=== PATIENT | female | born 1985 | race Caucasian/White ===

== ENCOUNTER 2020-01-17 16:03 | Inpatient (IN) | payer OTHER ==
--- OUTSIDE RECORDS SUMMARY | 2020-01-17 16:05 | XMS REPORT | Continuity of Care Document ---
:1985 Author Organization [facility] t Address [address] [place] [place] [address] Care Team Providers Name Role Phone Nancy Zapata Attending Clinician Lab, Duy Salmon I Attending Clinician Unavailable Problems This patient has no known problems. Allergies, Adverse Reactions, Alerts This patient has no known allergies or adverse reactions. Medications This patient has no known medications. Procedures This patient has no known procedures. Encounters Start End Encounter Admission Attending Care Care Encounter Source Date/Time Date/Time Type Type Clinicians Facility Department ID 2020-01-11 2020-01-11 Telephone STEVE Mi [id number] 00:00:00 00:00:00 Michele EDGE [id number] [facility] [id number] 2020-01-10 2020-01-10 Laboratory Lab, [facility] [id number] 14:21:38 14:41:38 Only Fam Pob I Health [id number] [place] [id number] Cristi [id number] nal [address] 2019-09-10 2019-09-10 Telephone EMMA Mi [id number] 00:00:00 00:00:00 Michele Cruz MACHINE FILLER SERVICER [id number] REGIONAL [id number] MATERNAL [id number] & CHILD 107 [facility] 2019-09-02 2019-09-02 Usama Mi SCLUZ [id number] 00:00:00 00:00:00 Roshunda R MACHINE FILLER SERVICER [id number] REGIONAL [id number] MATERNAL [id number] & CHILD 107 [facility] 2019-08-26 2019-08-26 Usama Mi [facility] [id number] 00:00:00 00:00:00 Roshunda R MACHINE FILLER SERVICER [id number] REGIONAL [id number] MATERNAL [id number] & CHILD 107 [facility] 2019-08-25 2019-08-25 Usama Mi [facility] [id number] 00:00:00 00:00:00 Roshunda R MACHINE FILLER SERVICER [id number] REGIONAL [id number] MATERNAL [id number] & CHILD 107 [facility] 2019-08-24 2019-08-24 Usama Mi [facility] [id number] 00:00:00 00:00:00 Roshunda R MACHINE FILLER SERVICER [id number] REGIONAL [id number] MATERNAL [id number] & CHILD 107 [facility] 2019-03-10 2019-03-10 Emergency E [facility]SE [id number] 15:59:00 15:59:00 [facility] l Results This patient has no known results.
--- OUTSIDE RECORDS SUMMARY | 2020-01-17 16:05 | XMS REPORT | Summary of Care ---
:1985 Author Organization [facility] Address [address] [place] [address] Care Team Providers Name Role Phone Michele Mi Primary Care Provider [facility] Hmo Eleni Sainz Clean [employer] Hel[employer] Banquet (Nurse Practitioner) Reason for Visit Reason Comments Exposure Encounter Details Date Type Department Care Team Description 01/10/2020 Laboratory Only [facility] Family Trev Mendes FNP [address] [place] [id number] Suspected Covid-19 Medicine - [facility], Adc Fam Pob I Virus Infection [address] [place] [address] (Primary D x) [place] [address] Allergies Active Allergy Reactions Severity Noted Date Comments Prednisone Swelling 08/10/2013 documented as of this encounter (statuses as of 01/10/2020) Medications Medication Sig Dispensed Refills Start Date End Date Status losartan 100 mg Take 100 mg by 0 Active tabletIndications: mouth daily. Essential hypertension, benign documented as of this encounter (statuses as of 01/10/2020) Active Problems Patient Care Coordination Note DEL PLAN RPT CS with BTL Desires permanent sterilization postpart um. Bilateral tubal ligation education reviewed. Discussed alternate BCM. Reviewed risk of failure, surgical risk, and ability to decline procedure at anytime p rior to surgery. Discussed as permanent and irreversible procedure. Discussed 30 day waiting period. Consent signed today. 12/18/16 Problem Noted Date Abnormal glandular Papanicolaou smear of cervix 2019 BMI 45.0-49.9, adult 08/20/2019 Screening examination for STD (sexually transmitted di sease) 03/12/2018 History of bilateral tubal ligation 03/12/2018 ASCUS of cervix with negative high risk HPV 07/26/2016 Essential hypertension, benign 02/28/2015 Well woman exam (no gynecological exam) 02/28/2015 Morbid obesity 02/28/2015 History of TIA (transient ischemic attack) 02/28/2015 documented as of this encounter (statuses as of 01/10/2020) Resolved Problems Problem Noted Date Resolved Date Severe depression 05/24/2017 03/12/2018 Vaginal bleeding 04/25/2017 03/12/2018 Retained products of conception after delivery without 04/0803/12/2018 hemorrhage Overview: Added automatically from request for bharathi taco [id number] Previous delivery affecting 03/05/2017 03/12/2018 GDM, class A2 02/12/2017 08/20/2019 Genitourinary infection in , antepartum, third 01/1008/20/2019 trimester GDM, class A1 01/15/2017 02/14/2017 HRP (high risk ), third trimester 01/15/2017 03/12/2018 Diet controlled gestational diabetes mellitus (GDM), antepar goran 01/07/2017 01/29/2017 Backache, unspecified 01/01/2017 03/12/2018 HTN in , chronic 01/01/2017 03/04/2017 Thrombocytopenia affecting 12/19/201608/2017 History of pre-eclampsia in prior , currently 10/0912/23/2016 , second trimester History of maternal Chlamydia infection, currently , 10/09/2016 03/12/2018 unspecified trimester HRP (high risk ), unspecified trimester 10/09/2016 01/29/2017 Tumor of body of uterus affecting , unspecified 07/201603/12/2018 trimester Vaginal yeast infection 10/09/2016 01/29/2017 Abnormal maternal glucose tolerance, antepartum 07/27/2016 01/29/2017 HRP (high risk ), first trimester 07/26/2016 01/29/2017 Previous section complicating x2 JSH 07/1105/01/2017 Overview: ERCS at 39 weeks or per MFM with BTL (co nsents signed 12/18/16) History of gestational diabetes mellitus (GDM) in prior 07/1101/29/2017 , currently History of pre-eclampsia in prior , currently pregn ant 07/26/2016 05/01/2017 History of Peralta's palsy 07/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 Seen by Angie Muñoz for management. ICD10 Diagnosis Term Merchandise Worker Utility Nexplanon in place 01/25/2014 07/11/2014 Rubella immune 01/13/2013 07/11/2014 Chest pain 01/13/2013 01/25/2014 Overview: ICD10 Diagnosis Term Merchandise Worker Utility Chronic hypertension complicating or reason for care during 03/09/2010 01/25/2014 documented as of this encounter (statuses as of 01/10/2020) Immunizations Name Administration Dates Next Due Influenza Virus Vaccine Quad IM 3+ 07/26/2016 (Deferred: Pat ient Refused) YRS PPD (TB) 05/12/2013 Rubella 12/01/2007 TDAP 12/18/2016 Td 06/10/2006 Varicella (varivax)(chicken pox) 12/01/2007 documented as of this encounter Social History Tobacco Use Types Packs/Day Years Used Date Never Smoker Smokeless Tobacco: Never Used Alcohol Use Drinks/Week oz/Week Comments No 0 Standard drinks or equivalent 0.0 Sex Assigned at Date Recorded Not on file COVID-19 Exposure Response Date Recorded In the last month, have you been in contact with Yes 01/10/2020 2:31 PM CDT someone who was confirmed or suspected to have Coronavirus / COVID-19? documented as of this encounter Last Filed Vital Signs Not on filedocumented in this encounter Nursing Notes Geetha Grant LVN - 01/10/2020 3:40 PM CDTRose Guardado is a 34 year old female here for COVID Screening with a Nasopharyngeal Swab All droplet and contact precautions taken with appropriate PPE worn while interacting with patient. ? Goggles ? N95 Mask ? Gloves ? Gown RR 18 Pulse Ox 98% Patient educated on plan of care for visit, swabbing technique, risks and benefits of test and length of time to receive results. Verbal consent obtained to perform test. CDC Fact Sheet for Patients nCoV Diagnostic Panel dated 08/23/2019 and Factsheet What to Do if Sick with COVID 19 08/03/19 provided. Patient swabbed per appropriate nasopharyngeal technique, and patient tolerated well. Patient was discharged from the testing clinic in stable condition. Geetha Grant LVN 01/10/2020 2:32 PM documented in this encounter Plan of Treatment Name Type Priority Associated Diagnoses Order S chedule COVID-19 (PCR MOLECULAR LAB Routine Suspected Covid-1 9 Virus Expected: 01/10/2020, TESTING) Infection Expires: 2020 Health Maintenance Due Date Last Done Comments INFLUENZA VACCINE (#1) 2020 Depression Screening 08/19/2020 08/20/2019 PAP SMEAR 08/19/2022 08/20/2019, 08/20/2019, 04/26/2016, Additional history exists DTaP,Tdap,and Td Vaccines 12/18/2026 12/18/2016, 06/10/2006 (2 - Td) PNEUMOCOCCAL 0-64 YEARS Aged Out No longe r eligible COMBINED SERIES based on patient 's age to complete this topic documented as of this encounter Results Not on filedocumented in this encounter Visit Diagnoses Diagnosis Suspected Covid-19 Virus Infection - [place] documented in this encounter Additional Health Concerns Infection Onset Date Last Indicated Resolved Time COVID-19 Rule Out 01/10/2020 01/10/2020 documented as of this encounter documented as of this encounter Advance Directives Type Date Recorded Patient Beamer Helper Explanati on Advance Directives and Living Will Power of Continuous Improvement Black Belt Name Relationship Healthcare Agent Relationship Co mmunication Clara Gomeseks Sibling Health Care Agent Nilam Love Relative Health Care Agent
--- OUTSIDE RECORDS SUMMARY | 2020-01-17 16:06 | XMS REPORT | Summary of Care ---
:1985 Author Organization [facility] Address [address] [place] [address] Care Team Providers Name Role Phone Michele MiP Primary Care Provider Judy Bernabe [facility] Insurance Hmo Eleni Sainz Restaurant Lead (Nurse Practitioner) Reason for Visit Reason Comments LAB WORK Encounter Details Date Type Department Care Team Description 01/11/2020 Telephone [facility]ESS [facility] Michele Mi FNP LAB WORK [address] [facility] [address] [place] [address] [place], [place] [id number] Allergies Active Allergy Reactions Severity Noted Date Comments Prednisone Swelling 08/10/2013 documented as of this encounter (statuses as of 01/11/2020) Medications Medication Sig Dispensed Refills Start Date End Date Status losartan 100 mg Take 100 mg by 0 Active tabletIndications: mouth daily. Essential hypertension, benign documented as of this encounter (statuses as of 01/11/2020) Active Problems Patient Care Coordination Note DEL [...] as of this encounter (statuses as of 01/11/2020) Resolved Problems Problem Noted Date Resolved Date Severe depression 05/24/2017 03/12/2018 Vaginal bleeding 04/25/2017 03/12/2018 Retained products of conception after delivery without 04/0803/12/2018 hemorrhage Overview: Added automatically from request for bharathi españa [id number] Previous delivery affecting 03/05/2017 03/12/2018 GDM, class [...] 0 02/28/2015 01/15/2017 Overview: ICD10 Diagnosis Term Weeder Thinner Utility Encounter for routine gynecological examination 02/28/2015 01/15/2017 Overview: ICD10 Diagnosis Term Weeder Thinner Utility Encounter for Nexplanon removal 07/11/2014 02/29/20 15 Essential hypertension 01/25/2014 02/28/2015 Overview: On lisinopril. Seen by Angie Muñoz for management. ICD10 Diagnosis Term Weeder Thinner Utility Nexplanon in place 01/25/2014 07/11/2014 Rubella immune 01/13/2013 07/11/2014 Chest pain 01/13/2013 01/25/2014 Overview: ICD10 Diagnosis Term Weeder Thinner Utility Chronic hypertension complicating or reason for care during 03/09/2010 01/25/2014 documented as of this encounter (statuses as of 01/11/2020) Immunizations Name Administration Dates Next Due Influenza [...] Signs Not on filedocumented in this encounter Miscellaneous Notes Telephone Encounter - Lindsay Cormier, NIALL - 01/11/2020 5:11 PM CDTPatient updated. Your COVID 19 testing results were positive. At this time, the COVID 19 virus was detected in your sample. If this is the first time you tested positive for COVID 19, we recommend that you remain in self- quarantine along with those in your immediate household until you have been contacted by your [facility] health department who will work with you on when you may discontinue self- quarantine. In addition, your company's employee health department may have additional requirements for clearance to work. Please work with your [facility] health department to address those requirements. Please follow the advice you received in your After Visit Summary (AVS), the CDC document on what todo if you are sick with COVID and/or the CDC document on the COVID 19 test you received. Please stayinside and preferably in one room. Avoid close contact with your family and neighbors to prevent further spread. Wear a face mask if in the presence of someone else. Do not share household items such as dishes and toiletries. Be sure to clean your space thoroughly and wash your hands frequently. If you have symptoms, most people feel better within 7-14 days. If your symptoms are worsening and you feel very short of breath and you have difficulty performing basic tasks such as walking to the bathroomor preparing food, we would like you to contact the [facility] at [phone] or toll free to talk with a nurse or, if your symptoms are urgent, go to the nearest Emergency Room. Please wear a face mask and call prior to going to a healthcare facility. The local health department will be contacting you soon to follow up. If you are a [facility] or contract employee or student, please refer to this website for more information [email or web address]. If this is not the first positive result you received, please be advised that it is unclear, at thistime, how long the virus remains detectable in samples. It appears it could be weeks before a samplebecomes negative. The date of your first positive test and your current symptoms will determine whenyou may discontinue quarantine. Please work with the [facility] for instructions. For further guidance on when you can expect to discontinue quarantine and return to work, please visit the CDC website: https://www.cdc.gov/coronavirus/2019-ncov/hcp/hdejfsajtgk-lt-zqfh-patients.html. [facility] recommends the symptom-based strategy for those who have symptoms and the time-based strategy for those who do not have symptoms. Repeat testing is not routinely recommended for any reason due to the prolonged detection of the virus in samples without evidence of transmission. General guidance includes release from quarantine when the following conditions are met: ? At least 24 hours have passed since recovery defined as resolution of fever without the use of fever-reducing medications and ? Improvement in symptoms (e.g., cough, shortness of breath); and, ? At least 10 days have passed since symptoms first appeared or the first positive test if symptoms have not developed or worsened since testing, at which point, use date symptoms began. ? Continue to wear a face mask until 14 days have passed since your first test or first symptoms appeared. ? If you experience a worsening of symptoms or recover and then redevelop symptoms, please speak with a provider for further evaluation. Those in your household should remain in quarantine for 14 days to allow time for incubation, or, iftesting positive, should follow the above guidelines for discontinuing quarantine. documented in this encounter Plan of Treatment Health Maintenance Due Date Last Done Comments [...] Results Not on filedocumented in this encounter Additional Health Concerns Infection Onset Date Last Indicated Resolved Time COVID-19 Rule Out 01/10/2020 01/10/202001/1001/11/2020 11: 43 AM CDT COVID-19 Confirmed 01/10/2020 01/10/2020 documented as of this encounter Insurance Payer Benefit Plan / Group Subscriber ID Effective Dates Phone Address Type AETNA [employer] [id number] 2018-Present PPO AETNA AETNA CHOICE POS II [id number] 2019-Present POS documented as of this encounter Advance Directives Type Date Recorded Patient Fiberglass Roving Winder Explanati on Advance Directives and Living Will Power of Heating And Refrigeration Inspector Name Relationship Healthcare Agent Relationship Co mmunication Clara Guardado Sibling Health Care Agent Nilam Love Relative Health Care Agent
[2020-01-17] MEDS ORDERED: ONDANSETRON 4 MG/2 ML VIAL ONE (16:26)
[2020-01-17] MEDS ORDERED: NA CHLORIDE 0.9% 1,000 ML ONE (16:26)
[2020-01-17 16:37] LABS: Basophils % 0.5 % (0-1.3); Lymphocytes % 19.3 % (15.3-44.8); MPV 10.4 fL (7.6-11.3); RBC Red Blood Cell Count 4.69 M/uL (3.86-4.86)
[2020-01-17 16:53] LABS: Potassium 3.4 mmol/L (3.5-5.1)
--- NOTE | 2020-01-17 17:44 | ER ---
Nurse's Notes [facility] Name: Rose Guardado Age: 34 yrs Sex: Female : 1985 Arrival Date: 01/17/2020 Time: 16:04 Bed 5 Private MD: Diagnosis: Coronavirus infection, unspecified;Dehydration;Acute kidney failure Presentation: 01/16 16:04 Chief complaint: Patient states: pt presents via EMS with c/o nausea and coughing; jr10 diagnosed COVID positive last Saturday. Coronavirus screen: Client denies travel out of the [place] in the last 14 days. Client reports previous positive COVID test result. Ebola Screen: No symptoms or risks identified at this time. Initial Sepsis Screen: Does the patient meet any 2 criteria?. Risk Assessment: Do you want to hurt yourself or someone else? Patient reports no desire to harm self or others. Onset of symptoms. 16:04 Method Of Arrival: EMS: [facility] jr10 16:04 Acuity: TATIANA 3 jr10 19:58 Initial Sepsis Screen: Does the patient have a suspected source of infection? Yes: mg2 Productive cough/pneumonia. Triage Assessment: 16:08 General: Appears in no apparent distress. uncomfortable, obese, Behavior is bp cooperative, appropriate for age, anxious. Pain: Denies pain. EENT: Reports nasal congestion. Neuro: No deficits noted. Cardiovascular: No deficits noted. Respiratory: Reports shortness of breath. GI: Reports nausea. : No signs and/or symptoms were reported regarding the genitourinary system. Derm: No deficits noted. Musculoskeletal: No deficits noted. EDUCATIONAL PARAPROFESSIONAL: 16:08 LMP N/A - Irregular menses bp Historical: - Allergies: 16:08 No Known Allergies; bp - Home Meds: 16:35 metoprolol tartrate 25 mg oral tab once daily [Active]; topiramate 25 mg oral CSpX 2 jr10 caps once daily [Active]; spironolactone 25 mg Oral tab once daily [Active]; metformin 500 mg Oral tab 2 times per day [Active]; losartan 100 mg oral tab [Active]; hydrochlorothiazide 12.5 mg Oral cap once daily [Active]; - PMHx: 16:08 Hypertension; bp - Immunization history:: Adult Immunizations up to date. - Social history:: Smoking status: Patient reports the use of cigarette tobacco products, unknown amount. - Family history:: not pertinent. - Hospitalizations: : No recent hospitalization is reported. Screenin:11 Abuse screen: Denies threats or abuse. Denies injuries from another. Nutritional bp screening: No deficits noted. Tuberculosis screening: No symptoms or risk factors identified. Fall Risk None identified. Assessment: 16:11 General: SEE TRIAGE NOTE. GI: Abdomen is non-distended. bp 16:30 General: Appears in no apparent distress. Behavior is calm, cooperative, appropriate jr10 for age. Pain: Complains of pain in chest Pain at worst was 7 out of 10 on a pain scale. Quality of pain is described as aching, Aggravated by coughing. Neuro: No deficits noted. Cardiovascular: Reports chest pain, Capillary refill < 3 seconds Pulses are all present. Edema is absent. Rhythm is sinus rhythm. Respiratory: Reports shortness of breath with cough cough that is dry, Airway is patent Respiratory effort is even, unlabored, Respiratory pattern is regular, symmetrical, Breath sounds are clear bilaterally. the patient has mild shortness of breath. GI: Abdomen is non-distended, Bowel sounds present X 4 quads. Abd is soft and non tender X 4 quads. Reports diarrhea, intolerance of fluids, intolerance of food, nausea, vomiting, since 1 week. : No deficits noted. No signs and/or symptoms were reported regarding the genitourinary system. EENT: No deficits noted. No signs and/or symptoms were reported regarding the EENT system. Derm: No deficits noted. No signs and/or symptoms reported regarding the dermatologic system. Musculoskeletal: No deficits noted. No signs and/or symptoms reported regarding the musculoskeletal system. 19:27 General: Appears in no apparent distress. comfortable, Behavior is calm, cooperative. mg2 Pain: Denies pain. Neuro: Level of Consciousness is awake, alert, obeys commands, Oriented to person, place, time, situation. Cardiovascular: Capillary refill < 3 seconds. Respiratory: Airway is patent Respiratory effort is even, unlabored. Vital Signs: 17:00 BP 87 / 61; Pulse 76; Resp 16; Pulse Ox 98% ; bp 18:24 BP 96 / 69; Pulse 78; Resp 20; Pulse Ox 99% ; jr10 19:26 BP 97 / 61; Pulse 72; Resp 18; Temp 97.6; Pulse Ox 100% on R/A; mg2 ED Course: 16:04 Patient arrived in ED. jr10 16:06 Triage completed. jr10 16:06 Arm band placed on. jr10 16:07 Jaylon Hurtado, RN is Primary Nurse. bp 16:07 Michael Chris MD is Attending Physician. rn 16:11 Patient has correct armband on for positive identification. Bed in low position. Call bp light in reach. Side rails up X2. 16:33 Inserted saline lock: 20 gauge in right antecubital area, using aseptic technique. jr10 ,using aseptic technique. via KJ, PCT Blood collected. IV is patent, is intact, with good blood return, Flushed. 16:44 Primary Nurse role handed off by Jaylon Hurtado RN jr10 16:44 Hannah Bhatia, TENZIN is Primary Nurse. jr10 17:43 Prince Hendrix MD is Hospitalizing Provider. rn 19:27 No provider procedures requiring assistance completed. Patient admitted, IV remains in mg2 place. Administered Medications: 16:29 Drug: Zofran (Ondansetron) 4 mg Route: IVP; Site: right antecubital; jr10 18:25 Follow up: Response: No adverse reaction; Nausea is decreased jr10 16:29 Drug: NS 0.9% 1000 ml Route: IV; Rate: 1000 ml; Site: right antecubital; jr10 19:57 Follow up: Response: No adverse reaction; IV Status: Completed infusion; IV Intake: mg2 1000ml 19:22 Drug: NS 0.9% 500 ml Route: IV; Rate: bolus; Site: right antecubital; mg2 Intake: 19:57 IV: 1000ml; Total: 1000ml. mg2 Outcome: 17:43 Decision to Hospitalize by Provider. rn 19:58 Admitted to ICU accompanied by nurse, via stretcher, room 6, with chart, Report called mg2 to TENZIN Chambers 19:58 Condition: stable 19:58 Instructed on the need for admit, Demonstrated understanding of instructions. 20:33 Patient left the ED. mg2 Signatures: Michael Chris MD MD rn Peltier, Brian, RN RN bp John Gutierrez RN RN mg2 Hannah Bhatia, TENZIN RN jr10 Corrections: (The following items were deleted from the chart) 16:35 16:08 Home Meds: Metoprolol Tartrate Oral; bp jr10 16:35 16:08 Home Meds: Lisinopril Oral; bp jr10 17:42 17:41 BP 87 / 61; Pulse 76bpm; Resp 16bpm; Pulse Ox 98%; bp bp 19:59 19:26 BP 97 / 61; Pulse 72bpm; Resp 18bpm; Pulse Ox 100% RA; mg2 mg2
--- NOTE | 2020-01-17 17:45 | EDPHYS ---
Physician Documentation [facility] Name: Rose Guardado Age: 34 yrs Sex: Female : 1985 Arrival Date: 01/17/2020 Time: 16:04 Bed 5 Private MD: ED Physician Michael Chris HPI: 01/16 16:12 This 34 yrs old Female presents to ER via EMS with complaints of Nausea, rn vomiting, cough, sob. 16:12 The patient presents to the emergency department with nausea, vomiting. Onset: The rn symptoms/episode began/occurred 1 week(s) ago. Possible causes: unknown. The symptoms are aggravated by nothing. The symptoms are alleviated by nothing. Severity of symptoms: At their worst the symptoms were mild in the emergency department the symptoms are unchanged. The patient has not experienced similar symptoms in the past. Reports recently diagnosed with COVID-19, has been sick for about 1 week, reports nausea/vomiting/generalized weakness, + cough and mild sob during coughing fits. No hematemesis. . 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 - Social history:: Smoking status: Patient reports the use of cigarette tobacco products, unknown amount. - Family history:: not pertinent. - Hospitalizations: : No recent hospitalization is reported. 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 Exam: 16:12 Constitutional: This is a well developed, well nourished patient who is awake, alert, rn and in no acute distress. Head/Face: Normocephalic, atraumatic. ENT: No stridor Cardiovascular: Regular rate and rhythm. No pulse deficits. Respiratory: No increased work of breathing, no retractions or nasal flaring. Abdomen/GI: soft, non-tender MS/ Extremity: Pulses equal, no cyanosis. Neurovascular intact. Full, normal range of motion. Equal circumference. Neuro: Awake and alert, GCS 15 Vital Signs: 17:00 BP 87 / 61; Pulse 76; Resp 16; Pulse Ox 98% ; bp 18:24 BP 96 / 69; Pulse 78; Resp 20; Pulse Ox 99% ; jr10 19:26 BP 97 / 61; Pulse 72; Resp 18; Temp 97.6; Pulse Ox 100% on R/A; mg2 MDM: 16:07 Patient medically screened. rn 17:42 Differential diagnosis: viral gastroenteritis, gastroenteritis, viral syndrome, COVID, rn kidney injury, dehydration, pneumonia. Data reviewed: vital signs, nurses notes, lab test result(s), radiologic studies, plain films, and as a result, I will admit patient. Counseling: I had a detailed discussion with the patient and/or guardian regarding: the historical points, exam findings, and any diagnostic results supporting the discharge/admit diagnosis, lab results, radiology results, the need for further work-up and treatment in the hospital. Response to treatment: the patient's symptoms have mildly improved after treatment, and as a result, I will admit patient. Admission orders: after a detailed discussion of the patient's condition and case, the admit orders are written by me. ED course: Pt with clear CXR, + acute kidney injury 2/2 vomiting 2/2 COVID, will admit to hospitalist service. . 01/16 16:10 Order name: Blood Culture Adult (2) rn 01/16 16:10 Order name: BMP rn 01/16 16:10 Order name: CBC with Diff rn 01/16 16:10 Order name: Lactate rn 01/16 16:10 Order name: Procalcitonin rn 08/09 16:41 Order name: CBC with Automated Diff; Complete Time: 17:37 EDMS 01/16 16:10 Order name: CXR XRAY rn 01/16 16:53 Order name: Basic Metabolic Panel; Complete Time: 17:37 EDMS 01/16 16:56 Order name: Lactate; Complete Time: 17:37 EDMS 01/16 17:44 Order name: Procalcitonin; Complete Time: 17:45 EDMS 01/16 18:45 Order name: RAD; Complete Time: 18:57 EDMS 01/16 16:10 Order name: Droplet/Contact Precautions; Complete Time: 16:13 rn 01/16 16:10 Order name: EKG; Complete Time: 16:10 rn 01/16 16:10 Order name: Cardiac monitoring; Complete Time: 16:13 rn 01/16 16:10 Order name: IV Start; Complete Time: 16:29 rn 01/16 16:10 Order name: Labs collected and sent; Complete Time: 16:29 rn 01/16 16:10 Order name: O2 Per Protocol; Complete Time: 16:12 rn 01/16 16:10 Order name: O2 Sat Monitoring; Complete Time: 16:12 rn Administered Medications: 16:29 Drug: Zofran (Ondansetron) 4 mg Route: IVP; Site: right antecubital; jr10 18:25 Follow up: Response: No adverse reaction; Nausea is decreased jr10 16:29 Drug: NS 0.9% 1000 ml Route: IV; Rate: 1000 ml; Site: right antecubital; jr10 19:57 Follow up: Response: No adverse reaction; IV Status: Completed infusion; IV Intake: mg2 1000ml 19:22 Drug: NS 0.9% 500 ml Route: IV; Rate: bolus; Site: right antecubital; mg2 Disposition: 01/17/20 17:43 Hospitalization ordered by Prince Ruma for Inpatient Admission. Preliminary diagnosis are Coronavirus infection, unspecified, Dehydration, Acute kidney failure. - Bed requested for Intensive Care Unit. - Status is Inpatient Admission. mg2 - Condition is Stable. - Problem is new. - Symptoms have improved. Signatures: Dispatcher [employer] EDMS Michael Chris MD MD rn Attema, Lee, ELECTRICAL CONTROLS ENGINEER-C ELECTRICAL CONTROLS ENGINEER-Cla1 Nu Gee RN RN cg Peltier, Brian, RN RN bp Gardose, Michele, RN RN mg2 Hannah Bhatia RN RN jr10 Corrections: (The following items were deleted from the chart) 16:35 16:08 Home Meds: Metoprolol Tartrate Oral; bp jr10 16:35 16:08 Home Meds: Lisinopril Oral; bp jr10 19:33 17:43 Hospitalization Ordered by Prince Ruma HER for Inpatient Admission. Preliminary cg diagnosis is Coronavirus infection, unspecified; Dehydration; Acute kidney failure. Bed requested for Telemetry/MedSurg (Inpatient). Status is Inpatient Admission. Condition is Stable. Problem is new. Symptoms have improved. rn 20:33 19:33 01/17/2020 17:43 Hospitalization Ordered by Prince Ruma HER for Inpatient mg2 Admission. Preliminary diagnosis is Coronavirus infection, unspecified; Dehydration; Acute kidney failure. Bed requested for Intensive Care Unit. Status is Inpatient Admission. Condition is Stable. Problem is new. Symptoms have improved. cg
--- NOTE | 2020-01-17 18:31 | P.HP ---
Certification for Inpatient Patient admitted to: Inpatient With expected LOS: >2 Midnights Patient will require the following post-hospital care: None Practitioner: I am a practitioner with admitting privileges, knowledge of patient current condition, hospital course, and medical plan of care. Services: Services provided to patient in accordance with Admission requirements found in Title 42 Section 412.3 of the Code of Federal Regulations Patient History Date of Service: 01/17/20 Reason for admission: Acute renal failure. COVID 19 History of Present Illness: 34-year-old female with medical history of hypertension presents the emergency department for weakness, nausea vomiting diarrhea, shortness of breath. Patient tested positive for COVID exactly 1 week ago. Patient reports that over the course of the last 5 days she has had a lot of nausea, vomiting, diarrhea, lack of appetite. Patient also reports that she takes losartan and hydrochlorothiazide as well as metoprolol for her blood pressure. Patient also reports that she is seeing a weight loss doctor these prescriber additional medications for weight loss that include metformin, spironolactone, Topamax. During her evaluation in the emergency department patient was found to be hypotensive with the lowest blood pressure being approximately 87/60 and in acute renal failure with a creatinine of 3.31. Patient also short of breath when speaking but okay at rest. Patient is not hypoxic at all. ED provider wishes to admit patient for further evaluation and management. When I saw the patient in the emergency department she was awake, alert, oriented x4. Blood pressure had improved after fluid resuscitation. Patient's blood pressure now in the high 90s or low 100 systolic. Patient not tachycardic or febrile. Patient does not appear septic at this time. Allergies No Known Drug Allergies Allergy (Unverified 05/23/14 00:48) Unknown hydrocodone [Hydrocodone] Adverse Reaction (Intermediate, Verified 12/18/11 23:01) Nausea/Vomiting No Known Allergies Allergy (Uncoded 06/20/17 05:50) Unknown - Past Medical/Surgical History Diabetic: No -: Hypertension -: x4 Psychosocial/ Personal History: Patient lives at home with 3 children. - Family History Family History: Reviewed- Non-Contributory - Social History Smoking Status: Never smoker Alcohol use: No CD- Drugs: No Caffeine use: Yes Place of Residence: Home Review of Systems General: Weakness, Malaise Respiratory: Shortness of Breath Gastrointestinal: Nausea, Vomiting, Other (Anorexia) Physical Examination - Physical Exam General: Alert, In no apparent distress, Oriented x3, Obese HEENT: Atraumatic, Normocephalic, PERRLA, Other (Mucous membranes dry) Neck: Supple Respiratory: Normal air movement, Diminished Cardiovascular: Normal pulses, Regular rate/rhythm Capillary refill: <2 Seconds Gastrointestinal: Normal bowel sounds, Soft and benign Musculoskeletal: No contractures, No erythema, No tenderness Integumentary: No breakdown, No significant lesion, No tenderness/swelling Neurological: Normal speech, Normal strength at 5/5 x4 extr, Normal tone, Sensation intact - Studies Laboratory Data (last 24 hrs) 01/17/20 16:20: WBC 5.4, Hgb 14.1, Hct 41.0, Plt Count 261 01/17/20 16:20: Sodium 139, Potassium 3.4 L, BUN 57 H, Creatinine 3.31 H, Glucose 130 H Assessment and Plan - Plan Assessment Acute kidney injury likely secondary to dehydration in combination with medication Shortness of breath secondary to COVID-19 Hypertension Plan Acute kidney injury likely secondary to dehydration in combination with medication: Nephrology has been consulted on this case. Patient given IV fluids in the emergency department, will be started on maintenance fluids. Will obtain renal ultrasound, uric acid, urine protein/creatinine, urinalysis, CK levels. Will hold all patient's medications including spironolactone, losartan, hydrochlorothiazide, metformin which may be contributed to acute renal failure. DVT prophylaxis with heparin 5000 units subcutaneous twice daily. Anticipate clinical improvement next 48 to 72 hr. Shortness of breath secondary to COVID-19: Patient is short of breath but not hypoxic at this time. Patient is tachypneic especially when speaking. Will continue with math protocol. Solu-Medrol 40 mg b.i.d.. Oral supplements, thiamine 200 mg IV daily. Will continue with daily CRP and ferritin levels. Will consult pulmonology if this becomes necessary. Daily room air saturations and respiratory therapy consult in place. Hypertension: Hold all patient's blood pressure medications at this time as she was initially hypotensive. Maybe adjustments of medications prior to discharge given patient's acute kidney injury. Discharge Plan: Home Plan to discharge in: 48 Hours - Advance Directives Does patient have a Living Will: No Does patient have a Durable POA for Healthcare: No - Code Status/Comfort Care Code Status Assessed: Yes (Patient is full code) Critical Care: No Time Spent Managing Pts Care (In Minutes): 55
--- NOTE | 2020-01-17 18:43 | RAD REPORT ---
EXAM DESCRIPTION: RAD - Chest Single View - 01/17/2020 4:36 pm CLINICAL HISTORY: COUGH Chest pain. COMPARISON: Chest Single View dated 06/20/2017; CHEST SINGLE VIEW dated 07/02/2013; CHEST SINGLE VIEW dated 03/18/2013 FINDINGS: Portable technique limits examination quality. The lungs are grossly clear. The heart is normal in size. No displaced fractures. IMPRESSION: No acute intrathoracic process suspected.
[2020-01-17] MEDS ORDERED: NA CHLORIDE 0.9% 500 ML ONE (19:28)
[2020-01-17] MEDS ORDERED: SODIUM CHLORIDE 0.9% 10ML INJ IV PRN (20:51)
[2020-01-17] MEDS ORDERED: ONDANSETRON 4 MG/2 ML VIAL IV PRN (20:51)
[2020-01-17] MEDS ORDERED: PROMETHAZINE INJ 25 MG/ML AMP IV PRN (20:51)
[2020-01-17] MEDS: NA CHLORIDE 0.9% 1,000 ML IV SCH (21:08)
[2020-01-17] MEDS: MELATONIN 3 MG TABLET PO SCH (21:09)
[2020-01-17] MEDS: HEPARIN 5000 UNIT/ML 1 ML VIAL SQ SCH (21:09)
[2020-01-17] MEDS: ASCORBIC ACID 500 MG TABLET PO SCH (21:09)
[2020-01-17] MEDS: METHYLPREDNISOLONE 40 MG INJ IV SCH (21:09)
[2020-01-17 21:47] LABS: Uric Acid 12.5 mg/dL (2.6-6.0)
[2020-01-17 22:06] VITALS: BMI 42.7
[2020-01-18 05:13] LABS: Urine Appearance CLEAR; Urine Bilirubin NEGATIVE (NEG); Urine Blood NEGATIVE (NEG); Urine Color YELLOW; Urine Glucose NEGATIVE (NEG); Urine Protein TRACE (NEG); Urine Specific Gravity 1.015 (1.005-1.030); Urine Urobilinogen 0.2 mg/dL (0.2-1.0); Urine pH 5.5 (5.0-7.0)
[2020-01-18 05:15] LABS: Urine Microscopic Reflex ORDER UMIC
[2020-01-18 05:17] LABS: Urine Protein/Creatinine Ratio 0.25 ratio (<0.15)
[2020-01-18 05:28] LABS: Absolute Lymphocytes (CBC) 0.7 K/uL (0.7-4.9); Basophils % 0.1 % (0-1.3); Hematocrit 36.3 % (36.0-45.0); Lymphocytes % 19.1 % (15.3-44.8); MPV 10.7 fL (7.6-11.3); RBC Red Blood Cell Count 4.14 M/uL (3.86-4.86)
[2020-01-18 05:47] LABS: C-Reactive Protein 13.8 mg/L (<3.00); Ferritin 1042.9 ng/mL (8-388); Potassium 3.8 mmol/L (3.5-5.1); Thyroid Stimulating Hormone 0.584 uIU/mL (0.360-3.740)
[2020-01-18 06:03] LABS: Urine Amorphous Sediment 2+ /HPF (NONE SEEN); Urine Bacteria <20 /HPF (<20); Urine Culture Reflex Order NOT NEEDED; Urine RBC NONE SEEN /HPF (NONE SEEN)
[2020-01-18] MEDS: NA CHLORIDE 0.9% 1,000 ML IV SCH ×2 (06:25→15:46)
[2020-01-18] MEDS ORDERED: PANTOPRAZOLE 40 MG INJ IVP SCH (09:00)
[2020-01-18] MEDS ORDERED: THIAMINE 200 MG/2 ML INJ IVP SCH (09:00)
[2020-01-18] MEDS: METHYLPREDNISOLONE 40 MG INJ IV SCH (09:00)
[2020-01-18] MEDS: ZINC SULFATE 220 MG CAP PO SCH (09:00)
--- NOTE | 2020-01-18 12:58 | P.PN ---
Subjective Date of Service: 01/18/20 Chief Complaint: Acute renal failure. COVID 19 Subjective: Improving (Patient appears improved.) Physical Examination - Vital Signs Temperature: 98 F Blood Pressure: 99/64 Pulse: 52 Respirations: 18 Pulse Ox (%): 96 - Physical Exam General: Alert, In no apparent distress, Oriented x3, Cooperative HEENT: Atraumatic Neck: Supple Respiratory: Other (Patient not requiring any oxygen) Cardiovascular: Normal pulses, Regular rate/rhythm Gastrointestinal: Normal bowel sounds, Soft and benign, Non-distended, No masses, No rebound, No guarding Neurological: Normal speech, Normal strength at 5/5 x4 extr, Normal tone, Normal affect - Studies Laboratory Data (last 24 hrs) 01/17/20 16:20: WBC 5.4, Hgb 14.1, Hct 41.0, Plt Count 261 01/17/20 16:20: Sodium 139, Potassium 3.4 L, BUN 57 H, Creatinine 3.31 H, Glucose 130 H Medications List Reviewed: Yes Assessment & Plan Discharge Plan: Home Plan to discharge in: 48 Hours Physician Review Additional Text: Assessment Acute kidney injury likely secondary to dehydration in combination with medication Shortness of breath secondary to COVID-19 Hypertension Plan Acute kidney injury likely secondary to dehydration in combination with medication: Patient continues to improve. Will monitor closely. Continue with IV fluids. Continue to hold medications including Aldactone, losartan, hydrochlorothiazide, and metformin due to acute renal failure. Will hold off on getting renal ultrasound at this time due to her current COVID status. Will discuss further with nephrology. Anticipate improvement over the next 48 hr. Shortness of breath secondary to COVID-19: Patient has done well. No need for steroids at this time. Will continue with supplements. Will continue with daily CRP and ferritin levels. Patient off oxygen at this time. Advanced diet as tolerated. Hypertension: Continue to hold blood pressure medication at this time. Monitor blood pressure closely. Time Spent Managing Pts Care (In Minutes): 55
[2020-01-18] MEDS: HEPARIN 5000 UNIT/ML 1 ML VIAL SQ SCH ×2 (13:07→20:18)
[2020-01-18] MEDS: VITAMIN D 1000 UNIT TAB PO SCH (13:08)
[2020-01-18] MEDS: ASCORBIC ACID 500 MG TABLET PO SCH ×3 (13:08→20:18)
[2020-01-18] MEDS: MELATONIN 3 MG TABLET PO SCH (20:18)
[2020-01-19] MEDS: NA CHLORIDE 0.9% 1,000 ML IV SCH ×3 (00:59→12:51)
--- NOTE | 2020-01-19 01:48 | CON ---
Date of Consultation: 01/18/2020 Chief Complaint: Acute kidney injury, severe nonoliguric. Renal function has improved somewhat over last 24 hours. Nephrology consultation is requested for acute kidney injury, abnormal renal functio n test. History Of Present Illness: The patient is a 34-year-old female with past medical history of hyperte nsion. She presented to emergency department for weakness, nausea, vomiting, diarrhea, shortness of breath. The patient was found to have positive COVID test about 1 week ago. The patient reported th at over last few days she developed nausea, vomiting, lack of appetite, and the patient has history o f hypertension. She was taking multiple blood pressure medications including losartan, hydrochloroth iazide, metoprolol. The patient also reported some weight loss. She was taking additional medicatio n for weight loss, metformin, spironolactone, and Topamax. During the evaluation in the emergency ro om, creatinine level was up to 3.31 and she was hypotensive with blood pressure 87/60. She was found to have acute kidney injury. The patient did not have hypoxemia. She is admitted to ICU for manage ment. She is on IV fluids for acute kidney injury. Past Medical History: Hypertension, x4. Social History: Denies tobacco, alcohol, or illicit drugs. Review of Systems: General: Was complaining of malaise, weakness. Respiratory: Shortness of breath. Gastrointestinal: Nausea, vomiting, anorexia. : Denies hematuria, dysuria. Musculoskeletal: She was complaining of generalized muscle aches. Past Medical History: Hypertension, obesity. Physical Examination: General: Not in distress. Lungs: Normal respiratory effort. Cardiovascular: S1, S2. Extremities: No edema. Neurological: Moving extremities. Cranial nerves intact. Laboratory Data: Sodium 139, potassium 3.4, BUN 57, creatinine 3.31, glucose 130. Impression And Plan: 1.Acute kidney injury secondary to volume depletion, hypotension, and severe renal hypoperfusion sec ondary to hypotension. The patient has history of hypertension. She was taking HCTZ and losartan. Acute kidney injury is multifactorial and is due to angiotensin receptor diana, accelerated by volu me depletion. Continue IV fluids. At this point, renal function is improving. CK level was done to rule out rhabdomyolysis. Monitor urinalysis to check for any evidence of nephritis. Otherwise, con tinue IV fluids as tolerated. 2.Shortness of breath due to COVID. The patient was short of breath, but not hypoxemic. The patien t will have Solu-Medrol and thiamine and Pulmonary Service is following the patient. 3.Hypertension. Blood pressure medication on hold. JESUS/ORALIA Voice ID: [id number] Report ID: [id number]
[2020-01-19 05:10] LABS: Absolute Lymphocytes (CBC) 1.2 K/uL (0.7-4.9); Basophils % 0.1 % (0-1.3); Hematocrit 35.4 % (36.0-45.0); MPV 10.5 fL (7.6-11.3); RBC Red Blood Cell Count 4.05 M/uL (3.86-4.86)
[2020-01-19 05:23] LABS: C-Reactive Protein 6.71 mg/L (<3.00); Ferritin 1074.4 ng/mL (8-388); Potassium 3.2 mmol/L (3.5-5.1)
[2020-01-19] MEDS ORDERED: PANTOPRAZOLE 40MG TABLET PO SCH (06:30)
[2020-01-19] MEDS: ASCORBIC ACID 500 MG TABLET PO SCH ×2 (07:27→13:29)
[2020-01-19] MEDS: ZINC SULFATE 220 MG CAP PO SCH (07:27)
[2020-01-19] MEDS: HEPARIN 5000 UNIT/ML 1 ML VIAL SQ SCH (07:28)
[2020-01-19] MEDS: VITAMIN D 1000 UNIT TAB PO SCH (07:28)
[2020-01-19] MEDS ORDERED: THIAMINE HCL 100 MG TABLET PO SCH (09:00)
[2020-01-19] MEDS ORDERED: KCL 20 MEQ/100 mL IVPB 20 MEQ/100 ML BAG IV SCH (09:00)
[2020-01-19] MEDS ORDERED: POTASSIUM CL SA 10 MEQ TAB PO ONE (09:00)
[2020-01-19 09:35] VITALS: O2SAT 98
[2020-01-19 13:03] VITALS: BP 106/64; TEMP 97.5
--- NOTE | 2020-01-19 13:48 | P.PN ---
Subjective Date of Service: 01/19/20 Chief Complaint: Acute renal failure. COVID 19 Subjective: Improving (Patient wishes to advance diet. Patient feels overall improved.) Physical Examination - Vital Signs Temperature: 97.5 F Blood Pressure: 106/64 Pulse: 83 Respirations: 20 Pulse Ox (%): 100 - Physical Exam General: Alert, Cooperative HEENT: Atraumatic Neck: Supple Cardiovascular: Normal pulses Gastrointestinal: No guarding Neurological: Normal speech, Normal strength at 5/5 x4 extr, Normal tone - Studies Medications List Reviewed: Yes Assessment & Plan Discharge Plan: Home Plan to discharge in: 24 Hours Physician Review Additional Text: Assessment Acute kidney injury likely secondary to dehydration in combination with medication Shortness of breath secondary to COVID-19 Hypertension Plan Acute kidney injury likely secondary to dehydration in combination with medication: Patient continues to improve. Renal function also improved. [place] nue with IV fluids. Continue to hold medications-Aldactone, losartan, hydrochlorothiazide, and metformin due to acute renal failure. Will discuss further with nephrology. Encourage ambulation. Will advance diet. Anticipate lab improvement over the next 24 hr. Possible discharge tomorrow if lab closer to baseline. Will discuss with nephrology about recommendations. Shortness of breath secondary to COVID-19: Patient has done well. No need for steroids at this time. Will continue with supplements. Will continue with daily CRP and ferritin levels. Patient off oxygen at this time. Advanced diet as tolerated. Hypertension: Continue to hold blood pressure medication at this time. Monitor blood pressure closely. Time Spent Managing Pts Care (In Minutes): 55
--- NOTE | 2020-01-19 15:13 | P.DS ---
Admission Date: 01/17/20 Discharge Date: 01/19/20 Primary Care Provider: none Disposition: ROUTINE DISCHARGE Discharge Condition: GOOD Reason for Admission: Acute renal failure. COVID 19 Consultations: Nephrology-Dr. Mcghee Procedures: Medical Problem List: Acute kidney injury likely secondary to dehydration and medications Shortness of breath secondary to COVID-19 Hypertension Brief History of Present Illness: 34-year-old female presented to the emergency room with nausea, vomiting and diarrhea. Patient had been diagnosed with COVID 19 about 1 week prior to admission. Patient also takes medication for blood pressure. Patient had been prescribed metformin, Topamax and Aldactone for weight loss. When the patient was evaluated in the emergency room she was found to have acute renal failure. Patient admitted for further evaluation. Patient had no significant respiratory problems. Hospital Course: Patient presented with acute renal injury likely from dehydration, nausea, vomiting, diarrhea and medications. Patient had been taking Aldactone, Topamax and metformin for weight loss. Patient also takes losartan hydrochlorothiazide and metoprolol for hypertension. Patient found to have acute renal failure. Patient was admitted for IV hydration. Patient was seen by nephrology. Her renal function improved off medication. Blood pressure stable without medication at this time. Patient currently tolerating her diet. No more significant nausea vomiting or diarrhea noted. At discharge will recommend to discontinue Aldactone, Topamax, metformin. She is to also hold losartan hydrochlorothiazide and metoprolol. Recommend to increase her oral intake and diet. Recommend to recheck lab-BMP in 1-2 weeks. Patient may follow up with Nephrology in 2-4 weeks to monitor her progress. Patient was diagnosed with COVID 19 about 1 week prior to admission. She mainly had symptoms of nausea and vomiting. No respiratory issues or problems were noted. Patient was initially given steroids. This has been discontinued as the patient is not hypoxic at this time. Patient will continue with CDC guidelines. She will continue with social distancing, face mask use and hand washing. Health department will follow her progress. Patient with history of hypertension. Medications-losartan hydrochlorothiazide and metoprolol currently on hold. Blood pressure well controlled off medication. Will continue to recommend to hold blood pressure medications at discharge. Recommend to monitor blood pressure closely. Patient may not require any medication for blood pressure at this time. Recommend to maintain blood pressure less than 140/90. If blood pressure remains elevated then she will need to get in contact with her PCP to consider restarting medication likely metoprolol 25 mg daily initially. Vital Signs/Physical Exam: Temp Pulse Resp BP Pulse Ox 97.5 F 83 20 106/64 100 01/19/20 13:48 01/19/20 13:48 01/19/20 13:48 01/19/20 13:48 01/19/20 13:48 General: Alert HEENT: Atraumatic Neck: Supple Respiratory: Clear to auscultation bilaterally, Normal air movement Cardiovascular: Normal pulses, Regular rate/rhythm Gastrointestinal: Normal bowel sounds, No rebound, No guarding Neurological: Normal speech, Normal strength at 5/5 x4 extr, Normal tone, Normal affect Laboratory Data at Discharge: WBC 5.7 K/uL (4.3-10.9) D 01/19/20 04:39 Hgb 12.2 g/dL (12.0-15.0) 01/19/20 04:39 Hct 35.4 % (36.0-45.0) L 01/19/20 04:39 Plt Count 213 K/uL (152-406) 01/19/20 04:39 Sodium 143 mmol/L (136-145) 01/19/20 04:39 Potassium 3.2 mmol/L (3.5-5.1) L 01/19/20 04:39 BUN 34 mg/dL (7-18) H 01/19/20 04:39 Creatinine 1.55 mg/dL (0.55-1.3) H 01/19/20 04:39 Glucose 133 mg/dL (74-106) H 01/19/20 04:39 Uric Acid 12.5 mg/dL (2.6-6.0) H 01/17/20 21:12 Patient Discharge Instructions: 1. Recommend follow up with PCP in 1 week to follow up this hospitalization. 2. Patient presented with acute renal injury likely from dehydration, nausea, vomiting, diarrhea and medications. Patient had been taking Aldactone, Topamax and metformin for weight loss. Patient also takes losartan hydrochlorothiazide and metoprolol for hypertension. Patient found to have acute renal failure. Patient was admitted for IV hydration. Patient was seen by nephrology. Her renal function improved off medication. Blood pressure stable without medication at this time. Patient currently tolerating her diet. No more significant nausea vomiting or diarrhea noted. At discharge will recommend to discontinue Aldactone, Topamax, metformin. She is to also hold losartan hydrochlorothiazide and metoprolol. Recommend to increase her oral intake and diet. Recommend to recheck lab-BMP in 1-2 weeks. Patient may follow up with Nephrology in 2-4 weeks to monitor her progress. 3. Patient was diagnosed with COVID 19 about 1 week prior to admission. She mainly had symptoms of nausea and vomiting. No respiratory issues or problems were noted. Patient was initially given steroids. This has been discontinued as the patient is not hypoxic at this time. Patient will continue with CDC guidelines. She will continue with social distancing, face mask use and hand washing. Health department will follow her progress. 4. Patient with history of hypertension. Medications-losartan hydrochlorothiazide and metoprolol currently on hold. Blood pressure well controlled off medication. Will continue to recommend to hold blood pressure medications at discharge. Recommend to monitor blood pre ssure closely. Patient may not require any medication for blood pressure at this time. Recommend to maintain blood pressure less than 140/90. If blood pressure remains elevated then she will need to get in contact with her PCP to consider restarting medication likely metoprolol 25 mg daily initially. Diet: AHA Activity: Ad gabby Time spent managing pt's care (in minutes): 55
--- NOTE | 2020-01-19 19:23 | PN ---
Date of Progress Note: 01/19/2020 Subjective: The patient was admitted with acute kidney injury secondary to prerenal, secondary to de hydration. The patient was started on IV fluid. Kidney function started being improving. The patie nt is feeling better. Physical Examination: Vital Signs: Exam has been done by the nurse because of COVID. Her blood pressure 106/64, pulse of 83, afebrile. The patient had urine output of 2000. Chest: Clear on the right zone. Crackles on the left base. Heart: S1, S2. Regular. Abdomen: Soft, nontender. Extremities: Trace edema. Neurologic: Alert. Nonfocal. Laboratory Data: WBC 5.7, H and H 12.2/35.4, platelets 213. Sodium 143, potassium 3.2, bicarb 26, B UN 34, creatinine 1.5. Current Medications: The patient on include: 1.Promethazine. 2.Zinc sulfate. 3.Zofran. 4.Pantoprazole. Assessment And Plan: 1.Acute kidney injury secondary to prerenal, recovered back to baseline. I am going to go ahead and discontinue IV fluid. 2.Hypokalemia. We will supplement. We will follow up magnesium level. 3.Hypertension with presence of acute kidney injury and low blood pressure. I am going to hold the losartan for the time being. 4.COVID pneumonia as by hospitalist. The patient is cleared from the renal standpoint for discharge planning. TIEN Voice ID: [id number] Report ID: [id number]
== END 2020-01-19 16:10 | disposition home or self-care (01) | DRG 177 ==
LOC: ER 16:03 → 3RD-ICU 18:14
PROVIDERS: ADMIT Internal Medicine; ATTEND Family Medicine
DX: U07.1 COVID-19 (principal); J12.89 Other viral pneumonia; N17.9 Acute kidney failure, unspecified; Z68.41 Body mass index [BMI] 40.0-44.9, adult; E87.6 Hypokalemia; I10 Essential (primary) hypertension; F17.210 Nicotine dependence, cigarettes, uncomplicated; E66.9 Obesity, unspecified; E86.0 Dehydration; Z79.84 Long term (current) use of oral hypoglycemic drugs; Z79.899 Other long term (current) drug therapy
CPT/HCPCS: 36415; 71045; 80048; 81003; 81015; 82550; 82570; 82728; 83605; 84145; 84156; 84439; 84443; 84550; 85025; 86140; 87040; 93005; 96361; 96374; 99285; C9113; J1644; J2405; J2550; J2920; J3411; J3480; J7030; J7040

== ENCOUNTER 2020-10-01 13:26 | Inpatient (IN) | payer BC, OTHER ==
--- OUTSIDE RECORDS SUMMARY | 2020-10-01 13:29 | XMS REPORT | Continuity of Care Document ---
:1985 Author Organization [facility] t Address [address] [place] [address] Care Team Providers Name Role Phone Esteban Johnson DO Attending Clinician Nancy Zapata Attending Clinician Problems This patient has no known problems. Allergies, Adverse Reactions, Alerts This patient has no known allergies or adverse reactions. Medications This patient has no known medications. Procedures This patient has no known procedures. Encounters Start End Encounter Admission Attending Care Care Encounter Source Date/Time Date/Time Type Type Clinicians Facility Department ID 2020-08-29 2020-08-29 Patient EMMA Johnson [id number] 00:00:00 00:00:00 Outreach Zan [facility] [id number] Esteban [facility] [id number] PAVILLION [id number] 2020-03-17 2020-03-17 Telephone EMMA Mi [id number] 00:00:00 00:00:00 Michele Cruz CYTOLOGY TECHNOLOGIST [id number] [facility] [id number] MATERNAL [id number] & CHILD [address] [place] [address] 2020-03-15 2020-03-15 Office EMMA Mi [id number] 10:52:49 11:17:46 Visit Michele Cruz CYTOLOGY TECHNOLOGIST [id number] [facility] [id number] MATERNAL [id number] & CHILD [address] [facility] 2019-03-10 2019-03-10 Emergency E [id number] MH 15:59:00 [facility]:59[facility]00 [facility] Results This patient has no known results.
--- NOTE | 2020-10-01 13:58 | RAD REPORT ---
EXAM DESCRIPTION: CT - Ct Stroke Brain Wo Cont - 10/01/2020 1:54 pm CLINICAL HISTORY: Dizziness;Numbness;Weakness Headache, drowsiness, CVA symptomology COMPARISON: CT-STROKE BRAIN W/O CONTRAST dated 05/22/2014; HEAD BRAIN W O CONTRAST dated 07/02/2013 TECHNIQUE: All CT scans are performed using dose optimization technique as appropriate and may inclu de automated exposure control or mA/KV adjustment according to patient size. FINDINGS: No intracranial hemorrhage, hydrocephalus or extra-axial fluid collection.No areas of brai n edema or evidence of midline shift. Opacification left maxillary antrum is seen. The calvarium is intact. IMPRESSION: No acute intracranial abnormality. The findings were discussed with Dr. Ritter in the ER On 10/01/2020 at 1:51 p.m. by telephone.
[2020-10-01 14:16] LABS: Absolute Lymphocytes (CBC) 2.3 K/uL (0.7-4.9); Basophils % 0.5 % (0-1.3); Hematocrit 41.8 % (36.0-45.0); Lymphocytes % 25.3 % (15.3-44.8); MPV 10.5 fL (7.6-11.3); RBC Red Blood Cell Count 4.68 M/uL (3.86-4.86)
[2020-10-01] MEDS ORDERED: NA CHLORIDE 0.9% 1,000 ML ONE ×2 (14:18→19:06)
[2020-10-01] MEDS ORDERED: FOLIC ACID 5 MG/ML VIAL ONE (14:19)
[2020-10-01 14:20] LABS: Protime INR 1.02
--- NOTE | 2020-10-01 14:23 | EDPHYS ---
Physician Documentation [facility] Name: Rose Guardado Age: 34 yrs Sex: Female : 1985 Arrival Date: 10/01/2020 Time: 13:29 Bed 16 Private MD: ED Physician René Ritter HPI: 10/01 14:13 This 34 yrs old Female presents to ER via Ambulatory with complaints of maggy Facial Droop, High Blood Pressure, Numbness - Hand/Arm. 14:13 The patient presents to the emergency department with paresthesias of the right upper maggy extremity, right side of the face. Onset: The symptoms/episode began/occurred 1 hour(s) ago. Context: occurred at work. Associated signs and symptoms: Pertinent positives: dizziness. Severity of symptoms: At their worst the symptoms were mild in the emergency department the symptoms are unchanged. Patient's baseline: Neuro: alert and fully oriented. Current symptoms: paralysis or paresis, of the face and right arm, that is mild. The patient has experienced a previous episode, approximately 2 years ago. Historical: - Allergies: 13:37 Lisinopril; ss - PMHx: 13:37 Hypertension; TIA; ss - PSHx: 13:37 ; ss - Immunization history:: Flu vaccine is up to date. - Social history:: Smoking status: Patient denies any tobacco usage or history of. - Family history:: not pertinent. ROS: 14:13 Constitutional: Negative for fever, chills, and weight loss, Eyes: Negative for injury, maggy pain, redness, and discharge, ENT: Negative for injury, pain, and discharge, Neck: Negative for injury, pain, and swelling, Cardiovascular: Negative for chest pain, palpitations, and edema, Respiratory: Negative for shortness of breath, cough, wheezing, and pleuritic chest pain, Abdomen/GI: Negative for abdominal pain, nausea, vomiting, diarrhea, and constipation, Back: Negative for injury and pain, : Negative for injury, bleeding, discharge, and swelling, MS/Extremity: Negative for injury and deformity, Skin: Negative for injury, rash, and discoloration, Psych: Negative for depression, anxiety, suicide ideation, homicidal ideation, and hallucinations, Allergy/Immunology: Negative for hives, rash, and allergies, Endocrine: Negative for neck swelling, polydipsia, polyuria, polyphagia, and marked weight changes, Hematologic/Lymphatic: Negative for swollen nodes, abnormal bleeding, and unusual bruising. 14:13 Neuro: Positive for numbness, of the face and right arm. Exam: 14:13 Constitutional: This is a well developed, well nourished patient who is awake, alert, maggy and in no acute distress. Head/Face: Normocephalic, atraumatic. Eyes: Pupils equal round and reactive to light, extra-ocular motions intact. Lids and lashes normal. Conjunctiva and sclera are non-icteric and not injected. Cornea within normal limits. Periorbital areas with no swelling, redness, or edema. ENT: Nares patent. No nasal discharge, no septal abnormalities noted. Tympanic membranes are normal and external auditory canals are clear. Oropharynx with no redness, swelling, or masses, exudates, or evidence of obstruction, uvula midline. Mucous membranes moist. Neck: Trachea midline, no thyromegaly or masses palpated, and no cervical lymphadenopathy. Supple, full range of motion without nuchal rigidity, or vertebral point tenderness. No Meningismus. Chest/axilla: Normal chest wall appearance and motion. Nontender with no deformity. No lesions are appreciated. Cardiovascular: Regular rate and rhythm with a normal S1 and S2. No gallops, murmurs, or rubs. Normal PMI, no JVD. No pulse deficits. Respiratory: Lungs have equal breath sounds bilaterally, clear to auscultation and percussion. No rales, rhonchi or wheezes noted. No increased work of breathing, no retractions or nasal flaring. Abdomen/GI: Soft, non-tender, with normal bowel sounds. No distension or tympany. No guarding or rebound. No evidence of tenderness throughout. Back: No spinal tenderness. No costovertebral tenderness. Full range of motion. Skin: Warm, dry with normal turgor. Normal color with no rashes, no lesions, and no evidence of cellulitis. MS/ Extremity: Pulses equal, no cyanosis. Neurovascular intact. Full, normal range of motion. Psych: Awake, alert, with orientation to person, place and time. Behavior, mood, and affect are within normal limits. 14:13 Neuro: Orientation: is normal, appropriate for stated age, no acute changes, Mentation: is normal, appropriate for stated age, no acute changes, responsive to voice able to follow commands, Memory: is normal, appropriate for stated age, no acute changes, Cranial nerves: grossly normal, is grossly normal based on the patient's age, no acute changes, Decreased sensation on forehead, right eye, right cheek and right jaw, Cerebellar function: is grossly normal, is grossly normal based on the patient's age, no acute changes, Motor: is normal, is grossly normal based on the patient's age, no acute changes, moves all fours, strength is 5/5 in all extremities, Gait: is steady, appropriate for age, Deep tendon reflexes are 2+ (normal) in the bilateral brachioradialis, bicep, tricep and patellar and Achilles tendons, Babinski testing is normal, seizure activity, is not displayed by the patient. 14:29 ECG was reviewed by the Attending Physician. [facility] Vital Signs: 13:33 BP 143 / 75; Pulse 87; Resp 17; Temp 98.3; Pulse Ox 96% ; Weight 117.93 kg; Height 5 ss ft. 3 in. (160.02 cm); Pain 7/10; 13:33 Body Mass Index 46.06 (117.93 kg, 160.02 cm) ss NIH Stroke Scale Scores: 13:58 NIHSS Score: 1 ss MDM: 13:42 Patient medically screened. [facility] 14:19 Data reviewed: vital signs, nurses notes, lab test result(s), EKG, radiologic studies, maggy CT scan, plain films. Data interpreted: phototypesetting equipment monitor: Pulse oximetry: on is 96 %. Test interpretation: by ED physician or midlevel provider: ECG, plain radiologic studies. Counseling: I had a detailed discussion with the patient and/or guardian regarding: the historical points, exam findings, and any diagnostic results supporting the discharge/admit diagnosis, lab results, radiology results, the need for further work-up and treatment in the hospital. 14:32 Physician consultation: Raul Aguilar MD and will see patient in inpatient room, give maggy tpa, dr veronika barr. 10/01 13:46 Order name: Basic Metabolic Panel; Complete Time: 15: [facility] 10/01 13:46 Order name: CBC with Diff; Complete Time: 15: [facility] 10/01 13:46 Order name: LFT's; Complete Time: 15:05 [facility] 10/01 13:46 Order name: Magnesium; Complete Time: 15:05 [facility] 10/01 13:46 Order name: NT PRO-BNP; Complete Time: 15:05 [facility] 10/01 13:46 Order name: PT-INR; Complete Time: 15:05 [facility] 10/01 13:46 Order name: Troponin (emerg Dept Use Only); Complete Time: 15:05 [facility] 10/01 13:46 Order name: Sed Rate; Complete Time: 15:05 [facility] 10/01 13:46 Order name: CRP; Complete Time: 15:05 [facility] 10/01 15:08 Order name: Urine Dipstick-Ancillary; Complete Time: 16:14 [facility] 10/01 15:09 Order name: Urine --Ancillary (enter results) 10/01 15:09 Order name: Urine --Ancillary; Complete Time: 16:14 [facility] 10/01 17:21 Order name: COVID-19 : Document "Date of Symptom Onset" if Symptomatic. 10/01 18:43 Order name: CORONAVIRUS [facility] 10/01 18:55 Order name: Glucose, Ancillary Testing [facility] 10/01 19:23 Order name: SARS-COV-2 RT PCR [facility] 10/02 11:54 Order name: RPR [facility] 10/02 12:09 Order name: CBC with Automated Diff [facility] 10/02 12:10 Order name: Protime (+INR) [facility] 10/02 12:23 Order name: Vitamin D, 25 ([place]), TOTAL [facility] 10/02 12:40 Order name: Type and Screen [facility] 10/02 12:40 Order name: Comprehensive Metabolic Panel [facility] 10/02 12:40 Order name: Phosphorus [facility] 10/02 12:40 Order name: Troponin I [facility] 10/02 12:40 Order name: Lipid Profile [facility] 10/02 12:40 Order name: Magnesium ED[facility] 10/02 12:40 Order name: Thyroid Stimulating Hormone ED[facility] 10/02 12:40 Order name: Folic Acid, (Folate) ED[facility] 10/02 12:40 Order name: Vitamin B12 Level [facility] 10/02 12:50 Order name: Miscellaneous Test Lab [facility] 10/01 13:46 Order name: XRAY Chest (1 view); Complete Time: 16:14 [facility] 10/01 13:46 Order name: EKG; Complete Time: 13:47 10/01 13:46 Order name: Cardiac monitoring; Complete Time: 14:16 [facility] 10/01 13:46 Order name: EKG - Nurse/Tech; Complete Time: 14:16 [facility] 10/01 13:46 Order name: IV Saline Lock; Complete Time: 14:16 10/01 13:46 Order name: Labs collected and sent; Complete Time: 14:16 [facility] 10/01 13:46 Order name: O2 Per Protocol; Complete Time: 14:16 [facility] 10/01 13:46 Order name: O2 Sat Monitoring; Complete Time: 14:16 [facility] 10/01 13:46 Order name: CT Stroke Brain w/o Contrast; Complete Time: 15:05 [facility] 10/01 13:47 Order name: Urine Dipstick-Ancillary (obtain specimen); Complete Time: 17:04 [facility] 10/01 13:47 Order name: Urine Test (obtain specimen); Complete Time: 17:04 [facility] 10/01 14:13 Order name: CT Head Angio; Complete Time: 16:14 [facility] 10/01 14:13 Order name: Neck Angio; Complete Time: 16:14 [facility] 10/02 12:00 Order name: CT EDMS 10/02 13:23 Order name: CBC Smear Scan [facility] 10/02 18:01 Order name: Troponin I EDMS EC:29 Rate is 79 beats/min. Rhythm is regular. QRS [place] is Normal. NV interval is normal. QRS maggy interval is normal. QT interval is normal. No Q waves. T waves are Normal. No ST changes noted. Clinical impression: Normal ECG and No evidence of ischemia. Interpreted by me. Reviewed by me. Administered Medications: 14:15 Drug: NS 0.9% 1000 ml Route: IV; Rate: 1 bolus; Site: left antecubital; vg1 18:21 Follow up: IV Status: Completed infusion; IV Intake: 1000ml vg1 14:15 Drug: foLIC Acid 1 mg Route: IVPB; Site: left antecubital; vg1 18:21 Follow up: IV Status: Completed infusion vg1 18:22 Follow up: Response: No adverse reaction vg1 14:35 Drug: Aspirin Chewable Tablet 81 mg Route: PO; vg1 18:20 Follow up: Response: No adverse reaction vg1 15:10 Drug: ACTIvase (alteplase) {Co-Signature: ss (Hattie Tolentino RN).} Route: IV vg1 Thrombolytics; Rate: calculated rate; Infused Over: 60 mins; 18:20 Follow up: Response: No adverse reaction vg1 16:41 Drug: Potassium Effervescent Tablet 50 mEq Route: PO; vg1 18:21 Follow up: Response: No adverse reaction vg1 17:25 Drug: Rocephin (cefTRIAXone) 1 grams Route: IV; Rate: per protocol; Site: right vg1 antecubital; 18:21 Follow up: Response: No adverse reaction; IV Status: Completed infusion vg1 17:25 Drug: Magnesium Sulfate 1 grams Route: IVPB; Infused Over: 1 hrs; Site: left vg1 antecubital; 18:20 Follow up: IV Status: Completed infusion; IV Intake: 100ml vg1 Disposition: 10/01/20 14:23 Hospitalization ordered by Agustín Boudreaux for Inpatient Admission. Preliminary diagnosis are Acute sinusitis, Transient cerebral ischemic attack, unspecified - right face and arm numbness, Hypomagnesemia, Hypokalemia, Essential (primary) hypertension, Obesity, unspecified. - Bed requested for Telemetry/MedSurg (Inpatient). - Status is Inpatient Admission. dw - Condition is Stable. - Problem is new. - Symptoms have improved. NIH Stroke Scale - NIH Stroke Score Date: 10/01/2020 Time: 13:58 Total Score = 1 1a. Level of Consciousness (LOC) - 0(Alert) 1b. Level of Consciousness (LOC) (Year \\T\\ Age) - 0(Both) 1c. LOC Commands (Open \\T\\ Closes Eyes/Negative Turner) - 0(Both) 2. Best Gaze (Lateral Gaze Paresis) - 0(Normal) 3. Visual Field Loss - 0(No visual loss) 4. Facial Palsy - 0(Normal) 5a. Left Arm: Motor (10-second hold) - 0(No drift) 5b. Right Arm: Motor (10-second hold) - 0(No drift) 6a. Left Leg: Motor (5-second hold - always test supine) - 0(No drift) 6b. Right Leg: Motor (5-second hold - always test supine) - 0(No drift) 7. Limb Ataxia (finger/nose \\T\\ heel/garcia - test with eyes open) - 0(Absent) 8. Sensory Loss (pinprick arms/legs/face) - 1(Mild to moderate loss) 9. Best Language: Aphasia (description/naming/reading) - 0(No aphasia) 10. Dysarthria (speech clarity - read or repeat words) - 0(Normal) 11. Extinction and Inattention (visual/tactile/auditory/spatial/personal) - 0(No abnormality) Initials: ss Signatures: Dispatcher [employer] Kayy Bowden RN RN dw Anderson, Corey, MD MD cha Smirch, Shelby, RN RN ss Lenora Gee RN RN vg1 Hattie Tolentino RN ss Corrections: (The following items were deleted from the chart) 14:32 14:23 Hospitalization Ordered by Mayelin Painting MD for Inpatient Admission. [facility] Preliminary diagnosis is Transient cerebral ischemic attack, unspecified - right face and arm numbness. Bed requested for Telemetry/MedSurg (Inpatient). Status is Inpatient Admission. Condition is Stable. Problem is new. Symptoms have improved. maggy 15:08 14:32 10/01/2020 14:23 Hospitalization Ordered by Agustín Boudreaux for Inpatient maggy Admission. Preliminary diagnosis is Transient cerebral ischemic attack, unspecified - right face and arm numbness. Bed requested for Telemetry/MedSurg (Inpatient). Status is Inpatient Admission. Condition is Stable. Problem is new. Symptoms have improved. maggy 15:12 15:08 10/01/2020 14:23 Hospitalization Ordered by Agustín Boudreaux for Inpatient maggy Admission. Preliminary diagnosis is Transient cerebral ischemic attack, unspecified - right face and arm numbness; Acute sinusitis; Hypomagnesemia; Hypokalemia; Essential (primary) hypertension; Obesity, unspecified. Bed requested for Telemetry/MedSurg (Inpatient). Status is Inpatient Admission. Condition is Stable. Problem is new. Symptoms have improved. maggy 19:28 15:12 10/01/2020 14:23 Hospitalization Ordered by Agustín Boudreaux for Inpatient dw Admission. Preliminary diagnosis is Acute sinusitisTransient cerebral ischemic attack, unspecified - right face and arm numbness; Hypomagnesemia; Hypokalemia; Essential (primary) hypertension; Obesity, unspecified. Bed requested for Telemetry/MedSurg (Inpatient). Status is Inpatient Admission. Condition is Stable. Problem is new. Symptoms have improved. maggy 10/02 18:03 04/24 19:28 10/01/2020 14:23 Hospitalization Ordered by Agustín Boudreaux for Inpatient Admission. Preliminary diagnosis is Acute sinusitisTransient cerebral ischemic attack, unspecified - right face and arm numbness; Hypomagnesemia; Hypokalemia; Essential (primary) hypertension; Obesity, unspecified. Bed requested for [facility] ER HOLD. Status is Inpatient Admission. Condition is Stable. Problem is new. Symptoms have improved. 10/02 21:27 18:03 10/01/2020 14:23 Hospitalization Ordered by Agustín Boudreaux for Inpatient dw Admission. Preliminary diagnosis is Acute sinusitisTransient cerebral ischemic attack, unspecified - right face and arm numbness; Hypomagnesemia; Hypokalemia; Essential (primary) hypertension; Obesity, unspecified. Bed requested for Telemetry/MedSurg (Inpatient). Status is Inpatient Admission. Condition is Stable. Problem is new. Symptoms have improved.
--- NOTE | 2020-10-01 14:23 | ER ---
Nurse's Notes [facility] Name: Rose Guardado Age: 34 yrs Sex: Female : 1985 Arrival Date: 10/01/2020 Time: 13:29 Bed 16 Private MD: Diagnosis: Transient cerebral ischemic attack, unspecified-right face and arm numbness;Acute sinusitis;Hypomagnesemia;Hypokalemia;Essential (primary) hypertension;Obesity, unspecified Presentation: 10/01 13:33 Chief complaint: Patient states: High BP all week, taking meds as prescirbed. 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 Coronavirus screen: Client denies travel out of the [place] in the last 14 days. At this time, the client does not indicate any symptoms associated with coronavirus-19. Ebola Screen: Patient denies travel to an Ebola-affected area in the 21 days before illness onset. Initial Sepsis Screen: Does the patient meet any 2 criteria? No. Patient's initial sepsis screen is negative. Does the patient have a suspected source of infection? No. Patient's initial sepsis screen is negative. Risk Assessment: Do you want to hurt yourself or someone else? Patient reports no desire to harm self or others. Onset of symptoms was October 01, 2020. 13:33 Method Of Arrival: Ambulatory ss 13:33 Acuity: TATIANA 2 ss Historical: - Allergies: 13:37 Lisinopril; ss - PMHx: 13:37 Hypertension; TIA; ss - PSHx: 13:37 ; ss - Immunization history:: Flu vaccine is up to date. - Social history:: Smoking status: Patient denies any tobacco usage or history of. - Family history:: not pertinent. Screenin:58 Abuse screen: Denies threats or abuse. Denies injuries from another. Nutritional ss screening: No deficits noted. Tuberculosis screening: Never had TB. Fall Risk None identified. Assessment: 13:58 VAN Scoring: Arm Drift: Patients demonstrates NO arm weakness. Patient is VAN Negative. ss Visual Disturbance: No visual disturbance noted. Aphasia: No aphasia noted. Neglect: No neglect noted. 14:00 General: Appears in no apparent distress. comfortable, Behavior is calm, cooperative. vg1 Pain: Denies pain. Neuro: Level of Consciousness is awake, alert, obeys commands, Oriented to person, place, time, situation. Neuro: Reports numbness Right side of face, right arm and right hand. Cardiovascular: Patient's skin is warm and dry. Respiratory: Airway is patent Respiratory effort is even, unlabored. GI: No signs and/or symptoms were reported involving the gastrointestinal system. : No signs and/or symptoms were reported regarding the genitourinary system. EENT: No signs and/or symptoms were reported regarding the EENT system. Derm: Skin is intact, is healthy with good turgor. Musculoskeletal: Circulation, motion, and sensation intact. 15:10 Reassessment: tPA infusion began. vg1 15:55 Reassessment: Pt states facial numbness has 'subsided' but stated 'Right hand still vg1 feels numb'. Blood noted on pts gum line. Provider notified. 16:05 Reassessment: Dr Boudreaux at bedside. vg1 16:30 Reassessment: Please refer to IV tPA sign and neurological flowsheet. vg1 Vital Signs: 13:33 BP 143 / 75; Pulse 87; Resp 17; Temp 98.3; Pulse Ox 96% ; Weight 117.93 kg; Height 5 ss ft. 3 in. (160.02 cm); Pain 7/10; 13:33 Body Mass Index 46.06 (117.93 kg, 160.02 cm) ss NIH Stroke Scale Scores: 13:58 NIHSS Score: 1 ss ED Course: 13:29 Patient arrived in ED. ds1 13:36 Triage completed. ss 13:37 Arm band placed on. ss 13:42 René Ritter MD is Attending Physician. maggy 13:53 CT Stroke Brain w/o Contrast In Process Unspecified. EDMS 13:57 Inserted saline lock: 20 gauge in left antecubital area, using aseptic technique. Blood ss collected. Patient maintains SpO2 saturation greater than 95% on room air. 13:58 Lenora Gee, RN is Primary Nurse. vg1 13:58 Patient has correct armband on for positive identification. Placed in gown. Bed in low ss position. Call light in reach. Side rails up X2. nuclear monitoring technician on. Pulse ox on. NIBP on. Warm blanket given. 14:20 Mayelin Painting MD is Hospitalizing Provider. maggy 14:30 Inserted saline lock: 20 gauge in right antecubital area, using aseptic technique. vg1 14:32 Agustín Boudreaux is Hospitalizing Provider. maggy 14:35 XRAY Chest (1 view) In Process Unspecified. EDMS 14:58 CT Head Angio In Process Unspecified. EDMS 14:58 Neck Angio In Process Unspecified. EDMS 22:16 CORONAVIRUS Sent. sf 22:16 COVID-19 : Document "Date of Symptom Onset" if Symptomatic. Sent. sf 22:16 Urine --Ancillary (enter results) Sent. 10/02 07:13 Primary Nurse role handed off by Lenora Gee, TENZIN eb Administered Medications: 10/01 14:15 Drug: NS 0.9% 1000 ml Route: IV; Rate: 1 bolus; Site: left antecubital; vg1 18:21 Follow up: IV Status: Completed infusion; IV Intake: 1000ml vg1 14:15 Drug: foLIC Acid 1 mg Route: IVPB; Site: left antecubital; vg1 18:21 Follow up: IV Status: Completed infusion vg1 18:22 Follow up: Response: No adverse reaction vg1 14:35 Drug: Aspirin Chewable Tablet 81 mg Route: PO; vg1 18:20 Follow up: Response: No adverse reaction vg1 15:10 Drug: ACTIvase (alteplase) {Co-Signature: ss (Hattie Tolentino RN).} Route: IV vg1 Thrombolytics; Rate: calculated rate; Infused Over: 60 mins; 18:20 Follow up: Response: No adverse reaction vg1 16:41 Drug: Potassium Effervescent Tablet 50 mEq Route: PO; vg1 18:21 Follow up: Response: No adverse reaction vg1 17:25 Drug: Rocephin (cefTRIAXone) 1 grams Route: IV; Rate: per protocol; Site: right vg1 antecubital; 18:21 Follow up: Response: No adverse reaction; IV Status: Completed infusion vg1 17:25 Drug: Magnesium Sulfate 1 grams Route: IVPB; Infused Over: 1 hrs; Site: left vg1 antecubital; 18:20 Follow up: IV Status: Completed infusion; IV Intake: 100ml vg1 Intake: 18:20 IV: 100ml; Total: 100ml. vg1 18:21 IV: 1000ml; Total: 1100ml. vg1 Outcome: 14:23 Decision to Hospitalize by Provider. maggy 18:22 Admitted to ER Hold. Please see [facility] for further documentation. vg1 10/02 21:27 Patient left the ED. NIH Stroke Scale - NIH Stroke Score Date: 10/01/2020 Time: 13:58 Total Score = 1 1a. Level of Consciousness (LOC) - 0(Alert) 1b. Level of Consciousness (LOC) (Year \\T\\ Age) - 0(Both) 1c. LOC Commands (Open \\T\\ Closes Eyes/Agricultural Engineering Technicians) - 0(Both) 2. Best Gaze (Lateral Gaze Paresis) - 0(Normal) 3. Visual Field Loss - 0(No visual loss) 4. Facial Palsy - 0(Normal) 5a. Left Arm: Motor (10-second hold) - 0(No drift) 5b. Right Arm: Motor (10-second hold) - 0(No drift) 6a. Left Leg: Motor (5-second hold - always test supine) - 0(No drift) 6b. Right Leg: Motor (5-second hold - always test supine) - 0(No drift) 7. Limb Ataxia (finger/nose \\T\\ heel/garcia - test with eyes open) - 0(Absent) 8. Sensory Loss (pinprick arms/legs/face) - 1(Mild to moderate loss) 9. Best Language: Aphasia (description/naming/reading) - 0(No aphasia) 10. Dysarthria (speech clarity - read or repeat words) - 0(Normal) 11. Extinction and Inattention (visual/tactile/auditory/spatial/personal) - 0(No abnormality) Initials: ss Signatures: Dispatcher [employer] Kayy Bowden RN RN dw Anderson, Corey, MD MD cha Sanford, Demi ds1 Hattie Tolentino RN RN Lisset Kim Victoria, RN RN [facility] Gordy Connell RN RN Hattie Tolentino RN Corrections: (The following items were deleted from the chart) 10/01 13:39 13:33 Acuity: TATIANA 3 ss 16:23 16:22 Reassessment: tPA infusion began vg1 vg1 16:26 15:55 Reassessment: Pt states facial numbness has 'subsided' but stated 'Right vg1 hand still feels numb' vg1
[2020-10-01 14:34] LABS: ALT/SGPT 64 U/L (12-78); AST/SGOT 48 U/L (15-37); Albumin 3.9 g/dL (3.4-5.0); Alkaline Phosphatase 53 U/L (45-117); BUN Blood Urea Nitrogen 15 mg/dL (7-18); Bicarbonate 23 mmol/L (21-32); Bilirubin Direct 0.2 mg/dL (0-0.2); Bilirubin Total 0.8 mg/dL (0.2-1.0); C-Reactive Protein 8.25 mg/L (<3.00); Glucose Level 128 mg/dL (74-106); Magnesium 1.7 mg/dL (1.8-2.4); NT PRO-BNP 25 pg/mL (<125); Potassium 3.4 mmol/L (3.5-5.1); Protein, Total 7.6 g/dL (6.4-8.2); Sodium Level 140 mmol/L (136-145); Troponin (Emerg Dept Use Only) < 0.02 ng/mL (0.0-0.045)
[2020-10-01] MEDS ORDERED: ALTEPLASE 100 ML IV ONE (14:43)
[2020-10-01] MEDS ORDERED: NA CHLORIDE 0.9% 250 ML ONE (14:43)
[2020-10-01] MEDS ORDERED: ASPIRIN 81 MG CHEWABLE TABLET ONE (14:47)
[2020-10-01 15:09] LABS: Urine Blood Negative (Negative); Urine Glucose Negative (Negative); Urine Protein Negative (Negative)
--- NOTE | 2020-10-01 15:11 | RAD REPORT ---
EXAM DESCRIPTION: CT - Head angio - 10/01/2020 2:58 pm CLINICAL HISTORY: TIA;Weakness;Numbness Headache, drowsiness, CVA symptomology COMPARISON: Ct Stroke Brain Wo Cont dated 10/01/2020; CT-STROKE BRAIN W/O CONTRAST dated 05/22/2014 TECHNIQUE: CT angiography of the head was performed with MIPs. All CT scans are performed using dose optimization technique as appropriate and may include automated exposure control or mA/KV adjustment according to patient size. FINDINGS: No evidence of aneurysm is detected. No flow-limiting stenosis or vascular malformation id entified. Antegrade flow is seen in the vertebral arteries. The vertebral arteries are codominant. The visualized dural venous sinuses are patent. IMPRESSION: No significant flow abnormality is detected.
--- NOTE | 2020-10-01 15:15 | RAD REPORT ---
EXAM DESCRIPTION: CT - Neck Angio - 10/01/2020 2:58 pm CLINICAL HISTORY: possible stroke Headache, drowsiness, CVA symptomology COMPARISON: No comparisons TECHNIQUE: CT angiography of the neck vessels was performed with MIPs. All CT scans are performed using dose optimization technique as appropriate and may include automated exposure control or mA/KV adjustment according to patient size. FINDINGS: A left aortic arch is identified with normal three vessel configuration of the great vesse ls. No significant flow abnormality is seen of the common carotid bilaterally. No significant stenosis is identified involving the cervical segments of both internal carotid arteri es. Normal flow is seen within both vertebral arteries. IMPRESSION: No significant flow abnormality of the neck vessels is identified.
--- NOTE | 2020-10-01 15:17 | RAD REPORT ---
EXAM DESCRIPTION: RAD - Chest Single View - 10/01/2020 2:35 pm CLINICAL HISTORY: COUGH Chest pain. COMPARISON: Chest Single View dated 01/17/2020; CHEST SINGLE VIEW dated 07/02/2013 FINDINGS: Portable technique limits examination quality. The lungs are grossly clear. The heart is normal in size. No displaced fractures. IMPRESSION: No acute intrathoracic process suspected.
[2020-10-01] MEDS ORDERED: POTASSIUM 25 MEQ EFFERV TAB ONE (16:50)
[2020-10-01] MEDS ORDERED: CEFTRIAXONE/SWI 1gm 1 GM/10 ML SYR ONE (16:50)
[2020-10-01] MEDS ORDERED: MAGNESIUM SULFATE 1 gm IVPB 1 GM/100 ML BAG IV ONE (16:53)
--- NOTE | 2020-10-01 17:15 | P.HP ---
Certification for Inpatient Patient admitted to: Inpatient With expected LOS: >2 Midnights Practitioner: I am a practitioner with admitting privileges, knowledge of patient current condition, hospital course, and medical plan of care. Services: Services provided to patient in accordance with Admission requirements found in Title 42 Section 412.3 of the Code of Federal Regulations Patient History Date of Service: 10/01/20 Reason for admission: Right sided numbness History of Present Illness: 34-year-old morbidly obese woman with a past medical history of hypertension, hospitalized last year for COVID pneumonia and hypotension presented to the emergency department with a complaint of sudden onset numbness in the right face and right upper extremity. Patient denied any visual changes. She denied any limb weakness. She denied any speech or swallow problems. CT head done in the emergency department did not show any acute stroke. Patient presented within the window for TPA. NIHSS the ED provider was 1. Neurology was consulted, CTA head and neck done which are unremarkable. Patient seen after TPA has been administered. She has a history of Peralta's palsy with left facial droop. Patient admitted to the ICU for further management. Allergies No Known Drug Allergies Allergy (Verified 01/17/20 21:07) Unknown - Past Medical/Surgical History Diabetic: No -: Hypertension -: x4 Psychosocial/ Personal History: Patient lives at home with 3 children. - Family History Mother -: Diabetes - Social History Smoking Status: Never smoker Alcohol use: No CD- Drugs: No Caffeine use: Yes Review of Systems Other: Except as documented, all other systems reviewed and negative. Physical Examination - Physical Exam General: Alert, In no apparent distress, Oriented x3 HEENT: Atraumatic, Normocephalic, PERRLA, Other (Gum bleeding noted), EOMI, Sclerae nonicteric Neck: Supple, JVD not distended, No Thyromegaly Respiratory: Clear to auscultation bilaterally, Normal air movement Cardiovascular: No edema, Regular rate/rhythm, Normal S1 S2 Capillary refill: <2 Seconds Gastrointestinal: Normal bowel sounds, Soft and benign, Non-distended, No tenderness Musculoskeletal: No swelling, No tenderness Integumentary: No rashes, No erythema Neurological: Normal speech, Normal strength at 5/5 x4 extr, Cranial nerves 3-12 intact - Studies Laboratory Data (last 24 hrs) 10/01/20 14:03: PT 11.7, INR 1.02 10/01/20 14:03: WBC 9.10, Hgb 14.3, Hct 41.8, Plt Count 199 10/01/20 14:03: Sodium 140, Potassium 3.4 L, BUN 15, Creatinine 1.03, Glucose 128 H, Magnesium 1.7 L, Total Bilirubin 0.8, AST 48 H, ALT 64, Alkaline Phosphatase 53 Assessment and Plan - Problems (Diagnosis) (1) Acute CVA (cerebrovascular accident) Current Visit: Yes Status: Acute (2) Morbid obesity Current Visit: Yes Status: Acute (3) Hypertension Current Visit: Yes Status: Acute - Plan Admit to the ICU. Neuro checks q.1 hr per t-PA protocol. No aspirin for now on her t-PA protocol. NPO except medications Start Lipitor. Patient blood pressure is running borderline low. Oral antihypertensives. IV labetalol for BP spikes. Permissive hypertension. Fingerstick glucose monitoring. Check lipid profile. Monitor PT and INR. Consult to neurology requested. Dr. Aguilar is aware of patient. Monitor BMP and CBC. - Advance Directives Does patient have a Living Will: No Does patient have a Durable POA for Healthcare: No
[2020-10-01] MEDS: NA CHLORIDE 0.9% 1,000 ML IV SCH ×2 (18:12→19:05)
[2020-10-01] MEDS ORDERED: NA CHLORIDE 0.9% 1,000 ML IV SCH (18:12)
[2020-10-01] MEDS ORDERED: LABETALOL 20 MG/4ML SYRINGE IV PRN (18:12)
[2020-10-01] MEDS ORDERED: NA CHLORIDE 0.9% 250 ML IV PRN (18:12)
[2020-10-01] MEDS ORDERED: ONDANSETRON 4 MG/2 ML VIAL IV PRN (18:12)
[2020-10-01] MEDS: ATORVASTATIN 20 MG TAB PO SCH (21:30)
[2020-10-01] MEDS ORDERED: ATORVASTATIN 20 MG TAB ONE (22:01)
[2020-10-01 22:21] VITALS: BMI 46.0
[2020-10-02] MEDS: ACETAMINOPHEN 500 MG TAB PO PRN (01:20)
[2020-10-02] MEDS ORDERED: ACETAMINOPHEN 500 MG TAB ONE (01:37)
[2020-10-02] MEDS ORDERED: NA CHLORIDE 0.9% 1,000 ML ONE (04:40)
[2020-10-02] MEDS: NA CHLORIDE 0.9% 1,000 ML IV SCH ×5 (05:00→22:45)
--- NOTE | 2020-10-02 08:17 | EKG ---
Test Date: 2020-10-01 Test Time: 14:06:12 Social Services Assistant: VALENTIN MEASUREMENT RESULTS: Intervals: Rate: 79 OH: 166 QRSD: 88 QT: 388 QTc: 444 [place]: P: 50 OH: 166 QRS: 29 T: 17 INTERPRETIVE STATEMENTS: Normal sinus rhythm Normal ECG Compared to ECG 01/17/2020 16:37:38 Prolonged QT interval no longer present Electronically Signed On 10-02-20 08:15:30 CDT by Jeevan Quevedo
[2020-10-02 11:56] LABS: Absolute Lymphocytes (CBC) 2.5 K/uL (0.7-4.9); Basophils % 1.1 % (0-1.3); Hematocrit 40.1 % (36.0-45.0); Lymphocytes % 28.5 % (15.3-44.8); MPV 10.7 fL (7.6-11.3); RBC Red Blood Cell Count 4.46 M/uL (3.86-4.86)
--- NOTE | 2020-10-02 12:00 | RAD REPORT ---
EXAM DESCRIPTION: CT - Head Brain Wo Cont - 10/02/2020 11:50 am CLINICAL HISTORY: Right-sided numbness COMPARISON: October 01, 2020 TECHNIQUE: Computed axial tomography of the head was obtained. IV contrast was not requested. All CT scans are performed using dose optimization technique as appropriate and may include automated exposure control or mA/KV adjustment according to patient size. FINDINGS: An intracranial bleed is not seen . The ventricles are normal in caliber. No extra-axial fluid collection is noted. Fluid within the sinuses/ mastoids is not seen. Opacification of left maxillary sinus IMPRESSION: No acute intracranial abnormality is seen. If patient's symptoms persist MRI of the bra in would be recommended.
[2020-10-02 12:09] LABS: Protime INR 1.02
[2020-10-02 12:40] LABS: ALT/SGPT 52 U/L (12-78); AST/SGOT 29 U/L (15-37); Albumin 3.7 g/dL (3.4-5.0); Alkaline Phosphatase 52 U/L (45-117); BUN Blood Urea Nitrogen 13 mg/dL (7-18); Bicarbonate 23 mmol/L (21-32); Bilirubin Total 0.8 mg/dL (0.2-1.0); Folic Acid, (Folate) > 20.0 ng/mL (3.1-17.5); Glucose Level 133 mg/dL (74-106); HDL Cholesterol 38 mg/dL (40-60); LDL Cholesterol, Calculated 74 (<130); Phosphorus 2.3 mg/dL (2.5-4.9); Potassium 3.9 mmol/L (3.5-5.1); Protein, Total 7.4 g/dL (6.4-8.2); Sodium Level 138 mmol/L (136-145); Troponin I < 0.02 ng/mL (0.0-0.045)
[2020-10-02 13:22] LABS: Blood Morphology Comment NOT SEEN (NOT SEEN); Platelet Estimate ADEQ; White Blood Cell Scan OK (OK)
--- NOTE | 2020-10-02 16:10 | P.PN ---
Subjective Date of Service: 10/02/20 Chief Complaint: Right sided numbness Patient states her neurologic symptoms have resolved. Repeat CT head: No bleed. No acute intracranial abnormality. Physical Examination - Vital Signs Temperature: 98.3 F Blood Pressure: 135/90 Pulse: 69 Respirations: 15 Pulse Ox (%): 100 - Physical Exam General: Alert, In no apparent distress, Oriented x3, Obese HEENT: PERRLA, Mucous membr. moist/pink, EOMI, Sclerae nonicteric Neck: Supple, JVD not distended Respiratory: Clear to auscultation bilaterally, Normal air movement Cardiovascular: No edema, Regular rate/rhythm, Normal S1 S2 Gastrointestinal: Normal bowel sounds, Soft and benign, Non-distended, No tenderness Musculoskeletal: No swelling, No tenderness Integumentary: No rashes, No erythema Neurological: Normal gait, Normal speech, Normal strength at 5/5 x4 extr, Cranial nerves 3-12 intact Assessment And Plan - Current Problems (Diagnosis) (1) Acute CVA (cerebrovascular accident) Current Visit: Yes Status: Acute (2) Morbid obesity Current Visit: Yes Status: Acute (3) Hypertension Current Visit: Yes Status: Acute - Plan Start aspirin. Heart healthy diet Continue Lipitor Holding home antihypertensives for permissive hypertension. IV labetalol for BP spikes. Fingerstick glucose within normal range. Discontinue monitoring. LDL is [address] Aguilar. MRI of the brain and echocardiogram are pending. Monitor BMP and CBC.
[2020-10-02] MEDS: FOLIC ACID 1 MG TABLET PO SCH (16:24)
[2020-10-02] MEDS ORDERED: FOLIC ACID 1 MG TABLET ONE (16:40)
[2020-10-02] MEDS: POTASS/SODIUM PHOSPHATE 1 PKT POWD.PACK PO SCH ×3 (20:15→22:30)
[2020-10-02] MEDS: ATORVASTATIN 20 MG TAB PO SCH (20:57)
[2020-10-02 21:37] VITALS: O2SAT 98
[2020-10-02 23:59] LABS: RPR (Rapid Plasma Reagin) NON-REACT (NON-REACT)
[2020-10-03 05:32] LABS: Phosphorus 3.4 mg/dL (2.5-4.9); Potassium 3.9 mmol/L (3.5-5.1)
[2020-10-03] MEDS: FOLIC ACID 1 MG TABLET PO SCH (08:33)
[2020-10-03] MEDS: ACETAMINOPHEN 500 MG TAB PO PRN (08:33)
[2020-10-03] MEDS ORDERED: POTASSIUM CL SA 10 MEQ TAB PO ONE (09:00)
--- NOTE | 2020-10-03 09:18 | RAD REPORT ---
EXAM DESCRIPTION: MRI - Brain W/Wo Cont - 10/03/2020 8:24 am CLINICAL HISTORY: Acute CVA Headache, drowsiness, CVA symptomology COMPARISON: MRA Head Wo Cont dated 10/03/2020; MRA Neck W/Wo Cont dated 10/03/2020 TECHNIQUE: Multi-sequence, multiplanar MR imaging of the brain was performed with contrast. FINDINGS: No intracranial hemorrhage, hydrocephalus, or extra-axial fluid collection. No edema or sh ift of midline structures. No intracranial mass. DWI is negative for acute CVA. The midline structures are normally formed. Right frontal and bilateral maxillary sinus sinus disease . Post-contrast images show no abnormal enhancement to suggest tumor or infection. IMPRESSION: Negative for acute CVA or other acute intracranial abnormality. Moderate sinus disease.
--- NOTE | 2020-10-03 09:32 | RAD REPORT ---
EXAM DESCRIPTION: MRI - MRA Head Wo Cont - 10/03/2020 7:50 am CLINICAL HISTORY: Acute CVA CVA COMPARISON: Head Brain Wo Cont dated 10/02/2020 FINDINGS: 3D noncontrast [id number] MR angiography of the [place] was performed. No aneurysm, flow-limiting stenosis or vascular malformation is seen. Forward flow seen in codominant vertebral arteries. The visualized dural venous sinuses appear patent. IMPRESSION: No significant flow abnormality of the [place] is identified.
--- NOTE | 2020-10-03 09:34 | RAD REPORT ---
EXAM DESCRIPTION: MRI - MRA Neck W/Wo Cont - 10/03/2020 8:15 am CLINICAL HISTORY: ACUTE CVA COMPARISON: No comparisons FINDINGS: Contrast enhance 2D [id number] MR angiography of the neck vessels was performed. A left aortic arch is noted. Normal great vessel origin pattern is seen. Both common carotid arteries and subclavian arteries are patent. No significant internal carotid artery narrowing seen. Antegrade flow seen in both vertebral arteries. IMPRESSION: No significant flow abnormality of the neck vessels identified.
[2020-10-03] MEDS: NA CHLORIDE 0.9% 1,000 ML IV SCH (10:12)
--- NOTE | 2020-10-03 10:56 | ECHO ---
HEIGHT: 5 ft 3 in WEIGHT: 260 lb 0 oz DATE OF STUDY: 10/03/[address]: sienna banda 2-DIMENSIONAL: YES M.MODE: YES DOPPLER: YES COLOR FLOW: YES TDS: YES PORTABLE: DEFINITY: BUBBLE STUDY: DIAGNOSIS: STROKE CARDIAC HISTORY: CATHERIZATION: NO SURGERY: NO PROSTHETIC VALVE: NO PACEMAKER: NO MEASUREMENTS (cm) DIASTOLIC (NORMALS) SYSTOLIC (NORMALS) IVSd 1.0 (0.6-1.2) LA Diam 3.0 (1.9-4.0) LVEF 69% LVIDd 3.7 (3.5-5.7) LVIDs 2.3 (2.0-3.5) %FS 38% LVPWd 1.1 (0.6-1.2) Ao Diam 2.6 (2.0-3.7) 2 DIMENSIONAL ASSESSMENT: RIGHT ATRIUM: NORMAL LEFT ATRIUM: NORMAL RIGHT VENTRICLE: NORMAL LEFT VENTRICLE: NORMAL TRICUSPID VALVE: NORAML MITRAL VALVE: NORMAL PULMONIC VALVE: NORMAL AORTIC VALVE: NORMAL PERICARDIAL EFFUSION: NONE AORTIC ROOT: NORMAL LEFT VENTRICULAR WALL MOTION: NORMAL DOPPLER/COLOR FLOW: NORMAL COMMENTS: NORMAL 2-DIMENSIONAL ECHOCARDIOGRAM WITH DOPPLER. NO VEGETATION. NO THROMBUS. TECHNOLOGIST: JLUIS UP
--- NOTE | 2020-10-03 11:04 | P.DS ---
Admission Date: 10/01/20 Discharge Date: 10/03/20 Disposition: ROUTINE DISCHARGE Discharge Condition: FAIR Reason for Admission: Right sided numbness Procedures: t-PA administration. - Problems (1) Acute CVA (cerebrovascular accident) Current Visit: Yes Status: Acute (2) Morbid obesity Current Visit: Yes Status: Acute (3) Hypertension Current Visit: Yes Status: Acute Brief History of Present Illness: 34-year-old morbidly obese woman with a past medical history of hypertension, hospitalized last year for COVID pneumonia and hypotension presented to the emergency department with a complaint of sudden onset numbness in the right face and right upper extremity. Patient denied any visual changes. She denied any limb weakness. She denied any speech or swallow problems. CT head done in the emergency department did not show any acute stroke. Patient presented within the window for TPA. NIHSS the ED provider was 1. Neurology was consulted, CTA head and neck done which are unremarkable. Patient seen after TPA has been administered. She has a history of Peralta's palsy with left facial droop. Patient admitted to the ICU for further management. Hospital Course: Patient admitted to the ICU after t-PA administration. Repeat head CT within 24 hr after TPA showed no acute infarct or bleed. She was placed on aspirin, folic acid and lipitor. MRI of the brain showed no acute infiltrate. CTA head and neck showed significant vessels stenosis or occlusion. Echocardiogram was done and the result is pending. Patient neurologic symptoms resolved within 24 hr of hospitalization. She had no trouble swallowing, she denied any visual changes, no limb weakness. Patient has improved to baseline. Case discussed with neurology-Dr. Aguilar. Patient is deemed stable for discharge. Vital Signs/Physical Exam: Temp Pulse Resp BP Pulse Ox 97.6 F 80 20 140/92 H 99 10/03/20 08:00 10/03/20 08:00 10/03/20 08:00 10/03/20 08:00 10/03/20 08:00 General: Alert, In no apparent distress, Oriented x3, Obese HEENT: Mucous membr. moist/pink Neck: JVD not distended Respiratory: Clear to auscultation bilaterally, Normal air movement Cardiovascular: No edema, Regular rate/rhythm, Normal S1 S2 Gastrointestinal: Soft and benign, Non-distended, No tenderness Musculoskeletal: No swelling, No tenderness Integumentary: No rashes, No erythema Neurological: Normal speech, Normal strength at 5/5 x4 extr, Cranial nerves 3-12 intact Laboratory Data at Discharge: WBC 8.60 K/uL (4.3-10.9) 10/02/20 11:24 Hgb 13.6 g/dL (12.0-15.0) 10/02/20 11:24 Hct 40.1 % (36.0-45.0) 10/02/20 11:24 Plt Count 175 K/uL (152-406) 10/02/20 11:24 PT 11.7 SECONDS (9.5-12.5) 10/02/20 11:24 INR 1.02 10/02/20 11:24 Sodium 140 mmol/L (136-145) 10/03/20 04:22 Potassium 3.9 mmol/L (3.5-5.1) 10/03/20 04:22 BUN 13 mg/dL (7-18) 10/03/20 04:22 Creatinine 0.86 mg/dL (0.55-1.3) 10/03/20 04:22 Glucose 157 mg/dL (74-106) H 10/03/20 04:22 Phosphorus 3.4 mg/dL (2.5-4.9) 10/03/20 04:22 Magnesium 2.0 mg/dL (1.8-2.4) 10/02/20 11:24 Total Bilirubin Cancelled 10/02/20 Unknown AST Cancelled 10/02/20 Unknown ALT Cancelled 10/02/20 Unknown Alkaline Phosphatase Cancelled 10/02/20 Unknown Troponin I < 0.02 ng/mL (0.0-0.045) 10/02/20 17:00 Triglycerides 170 mg/dL (<150) H 10/02/20 11:24 Cholesterol 146 mg/dL (<200) 10/02/20 11:24 HDL Cholesterol 38 mg/dL (40-60) L 10/02/20 11:24 Cholesterol/HDL Ratio 3.84 10/02/20 11:24 Home Medications: Losartan Potassium 100 mg PO DAILY 10/02/20 Metoprolol Succinate [Toprol Xl*] 25 mg PO DAILY 10/02/20 hydroCHLOROthiazide [Hydrochlorothiazide] 12.5 mg PO DAILY 10/02/20 Aspirin [Aspirin EC] 81 mg PO DAILY #30 tablet. 10/03/20 Atorvastatin Calcium [Lipitor*] 40 mg PO BEDTIME #30 tab 10/03/20 New Medications: Aspirin [Aspirin EC] 81 mg PO DAILY #30 tablet. Atorvastatin Calcium [Lipitor*] 40 mg PO BEDTIME #30 tab Followup: Raul Aguilar MD [ASSOCIATE-ACTIVE - CAN ADMIT] - (within 1 month.) Sho Batres MD [Primary Care Provider] - 1-2 Weeks Time spent managing pt's care (in minutes): 33
[2020-10-03 13:22] VITALS: BP 138/83; TEMP 97.9
[2020-10-03] MEDS ORDERED: ASPIRIN EC 81 MG TAB PO SCH (15:50)
[2020-10-05 05:02] LABS: Albumin, (SPE) 3.7 g/dL (3.8-4.8); Alpha-1-Globulins 0.3 g/dL (0.2-0.3); Alpha-2-Globulins 0.8 g/dL (0.5-0.9); Gamma Globulins 0.9 g/dL (0.8-1.7); INTERPRETATION REPORT
[2020-10-07 14:57] LABS: Protein C Antigen 127 % (70-140)
[2020-10-11 15:54] LABS: Prothrombin Gene Analysis Test NEGATIVE
== END 2020-10-03 15:54 | disposition home or self-care (01) | DRG 62 ==
LOC: ER 13:26 → ERHOLD 16:55 → 2ND 10-02 18:33
PROVIDERS: ADMIT Internal Medicine; ATTEND Internal Medicine
DX: I63.9 Cerebral infarction, unspecified (principal); Z68.42 Body mass index [BMI] 45.0-49.9, adult; E66.01 Morbid (severe) obesity due to excess calories; R29.810 Facial weakness; R20.0 Anesthesia of skin; R29.701 NIHSS score 1; I10 Essential (primary) hypertension; Z88.8 Allergy status to other drugs, medicaments and biological substances; Z86.73 Personal history of transient ischemic attack (TIA), and cerebral infarction without residual deficits; Z86.16 Personal history of COVID-19; Z79.82 Long term (current) use of aspirin; Z79.899 Other long term (current) drug therapy; Z20.822 Contact with and (suspected) exposure to COVID-19
CPT/HCPCS: 36415; 70450; 70496; 70498; 70544; 70549; 70551; 70553; 71045; 80048; 80053; 80061; 80076; 81003; 81025; 81240; 81241; 82306; 82607; 82746; 82947; 83090; 83735; 83880; 84100; 84165; 84443; 84484; 85025; 85300; 85302; 85305; 85306; 85610; 85652; 86021; 86140; 86592; 86850; 86900; 86901; 92977; 93005; 93306; 97161; 97530; 99285; A9577; J0696; J2997; J3475; J7030; J7050; Q9967; U0003

== ENCOUNTER 2020-12-15 18:22 | Emergency (ER) | payer BC ==
--- OUTSIDE RECORDS SUMMARY | 2020-12-15 18:24 | XMS REPORT | Continuity of Care Document ---
:1985 Author Organization [facility] t Address [address] [place] [address] Care Team Providers Name Role Phone Nurse, Urgent Care Attending Clinician Unavailable Ty Bethea Attending Clinician Problems This patient has no known problems. Allergies, Adverse Reactions, Alerts This patient has no known allergies or adverse reactions. Medications This patient has no known medications. Procedures This patient has no known procedures. Encounters Start End Encounter Admission Attending Care Care Encounter Source Date/Time Date/Time Type Type Clinicians Facility Department ID 2020-12-15 2020-12-15 Nurse NurseEleazar [facility] [id number] 17:03:06 17:18:06 Visit Urgent Care [facility] [id number] [place] [id number] Professio [id number] [address] 2020-11-21 2020-11-21 Office Logan [facility] [id number] 10:46:50 12:19:41 Visit Lovely Crawford [employer] [facility] [id number] [facility] [id number] MATERNAL [id number] & CHILD [address] [place] [address] 2019-03-10 2019-03-10 Emergency E [id number] 15:59:00 [facility]:59:00 [facility] l Results This patient has no known results.
[2020-12-15 19:49] LABS: Urine Blood Trace-lysed (Negative); Urine Glucose 2+ (Negative); Urine Protein Negative (Negative); Urine pH 5.5 (5.0-7.0)
[2020-12-15 20:10] LABS: Absolute Lymphocytes (CBC) 2.2 K/uL (0.7-4.9); Basophils % 0.8 % (0-1.3); Hematocrit 41.9 % (36.0-45.0); Lymphocytes % 24.4 % (15.3-44.8); MPV 10.6 fL (7.6-11.3); RBC Red Blood Cell Count 4.67 M/uL (3.86-4.86)
[2020-12-15 20:19] LABS: Albumin 3.6 g/dL (3.4-5.0); Bilirubin Direct 0.1 mg/dL (0-0.2); Bilirubin Total 0.6 mg/dL (0.2-1.0); Potassium 3.5 mmol/L (3.5-5.1); Protein, Total 7.9 g/dL (6.4-8.2)
[2020-12-15] MEDS ORDERED: KETOROLAC 30 MG/ML INJ ONE (20:25)
[2020-12-15] MEDS ORDERED: ONDANSETRON 4 MG/2 ML VIAL ONE (20:25)
--- NOTE | 2020-12-15 21:15 | RAD REPORT ---
EXAM DESCRIPTION: US - Abdomen Exam Limited - 12/15/2020 8:25 pm CLINICAL HISTORY: ABD PAIN COMPARISON: <Comparisons> FINDINGS: The gallbladder demonstrates no gallstones. No pericholecystic fluid or gallbladder wall t hickening. The common bile duct is normal measuring 3 mm. The liver demonstrates no findings of intrahepatic biliary dilatation. IMPRESSION: Unremarkable examination.
--- NOTE | 2020-12-15 21:22 | RAD REPORT ---
EXAM DESCRIPTION: CTAbdomen Pelvis W Contrast - 12/15/2020 9:01 pm CLINICAL HISTORY: Abdominal pain. ABD PAIN COMPARISON: No comparisons TECHNIQUE: Biphasic CT imaging of the abdomen and pelvis was performed with 100 ml non-ionic IV cont rast. All CT scans are performed using dose optimization technique as appropriate and may include automated exposure control or mA/KV adjustment according to patient size. FINDINGS: The lung bases are clear. The liver demonstrates diffuse fatty infiltration. The spleen, pancreas, adrenal glands and kidneys a re within normal limits. No bowel obstruction, free air, free fluid or abscess. The appendix is normal. No evidence of signi ficant lymphadenopathy. No suspicious bony findings. IMPRESSION: No acute intra-abdominal or pelvic finding. Prominent diffuse fatty liver.
--- NOTE | 2020-12-15 21:40 | EDPHYS ---
Physician Documentation [facility] Name: Rose Guardado Age: 35 yrs Sex: Female : 1985 Arrival Date: 12/15/2020 Time: 18:23 Bed 15 Private MD: ROLA Physician René Ritter HPI: 12/15 22:47 This 35 yrs old Female presents to ER via Ambulatory with complaints of kb Nausea, Diarrhea, Knot On Stomach. 22:47 The patient presents to the emergency department with nausea, diarrhea. The patient kb presents to the emergency department with abdominal pain. Onset: The symptoms/episode began/occurred 2 month(s) ago, and became worse 6 day(s) ago. Possible causes: unknown. The symptoms are aggravated by nothing. The symptoms are alleviated by nothing. Associated signs and symptoms: Pertinent positives: abdominal pain, diarrhea, nausea. Severity of symptoms: At their worst the symptoms were mild moderate in the emergency department the symptoms are unchanged. The patient has not experienced similar symptoms in the past. The patient has not recently seen a physician. Historical: - Allergies: 18:28 Lisinopril; sv - PMHx: 18:28 Hypertension; TIA; sv - Immunization history:: Client reports having NOT received the Covid vaccine. - Social history:: Smoking status: Patient denies any tobacco usage or history of. ROS: 22:46 Constitutional: Negative for fever, chills, and weight loss. kb 22:46 Abdomen/GI: Positive for abdominal pain, nausea, diarrhea, Negative for vomiting. 22:46 All other systems are negative. Exam: 22:47 Constitutional: This is a well developed, well nourished patient who is awake, alert, kb and in no acute distress. Head/Face: Normocephalic, atraumatic. ENT: Moist Mucous membranes Cardiovascular: Regular rate and rhythm with a normal S1 and S2. No gallops, murmurs, or rubs. No pulse deficits. Respiratory: Respirations even and unlabored. No increased work of breathing, no retractions or nasal flaring. Skin: Warm, dry with normal turgor. Normal color. MS/ Extremity: Pulses equal, no cyanosis. Neurovascular intact. Full, normal range of motion. Neuro: Awake and alert, GCS 15, oriented to person, place, time, and situation. Moves all extremities. Normal gait. Psych: Awake, alert, with orientation to person, place and time. Behavior, mood, and affect are within normal limits. 22:47 Abdomen/GI: Inspection: abdomen appears normal, Bowel sounds: normal, in all quadrants, Palpation: soft, in all quadrants, mild abdominal tenderness, in the right upper quadrant. Vital Signs: 18:28 BP 101 / 52; Pulse 89; Resp 20; Temp 97.8(T); Pulse Ox 100% on R/A; Weight 128.37 kg; sv Height 5 ft. 3 in. (160.02 cm); Pain 8/10; 20:13 BP 119 / 79; Pulse 80; Resp 18; Pulse Ox 99% ; ea 21:40 BP 120 / 70; Pulse 80; Resp 18; Pulse Ox 98% ; ea 18:28 Body Mass Index 50.13 (128.37 kg, 160.02 cm) sv MDM: 19:29 Patient medically screened. kb 21:39 Data reviewed: vital signs, nurses notes. Data interpreted: Pulse oximetry: on room air kb is 99 %. Interpretation: normal. Counseling: I had a detailed discussion with the patient and/or guardian regarding: the historical points, exam findings, and any diagnostic results supporting the discharge/admit diagnosis, lab results, radiology results, the need for outpatient follow up, a family practitioner, to return to the emergency department if symptoms worsen or persist or if there are any questions or concerns that arise at home. 12/15 19:29 Order name: Basic Metabolic Panel; Complete Time: 20:21 kb 12/15 19:29 Order name: CBC with Diff; Complete Time: 20:21 kb 12/15 19:29 Order name: Hepatic Function; Complete Time: 20:21 kb 12/15 19:29 Order name: Lipase; Complete Time: 20:21 kb 12/15 19:49 Order name: Urine Dipstick-Ancillary; Complete Time: 19:50 EDMS 12/15 19:52 Order name: Urine --Ancillary (enter results) tt3 12/15 19:14 Order name: US Abdomen Limited; Complete Time: 21:21 kb 12/15 19:29 Order name: IV Saline Lock; Complete Time: 20:01 kb 12/15 19:29 Order name: Labs collected and sent; Complete Time: 20:01 kb 12/15 19:53 Order name: Urine --Ancillary; Complete Time: 20:09 EDKS 12/15 20:46 Order name: CT Abd/Pelvis - IV Contrast Only; Complete Time: 21:24 kb Administered Medications: 20:09 Drug: Zofran (Ondansetron) 4 mg Route: IVP; Site: right antecubital; ea 21:46 Follow up: Response: No adverse reaction ea 20:09 Drug: Ketorolac 30 mg Route: IVP; Site: right antecubital; ea 21:46 Follow up: Response: No adverse reaction ea Disposition Summary: 12/15/20 21:39 Discharge Ordered Location: Home kb Condition: Stable kb Diagnosis - Upper abdominal pain, unspecified kb Followup: kb - With: Emergency Department - When: As needed - Reason: Worsening of condition Followup: kb - With: Private Physician - When: 2 - 3 days - Reason: Recheck today's complaints, Continuance of care, Re-evaluation by your physician Discharge Instructions: - Discharge Summary Sheet kb - Abdominal Pain, Adult, [id number] kb Forms: - Medication Reconciliation Form kb - Thank You Letter kb - Antibiotic Education kb - Prescription Opioid Use kb Prescriptions: - Zofran 4 mg Oral Tablet - take 1 tablet by ORAL route every 6 hours As needed; 20 tablet; Refills: 0, kb Product Selection Permitted - dicyclomine 20 mg Oral Tablet - take 1 tablet by ORAL route 4 times per day As needed; 20 tablet; Refills: 0, kb Product Selection Permitted Addendum: 12/19/2020 07:33 Co-signature as Attending Physician, René Ritter MD I agree with the assessment and c veliz plan of care. Signatures: Dispatcher [employer] [facility] Morena Vo, MARY-Ty HERNANDEZ-Geetha Dumont, RN René Avilez MD MD cha Antunez, Elena, RN RN nando
--- NOTE | 2020-12-15 21:40 | ER ---
Nurse's Notes [facility] Name: Rose Guardado Age: 35 yrs Sex: Female : 1985 Arrival Date: 12/15/2020 Time: 18:23 Bed 15 Private MD: Diagnosis: Upper abdominal pain, unspecified Presentation: 12/15 18:27 Chief complaint: Patient states: RUQ pain x 2 months, worse last 6 days, n/d, sleeping sv a lot. Feels a "knot" in the RUQ. Coronavirus screen: Client denies travel out of the [place] in the last 14 days. At this time, the client does not indicate any symptoms associated with coronavirus-19. Ebola Screen: No symptoms or risks identified at this time. Risk Assessment: Do you want to hurt yourself or someone else? Patient reports no desire to harm self or others. Onset of symptoms was October 2020. 18:27 Method Of Arrival: Ambulatory sv 18:27 Acuity: TATIANA 3 sv 18:28 Initial Sepsis Screen: Does the patient meet any 2 criteria? No. Patient's initial sv sepsis screen is negative. Does the patient have a suspected source of infection? No. Patient's initial sepsis screen is negative. Triage Assessment: 18:28 General: Appears in no apparent distress. uncomfortable, Behavior is calm, cooperative, sv appropriate for age. Pain: Complains of pain in right upper quadrant. Neuro: Level of Consciousness is awake, alert, obeys commands, Oriented to person, place, time, situation, Gait is steady. Respiratory: Respiratory effort is even, unlabored. GI: Reports upper abdominal pain, diarrhea, nausea. Historical: - Allergies: 18:28 Lisinopril; sv - PMHx: 18:28 Hypertension; TIA; sv - Immunization history:: Client reports having NOT received the Covid vaccine. - Social history:: Smoking status: Patient denies any tobacco usage or history of. Screenin:01 Abuse screen: Denies threats or abuse. Nutritional screening: No deficits noted. ea Tuberculosis screening: No symptoms or risk factors identified. Fall Risk None identified. Assessment: 20:09 General: Appears uncomfortable, Behavior is appropriate for age. Pain: Complains of ea pain in right upper quadrant. Neuro: Level of Consciousness is awake, alert, obeys commands, Oriented to person, place, time. Respiratory: Airway is patent Respiratory effort is even, unlabored, Respiratory pattern is regular, symmetrical. GI: Abdomen is non-distended, Reports upper abdominal pain. Derm: Skin is pink, warm \\T\\ dry. 21:46 Reassessment: Patient and/or family updated on plan of care and expected duration. Pain ea level reassessed. Patient is alert, oriented x 3, equal unlabored respirations, skin warm/dry/pink. Discharge instruction given to patient verbalized the understanding of instruction. Vital Signs: 18:28 BP 101 / 52; Pulse 89; Resp 20; Temp 97.8(T); Pulse Ox 100% on R/A; Weight 128.37 kg; sv Height 5 ft. 3 in. (160.02 cm); Pain 8/10; 20:13 BP 119 / 79; Pulse 80; Resp 18; Pulse Ox 99% ; ea 21:40 BP 120 / 70; Pulse 80; Resp 18; Pulse Ox 98% ; ea 18:28 Body Mass Index 50.13 (128.37 kg, 160.02 cm) sv ED Course: 18:23 Patient arrived in ED. rg4 18:27 Arm band placed on. sv 18:28 Triage completed. sv 18:30 Morena Vo FNP-C [facility]. kb 18:30 René Ritter MD is Attending Physician. kb 19:38 Bertha Moran RN is Primary Nurse. ea 20:01 Inserted saline lock: 20 gauge in right antecubital area, using aseptic technique. ea 20:09 Patient has correct armband on for positive identification. Bed in low position. Call ea light in reach. 20:25 US Abdomen Limited In Process Unspecified. EDMS 21:01 CT Abd/Pelvis - IV Contrast Only In Process Unspecified. EDMS 21:40 No provider procedures requiring assistance completed. ea 21:45 IV discontinued, intact, bleeding controlled, No redness/swelling at site. Pressure ea dressing applied. Administered Medications: 20:09 Drug: Zofran (Ondansetron) 4 mg Route: IVP; Site: right antecubital; ea 21:46 Follow up: Response: No adverse reaction ea 20:09 Drug: Ketorolac 30 mg Route: IVP; Site: right antecubital; ea 21:46 Follow up: Response: No adverse reaction ea Outcome: 21:39 Discharge ordered by MD. yap 21:45 Discharged to home ambulatory. ea 21:45 Condition: stable 21:45 Discharge instructions given to patient, Instructed on discharge instructions, follow up and referral plans. medication usage, Demonstrated understanding of instructions, follow-up care, medications, Prescriptions given X 2. 21:46 Patient left the ED. ea Signatures: Dispatcher [employer] [facility]SC Morena Vo, MARY-C MARY-Geetha Dumont, RN RN Shanell Panda rg4 Bertha Moran RN RN ea Corrections: (The following items were deleted from the chart) 18:31 18:28 Pulse 89bpm; Resp 20bpm; Pulse Ox 100%; Temp 97.8F; 128.37 kg; Height 5 ft. 3 sv in.; BMI: 50.1; Pain 8/10; sv
[2020-12-15 21:59] VITALS: TEMP 97.8
[2020-12-15 22:04] VITALS: BP 119/79; O2SAT 99
== END 2020-12-15 21:46 | disposition home or self-care (01) ==
LOC: ER 18:22
DX: R10.10 Upper abdominal pain, unspecified (principal); R19.7 Diarrhea, unspecified; I10 Essential (primary) hypertension; Z88.8 Allergy status to other drugs, medicaments and biological substances
CPT/HCPCS: 85025; 80048; 36415; 81025; 82565; 80076; 81003; 83690; 74177; 76705; 96375; 96374; 99284; Q9967; J2405

== ENCOUNTER 2021-08-01 08:19 | Emergency (ER) | payer BC ==
--- OUTSIDE RECORDS SUMMARY | 2021-08-01 08:25 | XMS REPORT | Continuity of Care Document ---
:1985 Author Organization [facility] t Address [address] [place] [address] Care Team Providers Name Role Phone Nancy GOODMAN Primary Care Physician Unavailable Ty MALLORY Attending Clinician Unavailable Nancy Zapata Attending Clinician Logan LI C Attending Clinician Nurse, Urgent Care Attending Clinician Unavailable Placido Sellers Attending Clinician Placido AGARWAL Attending Clinician Unavailable Doctor Unassigned, Name Attending Clinician Unavailable Esteban Johnson DO Attending Clinician Nancy GOODMAN Attending Clinician Unavailable CINTHYA Attending Clinician Unavailable Lab, Fam Pob I Attending Clinician Unavailable Cinthya WHITEP Attending Clinician Payers Payer Name Policy Type Policy Number Effective Date Expiration Date S [id number] 2020 00:00:00 OUT OF STATE Problems Condition Condition Condition Status Onset Resolution Last Treating Co mments Source Name Details Category Date Date Treatment Clinician Date Other Other Disease Active Univers general general 6-14 it[place] of counseling [place] and advice and advice 00 Hi dical for for Branch contracept contracept carmen carmen management management Vaginal Vaginal Disease Active Univers irritation irritation 6-14 it y of 00:00: [place] 00 Medical Branch 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 00:00: [place] virus 1) virus 1) 00 Medica l infection infection Bran ch 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 00:00: [place] virus 2) virus 2) 00 Medica l infection infection Bran ch Abnormal Abnormal Disease Active Unive rs glandular glandular 3-12 ity of Papanicola Papan[place]ola [place] ou smear ou smear 00 Medica l of cervix of cervix Bran ch BMI BMI Disease Active Univers 45.0-49.9, 45.0-49.9, 3-12 it y of adult adult 00:00: [place] [address] Medical Branch Encounter Encounter Disease Active 2017-06 Uni vers for for 0-03 ity of contracept contracept 00:[place] carmen carmen 00 Medical management management Br anch , , unspecifie unspecifie d type d type History of History of Disease Active 2017-06 [facility] bilateral bilateral 0-03 ity of tubal tubal 00:00: [place] ligation ligation 00 [facility] Branch Screening Screening Disease Active 2017-06 Uni vers examinatio examinatio 0-03 it y of n for STD n for STD 00:00: [place] mark (sexually (sexually 00 [facility] josephine transmitte transmitte Br anch d disease) d disease) GDM, class GDM, class Disease Active U nivzabrina A2 A2 9-05 ity of 00:00: [place] [address] Medical Branch Genitourin Genitourin Disease Active [facility] [place] 8-31 ity of infection infection 00:00: [place] mark in in 00 Medical , , Br anch antepartum antepartum , third , third trimester trimester ASCUS of ASCUS of Disease Active Unive rs cervix cervix 2-16 ity of with with 00:00: [place] negative negative 00 Medica l high risk high risk Bran ch HPV HPV ASCUS of ASCUS of Disease Active Unive rs cervix cervix 2-16 ity of with with 00:00: [place] negative negative 00 Medica l high risk high risk Bran ch HPV HPV Essential Essential Disease Active Uni vers hypertensi hypertensi 9-21 it y of on, benign on, benign 00:00: [place] 00 [place] Morbid Morbid Disease Active Univers obesity obesity 02-28 ity of 00:00: [place] 00 Medical Branch Well woman Well woman Disease Active U nivers exam exam 02-28 ity of 00:00: [place] 00 Medical Branch History of History of Disease Active U nivers TIA TIA 02-28 ity of (transient (transient 00:[place] ischemic ischemic 00 Medica l attack) attack) Branch Allergies, Adverse Reactions, Alerts Allergy Allergy Status Severity Reaction(s) Onset Inactive Treating Comm ents Source Name Type Date Date Clinician Predniso Propensi Active Swelling Univ ers ne ty to 08-10 ity of adverse 00:00: [place] reaction 00 Medical s Branch PREDNISO DRUG Active Swelling Univer s NE INGREDI 08-10 ity of 00:00: [place] 00 Medical Branch Social History Social Habit Start Date Stop Date Quantity Comments Source Exposure to Not sure [facility] SARS-CoV-2 (event) Medica l Branch Alcohol intake 2020-12-15 2020-12-15 0 /d [facility] 00:00:00 00:00:00 Medical Branch Tobacco use and 2012-09-04 2012-09-04 Never used [facility] exposure 00:00:00 00:00:00 Medical Branch Sex [birth year] [facility] 00:00:00 00:00:00 Medical Branch Smoking Status Start Date Stop Date Source Never smoker [facility] [place] Medications Ordered Filled Start Stop Current Ordering Indication Dosage Frequency Signature Comments Components Source Medication Medication Date Date Medication? Clinician (SIG) Name Name escitalopra Yes 10mg Take 10 mg Univers m oxalate 6-14 by mouth. ity o f (LEXAPRO 16:37: [place] ORAL) Medical Branch metoprolol Yes Take by Uni vers succinate 6-14 mouth. ity of 50 mg CSpX 16:37: [place] 25 Medical Branch HYDROCHLORO Yes 12.5mg Take 12.5 Univers THIAZIDE 6-14 mg by ity of ORAL 16:37: mouth. [place] Medical Branch escitalopra Yes 10mg Take 10 mg Univers m oxalate 6-14 by mouth. ity o f (LEXAPRO 16:37: [place] ORAL) [address] [place] [address] metoprolol Yes Take by Uni vers succinate 6-14 mouth. ity of 50 mg CSpX 16:37: [address] HYDROCHLORO Yes 12.5mg Take 12.5 Univers THIAZIDE 6-14 mg by ity of ORAL 16:37: mouth. [address] escitalopra Yes 10mg Take 10 mg Univers m oxalate 6-14 by mouth. ity o f (LEXAPRO 16:37: [place] ORAL) [address] [place] [address] metoprolol Yes Take by Uni vers succinate 6-14 mouth. ity of 50 mg CSpX 16:37: [address] HYDROCHLORO Yes 12.5mg Take 12.5 Univers THIAZIDE 6-14 mg by ity of ORAL 16:37: mouth. [address] escitalopra Yes 10mg Take 10 mg Univers m oxalate 6-14 by mouth. ity o f (LEXAPRO 16:37: [place] ORAL) [address] [place] [address] metoprolol Yes Take by Uni vers succinate 6-14 mouth. ity of 50 mg CSpX 16:37: [address] HYDROCHLORO Yes 12.5mg Take 12.5 Univers THIAZIDE 6-14 mg by ity of ORAL 16:37: mouth. [address] escitalopra Yes 10mg Take 10 mg Univers m oxalate 6-14 by mouth. ity o f (LEXAPRO 16:37: [place] ORAL) [address] [place] [address] metoprolol Yes Take by Uni vers succinate 6-14 mouth. ity of 50 mg CSpX 16:37: [address] HYDROCHLORO Yes 12.5mg Take 12.5 Univers THIAZIDE 6-14 mg by ity of ORAL 16:37: mouth. [address] escitalopra Yes 10mg Take 10 mg Univers m oxalate 6-14 by mouth. ity o f (LEXAPRO 16:37: [place] ORAL) [address] [place] [address] metoprolol Yes Take by Uni vers succinate 6-14 mouth. ity of 50 mg CSpX 16:37: [address] HYDROCHLORO Yes 12.5mg Take 12.5 Univers THIAZIDE 6-14 mg by ity of ORAL 16:37: mouth. [address] escitalopra Yes 10mg Take 10 mg Univers m oxalate 6-14 by mouth. ity o f (LEXAPRO 11:37: [place] ORAL) [address] [place] [address] metoprolol Yes Take by Uni vers succinate 6-14 mouth. ity of 50 mg CSpX 11:37: [address] HYDROCHLORO Yes 12.5mg Take 12.5 Univers THIAZIDE 6-14 mg by ity of ORAL 11:37: mouth. [address] escitalopra Yes 10mg Take 10 mg Univers m oxalate 6-14 by mouth. ity o f (LEXAPRO 11:37: [place] ORAL) [address] [place] [address] metoprolol Yes Take by Uni vers succinate 6-14 mouth. ity of 50 mg CSpX 11:37: [address] HYDROCHLORO Yes 12.5mg Take 12.5 Univers THIAZIDE 6-14 mg by ity of ORAL 11:37: mouth. [address] escitalopra Yes 10mg Take 10 mg Univers m oxalate 6-14 by mouth. ity o f (LEXAPRO 11:37: [place] ORAL) [address] [place] [address] metoprolol Yes Take by Uni vers succinate 6-14 mouth. ity of 50 mg CSpX 11:37: [address] HYDROCHLORO Yes 12.5mg Take 12.5 Univers THIAZIDE 6-14 mg by ity of ORAL 11:37: mouth. [address] metroNIDAZO 2019- 2020- No [id number] 1000mg Take 2 Univers LE 500 mg 3-16 03-18 tablets by ity of tablet 00:00: 04:59 mouth 2 [place] 00 :00 (two) Medical times [place] daily for 1 day. metroNIDAZO 2019- 2020- No [id number] 1000mg Take 2 Univers LE 500 mg 3-16 03-18 tablets by ity of tablet 00:00: 04:59 mouth 2 [place] 00 :00 (two) Medical times [place] daily for 1 day. metroNIDAZO 2019- 2020- No [id number] 1000mg Take 2 Univers LE 500 mg 3-16 03-18 tablets by ity of tablet 00:00: 04:59 mouth 2 [place] 00 :00 (two) Medical times Branch daily for 1 day. metroNIDAZO 2020-0 2020- No [id number] 1000mg Take 2 Univers LE 500 mg 3-16 03-18 tablets by ity of tablet 00:00: 04:59 mouth 2 [place] 00 :00 (two) Medical times Branch daily for 1 day. losartan 2020-0 Yes [id number] 100mg Take 100 U nivers 100 mg 3-12 mg by ity of tablet 14:01: mouth [place] 10 daily. Medical Branch losartan 2020-0 Yes [id number] 100mg Take 100 U nivers 100 mg 3-12 mg by ity of tablet 14:01: mouth [place] 10 daily. Medical Branch losartan 2020-0 Yes [id number] 100mg Take 100 U nivers 100 mg 3-12 mg by ity of tablet 14:01: mouth [place] 10 daily. Medical Branch losartan 2020-0 Yes [id number] 100mg Take 100 U nivers 100 mg 3-12 mg by ity of tablet 14:01: mouth [place] 10 daily. Medical Branch losartan 2020-0 Yes [id number] 100mg Take 100 U nivers 100 mg 3-12 mg by ity of tablet 14:01: mouth [place] 10 daily. Medical Branch losartan 2020-0 Yes [id number] 100mg Take 100 U nivers 100 mg 3-12 mg by ity of tablet 14:01: mouth [place] 10 daily. Medical Branch losartan 2020-0 Yes [id number] 100mg Take 100 U nivers 100 mg 3-12 mg by ity of tablet 14:01: mouth [place] 10 daily. Medical Branch losartan 2020-0 Yes [id number] 100mg Take 100 U nivers 100 mg 3-12 mg by ity of tablet 14:01: mouth [place] 10 daily. Medical Branch losartan 2020-0 Yes [id number] 100mg Take 100 U nivers 100 mg 3-12 mg by ity of tablet 14:01: mouth [place] 10 daily. Medical Branch losartan 2020-0 Yes [id number] 100mg Take 100 U nivers 100 mg 3-12 mg by ity of tablet 14:01: mouth [place] 10 daily. Medical Branch losartan 2020-0 Yes [id number] 100mg Take 100 U nivers 100 mg 3-12 mg by ity of tablet 14:01: mouth [place] 10 daily. Medical Branch losartan 2020-0 Yes [id number] 100mg Take 100 U nivers 100 mg 3-12 mg by ity of tablet 14:01: mouth [place] 10 daily. Medical Branch losartan 2020-0 Yes [id number] 100mg Take 100 U nivers 100 mg 3-12 mg by ity of tablet 14:01: mouth [place] 10 daily. Medical Branch losartan 2020-0 Yes [id number] 100mg Take 100 U nivers 100 mg 3-12 mg by ity of tablet 14:01: mouth [place] 10 daily. Medical Branch losartan 2020-0 Yes [id number] 100mg Take 100 U nivers 100 mg 3-12 mg by ity of tablet 14:01: mouth [place] 10 daily. Medical Branch losartan 2020-0 Yes [id number] 100mg Take 100 U nivers 100 mg 3-12 mg by ity of tablet 14:01: mouth [place] 10 daily. Medical Branch losartan 2020-0 Yes [id number] 100mg Take 100 U nivers 100 mg 3-12 mg by ity of tablet 14:01: mouth [place] 10 daily. Medical Branch losartan 2020-0 Yes [id number] 100mg Take 100 U nivers 100 mg 3-12 mg by ity of tablet 14:01: mouth [place] 10 daily. Medical Branch losartan 2020-0 Yes [id number] 100mg Take 100 U nivers 100 mg 3-12 mg by ity of tablet 14:01: mouth [place] 10 daily. Medical Branch losartan 2020-0 Yes [id number] 100mg Take 100 U nivers 100 mg 3-12 mg by ity of tablet 14:01: mouth [place] 10 daily. Medical Branch losartan 2020-0 Yes [id number] 100mg Take 100 U nivers 100 mg 3-12 mg by ity of tablet 14:01: mouth [place] 10 daily. Medical Branch losartan 2020-0 Yes [id number] 100mg Take 100 U nivers 100 mg 3-12 mg by ity of tablet 14:01: mouth [place] 10 daily. Medical Branch losartan 2020-0 Yes [id number] 100mg Take 100 U nivers 100 mg 3-12 mg by ity of tablet 14:01: mouth [place] 10 daily. Medical Branch losartan 2020-0 Yes [id number] 100mg Take 100 U nivers 100 mg 3-12 mg by ity of tablet 14:01: mouth [place] 10 daily. Medical Branch losartan 2020-0 Yes [id number] 100mg Take 100 U nivers 100 mg 3-12 mg by ity of tablet 14:01: mouth [place] 10 daily. Medical Branch losartan 2020-0 Yes [id number] 100mg Take 100 U nivers 100 mg 3-12 mg by ity of tablet 14:01: mouth [place] 10 daily. Medical Branch losartan 2020-0 Yes [id number] 100mg Take 100 U nivers 100 mg 3-12 mg by ity of tablet 14:01: mouth [place] 10 daily. Medical Branch losartan 2020-0 Yes [id number] 100mg Take 100 U nivers 100 mg 3-12 mg by ity of tablet 14:01: mouth [place] 10 daily. Medical Branch losartan 2020-0 Yes [id number] 100mg Take 100 U nivers 100 mg 3-12 mg by ity of tablet 14:01: mouth [place] 10 daily. Medical Branch losartan 2020-0 Yes [id number] 100mg Take 100 U nivers 100 mg 3-12 mg by ity of tablet 14:01: mouth [place] 10 daily. Medical Branch losartan 2020-0 Yes [id number] 100mg Take 100 U nivers 100 mg 3-12 mg by ity of tablet 14:01: mouth [place] 10 daily. Medical Branch losartan 2020-0 Yes [id number] 100mg Take 100 U nivers 100 mg 3-12 mg by ity of tablet 14:01: mouth [place] 10 daily. Medical Branch losartan 2020-0 Yes [id number] 100mg Take 100 U nivers 100 mg 3-12 mg by ity of tablet 09:01: mouth [place] 10 daily. Medical Branch losartan 2020-0 Yes [id number] 100mg Take 100 U nivers 100 mg 3-12 mg by ity of tablet 09:01: mouth [place] 10 daily. Medical Branch losartan 2020-0 Yes [id number] 100mg Take 100 U nivers 100 mg 3-12 mg by ity of tablet 09:01: mouth [place] 10 daily. Medical Branch carvedilol Yes 6.25mg Take 1 Uni vers (COREG) 2-15 tablet by ity of 6.25 mg 00:00: mouth [place] tablet 00 daily. Medical Branch carvedilol 2019- No 6.25mg Take 1 Un gerri (COREG) 2-15 08-08 tablet by ity of 6.25 mg 00:00: 00:00 mouth [place] tablet 00 :00 daily. Medical Branch carvedilol 0 2019- No 6.25mg Take 1 Un gerri (COREG) 2-15 08-08 tablet by ity of 6.25 mg 00:00: 00:00 mouth [place] tablet 00 :00 daily. [facility] Branch SERTraline 2016-06 Yes [id number] 50mg Take 1 Univers 50 mg 2-15 tablet by ity of tablet 00:00: mouth [place] 00 daily. [facility] Branch SERTraline 2016-06 Yes [id number] 50mg Take 1 Univers 50 mg 2-15 tablet by ity of tablet 00:00: mouth [place] 00 daily. [facility] Branch SERTraline 2016-06 Yes [id number] 50mg Take 1 Univers 50 mg 2-15 tablet by ity of tablet 00:00: mouth [place] 00 daily. [facility] Branch SERTraline 2016-06 Yes [id number] 50mg Take 1 Univers 50 mg 2-15 tablet by ity of tablet 00:00: mouth [place] 00 daily. [facility] Branch SERTraline 2016-06 2020- No [id number] 50mg Take 1 Univers 50 mg 2-15 03-12 tablet by ity of tablet 00:00: 00:00 mouth [place] 00 :00 daily. [facility] Branch SERTraline 2016-06 2020- No [id number] 50mg Take 1 Univers 50 mg 2-15 03-12 tablet by ity of tablet 00:00: 00:00 mouth [place] 00 :00 daily. Medical Branch ibuprofen 2016-06 Yes 800mg Take 1 Unive rs 800 mg 1-01 tablet by ity of tablet 00:00: mouth [place] 00 every 6 Medical (six) Branch hours as needed for Pain (scale 4-6). acetaminoph 2016-06 Yes 650mg Take 2 Uni vers en 1-01 tablets by ity of (TYLENOL) 00:00: mouth [place] 325 mg 00 every 6 Medical tablet (six) Branch hours as needed for Alternate with ibuprofen for pain scale 4-6. ibuprofen 2016-06 Yes 800mg Take 1 Unive rs 800 mg 1-01 tablet by ity of tablet 00:00: mouth [place] 00 every 6 Medical (six) Branch hours as needed for Pain (scale 4-6). acetaminoph 2016-06 Yes 650mg Take 2 Uni vers en 1-01 tablets by ity of (TYLENOL) 00:00: mouth [place] 325 mg 00 every 6 Medical tablet (six) Branch hours as needed for Alternate with ibuprofen for pain scale 4-6. ibuprofen 2016-06 Yes 800mg Take 1 Unive rs 800 mg -01 tablet by ity of tablet 00:00: mouth [place] 00 every 6 Medical (six) Branch hours as needed for Pain (scale 4-6). acetaminoph 2016-06 Yes 650mg Take 2 Uni vers en -01 tablets by ity of (TYLENOL) 00:00: mouth [place] 325 mg 00 every 6 Medical tablet (six) Branch hours as needed for Alternate with ibuprofen for pain scale 4-6. ibuprofen 2016-06 Yes 800mg Take 1 Unive rs 800 mg -01 tablet by ity of tablet 00:00: mouth [place] 00 every 6 Medical (six) Branch hours as needed for Pain (scale 4-6). acetaminoph 2016-06 Yes 650mg Take 2 Uni vers en -01 tablets by ity of (TYLENOL) 00:00: mouth [place] 325 mg 00 every 6 Medical tablet (six) Branch hours as needed for Alternate with ibuprofen for pain scale 4-6. ibuprofen 2016-06- No 800mg Take 1 Univ ers 800 mg 06-10 03-12 tablet by ity of tablet 00:00: 00:00 mouth [place] 00 :00 every 6 Medical (six) Branch hours as needed for Pain (scale 4-6). acetaminoph 2016-06 2020- No 650mg Take 2 Un gerri en - 03-12 tablets by ity of (TYLENOL) 00:00: 00:00 mouth [place] 325 mg 00 :00 every 6 Medical tablet (six) Branch hours as needed for Alternate with ibuprofen for pain scale 4-6. ibuprofen 2016-06 2020- No 800mg Take 1 Univ ers 800 mg 06-10 03-12 tablet by ity of tablet 00:00: 00:00 mouth [place] 00 :00 every 6 Medical (six) Branch hours as needed for Pain (scale 4-6). acetaminoph 2016-06 2020- No 650mg Take 2 Un gerri en - 03-12 tablets by ity of (TYLENOL) 00:00: 00:00 mouth [place] 325 mg 00 :00 every 6 Medical tablet (six) Branch hours as needed for Alternate with ibuprofen for pain scale 4-6. docusate Yes 240mg Take 1 Univer s calcium 240 9-27 capsule by it y of mg capsule 00:00: mouth once [place] 00 daily as Medical needed for Branch Constipati on. ferrous Yes 325mg Take 1 Univers sulfate 325 9-27 tablet by ity of mg (65 mg 00:00: mouth 2 [place] iron) 00 (two) Medical tablet times Branch daily. docusate 2019- No 240mg Take 1 Unive rs calcium 240 03-06 08-08 capsule by i ty of mg capsule 00:00: 00:00 mouth once [place] 00 :00 daily as Medical needed for Branch Constipati on. ferrous 2019- No 325mg Take 1 Univer s sulfate 325 -03 02-08 tablet by it y of mg (65 mg 00:00: 00:00 [place] 2 [place] iron) 00 :00 (two) Medical tablet times Branch daily. docusate 2019- No 240mg Take 1 Unive rs calcium 240 03-06-08 capsule by i ty of mg capsule 00:00: 00:00 mouth once [place] 00 :00 daily as Medical needed for Branch Constipati on. ferrous 2019- No 325mg Take 1 Univer s sulfate 325 03-06-08 tablet by it y of mg (65 mg 00:00: 00:00 [place] 2 [place] iron) 00 :00 (two) Medical tablet times Branch daily. Yes [id number] 1{tbl} Take 1 U nivers vitamin 2-16 tablet by ity of w/FA tablet 00:00: mouth [place] 00 daily. Medical Branch Diethyltolu Yes [id number] Use with Univers amide (OFF 2-16 all ity of DEEP PÉREZ) 00:00: outdoor [place] 25 % SprA 00 exposure. Medic al Reapply as Branch directed on the container Yes [id number] 1{tbl} Take 1 U nivers vitamin 2-16 tablet by ity of w/FA tablet 00:00: mouth [place] 00 daily. Medical Branch Diethyltolu Yes [id number] Use with Univers amide (OFF 2-16 all ity of DEEP PÉREZ) 00:00: outdoor [place] 25 % SprA 00 exposure. Medic al Reapply as Branch directed on the container Yes [id number] 1{tbl} Take 1 U nivers vitamin 2-16 tablet by ity of w/FA tablet 00:00: mouth [place] 00 daily. Medical Branch Diethyltolu Yes [id number] Use with Univers amide (OFF 2-16 all ity of DEEP PÉREZ) 00:00: outdoor [place] 25 % SprA 00 exposure. Medic al Reapply as Branch directed on the container Yes [id number] 1{tbl} Take 1 U nivers vitamin 2-16 tablet by ity of w/FA tablet 00:00: mouth [place] 00 daily. Medical Branch Diethyltolu Yes [id number] Use with Univers amide (OFF 2-16 all ity of DEEP PÉREZ) 00:00: outdoor [place] 25 % SprA 00 exposure. Medic al Reapply as Branch directed on the container 2019- No [id number] 1{tbl} Take 1 Univers vitamin 2-16 03-12 tablet by ity of w/FA tablet 00:00: 00:00 [place] :[place] daily. Medical Branch Diethyltolu 2019- No [id number] Use with Univers amide (OFF 2-16 03-12 all ity of DEEP PÉREZ) 00:00: [place]:00 [place] 25 % Spr[place] 00 :00 exposure. Medic al Reapply as Branch directed on the container 2019- No [id number] 1{tbl} Take 1 Univers vitamin 2-16 03-12 tablet by ity of w/FA tablet 00:00: 00:00 [place] 00 :00 daily. Medical Branch Diethyltolu 2020- No [id number] Use with Univers amide (OFF 2-16 03-12 all ity of DEEP PÉREZ) 00:00: [place]:00 [place] 25 % SprA 00 :00 exposure. Medic al Reapply as Branch directed on the container Immunizations Ordered Filled Immunization Date Status Comments [facility] e Immunization Name Name Td 2016-12-18 Completed University of 00:00:00 [facility] Tdap 2016-12-18 Completed University of 00:00:00 [facility] Tdap 2016-12-18 Completed University of 00:00:00 [facility] Tdap 2016-12-18 Completed University of 00:00:00 [facility] Tdap 2016-12-18 Completed University of 00:00:00 [facility] Tdap 2016-12-18 Completed University of 00:00:00 [facility] Tdap 2016-12-18 Completed University of 00:00:00 [place] [facility] Tdap 2016-12-18 Completed University of 00:00:00 [place] [facility] Tdap 2016-12-18 Completed University of 00:00:00 [place] [facility] TDAP 2016-12-18 Completed University of 00:00:00 [place] [facility] TDAP 2016-12-18 Completed University of 00:00:00 [place] [facility] TDAP 2016-12-18 Completed University of 00:00:00 [place] [facility] TDAP 2016-12-18 Completed University of 00:00:00 [place] [facility] TDAP 2016-12-18 Completed University of 00:00:00 [place] [facility] TDAP 2016-12-18 Completed University of 00:00:00 [place] [facility] TDAP 2016-12-18 Completed University of 00:00:00 [place] [facility] TDAP 2016-12-18 Completed University of 00:00:00 [facility] Branch TDAP 2016-12-18 Completed University of 00:00:00 [place] [facility] TDAP 2016-12-18 Completed University of 00:00:00 [place] [facility] TDAP 2016-12-18 Completed University of 00:00:00 [place] [facility] TDAP 2016-12-18 Completed University of 00:00:00 [place] [facility] TDAP 2016-12-18 Completed University of 00:00:00 [place] [facility] TDAP 2016-12-18 Completed University of 00:00:00 [place] [facility] TDAP 2016-12-18 Completed University of 00:00:00 [facility] Branch TDAP 2016-12-18 Completed University of 00:00:00 [place] [facility] TDAP 2016-12-18 Completed University of 00:00:00 [place] [facility] Tdap 2016-12-18 Completed University of 00:00:00 [place] [facility] TDAP 2016-12-18 Completed University of 00:00:00 [place] [facility] TDAP 2016-12-18 Completed University of 00:00:00 [place] [facility] TDAP 2016-12-18 Completed University of 00:00:00 [place] [facility] TDAP 2016-12-18 Completed University of 00:00:00 [place] [facility] TDAP 2016-12-18 Completed University of 00:00:00 [place] [facility] TDAP 2016-12-18 Completed University of 00:00:00 [place] [facility] TDAP 2016-12-18 Completed University of 00:00:00 [facility] Branch TDAP 2016-12-18 Completed University of 00:00:00 [facility] Branch TDAP 2016-12-18 Completed University of 00:00:00 [facility] Branch Tdap 2016-12-18 Completed University of 00:00:00 [facility] Branch Tdap 2016-12-18 Completed University of 00:00:00 [facility] Branch Tdap 2016-12-18 Completed University of 00:00:00 [facility] PPD (TB) 2013-05-12 Completed University of 00:00:00 [facility] PPD (TB) 2013-05-12 Completed University of 00:00:00 [facility] Branch PPD (TB) 2013-05-12 Completed University of 00:00:00 [facility] Branch PPD (TB) 2013-05-12 Completed University of 00:00:00 [facility] Branch PPD (TB) 2013-05-12 Completed University of 00:00:00 [facility] PPD (TB) 2013-05-12 Completed University of 00:00:00 [facility] PPD (TB) 2013-05-12 Completed University of 00:00:00 [facility] Branch PPD (TB) 2013-05-12 Completed University of 00:00:00 [facility] Branch PPD (TB) 2013-05-12 Completed University of 00:00:00 [facility] Branch PPD (TB) 2013-05-12 Completed University of 00:00:00 [facility] Branch PPD (TB) 2013-05-12 Completed University of 00:00:00 [facility] Branch PPD (TB) 2013-05-12 Completed University of 00:00:00 [facility] Branch PPD (TB) 2013-05-12 Completed University of 00:00:00 [facility] PPD (TB) 2013-05-12 Completed University of 00:00:00 [facility] PPD (TB) 2013-05-12 Completed University of 00:00:00 [facility] PPD (TB) 2013-05-12 Completed University of 00:00:00 [facility] PPD (TB) 2013-05-12 Completed University of 00:00:00 [facility] PPD (TB) 2013-05-12 Completed University of 00:00:00 [facility] PPD (TB) 2013-05-12 Completed University of 00:00:00 [facility] PPD (TB) 2013-05-12 Completed University of 00:00:00 [facility] PPD (TB) 2013-05-12 Completed University of 00:00:00 [facility] PPD (TB) 2013-05-12 Completed University of 00:00:00 [facility] PPD (TB) 2013-05-12 Completed University of 00:00:00 [facility] PPD (TB) 2013-05-12 Completed University of 00:00:00 [facility] PPD (TB) 2013-05-12 Completed University of 00:00:00 [facility] PPD (TB) 2013-05-12 Completed University of 00:00:00 [facility] PPD (TB) 2013-05-12 Completed University of 00:00:00 [facility] PPD (TB) 2013-05-12 Completed University of 00:00:00 [facility] PPD (TB) 2013-05-12 Completed University of 00:00:00 [facility] PPD (TB) 2013-05-12 Completed University of 00:00:00 [facility] PPD (TB) 2013-05-12 Completed University of 00:00:00 [facility] PPD (TB) 2013-05-12 Completed University of 00:00:00 [facility] PPD (TB) 2013-05-12 Completed University of 00:00:00 [facility] PPD (TB) 2013-05-12 Completed University of 00:00:00 [facility] PPD (TB) 2013-05-12 Completed University of 00:00:00 [facility] PPD (TB) 2013-05-12 Completed University of 00:00:00 [facility] PPD (TB) 2013-05-12 Completed University of 00:00:00 [facility] PPD (TB) 2013-05-12 Completed University of 00:00:00 [facility] PPD (TB) 2013-05-12 Completed University of 00:00:00 [facility] Rubella 2007-12-01 Completed University of 00:00:00 [facility] Varicella 2007-12-01 Completed University of (varivax)(chicken 00:00:00 [place] [facility] Rubella 2007-12-01 Completed University of 00:00:00 [facility] Varicella 2007-12-01 Completed University of (varivax)(chicken 00:00:00 [place] [facility] pox[place] Rubella 2007-12-01 Completed University of 00:00:00 [facility] Varicella 2007-12-01 Completed University of (varivax)(chicken 00:00:00 [place] [facility] Rubella 2007-12-01 Completed University of 00:00:00 [facility] Varicella 2007-12-01 Completed University of (varivax)(chicken 00:00:00 [place] [facility]ox[facility] Rubella 2007-12-01 Completed University of 00:00:00 [facility] Varicella 2007-12-01 Completed University of (varivax)(chicken 00:00:00 [place] [facility] pox[facility] Rubella 2007-12-01 Completed University of 00:00:00 [facility] Varicella 2007-12-01 Completed University of (varivax)(chicken 00:00:00 [place] [facility] pox[facility] Rubella 2007-12-01 Completed University of 00:00:00 [facility] Varicella 2007-12-01 Completed University of (varivax)(chicken 00:00:00 [place] [facility] pox[facility] Rubella 2007-12-01 Completed University of 00:00:00 [facility] Varicella 2007-12-01 Completed University of (varivax)(chicken 00:00:00 [place] [facility] pox[facility] Rubella 2007-12-01 Completed University of 00:00:00 [facility] Varicella 2007-12-01 Completed University of (varivax)(chicken 00:00:00 [place] [facility] pox[facility] Rubella 2007-12-01 Completed University of 00:00:00 [facility] Varicella 2007-12-01 Completed University of (varivax)(chicken 00:00:00 [place] [facility] pox[facility] Rubella 2007-12-01 Completed University of 00:00:00 [facility] Varicella 2007-12-01 Completed University of (varivax)(chicken 00:00:00 [place] [facility] pox[facility] Rubella 2007-12-01 Completed University of 00:00:00 [facility] Varicella 2007-12-01 Completed University of (varivax)(chicken 00:00:00 [place] [facility] pox[facility] Rubella 2007-12-01 Completed University of 00:00:00 [facility] Varicella 2007-12-01 Completed University of (varivax)(chicken 00:00:00 [place] [facility] pox[facility] Rubella 2007-12-01 Completed University of 00:00:00 [facility] Varicella 2007-12-01 Completed University of (varivax)(chicken 00:00:00 [place] [facility] pox[facility] Rubella 2007-12-01 Completed University of 00:00:00 [facility] Varicella 2007-12-01 Completed University of (varivax)(chicken 00:00:00 [place] [facility] pox[facility] Rubella 2007-12-01 Completed University of 00:00:00 [facility] Varicella 2007-12-01 Completed University of (varivax)(chicken 00:00:00 [place] [facility] pox[facility] Rubella 2007-12-01 Completed University of 00:00:00 [facility] Varicella 2007-12-01 Completed University of (varivax)(chicken 00:00:00 [place] [facility] pox[facility] Rubella 2007-12-01 Completed University of 00:00:00 [facility] Varicella 2007-12-01 Completed University of (varivax)(chicken 00:00:00 [place] [facility] pox[facility] Rubella 2007-12-01 Completed University of 00:00:00 [facility] Varicella 2007-12-01 Completed University of (varivax)(chicken 00:00:00 [place] [facility] pox[facility] Rubella 2007-12-01 Completed University of 00:00:00 [facility] Varicella 2007-12-01 Completed University of (varivax)(chicken 00:00:00 [place] [facility] pox[facility] Rubella 2007-12-01 Completed University of 00:00:00 [facility] Varicella 2007-12-01 Completed University of (varivax)(chicken 00:00:00 [place] [facility] pox[facility] Rubella 2007-12-01 Completed University of 00:00:00 [facility] Varicella 2007-12-01 Completed University of (varivax)(chicken 00:00:00 [place] [facility] pox[facility] Rubella 2007-12-01 Completed University of 00:00:00 [facility] Varicella 2007-12-01 Completed University of (varivax)(chicken 00:00:00 [place] [facility] pox) [facility] Rubella 2007-12-01 Completed University of 00:00:00 [facility] Rubella 2007-12-01 Completed University of 00:00:00 [facility] Varicella 2007-12-01 Completed University of (varivax)(chicken 00:00:00 [place] [facility] pox) [facility] Rubella 2007-12-01 Completed University of 00:00:00 [facility] Varicella 2007-12-01 Completed University of (varivax)(chicken 00:00:00 [place] [facility] pox[facility] Varicella 2007-12-01 Completed University of (varivax)(chicken 00:00:00 [place] [facility] pox[facility] Rubella 2007-12-01 Completed University of 00:00:00 [facility] Varicella 2007-12-01 Completed University of (varivax)(chicken 00:00:00 [place] [facility] pox[facility] Rubella 2007-12-01 Completed University of 00:00:00 [facility] Varicella 2007-12-01 Completed University of (varivax)(chicken 00:00:00 [place] [facility] pox[facility] Rubella 2007-12-01 Completed University of 00:00:00 [facility] Varicella 2007-12-01 Completed University of (varivax)(chicken 00:00:00 [place] [facility] pox[facility] Rubella 2007-12-01 Completed University of 00:00:00 [facility] Varicella 2007-12-01 Completed University of (varivax)(chicken 00:00:00 [place] [facility] pox[facility] Rubella 2007-12-01 Completed University of 00:00:00 [facility] Varicella 2007-12-01 Completed University of (varivax)(chicken 00:00:00 [place] [facility] pox[facility] Rubella 2007-12-01 Completed University of 00:00:00 [facility] Varicella 2007-12-01 Completed University of (varivax)(chicken 00:00:00 [place] [facility] pox[facility] Rubella 2007-12-01 Completed University of 00:00:00 [facility] Varicella 2007-12-01 Completed University of (varivax)(chicken 00:00:00 [place] [facility] pox[facility] Rubella 2007-12-01 Completed University of 00:00:00 [facility] Varicella 2007-12-01 Completed University of (varivax)(chicken 00:00:00 [place] [facility] pox[facility] Rubella 2007-12-01 Completed University of 00:00:00 [facility] Varicella 2007-12-01 Completed University of (varivax)(chicken 00:00:00 [place] [facility] pox[facility] Rubella 2007-12-01 Completed University of 00:00:00 [facility] Rubella 2007-12-01 Completed University of 00:00:00 [facility] Varicella 2007-12-01 Completed University of (varivax)(chicken 00:00:00 [place] [facility]ox[facility] Varicella 2007-12-01 Completed University of (varivax)(chicken 00:00:00 [place] [facility] pox[facility] Rubella 2007-12-01 Completed University of 00:00:00 [facility] Varicella 2007-12-01 Completed University of (varivax)(chicken 00:00:00 [facility] edical pox) Branch Rubella 2007-12-01 Completed University of 00:00:00 [facility] Varicella 2007-12-01 Completed University of (varivax)(chicken 00:00:00 [facility] edical pox) Branch Td 2006-06-10 Completed University of 00:00:00 [facility] Td 2006-06-10 Completed University of 00:00:00 [facility] Td 2006-06-10 Completed University of 00:00:00 [facility] Td 2006-06-10 Completed University of 00:00:00 [facility] Td 2006-06-10 Completed University of 00:00:00 [facility] Td 2006-06-10 Completed University of 00:00:00 [facility] Td 2006-06-10 Completed University of 00:00:00 [facility] Td 2006-06-10 Completed University of 00:00:00 [facility] Td 2006-06-10 Completed University of 00:00:00 [facility] Td 2006-06-10 Completed University of 00:00:00 [facility] Td 2006-06-10 Completed University of 00:00:00 [facility] Td 2006-06-10 Completed University of 00:00:00 [facility] Td 2006-06-10 Completed University of 00:00:00 [facility] Td 2006-06-10 Completed University of 00:00:00 [facility] Td 2006-06-10 Completed University of 00:00:00 [facility] Td 2006-06-10 Completed University of 00:00:00 [facility] Td 2006-06-10 Completed University of 00:00:00 [facility] Td 2006-06-10 Completed University of 00:00:00 [facility] Td 2006-06-10 Completed University of 00:00:00 [facility] Td 2006-06-10 Completed [facility] 00:00:00 [facility] Td 2006-06-10 Completed [facility] 00:00:00 [facility] Td 2006-06-10 Completed [facility] 00:00:00 [facility] Td 2006-06-10 Completed [facility] 00:00:00 [facility] Td 2006-06-10 Completed [facility] 00:00:00 [facility] Td 2006-06-10 Completed [facility] 00:00:00 [facility] Td 2006-06-10 Completed [facility] 00:00:00 [facility] Td 2006-06-10 Completed [facility] 00:00:00 [facility] Td 2006-06-10 Completed [facility] 00:00:00 [facility] Td 2006-06-10 Completed [facility] 00:00:00 [facility] Td 2006-06-10 Completed [facility] 00:00:00 [facility] Td 2006-06-10 Completed University of 00:00:00 [facility] Td 2006-06-10 Completed University of 00:00:00 [facility] Td 2006-06-10 Completed University of 00:00:00 [facility] Td 2006-06-10 Completed [facility] 00:00:00 [facility] Td 2006-06-10 Completed University of 00:00:00 [facility] Td 2006-06-10 Completed University of 00:00:00 [facility] Td 2006-06-10 Completed University of 00:00:00 [facility] Td 2006-06-10 Completed University of 00:00:00 [facility] Td 2006-06-10 Completed University of 00:00:00 [facility] Vital Signs Vital Name Observation Time Observation Value Comments Source Systolic blood 2020-12-15 22:23:00 133 mm[Hg] Univer sity of pressure [facility] Diastolic blood 2020-12-15 22:23:00 87 mm[Hg] Unive rsity of pressure [facility] Heart rate 2020-12-15 22:23:00 78 /min [facility] Body temperature 2020-12-15 22:23:00 36.28 [facility] 2020-12-15 22:23:00 17 /min [facility] Body weight 2020-12-15 22:23:00 120.203 kg [facility] BMI 2020-12-15 22:23:00 46.94 kg/m2 [facility] [place] [facility] Oxygen saturation in 2020-12-15 22:23:00 96 /min University of Arterial blood by [facility] Pulse oximetry Branch Systolic blood 2020-12-15 22:23:00 133 mm[Hg] Univer sity of pressure [facility] Diastolic blood 2020-12-15 22:23:00 87 mm[Hg] Unive rsity of pressure [facility] Heart rate 2020-12-15 22:23:00 78 /min [facility] [place] [facility] Body temperature 2020-12-15 22:23:00 36.28 Sharon [facility] [place] [facility] Respiratory rate 2020-12-15 22:23:00 17 /min Univ [facility] [place] [facility] Body weight 2020-12-15 22:23:00 120.203 kg [facility] [place] [facility] BMI 2020-12-15 22:23:00 46.94 kg/m2 [facility] Oxygen saturation in 2020-12-15 22:23:00 96 /min University of Arterial blood by [facility] Pulse oximetry Branch Systolic blood 2020-11-21 16:05:00 120 mm[Hg] Univer sity of pressure [facility] Diastolic blood 2020-11-21 16:05:00 83 mm[Hg] Unive rsity of pressure [facility] Heart rate 2020-11-21 16:05:00 67 /min [facility] [place] [facility] Body temperature 2020-11-21 16:05:00 36.5 [place] [facility] [place] [facility] Respiratory rate 2020-11-21 16:05:00 16 /min Univ [facility] [place] [facility] Body height 2020-11-21 16:05:00 160 cm [facility] [place] [facility] Body weight 2020-11-21 16:05:00 127.489 kg [facility] [place] [facility] BMI 2020-11-21 16:05:00 49.79 kg/m2 [facility] [place] [facility] Systolic blood 2020-11-21 16:05:00 120 mm[Hg] Univer sity of pressure [facility] Diastolic blood 2020-11-21 16:05:00 83 mm[Hg] Unive rsity of pressure [facility] Heart rate 2020-11-21 16:05:00 67 /min [facility] [place] [facility] Body temperature 2020-11-21 16:05:00 36.5 [place] [facility] [place] [facility] Respiratory rate 2020-11-21 16:05:00 16 /min Univ [facility] [place] [facility] Body height 2020-11-21 16:05:00 160 cm [facility] [place] [facility] Body weight 2020-11-21 16:05:00 127.489 kg [facility] [place] [facility] BMI 2020-11-21 16:05:00 49.79 kg/m2 [facility] [place] [facility] Systolic blood 2020-03-15 16:05:00 126 mm[Hg] Univer sity of pressure [facility] Diastolic blood 2020-03-15 16:05:00 79 mm[Hg] Unive rsity of pressure [facility] Heart rate 2020-03-15 16:05:00 66 /min [facility] [place] [facility] Body temperature 2020-03-15 16:05:00 36.56 [place] [facility] [place] [facility] Respiratory rate 2020-03-15 16:05:00 16 /min Univ [facility] [place] [facility] Body height 2020-03-15 16:05:00 160 cm [facility] [place] [facility] Body weight 2020-03-15 16:05:00 117.708 kg [facility] [place] [facility] BMI 2020-03-15 16:05:00 45.97 kg/m2 [facility] [place] [facility] Systolic blood 2019-08-20 13:51:00 136 mm[Hg] Univer sity of pressure [facility] Diastolic blood 2019-08-20 13:51:00 88 mm[Hg] Unive rsity of pressure [facility] Heart rate 2019-08-20 13:21:00 80 /min [facility] [place] [facility] Body temperature 2019-08-20 13:21:00 36.22 [place] [facility] [place] [facility] Respiratory rate 2019-08-20 13:21:00 16 /min Univ [facility] [place] [facility] Body height 2019-08-20 13:21:00 160 cm [facility] [place] [facility] Body weight 2019-08-20 13:21:00 120.855 kg [facility] [place] [facility] BMI 2019-08-20 13:21:00 47.20 kg/m2 [facility] Systolic blood 2019-01-15 13:05:00 152 mm[Hg] Univer sity of pressure [facility] Diastolic blood 2019-01-15 13:05:00 90 mm[Hg] Unive rsity of pressure [facility] Heart rate 2019-01-15 13:00:00 78 /min [facility] Body temperature 2019-01-15 13:00:00 37.28 [place] [facility] Respiratory rate 2019-01-15 13:00:00 16 /min [facility] Body height 2019-01-15 13:00:00 160 cm [facility] Body weight 2019-01-15 13:00:00 116.121 kg [facility] BMI 2019-01-15 13:00:00 45.35 kg/m2 [facility] Procedures Procedure Date / Time Performing Clinician Source Performed ASSIGNMENT OF BENEFITS 2020-11-21 15:37:59 Doctor Unassigned, No [facility] HSV 1 AND 2 2020-03-15 16:24:00 Michele Goodman [facility] GLYCOPROTEIN G IGG Medical [facility] h HIV 1/2 AG-AB WITH 2020-03-15 16:24:00 Michele Goodman [facility] GALV ONLY - SYPHILIS 2020-03-15 16:24:00 Michele Goodman [facility] IGG/IGM [facility] ASSIGNMENT OF BENEFITS 2019-08-20 12:50:11 Doctor Unassigned, No [facility] POCT TEST 2019-01-15 13:19:00 [facility] Encounters Start End Encounter Admission Attending Care Care Encounter Source Date/Time Date/Time Type Type Clinicians Facility Department ID 2021-07-25 2021-07-25 Outpatient Nancy MALLORY [facility] [id number] Univers 14:30:00 14:30:00 LOVELY [id number] ity o f [facility] 2021-07-25 2021-07-25 Outpatient R LOGAN [facility] [id number] Univers 14:30:00 14:30:00 LOVELY lockharty o f [facility] 2021-07-24 2021-07-24 [facility] [id number] Univers 00:00:00 00:00:00 Michele Cruz CARDIOVASCULAR RADIOLOGIC TECHNOLOGIST [id number] ity of REGIONAL [id number] Bhavin as MATERNAL [phone] [facility] & CHILD [address] [place] [address] 2021-07-06 2021-07-06 [facility] [id number] Univers 00:00:00 00:00:00 Lovely Crawford CARDIOVASCULAR RADIOLOGIC TECHNOLOGIST [id number] ity of REGIONAL [id number] Bhavin as MATERNAL [phone] [address] 2021-03-23 2021-03-23 Telephone Maxine, [facility] [id number] Univers 00:00:00 00:00:00 Michele Cruz CARDIOVASCULAR RADIOLOGIC TECHNOLOGIST [id number] ity of [facility] [id number] Bhavin as MATERNAL [phone] [address] 2020-12-15 2020-12-15 Nurse NurseEleazar [facility] [id number] 17:03:06 17:18:06 Visit [facility] [id number] [place] [id number] Professio [phone] One 2020-12-15 2020-12-15 Nurse NurseEleazar [facility] [id number] Univers 17:03:06 17:18:06 Visit [facility] [id number] ity [facility] [id number] Bhavin as Professio [phone] Hi dical [address] Office [facility] One 2020-12-15 2020-12-15 Outpatient R [facility] [id number] Univers 17:15:00 17:15:00 [id number] ity of [facility] 2020-12-152020-12-15 Outpatient R NIKIA [facility] [id number] Univers 17:15:00 17:15:00 JAZZ kovacs o [facility] 2020-11-21 2020-11-21 Office Logan [facility] [id number] 10:46:50 12:19:41 Visit Lovely Crawford CARDIOVASCULAR RADIOLOGIC TECHNOLOGIST [id number] REGIONAL [id number] MATERNAL [phone] & CHILD [address] [place] [address] 2020-11-21 2020-11-21 Office [facility] [id number] Univers 10:46:50 12:19:41 Visit Lovely Crawford CARDIOVASCULAR RADIOLOGIC TECHNOLOGIST [id number] ity [facility] [id number] Bhavin as MATERNAL [phone] Med ical & CHILD [address] [place] [address] 2020-11-21 2020-11-21 [facility] [id number] Univers 10:30:00 10:30:00 LOVELY [id number] fermín o [facility] 2020-11-21 2020-11-21 [facility] [id number] Univers 10:30:00 10:30:00 LOVELY lockhartlorrie o [facility] 2020-11-21 2020-11-21 Orders Doctor STEVE [id number] Univers 00:00:00 00:00:00 Only Unassigned, MINESH [id number] ity of [place] [facility] [id number] Bhavin as [phone] [place] [address] Branch 2020-08-29 2020-08-29 [facility] [id number] Univers 00:00:00 00:00:00 Outreach Zan PIERRE [id number] i ty of [facility] [id number] [place] [phone] Hi dical [facility] Branch 2020-03-17 2020-03-17 Telephone Maxine [facility] [id number] Univers 00:00:00 00:00:00 Roshunda R CARDIOVASCULAR RADIOLOGIC TECHNOLOGIST [id number] ity of REGIONAL [id number] Bhavin as MATERNAL [phone] [facility] ical & CHILD [address] [place] [address] 2020-03-16 2020-03-16 [facility] [id number] Univers 00:00:00 00:00:00 Roshunda R CARDIOVASCULAR RADIOLOGIC TECHNOLOGIST [id number] ity of REGIONAL [id number] Bhavin as MATERNAL [phone] [facility] ical & CHILD [address] [place] [address] 2020-03-16 2020-03-16 [facility] [id number] Univers 00:00:00 00:00:00 Roshunda R CARDIOVASCULAR RADIOLOGIC TECHNOLOGIST [id number] ity of [facility] [id number] Bhavin as MATERNAL [phone] [facility] & CHILD [address] [place] [address] 2020-03-16 2020-03-16 [facility] [id number] Univers 00:00:00 00:00:00 Roshunda R CARDIOVASCULAR RADIOLOGIC TECHNOLOGIST [id number] ity of REGIONAL [id number] Bhavin as MATERNAL [phone] [facility] & CHILD [address] [place] [address] 2020-03-15 2020-03-15 [facility] [id number] Univers 10:52:49 11:17:46 Visit Roshunda R CARDIOVASCULAR RADIOLOGIC TECHNOLOGIST [id number] ity of [facility] [id number] Bhavin as MATERNAL [phone] [facility] & CHILD [address] [place] [address] 2020-03-15 2020-03-15 [facility] [id number] Univers 10:45:00 10:45:00 MICHELE [id number] ity o f [facility] 2020-03-15 2020-03-15 Outpatient [facility] [id number] Univers 10:45:00 10:45:00 JULIANNANDA ity o f [facility] 2020-01-11 2020-01-11 Telephone STEVE Goodman [id number] Univers 00:00:00 00:00:00 Roshunda R MINESH [id number] ity [facility] [id number] Bhavin as [phone] [address] 2020-01-10 2020-01-10 Outpatient R [facility] [id number] Univers 15:40:00 15:40:00 [facility] [facility] 2020-01-10 2020-01-10 Outpatient R STEPHANNANCI [facility] [id number] Univers 15:40:00 15:40:00 FLORENCE lorrie [facility] 2020-01-10 2020-01-10 Laboratory Lab, Adc Fam Pob I [facility] [id number] Univers 14:21:38 14:41:38 [facility] [id number] ity [facility] [id number] Bhavin as Professio [phone] [address] Office Building One 2019-09-10 2019-09-10 [facility] [id number] Univers 00:00:00 00:00:00 Roshunda R CARDIOVASCULAR RADIOLOGIC TECHNOLOGIST [id number] ity of [facility] [id number] Bhavin as MATERNAL [phone] Med ical & CHILD [address] [place] [address] 2019-09-02 2019-09-02 [facility] [id number] Univers 00:00:00 00:00:00 Roshunda R CARDIOVASCULAR RADIOLOGIC TECHNOLOGIST [id number] ity of [facility] [id number] Bhavin as MATERNAL [phone] Med ical & CHILD [address] [place] [address] 2019-08-26 2019-08-26 [facility] [id number] Univers 00:00:00 00:00:00 Roshunda R CARDIOVASCULAR RADIOLOGIC TECHNOLOGIST [id number] ity of [facility] [id number] Bhavin as MATERNAL [phone] Med ical & CHILD [address] [place] [address] 2019-08-25 2019-08-25 [facility]phone [facility] [id number] Univers 00:00:00 00:00:00 Rosdeepaknda R CARDIOVASCULAR RADIOLOGIC TECHNOLOGIST [id number] ity of [facility] [id number] Bhavin as MATERNAL [phone] [facility] ical & CHILD [address] [place] [address] 2019-08-24 2019-08-24 Telephone [facility] [id number] Univers 00:00:00 00:00:00 Rosdeepaknda R CARDIOVASCULAR RADIOLOGIC TECHNOLOGIST [id number] ity of [facility] [id number] Bhavin as MATERNAL [phone] [facility] & CHILD [address] [place] [address] 2019-08-20 2019-08-20 Office [facility] [id number] Univers 07:56:32 09:08:45 Visit Michele Cruz CARDIOVASCULAR RADIOLOGIC TECHNOLOGIST [id number] ity of [facility] [id number] Bhavin as MATERNAL [phone] [facility] & CHILD [address] [place] [address] 2019-08-20 2019-08-20 [facility] [id number] Univers 07:45:00 07:45:00 MICHELE [id number] ity o f [facility] 2019-08-20 2019-08-20 [facility] [id number] Univers 07:45:00 07:45:00 JULIANNANDA ity o f [facility] 2019-08-20 2019-08-20 Orders Doctor STEVE [id number] Univers 00:00:00 00:00:00 Only Unassigned, MINESH [id number] it[facility] [id number] Bhavin as [phone] [address] 2019-03-10 2019-03-10 Emergency E MHSE MHSE [id number] MH 15:59:00 15:59:00 [facility] 2019-01-15 2019-01-15 Office Maxine NVLUZ [id number] Univers 07:46:53 08:36:19 Visit Michele Cruz CARDIOVASCULAR RADIOLOGIC TECHNOLOGIST [id number] ity [facility] [id number] Bhavin as MATERNAL [phone] [facility] ical & CHILD [address] [place] [address] 2019-01-12 2019-01-12 Telephone Maxine NVLUZ [id number] Univers 00:00:00 00:00:00 Michele Cruz CARDIOVASCULAR RADIOLOGIC TECHNOLOGIST [id number] ity [facility] [id number] Bhavin as MATERNAL [phone] [facility] & CHILD [address] [place] [address] Results Test Description Test Time Test Comments Results Result Comments Source GALV ONLY - SYPHILIS IGG/IGM 2020-03-16 16:49:00 Test Item Value Reference Range Interpretation Comme nts Syphilis IgG/IgM (test code = Non-reactive Non-reactive 50847-3) KELY (test code = KELY) Non-reactive - No serologic evidence of T. pallidum infection. Cannot exclude incubating or early syphilis. Submit a second specimen in 2-4 weeks if syphilis is clinically suspected. Equivocal - Further testing to follow. Reactive - Further testing to follow. 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 [facility]2 AG-AB WITH [id number] 05:11:00 Test Item Value Reference Range Interpretation Comments HIV Negative Negative Semi-quantitative (test code = 57810-8) KELY (test code = Non-reactive for HIV-1 KELY) antigen and HIV-1/HIV-2 antibodies. ?No laboratory evidence of HIV infection. ?Repeat in 2-4 weeks if acute HIV infection is suspected. [facility] [id number] 13:19:00 Test Item Value Reference Range Interpretation Comments POCT PREG (test code = 1605) Negative On board controls acceptable with C Yes Line (test code = 3574) POCT PREG LOT # (test code = 3575) POCT PREG TEST DATE (test code = 3576) [facility] [id number] 13:19:00 Test Item Value Reference Range Interpretation Comments POCT PREG (test code = 1605) Negative On board controls acceptable with C Yes Line (test code = 3574) POCT PREG LOT # (test code = 3575) POCT PREG TEST DATE (test code = 3576) [facility]
[2021-08-01 09:27] LABS: Absolute Lymphocytes (CBC) 1.6 K/uL (0.7-4.9); Hematocrit 43.9 % (36.0-45.0); Lymphocytes % 22.4 % (15.3-44.8); MPV 9.9 fL (7.6-11.3)
[2021-08-01 09:35] LABS: Protime INR 0.91
[2021-08-01 09:47] LABS: ALT/SGPT 73 U/L (12-78); AST/SGOT 44 U/L (15-37); Albumin 3.7 g/dL (3.4-5.0); Alkaline Phosphatase 83 U/L (45-117); BUN Blood Urea Nitrogen 20 mg/dL (7-18); Bicarbonate 24 mmol/L (21-32); Bilirubin Direct 0.2 mg/dL (0-0.2); Bilirubin Total 0.7 mg/dL (0.2-1.0); Glucose Level 364 mg/dL (74-106); Potassium 3.3 mmol/L (3.5-5.1); Protein, Total 8.3 g/dL (6.4-8.2); Sodium Level 136 mmol/L (136-145)
[2021-08-01] MEDS ORDERED: ONDANSETRON 4 MG/2 ML VIAL ONE ×2 (09:48→09:49)
[2021-08-01] MEDS ORDERED: NA CHLORIDE 0.9% 1,000 ML ONE ×2 (09:49→12:34)
[2021-08-01 10:04] LABS: Urine Blood Trace-intact (Negative); Urine Glucose 2+ (Negative); Urine Protein 1+ (Negative); Urine Specific Gravity >=1.030 (1.005-1.030); Urine pH 5.5 (5.0-7.0)
[2021-08-01 10:12] LABS: Urine Specific Gravity/Preg >1.030 (1.005-1.030)
[2021-08-01 10:18] LABS: Barbiturates NEGATIVE (NEGATIVE); Benzodiazepines NEGATIVE (NEGATIVE); Cocaine NEGATIVE (NEGATIVE); METHAMPHETAM NEGATIVE (NEGATIVE); Methadone NEGATIVE (NEGATIVE); Opiates NEGATIVE (NEGATIVE); Phencyclidine NEGATIVE (NEGATIVE); THC Cannibis NEGATIVE (NEGATIVE)
[2021-08-01] MEDS ORDERED: POTASSIUM CL SA 10 MEQ TAB PO ONE (10:27)
[2021-08-01] MEDS ORDERED: INSULIN -REGULAR HUMAN 50 UNIT/0.5 ML ML ONE ×2 (10:28→13:41)
--- NOTE | 2021-08-01 11:33 | EDPHYS ---
Physician Documentation [facility] Name: Rose Guardado Age: 35 yrs Sex: Female : 1985 Arrival Date: 08/01/2021 Time: 08:21 Bed 15 Private MD: Sho Batres K ED Physician Mayelin Waller HPI: 08/01 09:02 This 35 yrs old Female presents to ER via Ambulatory with complaints of Took Medication.kb 09:02 The patient presents to the emergency department with a history of a suicide gesture, kb where the patient took pills/medications, benzodiazepines, suicide ideation, and the patient has a plan, to overdose with medications. Onset: The symptoms/episode began/occurred yesterday. Past psychiatric history: Prior diagnosis: depression. Associated signs and symptoms: Pertinent positives; suicide ideation. Severity of symptoms: At their worst the symptoms were moderate in the emergency department the symptoms are unchanged. The patient has not experienced similar symptoms in the past. The patient has not recently seen a physician. Pt states "I had a moment last night and took some pills." Reports taking 8mg of clonazapam from 2030 to 2230 last night. States her intent was to commit suicide. Reports history of suicidal ideations, but this is her first attempt. States there isn't one thing that led her to these thoughts, just "life." . 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 - Social history:: Smoking status: Patient denies any tobacco usage or history of. ROS: 09:01 Constitutional: Negative for fever, chills, and weight loss. kb 09:01 Abdomen/GI: Positive for nausea and vomiting, Negative for abdominal pain. 09:01 All other systems are negative. Exam: 09:01 Constitutional: This is a well developed, well nourished patient who is awake, alert, kb and in no acute distress. Head/Face: Normocephalic, atraumatic. ENT: Moist Mucous membranes Cardiovascular: Regular rate and rhythm with a normal S1 and S2. No gallops, murmurs, or rubs. No pulse deficits. Respiratory: Respirations even and unlabored. No increased work of breathing. Talking in full sentences Abdomen/GI: Soft, non-tender. No distention Skin: Warm, dry with normal turgor. Normal color. MS/ Extremity: Pulses equal, no cyanosis. Neurovascular intact. Full, normal range of motion. Neuro: Awake and alert, GCS 15, oriented to person, place, time, and situation. Moves all extremities. Normal gait. Psych: Awake, alert, with orientation to person, place and time. Behavior, mood, and affect are within normal limits. Vital Signs: 08:37 BP 146 / 101; Pulse 70; Temp 97.5(TE); Pulse Ox 99% on R/A; Weight 117.93 kg; Height 5 ap3 ft. 3 in. (160.02 cm); 11:53 BP 122 / 76; kb 13:30 BP 134 / 85; Pulse 69; Resp 18; Pulse Ox 100% on R/A; ss7 20:00 BP 122 / 75 LA Supine (auto/reg); Pulse 62 MON; Resp 16; Temp 98.1(O); Pulse Ox 100% on tk1 R/A; Pain 0/10; 08:37 Body Mass Index 46.06 (117.93 kg, 160.02 cm) ap3 MDM: 08:41 Patient medically screened. kb 08:54 Data reviewed: vital signs, nurses notes. Data interpreted: Pulse oximetry: on room air kb is 99 %. Interpretation: normal. ED course: I called poison control to verify observation period which is 8 hours post ingestion. Pt is 12 hours post ingestion at this time. 11:30 Counseling: I had a detailed discussion with the patient and/or guardian regarding: the kb historical points, exam findings, and any diagnostic results supporting the discharge/admit diagnosis, lab results, the need to transfer to another facility. ED course: physician accepts pt to [facility] once BGL less than 250. 08/01 08:42 Order name: Acetaminophen; Complete Time: 10:03 kb 08/01 08:42 Order name: Basic Metabolic Panel; Complete Time: 10:03 kb 08/01 08:42 Order name: CBC with Diff; Complete Time: 09:30 kb 08/01 08:42 Order name: ETOH Level; Complete Time: 10:03 kb 08/01 08:42 Order name: Hepatic Function; Complete Time: 10:03 kb 08/01 08:42 Order name: PT-INR; Complete Time: 09:40 kb 08/01 08:42 Order name: Ptt, Activated; Complete Time: 09:40 kb 08/01 08:42 Order name: Salicylate; Complete Time: 10:03 kb 08/01 08:42 Order name: Urine Drug Screen; Complete Time: 10:35 kb 08/01 08:43 Order name: COVID-19 SARS RT PCR (Document "Date of Onset" if Symptomatic); Complete kb Time: 10:35 08/01 10:03 Order name: Urine Dipstick-Ancillary; Complete Time: 10:09 EDMS 08/01 10:04 Order name: Urine --Ancillary (enter results); Complete Time: 10:35 bd 08/01 12:24 Order name: Glucose, Ancillary Testing; Complete Time: 12:26 EDMS 08/01 13:45 Order name: Glucose, Ancillary Testing; Complete Time: 13:51 EDMS 08/01 08:42 Order name: EKG; Complete Time: 08:43 kb 08/01 08:42 Order name: EKG - Nurse/Tech; Complete Time: 09:21 kb 08/01 08:42 Order name: IV Saline Lock; Complete Time: 09:22 kb 08/01 08:42 Order name: Labs collected and sent; Complete Time: 09:43 kb 08/01 08:42 Order name: Suicide Precautions; Complete Time: 09:43 kb 08/01 10:19 Order name: Diet Regular: Psych precautions; Complete Time: 10:19 ss 08/01 14:36 Order name: Glucose, Ancillary Testing; Complete Time: 14:39 EDMS 08/01 16:46 Order name: Diet Ada 1500 Don; Complete Time: 16:47 bd 08/01 18:48 Order name: Glucose, Ancillary Testing EDMS 08/01 08:42 Order name: Suicide Screening ([place]); Complete Time: 09:43 kb 08/01 08:42 Order name: Urine Dipstick-Ancillary (obtain specimen); Complete Time: 13:49 kb 08/01 08:42 Order name: Urine Test (obtain specimen); Complete Time: 13:49 kb 08/01 08:42 Order name: Misc. Order: Call Poison control for recommendations; Complete Time: 09:43 kb 08/01 11:19 Order name: Blood Glucose Level; Complete Time: 12:29 kb 08/01 11:19 Order name: Vital Signs; Complete Time: 12:29 kb 08/01 13:12 Order name: Blood Glucose Level; Complete Time: 13:41 kb Administered Medications: 09:45 Drug: NS 0.9% 1000 ml Route: IV; Rate: 1000 ml; Site: left antecubital; cb5 09:45 Drug: Zofran (Ondansetron) 4 mg Route: IVP; Site: left antecubital; cb5 10:25 Drug: Insulin Regular Human 5 units {Co-Signature: jh5 (Hannah Green RN).} Route: IVP; cb5 Site: left antecubital; 10:25 Drug: Potassium Chloride 20 mEq Route: PO; cb5 12:29 Drug: NS 0.9% 1000 ml Route: IV; Rate: 1000 ml; Site: right antecubital; cb5 13:30 Not Given (Patient Refused): Zofran (Ondansetron) 4 mg IVP once; over 2 minutes cb5 13:41 Drug: Insulin Regular Human 5 units {Co-Signature: eo2 (Mary Beth Gutiérrez RN).} Route: cb5 Sub-Q; Site: abdomen; Disposition Summary: 08/01/21 11:32 Transfer Ordered Transfer Location: Psych Facility kb Reason: Higher level of care kb Condition: Stable kb Problem: new kb Symptoms: are unchanged kb Accepting Physician: Jake Torres(08/01/21 22:10) tk1 Diagnosis - Suicidal ideations kb - Poisoning by benzodiazepines, intentional self-harm kb Forms: - Medication Reconciliation Form kb - SBAR form kb Signatures: Dispatcher [employer] EDMN Morena Vo, MAGDIEL HERNANDEZ-Jennifer Steele RN RN ap3 Dacia Cosme1 Buffy Rodriguez RN RN cb5 Hannah Green RN jh5 Mary Beth Gutiérrez RN eo2 Corrections: (The following items were deleted from the chart) 22:10 11:32 [facility] tk1
--- NOTE | 2021-08-01 11:33 | ER ---
Nurse's Notes [facility] Name: Rose Guardado Age: 35 yrs Sex: Female : 1985 Arrival Date: 08/01/2021 Time: 08:21 Bed 15 Private MD: Sho Batres K Diagnosis: Suicidal ideations;Poisoning by benzodiazepines, intentional self-harm Presentation: 08/01 08:37 Chief complaint: Patient states: she took too many pills last night-pt states she took ap3 aprox 16, 0.5mg clonazepam. Patient reports starting taking the medications between 830pm and 1030pm. Coronavirus screen: At this time, the client does not indicate any symptoms associated with coronavirus-19. Ebola Screen: No symptoms or risks identified at this time. Initial Sepsis Screen: Does the patient meet any 2 criteria? No. Patient's initial sepsis screen is negative. Does the patient have a suspected source of infection? No. Patient's initial sepsis screen is negative. Risk Assessment: Do you want to hurt yourself or someone else? Patient reports desire/thoughts of hurting themselves or someone else. Provider notified. Onset of symptoms was July 31, 2021. 08:37 Method Of Arrival: Ambulatory ap3 08:37 Acuity: TATIANA 2 ap3 Triage Assessment: 08:42 General: Appears distressed, Behavior is calm, cooperative. Pain: Denies pain. Neuro: ap3 Level of Consciousness is awake, alert, obeys commands, Oriented to person, place, time, situation, Appropriate for age. Cardiovascular: Patient's skin is warm and dry. Respiratory: Airway is patent Respiratory effort is even, unlabored. GI: Reports nausea, vomiting. 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 - Social history:: Smoking status: Patient denies any tobacco usage or history of. Screenin:43 Abuse screen: Denies threats or abuse. Nutritional screening: No deficits noted. ap3 Tuberculosis screening: No symptoms or risk factors identified. 21:38 Fall Risk None identified. tk1 Assessment: 08:44 Visitor restriction implemented due to in-person visitations may lead to the ap3 transmission of an infectious agent. Restricted visitation is valid for not more than 5 days unless renewed by the attending provider. triage nurse contacted poison control. Spoke with Saadia. Watch for OPERATIONS LABEL CLERK depression, bradycardia and possible respiratory depression if other medications are on board. Minimum observation time is 8 hours. . 09:00 General: pt informed nurse she tool approx. 16 clonazepam 0.5mg tablets last night cb5 because she is depressed. She is seeing a psychiatrist, stated she is a single partent of three, works at [employer] happy with her job, sad her 18 year old and her are fighting and child is moving out. She stated she feels unappreciated right now, and is sad. . 09:35 General: Appears in no apparent distress. comfortable, obese, Behavior is cooperative, cb5 flat, quiet, Reports fatigue for 0-12 hours. Pain: Denies pain. Neuro: No deficits noted. Level of Consciousness is awake, alert, obeys commands, lethargic, Oriented to person, place, time, Customer Support Analyst are equal bilaterally Moves all extremities. Gait is steady, Speech is normal, Facial symmetry appears normal, Pupils are PERRLA, Reports. Cardiovascular: No deficits noted. Respiratory: No deficits noted. GI: No deficits noted. : No deficits noted. EENT: No deficits noted. Derm: No deficits noted. Musculoskeletal: No deficits noted. 10:00 Reassessment: No changes from previously documented assessment. Patient and/or family cb5 updated on plan of care and expected duration. Pain level reassessed. 10:30 General: spoke with Marina at [facility] inpatient, gave cb5 report. 11:00 Reassessment: No changes from previously documented assessment. Patient and/or family cb5 updated on plan of care and expected duration. Pain level reassessed. General:. 12:00 Reassessment: No changes from previously documented assessment. Patient and/or family cb5 updated on plan of care and expected duration. Pain level reassessed. pt asleep in no acute distress. General:. 13:00 Reassessment: Patient and/or family updated on plan of care and expected duration. Pain cb5 level reassessed. 14:00 Reassessment: Patient and/or family updated on plan of care and expected duration. Pain cb5 level reassessed. 15:00 Reassessment: Patient and/or family updated on plan of care and expected duration. Pain cb5 level reassessed. 16:00 Reassessment: Patient and/or family updated on plan of care and expected duration. Pain cb5 level reassessed. 17:00 Reassessment: No changes from previously documented assessment. Patient and/or family cb5 updated on plan of care and expected duration. Pain level reassessed. pt ate lunch and dinner. tolerated well. in no acute distress, waiting to transfer . 18:00 Reassessment: Patient and/or family updated on plan of care and expected duration. Pain cb5 level reassessed. Patient denies pain at this time. Patient states feeling better. 18:52 Reassessment: Patient and/or family updated on plan of care and expected duration. Pain cb5 level reassessed. Patient denies pain at this time. 21:38 Reassessment: No changes from previously documented assessment. Patient and/or family tk1 updated on plan of care and expected duration. Pain level reassessed. Patient is alert, oriented x 3, equal unlabored respirations, skin warm/dry/pink. Patient awaiting EMS for transfer to psych facility. Denies needs at present. Patient denies pain at this time. General: Appears in no apparent distress. comfortable, well groomed, well developed, well nourished, Behavior is calm, cooperative, quiet. Pain: Denies pain. 22:08 Reassessment: Report given to EMS. Patient transferred to [facility] to [facility] psych facility. Vital Signs: 08:37 BP 146 / 101; Pulse 70; Temp 97.5(TE); Pulse Ox 99% on R/A; Weight 117.93 kg; Height 5 ap3 ft. 3 in. (160.02 cm); 11:53 BP 122 / 76; kb 13:30 BP 134 / 85; Pulse 69; Resp 18; Pulse Ox 100% on R/A; ss7 20:00 BP 122 / 75 LA Supine (auto/reg); Pulse 62 MON; Resp 16; Temp 98.1(O); Pulse Ox 100% on tk1 R/A; Pain 0/10; 08:37 Body Mass Index 46.06 (117.93 kg, 160.02 cm) ap3 ED Course: 08:21 Patient arrived in ED. mr 08:22 Sho Batres MD is Private Physician. mr 08:40 Triage completed. ap3 08:41 Morena Vo FNP-C [facility]. kb 08:41 Mayelin Waller MD is Attending Physician. kb 09:00 Patient has correct armband on for positive identification. Bed in low position. Call cb5 light in reach. Side rails up X 1. pt is on SI precautions, pt is in view of nurses station. 09:22 EKG done, by ED staff, reviewed by Morena VELOZ. mb7 09:22 COVID swab sent to lab. mb7 09:27 Buffy Rodriguez, RN is Primary Nurse. cb5 09:43 COVID-19 SARS RT PCR (Document "Date of Onset" if Symptomatic) Sent. cb5 09:43 Acetaminophen Sent. cb5 09:43 Basic Metabolic Panel Sent. cb5 09:43 ETOH Level Sent. cb5 09:43 Hepatic Function Sent. cb5 09:43 Salicylate Sent. cb5 10:[address] [facility]. bd 18:59 Report given to Ricky Pederson cb5 19:30 No apparent distress. Safety Checks: The door is open or patient has been placed in a tk1 hallway bed/chair. Sitter not present at this time due to or because Request made. 19:30 Patient is placed in psych hold. tk1 20:00 No provider procedures requiring assistance completed. IV discontinued, intact, tk1 bleeding controlled, No redness/swelling at site. Pressure dressing applied. 20:30 No apparent distress. Resting quietly. Appears to be sleeping. transfer transportation tk1 to receiving facility. 21:30 No apparent distress. Resting quietly. Appears upset. transfer transportation to tk1 receiving facility. Safety Checks: The door is open or patient has been placed in a hallway bed/chair. Sitter not present at this time. Safety Checks: The door is open or patient has been placed in a hallway bed/chair. Sitter not present at this time. 22:10 Appears upset. Safety Checks: The door is open or patient has been placed in a hallway tk1 bed/chair. Sitter not present at this time. 22:10 Patient notified of wait time. tk1 Administered Medications: 09:45 Drug: NS 0.9% 1000 ml Route: IV; Rate: 1000 ml; Site: left antecubital; cb5 09:45 Drug: Zofran (Ondansetron) 4 mg Route: IVP; Site: left antecubital; cb5 10:25 Drug: Insulin Regular Human 5 units {Co-Signature: jh5 (Hannah Green RN).} Route: IVP; cb5 Site: left antecubital; 10:25 Drug: Potassium Chloride 20 mEq Route: PO; cb5 12:29 Drug: NS 0.9% 1000 ml Route: IV; Rate: 1000 ml; Site: right antecubital; cb5 13:30 Not Given (Patient Refused): Zofran (Ondansetron) 4 mg IVP once; over 2 minutes cb5 13:41 Drug: Insulin Regular Human 5 units {Co-Signature: eo2 (Mary Beth Gutiérrez RN).} Route: cb5 Sub-Q; Site: abdomen; Outcome: 11:32 ER care complete, transfer ordered by MD. kb 22:08 Transferred by ground EMS Transfer form completed. tk1 22:08 Condition: stable 22:08 Demonstrated understanding of Psych placement. 22:10 Patient left the ED. tk1 Signatures: Morena Vo, FILLER LEAF CUTTER LONG-C FILLER LEAF CUTTER LONG-CkElian Pineda Mary mr Jennifer Montano RN RN ap3 Ambar Segundo mb7 Dacia Cosme tk1 Buffy Rodriguez, RN RN cb5 Zluema Cazares RN RN ss7 Hannah Green RN jh5 Mary Beth Gutiérrez RN eo2 Corrections: (The following items were deleted from the chart) 08:48 08:44 Visitor restriction implemented due to in-person visitations may lead to the ap3 transmission of an infectious agent. Restricted visitation is valid for not more than 5 days unless renewed by the attending provider. triage nurse contacted poison control. Spoke with Saadia. Watch for OPERATIONS LABEL CLERK depression, bradycardia and possible respiratory depression if other medications are on board. ap3
[2021-08-01 23:56] VITALS: O2SAT 100
[2021-08-01 23:57] VITALS: BP 122/75; TEMP 98.1
== END 2021-08-01 22:10 ==
LOC: ER 08:19
DX: T42.4X2A Poisoning by benzodiazepines, intentional self-harm, initial encounter (principal); F32.A Depression, unspecified; F41.9 Anxiety disorder, unspecified; I10 Essential (primary) hypertension; Z20.822 Contact with and (suspected) exposure to COVID-19; Z88.8 Allergy status to other drugs, medicaments and biological substances
CPT/HCPCS: 85025; 80048; 36415; 80320; 80329 ×2; 81025; 85610; 82947 ×4; 80076; 85730; 81003; 80307; 96375; 96372; 96374; 99285; U0003; J7030 ×2; J2405 ×2

== ENCOUNTER 2023-05-09 10:45 | Emergency (ER) | payer BC, OTHER ==
--- OUTSIDE RECORDS SUMMARY | 2023-05-09 11:04 | XMS REPORT | Continuity of Care Document ---
:1985 Author Organization [facility] t Address [address] [facility] [address] [place] [address] Care Team Providers Name Role Phone Group, Angy [facility] Primary Care Physician [phone] BRYAN WATERS Attending Clinician Unavailable DIANE RODRIGUEZ Attending Clinician Unavailable FLORENCE JUÁREZ Attending Clinician Unavailable FRANCIA, MIKHAIL Attending Clinician Unavailable LAB90 Attending Clinician Unavailable KELLEY MANZANO Attending Clinician Unavailable ANGI POON Attending Clinician Unavailable AMBROSIO CORMIER Attending Clinician Unavailable Ambrosio Cormier MD Attending Clinician Bryan Waters DO Attending Clinician LOVELY MALLORY Attending Clinician Unavailable Michele Zapata Attending Clinician Logan LI Lovely C Attending Clinician [phone] Nurse, [facility] Attending Clinician Unavailable Jazz Sellers Attending Clinician JAZZ AGARWAL Attending Clinician Unavailable Doctor Unassigned, [place] Attending Clinician Unavailable Alex WASHINGTON Zan Esteban Attending Clinician MICHELE GOODMAN Attending Clinician Unavailable FLORENCE MARIANO Attending Clinician Unavailable Lab, Adc Fam Pob I Attending Clinician Unavailable Floernce Cornelius Attending Clinician Payers Payer Name Policy Type Policy Number Effective Date Expiration Date S giovannice [employer]ETNA 2 [id number] 2022 00:00:00 [employer] COMMERCIAL [id number] 2022 OUT OF NETWORK 00:00:00 BCBS 2 [id number] 2021 00:00:00 [place] [place] - OUT [id number] 2020 [facility] 00:00:00 Problems Condition Condition Condition Status Onset Resolution Last Treating Co mments Source Name Details Category Date Date Treatment Clinician Date Renal Renal Disease Active Angy insufficie insufficie 9-08 Se ybold ncy ncy 00:00: - 00 Externa l Class 3 Class 3 Disease Active Angy severe severe 4-10 Seybold obesity obesity 00:00: - with with 00 Externa serious serious l comorbidit comorbidit y and body y and body mass index mass index (BMI) of (BMI) of 40.0 to 40.0 to 44.9 in 44.9 in adult adult Obesity Obesity Disease Active Angy with with 4-10 Seybold serious serious 00:00: - comorbidit comorbidit 00 Ex terna y y l Acute Acute Disease Active 2021-06 Angy cough cough 0-18 Seybold 00:00: - 00 Externa l Chest pain Chest pain Disease Active K elsey on on 12-14 Seybold breathing breathing 00:00: - 00 Externa l Pain and Pain and Disease Active Kelse y swelling swelling 6-30 Seybol d of left of left 00:00: - lower lower 00 Externa extremity extremity l Bone spur Bone spur Disease Active Blayne sey of left of left 6-30 Seybold foot foot 00:00: - 00 Externa l Elevated Elevated Disease Active Kelse y liver liver 4-19 Seybold function function 00:00: - tests tests 00 Externa l Primary Primary Disease Active Angy hypertensi hypertensi 3-22 Se ybold on on 00:00: - 00 Externa l Acquired Acquired Disease Active Kelse y hypothyroi hypothyroi 3-22 Se ybold dism dism 00:00: 00 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 3-22 Seybol d mellitus mellitus 00:00: without without 00 complicati complicati on, on, without without long-term long-term current current use of use of insulin insulin Gastroesop Gastroesop Disease Active K elsey hageal hageal 3-22 Seybold reflux reflux 00:00: - disease disease 00 Externa without without l esophagiti esophagiti s s Current Current Disease Active Angy moderate moderate 3-22 Seybol d episode of episode of 00:00: - 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 Externa depressive depressive l disorder disorder without without prior prior episode episode 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 3-22 Seybol d mellitus mellitus 00:00: - with with 00 Externa hyperlipid hyperlipid l emia emia (multi (multi HCC) HCC) Other Other Disease Active Univers general general 6-14 it[place] of counseling [place] and advice and advice 00 Ga dical for for Branch contracept contracept carmen [...] cervix Bran ch BMI BMI Disease Active 2019- Univers 45.0-49.9, 45.0-49.9, 3-12 it y of adult adult 00:00: [place] [id number] Medical Branch Encounter Encounter Disease Active 2017-06 Uni vers for for 0-03 ity of contracept contracept [place] carmen carmen 00 Medical management management Br anch , , unspecifie unspecifie d type d type History of History of Disease Active 2017-06 U nivers bilateral bilateral 0-03 ity of tubal tubal 00:00: [place] ligation ligation 00 Medica l Branch Screening Screening Disease Active 2017-06 Uni vers examinatio examinatio 0-03 it y of n for STD n for STD 00:00: [place] s (sexually (sexually 00 Medi josephine transmitte transmitte Br anch d disease) d disease) GDM, class GDM, class Disease Active U nivers A2 A2 9-05 ity of 00:00: [place] [facility] Genitourin Genitourin Disease Active U nivers [place] 8-31 ity of infection infection 00:00: Crist[place] in in 00 Medical , , Br [...] on, benign on, benign 00:[place]: [place] [facility] Morbid Morbid Disease Active Univers obesity obesity 9-21 ity of 00:00: [place] [facility] Well woman Well woman Disease Active U scott exam exam - ity of 00:00: [place] [facility] History of History of Disease Active U nivers TIA TIA 9- ity of (transient (transient [place] ischemic ischemic 00 Medica l attack) attack) Branch Allergies, Adverse Reactions, Alerts Allergy Allergy Status Severity Reaction(s) Onset Inactive Treating Comm ents Source Name Type Date Date Clinician Lisinopr Propensi Active Cough Angy il ty to 08-29 Seybold adverse 00:00: reaction 00 s Lisinopr Propensi Active Cough Angy il ty to 08-29 Seybold adverse 00:00: - reaction 00 Externa s l PREDNISO DRUG Active Swelling Univer s NE INGREDI 08-10 ity of 00:00: [place] 00 Medical Branch Predniso Propensi Active Swelling Angelia ey ne ty to 08-10 Seybold adverse 00:00: reaction 00 s Predniso Propensi Active Swelling Angelia ey ne ty to 08-10 Seybold adverse 00:00: - reaction 00 Externa s l Social History Social Habit Start Date Stop Date Quantity Comments Source Gender identity Angy henry - External Sexual orientation Angy García - External Alcohol intake 2023-05-08 2023-05-08 Ex-drinker Angy blank - 00:00:00 00:00:00 (finding) External History of Social 2023-02-25 2023-02-25 Angy García - function 00:00:00 00:00:00 External Exposure to 2022-07-26 2022-08-05 Not sure University SARS-CoV-2 (event) 00:00:00 11:40:00 [facility] Tobacco use and 2021-08-29 2021-08-29 Smokeless Angy henry - exposure 00:00:00 00:00:00 tobacco non-user External Education - What is 2021-08-29 2021-08-29 12th grade Jose García - the highest level 00:00:00 00:00:00 Externa l of school you have completed or the highest degree you have received? Sex Ass[birth year] Angy solorzanopramod - 00:00:00 00:00:00 External Smoking Status Start Date Stop Date Source Never smoked tobacco Angy benavidez - External Medications Ordered Filled Start Stop Current Ordering Indication Dosage Frequency Signature Comments Components Source Medication Medication Date Date Medication? Clinician (SIG) Name Name Aspirin 81 2022-06 Yes 81mg Take 1 Kelse y MG oral 1-29 tablet (81 Seybol d Tablet 14:06: mg total) - Delayed 46 by mouth Externa Response daily. l Ondansetron 2022-06 Yes [id number] 4mg [id number] Take 1 Angy HCl 4 MG 1-29 [id number] tablet (4 Seybold oral Tablet 00:00: 3D mg total) - 00 by mouth Externa every 8 l hours as needed for nausea. Metoprolol 2022-06 Yes [id number] 100mg Take 1 Angy Succinate 1-16 tablet Seybold 100 MG oral 00:00: (100 mg - TABLET SR 00 total) by Exter na 24 HR mouth l daily. Metoprolol 2022-06 Yes [id number] 100mg Take 1 Angy Succinate 1-16 tablet Seybold 100 MG oral 00:00: (100 mg - TABLET SR 00 total) by Exter na 24 HR mouth l daily. OZEMPIC Yes [id number] INJECT Angelia ey (0.25 or 9-17 0.25MG Seybold 0.5 00:00: INTO THE - mg/dose) 2 00 SKIN ONE Exter na mg/3 mL SQ TIME PER l Solution WEEK Pen-Injecto r OZEMPIC Yes [id number] INJECT Angelia ey (0.25 or 9-17 0.25MG Seybold 0.5 00:00: INTO THE - mg/dose) 2 00 SKIN ONE Exter na mg/3 mL SQ TIME PER l Solution WEEK Pen-Injecto r Aspirin 81 Yes 81mg Take 1 Kelse y MG oral 9-15 tablet (81 Seybol d Tablet 08:41: mg total) - Delayed 27 by mouth Externa Response daily. l Aspirin 81 Yes 81mg Take 1 Kelse y MG oral 9-15 tablet (81 Seybol d Tablet 08:41: mg total) - Delayed 27 by mouth Externa Response daily. l Aspirin 81 2022- No [id number] 81mg Take 1 Angy MG oral Tab 9-15 09-15 tablet (81 S eybold 08:37: 00:00 mg total) - 00 :00 by mouth Externa daily. l Aspirin 3-0 Yes [id number] 81mg Take 1 Angy MG oral Tab 9-08 tablet (81 Se ybold 10:58: mg total) - 10 by mouth Externa daily. l Metformin 0 2022- No [id number] 1000mg Take 2 Angy HCl ER 500 7-11 09-08 tablets Seybo ld MG oral 00:00: 00:00 (1,000 mg - TABLET SR 00 :00 total) by Exter na 24 HR mouth 2 l times daily Losartan 2022- No [id number] TAKE 1 Ke lsey Potassium 7-03 09-08 TABLET BY [facility] benavidez (COZAAR) 00:00: 00:00 MOUTH - 100 MG oral 00 :00 EVERY DAY Ext piyush Tablet l Aspirin 81 Yes [id number] 81mg Take 1 Angy MG oral Tab 6-09 tablet (81 Se ybold 09:06: mg total) - 01 by mouth Externa daily l Semaglutide Yes [id number] .5mg Inject 0.5 Angy (0.25 or 6-09 mg into Seybold 0.5 00:00: the skin - mg/dose) 2 00 once a Externa mg/3 mL SQ week l Solution Pen-Injecto r Semaglutide 0 Yes [id number] .5mg Inject 0.5 Angy (0.25 or 6-09 mg into Seybold 0.5 00:00: the skin - mg/dose) 2 00 once a Externa mg/3 mL SQ week l Solution Pen-Injecto r Semaglutide 0 Yes [id number] .5mg Inject 0.5 Angy (0.25 or 6-09 mg into Seybold 0.5 00:00: the skin - mg/dose) 2 00 once a Externa mg/3 mL SQ week l Solution Pen-Injecto r Semaglutide 0 2022- No [id number] .25mg Inject Angy (0.25 or 5-19 06-09 0.25 mg Seybold 0.5 00:00: 00:00 into the - mg/dose) 2 00 :00 skin once Exte rna mg/3 mL SQ a week l Solution Pen-Injecto r Aspirin 81 0 Yes [id number] 81mg Take 1 Angy MG oral Tab 4-10 tablet (81 Se ybold 11:11: mg total) - 49 by mouth Externa daily l Metoprolol 2022- No 100mg Take 1 Blayne sey Succinate 4-06 04-10 tablet Seybold 100 MG oral 00:00: 00:00 (100 mg - TABLET SR 00 :00 total) by Exter na 24 HR mouth 2 l times daily FOR 90 DAYS Atorvastati 2022- No 10mg Take 10 mg Angy n Calcium 3-13 03-13 by mouth Seybo ld 10 MG oral 08:52: 00:00 daily - Tablet 34 :00 Externa l Aspirin 81 Yes [id number] 81mg Take 81 mg Angy MG oral Tab 3-13 by mouth Seyb old 08:32: daily - 49 Externa l Insulin Pen Yes Use as Angelia ey Needle 32G 3-07 directed. Seyb old X 6 MM does 00:00: - not apply 00 Externa Misc l Insulin Pen Yes Use as Angelia ey Needle 32G 3-07 directed. Seyb old X 6 MM does 00:00: - not apply 00 Externa Misc l Insulin Pen Yes Use as Angelia ey Needle 32G 3-07 directed. Seyb old X 6 MM does 00:00: - not apply 00 Externa Misc l Insulin Pen 0 Yes Use as Angelia ey Needle 32G 3-07 directed. Seyb old X 6 MM does 00:00: - not apply 00 Externa Misc l Insulin Pen 0 Yes Use as Angelia ey Needle 32G 3-07 directed. Seyb old X 6 MM does 00:00: - not apply 00 Externa Misc l Insulin Pen Yes Use as Angelia ey Needle 32G 3-07 directed. Seyb old X 6 MM does 00:00: - not apply 00 Externa Misc l Insulin Pen 0 Yes Use as Angelia ey Needle 32G 3-07 directed. Seyb old X 6 MM does 00:00: - not apply 00 Externa Misc l Metformin 0 2022- No 500mg Take 500 Ke lsey HCl ER 500 2-27 02-27 mg by Seybold MG oral 11:46: 00:00 mouth - TABLET SR 59 :00 daily Externa 24 HR (with l breakfast) Aspirin 81 2022-0 Yes [id number] 81mg Take 81 mg Angy MG oral Tab 2-27 by mouth Seyb old 11:33: daily - 16 Externa l Atorvastati 2022-0 Yes 10mg Take 10 mg Angy n Calcium 2-27 by mouth Seybol d 10 MG oral 11:33: daily - Tablet 16 Externa l glipiZIDE 2022-0 Yes [id number] 10mg Take 1 Ke lsey 10 MG oral 2-27 tablet (10 Sey bold Tablet 00:00: mg total) - 00 by mouth Externa daily l (before a meal) Metformin 2022-0 Yes [id number] 1000mg Take 2 Angy HCl ER 500 2-27 tablets Seybol d MG oral 00:00: (1,000 mg - TABLET SR 00 total) by Exter na 24 HR mouth 2 l times daily Semaglutide 2022- Yes [id number] .25mg Inject Angy (0.25 or 2-27 0.25 mg Seybold 0.5 00:00: into the - mg/dose) 2 00 skin once Exte rna mg/1.5 mL a week l SQ Solution Pen-Injecto r glipiZIDE 2022-0 Yes [id number] 10mg Take 1 Ke lsey 10 MG oral 2-27 tablet (10 Sey bold Tablet 00:00: mg total) - 00 by mouth Externa daily l (before a meal) Metformin 2022-0 Yes [id number] 1000mg Take 2 Angy HCl ER 500 2-27 tablets Seybol d MG oral 00:00: (1,000 mg - TABLET SR 00 total) by Exter na 24 HR mouth 2 l times daily Semaglutide 2022- Yes [id number] .25mg Inject Angy (0.25 or 2-27 0.25 mg Seybold 0.5 00:00: into the - mg/dose) 2 00 skin once Exte rna mg/1.5 mL a week l SQ Solution Pen-Injecto r glipiZIDE 2022-0 Yes [id number] 10mg Take 1 Ke lsey 10 MG oral 2-27 tablet (10 Sey bold Tablet 00:00: mg total) - 00 by mouth Externa daily l (before a meal) Metformin Yes [id number] 1000mg Take 2 Angy HCl ER 500 2-27 tablets Seybol d MG oral 00:00: (1,000 mg - TABLET SR 00 total) by Exter na 24 HR mouth 2 l times daily Semaglutide Yes [id number] .25mg Inject Angy (0.25 or 2-27 0.25 mg Seybold 0.5 00:00: into the - mg/dose) 2 00 skin once Exte rna mg/1.5 mL a week l SQ Solution Pen-Injecto r glipiZIDE Yes [id number] 10mg Take 1 Ke lsey 10 MG oral 2-27 tablet (10 Sey bold Tablet 00:00: mg total) - 00 by mouth Externa daily l (before a meal) Metformin Yes [id number] 1000mg Take 2 Angy HCl ER 500 2-27 tablets Seybol d MG oral 00:00: (1,000 mg - TABLET SR 00 total) by Exter na 24 HR mouth 2 l times daily glipiZIDE Yes [id number] 10mg Take 1 Ke lsey 10 MG oral 2-27 tablet (10 Sey bold Tablet 00:00: mg total) - 00 by mouth Externa daily l (before a meal) glipiZIDE 2022- No [id number] 10mg Take 1 K elsey 10 MG oral 2-27 09-15 tablet (10 Se ybold Tablet 00:00: 00:00 mg total) - 00 :00 by mouth Externa daily l (before a meal) Metformin 0 2022- No [id number] 1000mg Take 2 Angy HCl ER 500 2-27 02-27 tablets Seybo ld MG oral 00:00: 00:00 (1,000 mg - TABLET SR 00 :00 total) by Exter na 24 HR mouth 2 l times daily glipiZIDE 2022- No [id number] 10mg Take 1 K elsey 10 MG oral 2-27 02-27 tablet (10 Se ybold Tablet 00:00: 00:00 mg total) - 00 :00 by mouth Externa daily l (before a meal) Semaglutide 2022- No [id number] .25mg Inject Angy (0.25 or 2-27 02-27 0.25 mg Seybold 0.5 00:00: 00:00 into the - mg/dose) 2 00 :00 skin once Exte rna mg/1.5 mL a week l SQ Solution Pen-Injecto r metFORMIN Yes [id number] 500mg Take 1 U nivers 500 mg 08-05 tablet by ity of tablet 00:00: mouth in [place] 00 the Medical morning Branch and 1 tablet in the evening. Famotidine 2021-06- No [id number] TAKE 1 Angy (PEPCID) 20 06-10 TABLET BY Se ybold MG oral 00:00: 00:00 MOUTH - tablet 00 :00 TWICE A Externa DAY l Aripiprazol 2021-06 Yes [id number] 1{tbl} Take 1 Angy e (Abilify) 0-18 tablet by Sey bold 10 MG oral 00:00: mouth - Tablet 00 daily Externa l Aripiprazol 2021-06 Yes [id number] 1{tbl} Take 1 Angy e (Abilify) 0-18 tablet by Sey bold 10 MG oral 00:00: mouth - Tablet 00 daily Externa l Aripiprazol 2021-06 Yes [id number] 1{tbl} Take 1 Angy e (Abilify) 0-18 tablet by Sey bold 10 MG oral 00:00: mouth - Tablet 00 daily Externa l Aripiprazol 2021-06 Yes [id number] 1{tbl} Take 1 Angy e (Abilify) 0-18 tablet by Sey bold 10 MG oral 00:00: mouth - Tablet 00 daily Externa l Aripiprazol 2021-06 Yes [id number] 1{tbl} Take 1 Angy e (Abilify) 0-18 tablet by Sey bold 10 MG oral 00:00: mouth - Tablet 00 daily Externa l Aripiprazol 2021-06 Yes [id number] 1{tbl} Take 1 Angy e (Abilify) 0-18 tablet by Sey bold 10 MG oral 00:00: mouth - Tablet 00 daily Externa l Aripiprazol 2021-06 Yes [id number] 1{tbl} Take 1 Angy e (Abilify) 0-18 tablet by Sey bold 10 MG oral 00:00: mouth - Tablet 00 daily Externa l Aripiprazol 2021-1 Yes [id number] 1{tbl} Take 1 Angy e (Abilify) 0-18 tablet by Sey bold 10 MG oral 00:00: mouth - Tablet 00 daily Externa l Sertraline 2021-0 Yes [id number] 100mg Take 1 Angy HCl 100 MG 8-25 tablet Seybold oral Tablet 00:00: (100 mg - 00 total) by Externa mouth l daily Sertraline 2021-0 Yes [id number] 100mg Take 1 Angy HCl 100 MG 8-25 tablet Seybold oral Tablet 00:00: (100 mg - 00 total) by Externa mouth l daily Sertraline 2021-0 Yes [id number] 100mg Take 1 Angy HCl 100 MG 8-25 tablet Seybold oral Tablet 00:00: (100 mg - 00 total) by Externa mouth l daily Sertraline 2021-0 Yes [id number] 100mg Take 1 Angy HCl 100 MG 8-25 tablet Seybold oral Tablet 00:00: (100 mg - 00 total) by Externa mouth l daily Sertraline 2021-0 Yes [id number] 100mg Take 1 Angy HCl 100 MG 8-25 tablet Seybold oral Tablet 00:00: (100 mg - 00 total) by Externa mouth l daily Sertraline 2021-0 Yes [id number] 100mg Take 1 Angy HCl 100 MG 8-25 tablet Seybold oral Tablet 00:00: (100 mg - 00 total) by Externa mouth l daily Sertraline 2021-0 Yes [id number] 100mg Take 1 Angy HCl 100 MG 8-25 tablet Seybold oral Tablet 00:00: (100 mg - 00 total) by Externa mouth l daily Sertraline 2021-0 Yes [id number] 100mg Take 1 Angy HCl 100 MG 8-25 tablet Seybold oral Tablet 00:00: (100 mg - 00 total) by Externa mouth l daily hydroCHLORO 2-0 Yes [id number] 25mg Take 1 Angy thiazide 25 7-07 tablet (25 Se ybold MG oral 00:00: mg total) - Tablet 00 by mouth Externa every l morning hydroCHLORO 2-0 Yes [id number] 25mg Take 1 Angy thiazide 25 7-07 tablet (25 Se ybold MG oral 00:00: mg total) - Tablet 00 by mouth Externa every l morning hydroCHLORO 2-0 Yes [id number] 25mg Take 1 Angy thiazide 25 7-07 tablet (25 Se ybold MG oral 00:00: mg total) - Tablet 00 by mouth Externa every l morning hydroCHLORO 2-0 Yes [id number] 25mg Take 1 Angy thiazide 25 7-07 tablet (25 Se ybold MG oral 00:00: mg total) - Tablet 00 by mouth Externa every l morning hydroCHLORO 2021-0 2023- No [id number] 25mg Take 1 Angy thiazide 25 7-07 09-08 tablet (25 S eybold MG oral 00:00: 00:00 mg total) - Tablet 00 :00 by mouth Externa every l morning glipiZIDE 2021-0 3- No [id number] 10mg Take 1 K elsey 10 MG oral -12 09-27 tablet (10 Se ybold Tablet 00:00: 00:00 mg total) - 00 :00 by mouth Externa in the l morning and 1 tablet (10 mg total) in the evening. Take before meals. Losartan 2021-0 Yes [id number] 100mg Take 1 Ke lsey Potassium 4-19 tablet Seybold 100 MG oral 00:00: (100 mg - Tablet 00 total) by Externa mouth l daily Losartan 2021-0 Yes [id number] 100mg Take 1 Ke lsey Potassium 4-19 tablet Seybold 100 MG oral 00:00: (100 mg - Tablet 00 total) by Externa mouth l daily Losartan 2021-0 Yes [id number] 100mg Take 1 Ke lsey Potassium 4-19 tablet Seybold 100 MG oral 00:00: (100 mg - Tablet 00 total) by Externa mouth l daily Metformin 2-0 Yes [id number] 1000mg Take 1 Angy HCl 1000 MG 4-19 tablet Seybol d oral Tablet 00:00: (1,000 mg 00 total) by mouth in the morning and 1 tablet (1,000 mg total) in the evening. Take with meals. Losartan 2021-0 Yes [id number] 100mg Take 1 Ke lsey Potassium 4-19 tablet Seybold 100 MG oral 00:00: (100 mg - Tablet 00 total) by Externa mouth l daily Atorvastati 2021-0 Yes [id number] 10mg Take 1 Angy n Calcium 3-25 3 tablet (10 Seyb old (Lipitor) 00:00: mg total) 10 MG oral 00 by mouth Tablet daily Aspirin 81 2021-0 Yes [id number] 81mg Take 81 mg Angy MG oral Tab 3-22 by mouth Seyb old 09:15: daily 04 hydroCHLORO 2021-0 Yes 12.5mg Take 12.5 Angy thiazide 3-22 mg by Seybold 12.5 MG 09:15: mouth oral Tablet 04 glipiZIDE 5 2021-0 Yes [id number] 5mg Take 1 Angy MG oral 3-22 tablet (5 Seybold Tablet 00:00: mg total) 00 by mouth daily (before a meal) glipiZIDE 5 2021-0 Yes [id number] 5mg Take 1 Angy MG oral 3-22 tablet (5 Seybold Tablet 00:00: mg total) 00 by mouth daily (before a meal) Metoprolol 2021-0 Yes 50mg Take 50 mg K elsey Succinate 3-07 by mouth Seybol d 50 MG oral 00:00: daily - TABLET SR 00 Externa 24 HR l Metoprolol 2021-0 Yes 50mg Take 1 Kelse y Succinate 3-07 tablet (50 Seyb old 50 MG oral 00:00: mg total) - TABLET SR 00 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 l Metoprolol 2021-0 Yes Angy Succinate 3-07 Seybold 50 MG oral 00:00: TABLET SR 00 24 HR Pantoprazol 2021-0 Yes Angy e Sodium 40 3-07 Seybold MG oral 00:00: Tablet 00 Delayed Response Metoprolol Yes 50mg Take 50 mg K elsey Succinate 3-07 by mouth Seybol d 50 MG oral 00:00: daily - TABLET SR 00 Externa 24 HR l Escitalopra Yes 20mg Take 20 mg Angy m Oxalate 3-02 by mouth Seybol d 20 MG oral 00:00: daily Tablet 00 Dicyclomine Yes 1{tbl} [id number] Take 1 Angy HCl 20 MG 1-20 [id number] tablet by Seybold oral Tablet 00:00: 3D mouth 3 00 times daily as needed Levothyroxi Yes TAKE ONE Ke lawson ne Sodium 1-20 (1) Seybold 25 MCG oral 00:00: TABLET(S) Tablet 00 BY MOUTH EVERY MORNING ON AN EMPTY STOMACH. escitalopra Yes 10mg Take 10 mg Univers m oxalate 6-14 by mouth. ity o f (LEXAPRO 16:37: [place] ORAL) [address] [place] [address] metoprolol Yes Take by [facility] ers succinate 6-14 mouth. ity of 50 mg CSpX 16:37: [address] HYDROCHLORO Yes 12.5mg Take 12.5 Univers THIAZIDE 6-14 mg by ity of ORAL 16:37: mouth. [address] escitalopra Yes 10mg Take 10 mg Univers m oxalate 6-14 by mouth. ity o f (LEXAPRO 16:37: [place] ORAL) [address] [place] [address] metoprolol Yes Take by [facility] ers succinate 6-14 mouth. ity of 50 mg CSpX 16:37: [address] HYDROCHLORO Yes 12.5mg Take 12.5 Univers THIAZIDE 6-14 mg by ity of ORAL 16:37: mouth. [address] escitalopra Yes 10mg Take 10 mg Univers m oxalate 6-14 by mouth. ity o f (LEXAPRO 16:37: [place] ORAL) [address] [place] [address] metoprolol Yes Take by [facility] ers succinate 6-14 mouth. ity of 50 mg CSpX 16:37: [address] HYDROCHLORO Yes 12.5mg Take 12.5 Univers THIAZIDE 6-14 mg by ity of ORAL 16:37: mouth. [address] escitalopra Yes 10mg Take 10 mg Univers m oxalate 6-14 by mouth. ity o f (LEXAPRO 16:37: [place] ORAL) [address] [place] [address] metoprolol Yes Take by [facility] ers succinate 6-14 mouth. ity of 50 mg CSpX 16:37: [address] HYDROCHLORO Yes 12.5mg Take 12.5 Univers THIAZIDE 6-14 mg by ity of ORAL 16:37: mouth. [address] escitalopra Yes 10mg Take 10 mg Univers m oxalate 6-14 by mouth. ity o f (LEXAPRO 16:37: [place] ORAL) [address] [place] [address] metoprolol Yes Take by [facility] ers succinate 6-14 mouth. ity of 50 mg CSpX 16:37: [address] HYDROCHLORO Yes 12.5mg Take 12.5 Univers THIAZIDE 6-14 mg by ity of ORAL 16:37: mouth. [address] escitalopra Yes 10mg Take 10 mg Univers m oxalate 6-14 by mouth. ity o f (LEXAPRO 16:37: [place] ORAL) [address] [place] [address] metoprolol Yes Take by [facility] ers succinate 6-14 mouth. ity of 50 mg CSpX 16:37: [address] HYDROCHLORO Yes 12.5mg Take 12.5 Univers THIAZIDE 6-14 mg by ity of ORAL 16:37: mouth. [address] escitalopra Yes 10mg Take 10 mg Univers m oxalate 6-14 by mouth. ity o f (LEXAPRO 11:37: [place] ORAL) [address] [place] [address] metoprolol Yes Take by [facility] ers succinate 6-14 mouth. ity of 50 mg CSpX 11:37: [address] HYDROCHLORO Yes 12.5mg Take 12.5 Univers THIAZIDE 6-14 mg by ity of ORAL 11:37: mouth. [address] escitalopra Yes 10mg Take 10 mg Univers m oxalate 6-14 by mouth. ity o f (LEXAPRO 11:37: [place] ORAL) [address] [place] [address] metoprolol Yes Take by [facility] ers succinate 6-14 mouth. ity of 50 mg CSpX 11:37: [address] HYDROCHLORO Yes 12.5mg Take 12.5 Univers THIAZIDE 6-14 mg by ity of ORAL 11:37: mouth. [address] escitalopra Yes 10mg Take 10 mg Univers m oxalate 6-14 by mouth. ity o f (LEXAPRO 11:37: [place] ORAL) [address] [place] [address] metoprolol Yes Take by [facility] ers succinate 6-14 mouth. ity of 50 mg CSpX 11:37: [address] HYDROCHLORO Yes 12.5mg Take 12.5 [facility] THIAZIDE 6-14 mg by ity of ORAL 11:37: mouth. [address] escitalopra Yes 10mg Take 10 mg Univers m oxalate 6-14 by mouth. ity o f (LEXAPRO 11:37: [place] ORAL) [address] [place] [address] metoprolol Yes Take by [facility] ers succinate 6-14 mouth. ity of 50 mg CSpX 11:37: [address] HYDROCHLORO Yes 12.5mg Take 12.5 [facility] THIAZIDE 6-14 mg by ity of ORAL 11:37: mouth. [address] metroNIDAZO 2019- 2020- No [id number] 1000mg Take 2 Univers LE 500 mg 3-16 03-18 tablets by ity of tablet 00:00: 04:59 mouth 2 [place] 00 :00 (two) Medical times [place] daily for 1 day. metroNIDAZO 2019- 2020- No [id number] 1000mg Take 2 Univers LE 500 mg 3-16 03-18 tablets by ity of tablet 00:00: 04:59 mouth 2 [place] 00 :00 (two) Medical times [place] daily for 1 day. metroNIDAZO 2020- 2020- No [id number] 1000mg Take 2 [facility] LE 500 mg 3-16 03-18 tablets by ity of tablet 00:00: 04:59 mouth 2 [place] 00 :00 (two) Medical times [place] daily for 1 day. metroNIDAZO 2020-0 2020- No [id number] 1000mg Take 2 [facility] LE 500 mg 3-16 03-18 tablets by ity of tablet 00:00: 04:59 mouth 2 [place] 00 :00 (two) Medical times Branch daily for 1 day. losartan 2020-0 Yes [id number] 100mg Take 100 U nivers 100 mg 3-12 mg by ity of tablet 14:01: mouth [place] 10 daily. Medical Branch losartan 2020-0 Yes [id number] 100mg Take 100 U nivers 100 mg 3-12 mg by ity of tablet 14:01: mouth [place] 10 daily. Medical Branch losartan 2020-0 Yes [id number] 100mg Take 100 U nivers 100 mg 3-12 mg by ity of tablet 14:01: mouth [place] 10 daily. Medical Branch losartan 2020-0 Yes [id number] 100mg Take 100 U nivers 100 mg 3-12 mg by ity of tablet 14:01: mouth [place] 10 daily. Medical Branch losartan 2020-0 Yes [id number] 100mg Take 100 U nivers 100 mg 3-12 mg by ity of tablet 14:01: mouth [place] 10 daily. Medical Branch losartan 2020-0 Yes [id number] 100mg Take 100 U nivers 100 mg 3-12 mg by ity of tablet 14:01: mouth [place] 10 daily. Medical Branch losartan 2020-0 Yes [id number] 100mg Take 100 U nivers 100 mg 3-12 mg by ity of tablet 14:01: mouth [place] 10 daily. Medical Branch losartan 2020-0 Yes [id number] 100mg Take 100 U nivers 100 mg 3-12 mg by ity of tablet 14:01: mouth [place] 10 daily. Medical Branch losartan 2020-0 Yes [id number] 100mg Take 100 U nivers 100 mg 3-12 mg by ity of tablet 14:01: mouth [place] 10 daily. Medical Branch losartan 2020-0 Yes [id number] 100mg Take 100 U nivers 100 mg 3-12 mg by ity of tablet 14:01: mouth [place] 10 daily. Medical Branch losartan 2020-0 Yes [id number] 100mg Take 100 U nivers 100 mg 3-12 mg by ity of tablet 14:01: mouth [place] 10 daily. Medical Branch losartan 2020-0 Yes [id number] 100mg Take 100 U nivers 100 mg 3-12 mg by ity of tablet 14:01: mouth [place] 10 daily. Medical Branch losartan 2020-0 Yes [id number] 100mg Take 100 U nivers 100 mg 3-12 mg by ity of tablet 14:01: mouth [place] 10 daily. Medical Branch losartan 2020-0 Yes [id number] 100mg Take 100 U nivers 100 mg 3-12 mg by ity of tablet 14:01: mouth [place] 10 daily. Medical Branch losartan 2020-0 Yes [id number] 100mg Take 100 U nivers 100 mg 3-12 mg by ity of tablet 14:01: mouth [place] 10 daily. Medical Branch losartan 2020-0 Yes [id number] 100mg Take 100 U nivers 100 mg 3-12 mg by ity of tablet 14:01: mouth [place] 10 daily. Medical Branch losartan 2020-0 Yes [id number] 100mg Take 100 U nivers 100 mg 3-12 mg by ity of tablet 14:01: mouth [place] 10 daily. Medical Branch losartan 2020-0 Yes [id number] 100mg Take 100 U nivers 100 mg 3-12 mg by ity of tablet 14:01: mouth [place] 10 daily. Medical Branch losartan 2020-0 Yes [id number] 100mg Take 100 U nivers 100 mg 3-12 mg by ity of tablet 14:01: mouth [place] 10 daily. Medical Branch losartan 2020-0 Yes [id number] 100mg Take 100 U nivers 100 mg 3-12 mg by ity of tablet 14:01: mouth [place] 10 daily. Medical Branch losartan 2020-0 Yes [id number] 100mg Take 100 U nivers 100 mg 3-12 mg by ity of tablet 14:01: mouth [place] 10 daily. Medical Branch losartan 2020-0 Yes [id number] 100mg Take 100 U nivers 100 mg 3-12 mg by ity of tablet 14:01: mouth [place] 10 daily. Medical Branch losartan 2020-0 Yes [id number] 100mg Take 100 U nivers 100 mg 3-12 mg by ity of tablet 14:01: mouth [place] 10 daily. Medical Branch losartan 2020-0 Yes [id number] 100mg Take 100 U nivers 100 mg 3-12 mg by ity of tablet 14:01: mouth [place] 10 daily. Medical Branch losartan 2020-0 Yes [id number] 100mg Take 100 U nivers 100 mg 3-12 mg by ity of tablet 14:01: mouth [place] 10 daily. Medical Branch losartan 2020-0 Yes [id number] 100mg Take 100 U nivers 100 mg 3-12 mg by ity of tablet 14:01: mouth [place] 10 daily. Medical Branch losartan 2020-0 Yes [id number] 100mg Take 100 U nivers 100 mg 3-12 mg by ity of tablet 14:01: mouth [place] 10 daily. Medical Branch losartan 2020-0 Yes [id number] 100mg Take 100 U nivers 100 mg 3-12 mg by ity of tablet 14:01: mouth [place] 10 daily. Medical Branch losartan 2020-0 Yes [id number] 100mg Take 100 U nivers 100 mg 3-12 mg by ity of tablet 14:01: mouth [place] 10 daily. Medical Branch losartan 2020-0 Yes [id number] 100mg Take 100 U nivers 100 mg 3-12 mg by ity of tablet 14:01: mouth [place] 10 daily. Medical Branch losartan 2020-0 Yes [id number] 100mg Take 100 U nivers 100 mg 3-12 mg by ity of tablet 14:01: mouth [place] 10 daily. Medical Branch losartan 2020-0 Yes [id number] 100mg Take 100 U nivers 100 mg 3-12 mg by ity of tablet 14:01: mouth [place] 10 daily. Medical Branch losartan 2020-0 Yes [id number] 100mg Take 100 U nivers 100 mg 3-12 mg by ity of tablet 09:01: mouth [place] 10 daily. Medical Branch losartan 2020-0 Yes [id number] 100mg Take 100 U nivers 100 mg 3-12 mg by ity of tablet 09:01: mouth [place] 10 daily. Medical Branch losartan 2020-0 Yes [id number] 100mg Take 100 U nivers 100 mg 3-12 mg by ity of tablet 09:01: mouth [place] 10 daily. Medical Branch losartan 2020-0 Yes [id number] 100mg Take 100 U nivers 100 mg [...] 00:00 mouth [place] tablet 00 :00 daily. [facility] Branch carvedilol 0 2019- No 6.25mg Take 1 Un gerri (COREG) 2-15 08-08 tablet by ity of 6.25 mg 00:00: 00:00 mouth [place] tablet 00 :00 daily. [facility] Branch SERTraline 2016-06 Yes [id number] 50mg Take 1 Univers 50 mg 2-15 tablet by ity of tablet 00:00: mouth [place] 00 daily. [facility] Branch SERTraline 2016-06 Yes [id number] 50mg Take 1 [facility] 50 mg 2-15 tablet by ity of tablet 00:00: mouth [place] 00 daily. [facility] Branch SERTraline 2016-06 Yes [id number] 50mg Take 1 [facility] 50 mg 2-15 tablet by ity of tablet 00:00: mouth [place] 00 daily. [facility] Branch SERTraline 2016-06 Yes [id number] 50mg Take 1 [facility] 50 mg 2-15 tablet by ity of tablet 00:00: mouth [place] 00 daily. [facility] Branch SERTraline 2016-06 2020- No [id number] 50mg Take 1 Univers 50 mg 2-15 03-12 tablet by ity of tablet 00:00: 00:00 mouth [place] 00 :00 daily. [facility] Branch SERTraline 2016-06 2020- No [id number] 50mg Take 1 Univers 50 mg 2-15 03-12 tablet by ity of tablet 00:00: 00:00 mouth [place] 00 :00 daily. [facility] Branch ibuprofen 2016-06 Yes 800mg Take 1 [...] 800mg Take 1 Unive rs 800 mg 06-10 tablet by ity of tablet 00:00: mouth [place] 00 every 6 Medical (six) Branch hours as needed for Pain (scale 4-6). acetaminoph 2016-06 Yes 650mg Take 2 Uni vers en 1- tablets by ity of (TYLENOL) 00:00: mouth [...] Medical needed for Branch Constipati on. ferrous 2018- No 325mg Take 1 Univer s sulfate 325 9- 08-08 tablet by it y of mg (65 mg 00:00: 00:00 mouth 2 [place] iron[place] 00 :00 (two) Medical tablet times Branch daily. docusate 2019- No 240mg Take 1 Unive rs calcium 240 03-06 08-08 capsule by i ty of mg capsule 00:00: 00:00 mouth once [place] 00 :00 daily as Medical needed for Branch Constipati on. ferrous 2018- No 325mg Take 1 Univer s sulfate 325 03-06-08 tablet by it y of mg (65 mg 00:00: 00:00 mouth [place] iron[place] 00 :00 (two) Medical tablet times Branch daily. Yes [id number] 1{tbl} Take 1 U nivers vitamin 2-16 tablet by ity of w/FA tablet 00:00: mouth [place] 00 daily. Medical Branch Diethyltolu Yes [id number] Use with Univers amide (OFF 2-16 all ity of DEEP PÉREZ) 00:00: outdoor [place] 25 % SprA 00 exposure. Medic al Reapply as Branch directed on the container Yes [id number] 1{tbl} Take 1 U nivers vitamin 2-16 tablet by ity of w/FA tablet 00:00: mouth [place] 00 daily. Medical Branch Diethyltolu Yes [id number] Use with Univers amide (OFF 2-16 all ity of DEEP PÉREZ) 00:00: outdoor [place] 25 % SprA 00 exposure. Medic al Reapply as Branch directed on the container Yes [id number] 1{tbl} Take 1 U nivers vitamin 2-16 tablet by ity of w/FA tablet 00:00: mouth [place] 00 daily. Medical Branch Diethyltolu Yes [id number] Use with Univers amide (OFF 2-16 all ity of DEEP PÉREZ) 00:00: outdoor [place] 25 % SprA 00 exposure. Medic al Reapply as Branch directed on the container Yes [id number] 1{tbl} Take 1 U nivers vitamin 2-16 tablet by ity of w/FA tablet 00:00: mouth [place] 00 daily. Medical Branch Diethyltolu Yes [id number] Use with Univers amide (OFF 216 all ity of DEEP P[place]REZ) 00:00: outdoor [place] 25 % SprA 00 exposure. Medic al Reapply as Branch directed on the container 2019- No [id number] 1{tbl} Take 1 [facility] vitamin 2-16 -12 tablet by ity of w/FA tablet 00:00: 00:00 [place] 00 :[place] daily. [facility] Branch Diethyltolu 2019- No [id number] Use with Univers amide (OFF 07-26 all ity of DEEP P[place]REZ) 00:00[place]00 [place] 25 % SprA 00 :00 exposure. Medic al Reapply as Branch directed on the container 2019- No [id number] 1{tbl} Take 1 [facility] vitamin 2-16 03-12 tablet by ity of w/FA tablet 00:00: 00:00 mouth [place] 00 :[place] daily. Medical Branch Diethyltolu 2019- No [id number] Use with Univers amide (OFF 07-26- all ity of DEEP P[place]REZ) 00:00: [place] 25 % SprA 00 :00 exposure. Medic al Reapply as Branch directed on the container Metformin 2013-06 Yes [id number] 500mg Take 1 K elsey HCl 500 MG 2-26 tablet by Seyb old oral Tab 00:00: mouth 00 daily (with breakfast) PredniSONE 2013-06 Yes [id number] 50mg Take 50 mg Angy 10 MG oral 2-24 by mouth Seybo ld Kit 13:07: 04 Aspirin 81 2013-06 Yes [id number] 81mg Take 81 mg Angy MG oral Tab 2-24 by mouth Seyb old 13:07: daily 04 Etonogestre 2013-06 Yes Inject Angelia ey l 2-24 into the Seybold (IMPLANON) 11:09: skin 68 MG 13 subcutaneou s Implant Amlodipine 2013-06 Yes [id number] One po Angy Besylate 2-24 every [facility] (NORVASC) 00:00: morning 2.5 MG oral 00 for 2 Tab weeks, then 2 together every morning Immunizations Ordered Filled Date Status Comments Source Immunization Name Immunization Name Influenza Virus 2022-02-21 Completed Angy Se ybold - Vaccine, No 00:00:00 External Preserv, age 6 months and up Influenza Virus 2022-02-21 Completed Angy [facility] - Vaccine, No 00:00:00 External Preserv, age 6 months and up Influenza Virus 2022-02-21 Completed Angy [facility] - Vaccine, No 00:00:00 External Preserv, age 6 months and up Influenza Virus 2022-02-21 Completed Angy [facility] - Vaccine, No 00:00:00 External Preserv, age 6 months and up Influenza Virus 2022-02-21 Completed Angy Se [facility] - Vaccine, No 00:00:00 External Preserv, age 6 months and up Influenza Virus 2022-02-21 Completed Angy Se [facility] - Vaccine, No 00:00:00 External Preserv, age 6 months and up Tdap- (Boostrix, 2016-12-18 Completed Angy Mark eybold - Adacel) 00:00:00 External Tdap- (Boostrix, 2016-12-18 Completed Angy Mark eybold - Adacel) 00:00:00 External Tdap- (Boostrix, 2016-12-18 Completed Angy [facility] eybold - Adacel) 00:00:00 External Tdap- (Boostrix, 2016-12-18 Completed Angy Mark eybold - Adacel) 00:00:00 External Tdap- (Boostrix, 2016-12-18 Completed Angy Mark eybold - Adacel) 00:00:00 External Tdap- (Boostrix, 2016-12-18 Completed Angy Mark eybold - Adacel) 00:00:00 External Tdap- (Boostrix, 2016-12-18 Completed Angy Mark eybold Adacel) 00:00:00 Tdap 2016-12-18 Completed [facility] 00:00:00 [facility] Tdap 2016-12-18 Completed [facility] 00:00:00 [facility] Tdap 2016-12-18 Completed [facility] 00:00:00 [place] [facility] Tdap 2016-12-18 Completed University of 00:00:00 [place] [facility] Tdap 2016-12-18 Completed [facility] of 00:00:00 [place] [facility] Tdap 2016-12-18 Completed [facility] of 00:00:00 [place] [facility] Tdap 2016-12-18 Completed University of 00:00:00 [place] [facility] Tdap 2016-12-18 Completed [facility] of 00:00:00 [place] [facility] Tdap 2016-12-18 Completed University of 00:00:00 [place] [facility] TDAP 2016-12-18 Completed University of 00:00:00 [place] [facility] TDAP 2016-12-18 Completed [facility] of 00:00:00 [place] [facility] TDAP 2016-12-18 Completed [facility] of 00:00:00 [place] [facility] TDAP 2016-12-18 Completed University of 00:00:00 [place] [facility] TDAP 2016-12-18 Completed University of 00:00:00 [place] [facility] TDAP 2016-12-18 Completed [facility] of 00:00:00 [place] [facility] TDAP 2016-12-18 Completed [facility] of 00:00:00 [place] [facility] TDAP 2016-12-18 Completed [facility] of 00:00:00 [place] [facility] TDAP 2016-12-18 Completed University of 00:00:00 [place] [facility] TDAP 2016-12-18 Completed University of 00:00:00 [place] [facility] TDAP 2016-12-18 Completed University of 00:00:00 [facility] TDAP 2016-12-18 Completed University of 00:00:00 [facility] TDAP 2016-12-18 Completed University of 00:00:00 [place] [facility] TDAP 2016-12-18 Completed University of 00:00:00 [place] [facility] TDAP 2016-12-18 Completed University of 00:00:00 [place] [facility] TDAP 2016-12-18 Completed University of 00:00:00 [place] [facility] TDAP 2016-12-18 Completed University of 00:00:00 [place] [facility] Tdap 2016-12-18 Completed University of 00:00:00 [place] [facility] TDAP 2016-12-18 Completed University of 00:00:00 [place] [facility] TDAP 2016-12-18 Completed [facility] of 00:00:00 [place] [facility] TDAP 2016-12-18 Completed University of 00:00:00 [facility] TDAP 2016-12-18 Completed University of 00:00:00 [facility] TDAP 2016-12-18 Completed University of 00:00:00 [facility] TDAP 2016-12-18 Completed University of 00:00:00 [facility] TDAP 2016-12-18 Completed University of 00:00:00 [facility] TDAP 2016-12-18 Completed University of 00:00:00 [facility] TDAP 2016-12-18 Completed University of 00:00:00 [facility] TDAP 2016-12-18 Completed University of 00:00:00 [facility] Tdap 2016-12-18 Completed University of 00:00:00 [facility] Tdap 2016-12-18 Completed University of 00:00:00 [facility] Tdap 2016-12-18 Completed University of 00:00:00 [facility] PPD-Protein 2013-05-12 Completed Angy Seybol d - Derivative 00:00:00 External (Purified)- Tuberculin PPD-Protein 2013-05-12 Completed Angy Seybol d - Derivative 00:00:00 External (Purified)- Tuberculin PPD-Protein 2013-05-12 Completed Angy Seybol d - Derivative 00:00:00 External (Purified)- Tuberculin PPD-Protein 2013-05-12 Completed Angy Seybol d - Derivative 00:00:00 External (Purified)- Tuberculin PPD-Protein 2013-05-12 Completed Angy Seybol d - Derivative 00:00:00 External (Purified)- Tuberculin PPD-Protein 2013-05-12 Completed Angy Seybol d - Derivative 00:00:00 External (Purified)- Tuberculin PPD-Protein 2013-05-12 Completed Angy Seybol d - Derivative 00:00:00 External (Purified)- Tuberculin PPD-Protein 2013-05-12 Completed Angy Seybol d - Derivative 00:00:00 External (Purified)- Tuberculin PPD-Protein 2013-05-12 Completed Angy Seybol d - Derivative 00:00:00 External (Purified)- Tuberculin PPD-Protein 2013-05-12 Completed Angy Seybol d - Derivative 00:00:00 External (Purified)- Tuberculin PPD-Protein 2013-05-12 Completed Angy Seybol d - Derivative 00:00:00 External (Purified)- Tuberculin PPD-Protein 2013-05-12 Completed Angy Seybol d Derivative 00:00:00 (Purified)- Tuberculin PPD-Protein 2013-05-12 Completed Angy Seybol d - Derivative 00:00:00 External (Purified)- Tuberculin PPD-Protein 2013-05-12 Completed Angy Seybol d Derivative 00:00:00 (Purified)- Tuberculin PPD-Protein 2013-05-12 Completed Angy Seybol d Derivative 00:00:00 (Purified)- Tuberculin PPD (TB) 2013-05-12 Completed University of 00:00:00 [facility] PPD (TB) 2013-05-12 Completed University of 00:00:00 [facility] PPD (TB) 2013-05-12 Completed University of 00:00:00 [facility] PPD (TB) 2013-05-12 Completed University of 00:00:00 [facility] PPD (TB) 2013-05-12 Completed University of 00:00:00 [facility] PPD (TB) 2013-05-12 Completed University of 00:00:00 [facility] PPD (TB) 2013-05-12 Completed University of 00:00:00 [facility] PPD (TB) 2013-05-12 Completed University of 00:00:00 [facility] PPD (TB) 2013-05-12 Completed University of 00:00:00 [facility] PPD (TB) 2013-05-12 Completed University of 00:00:00 [facility] PPD (TB) 2013-05-12 Completed University of 00:00:00 [facility] PPD (TB) 2013-05-12 Completed University of 00:00:00 [facility] PPD (TB) 2013-05-12 Completed University of 00:00:00 [facility] PPD (TB) 2013-05-12 Completed University of 00:00:00 [facility] PPD (TB) 2013-05-12 Completed University of 00:00:00 [facility] PPD (TB) 2013-05-12 Completed University of 00:00:00 [facility] PPD (TB) 2013-05-12 Completed University of 00:00:00 [facility] PPD (TB) 2013-05-12 Completed University of 00:00:00 [facility] PPD (TB) 2013-05-12 Completed University of 00:00:00 [facility] PPD (TB) 2013-05-12 Completed University of 00:00:00 [facility] PPD (TB) 2013-05-12 Completed University of 00:00:00 [facility] PPD (TB) 2013-05-12 Completed University of 00:00:00 [facility] PPD (TB) 2013-05-12 Completed University of 00:00:00 [facility] PPD (TB) 2013-05-12 Completed University of 00:00:00 [facility] PPD (TB) 2013-05-12 Completed University of 00:00:00 [facility] Branch PPD (TB) 2013-05-12 Completed University of 00:00:00 [facility] PPD (TB) 2013-05-12 Completed University of 00:00:00 [facility] PPD (TB) 2013-05-12 Completed University of 00:00:00 [facility] PPD (TB) 2013-05-12 Completed University of 00:00:00 [facility] PPD (TB) 2013-05-12 Completed University of 00:00:00 [facility] PPD (TB) 2013-05-12 Completed University of 00:00:00 [facility] PPD (TB) 2013-05-12 Completed University of 00:00:00 [facility] PPD (TB) 2013-05-12 Completed University of 00:00:00 [facility] PPD (TB) 2013-05-12 Completed University of 00:00:00 [facility] PPD (TB) 2013-05-12 Completed University of 00:00:00 [facility] PPD (TB) 2013-05-12 Completed University of 00:00:00 [facility] PPD (TB) 2013-05-12 Completed University of 00:00:00 [facility] PPD (TB) 2013-05-12 Completed University of 00:00:00 [facility] PPD (TB) 2013-05-12 Completed University of 00:00:00 [facility] PPD (TB) 2013-05-12 Completed University of 00:00:00 [facility] Rubella 2007-12-01 Completed Angy García - 00:00:00 External Varicella Vaccine 2007-12-01 Completed Angy García - 00:00:00 External Rubella 2007-12-01 Completed Angy García - 00:00:00 External Varicella Vaccine 2007-12-01 Completed Angy García - 00:00:00 External Rubella 2007-12-01 Completed Angy Seybold - 00:00:00 External Varicella Vaccine 2007-12-01 Completed Angy Seybold - 00:00:00 External Rubella 2007-12-01 Completed Angy Seybold - 00:00:00 External Varicella Vaccine 2007-12-01 Completed Angy Seybold - 00:00:00 External Rubella 2007-12-01 Completed Angy Seybold - 00:00:00 External Varicella Vaccine 2007-12-01 Completed Angy Seybold - 00:00:00 External Rubella 2007-12-01 Completed Angy Seybold - 00:00:00 External Varicella Vaccine 2007-12-01 Completed Angy Seybold - 00:00:00 External Rubella 2007-12-01 Completed Angy [facility] 00:00:00 Varicella Vaccine 2007-12-01 Completed Angy Seybold 00:00:00 Rubella 2007-12-01 Completed University of 00:00:00 [facility] Varicella 2007-12-01 Completed University of (varivax)(chicken 00:00:00 [place] [facility] edical pox) Branch Rubella 2007-12-01 Completed University of 00:00:00 [facility] Varicella 2007-12-01 Completed University of (varivax)(chicken 00:00:00 [place] M edical pox) Branch Rubella 2007-12-01 Completed University of 00:00:00 [facility] Varicella 2007-12-01 Completed University of (varivax)(chicken 00:00:00 [place] M edical pox) Branch Rubella 2007-12-01 Completed University of 00:00:00 [facility] Varicella 2007-12-01 Completed University of (varivax)(chicken 00:00:00 [place] M edical pox) Branch Rubella 2007-12-01 Completed University of 00:00:00 [facility] Varicella 2007-12-01 Completed University of (varivax)(chicken 00:00:00 [place] M edical pox) Branch Rubella 2007-12-01 Completed University of 00:00:00 [facility] Varicella 2007-12-01 Completed University of (varivax)(chicken 00:00:00 [place] M edical pox) Branch Rubella 2007-12-01 Completed University of 00:00:00 [facility] Varicella 2007-12-01 Completed University of (varivax)(chicken 00:00:00 [place] M edical pox) Branch Rubella 2007-12-01 Completed University of 00:00:00 [facility] Varicella 2007-12-01 Completed University of (varivax)(chicken 00:00:00 [place] M edical pox) Branch Rubella 2007-12-01 Completed University of 00:00:00 [facility] Varicella 2007-12-01 Completed University of (varivax)(chicken 00:00:00 [place] M edical pox) Branch Rubella 2007-12-01 Completed University of 00:00:00 [facility] Varicella 2007-12-01 Completed University of (varivax)(chicken 00:00:00 [place] M edical pox) Branch Rubella 2007-12-01 Completed University of 00:00:00 [facility] Varicella 2007-12-01 Completed University of (varivax)(chicken 00:00:00 [place] M edical pox) Branch Rubella 2007-12-01 Completed University of 00:00:00 [facility] Varicella 2007-12-01 Completed University of (varivax)(chicken 00:00:00 [place] M edical pox) Branch Rubella 2007-12-01 Completed University of 00:00:00 [facility] Varicella 2007-12-01 Completed University of (varivax)(chicken 00:00:00 [place] M edical pox) Branch Rubella 2007-12-01 Completed University of 00:00:00 [facility] Varicella 2007-12-01 Completed University of (varivax)(chicken 00:00:00 [place] M edical pox) Branch Rubella 2007-12-01 Completed University of 00:00:00 [facility] Varicella 2007-12-01 Completed University of (varivax)(chicken 00:00:00 [place] M edical pox) Branch Rubella 2007-12-01 Completed University of 00:00:00 [facility] Varicella 2007-12-01 Completed University of (varivax)(chicken 00:00:00 [place] M edical pox) Branch Rubella 2007-12-01 Completed University of 00:00:00 [facility] Varicella 2007-12-01 Completed University of (varivax)(chicken 00:00:00 [place] M edical pox) Branch Rubella 2007-12-01 Completed University of 00:00:00 [facility] Varicella 2007-12-01 Completed University of (varivax)(chicken 00:00:00 [place] M edical pox) Branch Rubella 2007-12-01 Completed University of 00:00:00 [facility] Varicella 2007-12-01 Completed [facility] (varivax[facility] 00:[facility] [place] [facility] Rubella 2007-12-01 Completed [facility] 00:00:00 [facility] Varicella 2007-12-01 Completed [facility] (varivax[facility] 00:[facility] [place] [facility] Rubella 2007-12-01 Completed [facility] 00:00:00 [facility] Varicella 2007-12-01 Completed [facility] (varivax[facility] 00:00:00 [place] [facility] Rubella 2007-12-01 Completed [facility] 00:00:00 [facility] Varicella 2007-12-01 Completed [facility] (varivax[facility] 00:00:[facility] [place] [facility] Rubella 2007-12-01 Completed [facility] 00:00:00 [facility] Varicella 2007-12-01 Completed [facility] (varivax[facility] 00:00:[facility] [place] [facility] Rubella 2007-12-01 Completed [facility] 00:00:00 [facility] Rubella 2007-12-01 Completed [facility] 00:00:00 [facility] Varicella 2007-12-01 Completed [facility] (varivax[facility] 00:00:[facility] [place] [facility] Rubella 2007-12-01 Completed [facility] 00:00:00 [facility] Varicella 2007-12-01 Completed [facility] (varivax[facility] 00:00:[facility] [place] [facility] Varicella 2007-12-01 Completed [facility] (varivax[facility] 00:00:[facility] [place] [facility] Rubella 2007-12-01 Completed [facility] 00:00:00 [facility] Varicella 2007-12-01 Completed [facility] (varivax[facility] 00:00:[facility] [place] [facility] Rubella 2007-12-01 Completed [facility] 00:00:00 [facility] Varicella 2007-12-01 Completed [facility] (varivax[facility] 00:00:[facility] [place] [facility] Rubella 2007-12-01 Completed [facility] 00:00:00 [facility] Varicella 2007-12-01 Completed [facility] (varivax[facility] 00:00:[facility] [place] [facility] Rubella 2007-12-01 Completed [facility] 00:00:00 [facility] Varicella 2007-12-01 Completed [facility] (varivax[facility] 00:00:[facility] [place] [facility] Rubella 2007-12-01 Completed [facility] 00:00:00 [facility] Varicella 2007-12-01 Completed [facility] (varivax[facility] 00:00:[facility] [place] [facility] Rubella 2007-12-01 Completed [facility] 00:00:00 [facility] Varicella 2007-12-01 Completed [facility] (varivax[facility] 00:00:[facility] [place] [facility] Rubella 2007-12-01 Completed [facility] 00:00:00 [facility] Varicella 2007-12-01 Completed [facility] (varivax[facility] 00:00:[facility] [place] [facility] Rubella 2007-12-01 Completed [facility] 00:00:00 [facility] Varicella 2007-12-01 Completed [facility] (varivax[facility] 00:00:[facility] [place] [facility] Rubella 2007-12-01 Completed [facility] 00:00:00 [facility] Varicella 2007-12-01 Completed [facility] (varivax[facility] 00:00:[facility] [place] [facility] Rubella 2007-12-01 Completed [facility] 00:00:00 [facility] Rubella 2007-12-01 Completed [facility] 00:00:00 [facility] Varicella 2007-12-01 Completed [facility] (varivax[facility] 00:00:[facility] [place] [facility] Varicella 2007-12-01 Completed [facility] (varivax[facility] 00:00:[facility] [place] [facility] Rubella 2007-12-01 Completed [facility] 00:00:00 [facility] Varicella 2007-12-01 Completed [facility] (varivax[facility] 00:00:[facility] [place] [facility] Rubella 2007-12-01 Completed [facility] 00:00:00 [facility] Varicella 2007-12-01 Completed [facility] (varivax[facility] 00:00:[facility] [place] [facility] Rubella 2007-12-01 Completed [facility] 00:00:00 [facility] Varicella 2007-12-01 Completed [facility] (varivax[facility] 00:00:[facility] [place] [facility] Td,absorbed PF 2006-06-10 Completed Angy blakn - KSC,Admin,unspecifi 00:00:00 Exter nal ed Td (adult) 2006-06-10 Completed Angy Arthurybold - 00:00:00 External Td,absorbed PF 2006-06-10 Completed Angy blank - KSC,Admin,unspecifi 00:00:00 Exter nal ed Td (adult) 2006-06-10 Completed Angy Seybold - 00:00:00 External Td,absorbed PF 2006-06-10 Completed Angy blank - KSC,Admin,unspecifi 00:00:00 Exter nal ed Td (adult) 2006-06-10 Completed Angy Arthurybold - 00:00:00 External Td,absorbed PF 2006-06-10 Completed Angy blank - KSC,Admin,unspecifi 00:00:00 Exter nal ed Td (adult) 2006-06-10 Completed Angy Arthurybold - 00:00:00 External Td,absorbed PF 2006-06-10 Completed Angy blank - KSC,Admin,unspecifi 00:00:00 Exter nal ed Td (adult) 2006-06-10 Completed Angy Artuhrybold - 00:00:00 External Td,absorbed PF 2006-06-10 Completed Angy blank - KSC,Admin,unspecifi 00:00:00 Exter nal ed Td (adult) 2006-06-10 Completed Angy Arthurybold - 00:00:00 External Td,absorbed PF 2006-06-10 Completed Angy blank KSC,Admin,unspecifi 00:00:00 ed Td 2006-06-10 Completed [facility] 00:00:00 [facility] Td 2006-06-10 Completed [facility] 00:00:00 [facility] Td 2006-06-10 Completed [facility] 00:00:00 [facility] Td 2006-06-10 Completed [facility] 00:00:00 [facility] Td 2006-06-10 Completed [facility] 00:00:00 [facility] Td 2006-06-10 Completed [facility] 00:00:00 [facility] Td 2006-06-10 Completed [facility] 00:00:00 [facility] Td 2006-06-10 Completed [facility] 00:00:00 [facility] Td 2006-06-10 Completed [facility] 00:00:00 [facility] Td 2006-06-10 Completed [facility] 00:00:00 [facility] Td 2006-06-10 Completed [facility] 00:00:00 [facility] Td 2006-06-10 Completed [facility] 00:00:00 [facility] Td 2006-06-10 Completed [facility] 00:00:00 [facility] Td 2006-06-10 Completed [facility] 00:00:00 [facility] Td 2006-06-10 Completed [facility] 00:00:00 [facility] Td 2006-06-10 Completed [facility] 00:00:00 [facility] Td 2006-06-10 Completed [facility] 00:00:00 [facility] Td 2006-06-10 Completed [facility] 00:00:00 [facility] Td 2006-06-10 Completed [facility] 00:00:00 [facility] Td 2006-06-10 Completed [facility] 00:00:00 [facility] Td 2006-06-10 Completed [facility] 00:00:00 [facility] Td 2006-06-10 Completed [facility] 00:00:00 [facility] Td 2006-06-10 Completed [facility] 00:00:00 [facility] Td 2006-06-10 Completed [facility] 00:00:00 [facility] Td 2006-06-10 Completed [facility] 00:00:00 [facility] Td 2006-06-10 Completed [facility] 00:00:00 [facility] Td 2006-06-10 Completed [facility] 00:00:00 [facility] Td 2006-06-10 Completed [facility] 00:00:00 [facility] Td 2006-06-10 Completed [facility] 00:00:00 [facility] Td 2006-06-10 Completed [facility] 00:00:00 [facility] Td 2006-06-10 Completed [facility] 00:00:00 [facility] Td 2006-06-10 Completed [facility] 00:00:00 [facility] Td 2006-06-10 Completed [facility] 00:00:00 [facility] Td 2006-06-10 Completed [facility] 00:00:00 [facility] Td 2006-06-10 Completed [facility] 00[facility]00:00 [facility] Td 2006-06-10 Completed [facility] 00:00:00 [facility] Td 2006-06-10 Completed [facility] 00:00:00 [facility] TD, NOS 2006-06-10 Completed [facility] 00:00:00 [facility] Td 2006-06-10 Completed [facility] 00:00:00 [facility] Td 2006-06-10 Completed [facility] 00:00:00 [facility] PPD-Protein Unknown Completed Angy Escotool d - Derivative External (Purified)- Tuberculin Td,absorbed PF Unknown Completed Angy EUBANKS,Admin,unspecifi Exter nal ed Rubella Unknown Completed Angy García - External Tdap- (Boostrix, Unknown Completed Angy morsebold - Adacel) External Varicella Vaccine Unknown Completed Angy Escotoold - External PPD-Protein Unknown Completed Angy Escotool d - Derivative External (Purified)- Tuberculin Influenza Virus Unknown Completed Angy henry - Vaccine, No External Preserv, age 6 months and up Td (adult) Unknown Completed Angy Escotoold - External PPD-Protein Unknown Completed Angy Escotool d - Derivative External (Purified)- Tuberculin Td,absorbed PF Unknown Completed Angy Greer KSC,Admin,unspecifi Exter nal ed Rubella Unknown Completed Angy García - External Tdap- (Boostrix, Unknown Completed Angy morsebold - Adacel) External Varicella Vaccine Unknown Completed Angy García - External PPD-Protein Unknown Completed Angy Escotool d - Derivative External (Purified)- Tuberculin Influenza Virus Unknown Completed Angy henry - Vaccine, No External Preserv, age 6 months and up Td (adult) Unknown Completed Angy García - External Vital Signs Vital Name Observation Time Observation Value Comments Source Systolic blood 2023-05-08 19:59:00 98 mm[Hg] Angy García - pressure External Diastolic blood 2023-05-08 19:59:00 62 mm[Hg] oJse García - pressure External Heart rate 2023-05-08 19:59:00 76 /min Angy marsh - External Body temperature 2023-05-08 19:59:00 36.56 Sharon Angelia García - External Respiratory rate 2023-05-08 19:59:00 18 /min Angelia García - External Body height 2023-05-08 19:59:00 160 cm Angy S eybold - External Body weight 2023-05-08 19:59:00 112.662 kg Angy S eybold - External BMI 2023-05-08 19:59:00 44.00 kg/m2 Angy S eybold - External Oxygen saturation in 2023-05-08 19:59:00 98 /min Angy Seybold - Arterial blood by External Pulse oximetry Systolic blood 2023-04-29 23:08:00 124 mm[Hg] Angy Seybold - pressure External Diastolic blood 2023-04-29 23:08:00 86 mm[Hg] Blaynese y Seybold - pressure External Heart rate 2023-04-29 22:45:00 79 /min Angy S eybold - External Body temperature 2023-04-29 22:45:00 36.56 Sharon Angelia ey Seybold - External Respiratory rate 2023-04-29 22:45:00 15 /min Angelia ey Seybold - External Body height 2023-04-29 22:45:00 160 cm Angy S eybold - External Body weight 2023-04-29 22:45:00 108.863 kg Angy Mark eybold - External BMI 2023-04-29 22:45:00 42.51 kg/m2 Angy Mark eybold - External Oxygen saturation in 2023-04-29 22:45:00 99 /min Angy Seybold - Arterial blood by External Pulse oximetry Systolic blood 2023-02-22 13:11:00 122 mm[Hg] Angy Seybold - pressure External Diastolic blood 2023-02-22 13:11:00 74 mm[Hg] Blaynese y Seybold - pressure External Heart rate 2023-02-22 13:11:00 67 /min Angy S eybold - External Body temperature 2023-02-22 13:11:00 37.06 Sharon Angelia ey Seybold - External Respiratory rate 2023-02-22 13:11:00 15 /min Angelia ey Seybold - External Body height 2023-02-22 13:11:00 160 cm Angy S eybold - External Body weight 2023-02-22 13:11:00 106.958 kg Angy S eybold - External BMI 2023-02-22 13:11:00 41.77 kg/m2 Angy S eybold - External Oxygen saturation in 2023-02-22 13:11:00 99 /min Angy Seybold - Arterial blood by External Pulse oximetry Systolic blood 2023-02-15 15:57:00 97 mm[Hg] Angy Seybold - pressure External Diastolic blood 2023-02-15 15:57:00 62 mm[Hg] Blaynese y Seybold - pressure External Heart rate 2023-02-15 15:57:00 82 /min Angy S eybold - External Body temperature 2023-02-15 15:57:00 36.56 Sharon Angelia ey Seybold - External Respiratory rate 2023-02-15 15:57:00 20 /min Angelia ey Seybold - External Body height 2023-02-15 15:57:00 160 cm Angy S eybold - External Body weight 2023-02-15 15:57:00 101.152 kg Angy S eybold - External BMI 2023-02-15 15:57:00 39.50 kg/m2 Angy S eybold - External Oxygen saturation in 2023-02-15 15:57:00 99 /min Angy Seybold - Arterial blood by External Pulse oximetry Systolic blood 2022-11-16 14:05:00 100 mm[Hg] Angy Seybold - pressure External Diastolic blood 2022-11-16 14:05:00 64 mm[Hg] Jose y Seybold - pressure External Heart rate 2022-11-16 14:05:00 81 /min Angy S eybold - External Body temperature 2022-11-16 14:05:00 36.56 Sharon Angelia ey Seybold - External Respiratory rate 2022-11-16 14:05:00 15 /min Angelia ey Seybold - External Body height 2022-11-16 14:05:00 160 cm Angy S eybold - External Body weight 2022-11-16 14:05:00 101.152 kg Angy S eybold - External BMI 2022-11-16 14:05:00 39.50 kg/m2 Angy S eybold - External Oxygen saturation in 2022-11-16 14:05:00 97 /min Angy Seybold - Arterial blood by External Pulse oximetry Systolic blood 2022-09-17 16:09:00 102 mm[Hg] Angy Seybold - pressure External Diastolic blood 2022-09-17 16:09:00 66 mm[Hg] Kelse y Seybold - pressure External Heart rate 2022-09-17 16:09:00 89 /min Angy S eybold - External Body temperature 2022-09-17 16:09:00 35.67 Sharon Angelia ey Seybold - External Respiratory rate 2022-09-17 16:09:00 14 /min Angelia ey Seybold - External Body height 2022-09-17 16:09:00 160 cm Angy S eybold - External Body weight 2022-09-17 16:09:00 111.585 kg Angy S eybold - External BMI 2022-09-17 16:09:00 43.58 kg/m2 Angy S eybold - External Systolic blood 2022-08-20 13:31:00 112 mm[Hg] Angy Seybold - pressure External Diastolic blood 2022-08-20 13:31:00 74 mm[Hg] Blaynese y Seybold - pressure External Heart rate 2022-08-20 13:31:00 74 /min Angy Mark eybold - External Body temperature 2022-08-20 13:31:00 36.61 Sharon Angelia ey Seybold - External Respiratory rate 2022-08-20 13:31:00 14 /min Angelia ey Seybold - External Body height 2022-08-20 13:31:00 160 cm Angy S eybold - External Body weight 2022-08-20 13:31:00 112.946 kg Angy S eybold - External BMI 2022-08-20 13:31:00 44.11 kg/m2 Angy S eybold - External Oxygen saturation in 2022-08-20 13:31:00 98 /min Angy Arthurybold - Arterial blood by External Pulse oximetry Systolic blood 2022-08-06 18:00:00 142 mm[Hg] Angy Seybold - pressure External Diastolic blood 2022-08-06 18:00:00 76 mm[Hg] Kelse y Seybold - pressure External Heart rate 2022-08-06 17:30:00 78 /min Angy Mark eybold - External Body temperature 2022-08-06 17:30:00 36.89 Sharon Angelia morse Seybold - External Respiratory rate 2022-08-06 17:30:00 14 /min Angelia morse Seybold - External Body height 2022-08-06 17:30:00 160 cm Angy Mark eybold - External Body weight 2022-08-06 17:30:00 119.75 kg Angy morsebold - External BMI 2022-08-06 17:30:00 46.77 kg/m2 Angy morsebold - External Oxygen saturation in 2022-08-06 17:30:00 98 /min Angy García - Arterial blood by External Pulse oximetry Systolic blood 2022-08-05 21:34:00 90 mm[Hg] Univer sity of pressure [facility] Diastolic blood 2022-08-05 21:34:00 73 mm[Hg] Unive rsity of [facility] Heart rate 2022-08-05 21:34:00 66 /min [facility] ty [facility] Respiratory rate 2022-08-05 21:34:00 20 /min [facility] Oxygen saturation in 2022-08-05 21:34:00 97 /min [facility] Arterial blood by [facility] Pulse oximetry Branch Body temperature 2022-08-05 17:41:00 37.11 Sharon [facility] ersity of [facility] Body height 2022-08-05 17:41:00 160 cm [facility] ty [facility] Body weight 2022-08-05 17:41:00 122.471 kg Universi ty [facility] BMI 2022-08-05 17:41:00 47.83 kg/m2 [facility] Systolic blood 2021-08-29 13:12:00 120 mm[Hg] Angy Seybold pressure Diastolic blood 2021-08-29 13:12:00 83 mm[Hg] Jose y Seybold pressure Heart rate 2021-08-29 13:12:00 73 /min Angy S eybold Body temperature 2021-08-29 13:12:00 37 Sharon Angelia morse Seybold Respiratory rate 2021-08-29 13:12:00 14 /min Angelia García Body height 2021-08-29 13:12:00 160 cm Angy marsh Body weight 2021-08-29 13:12:00 125.193 kg Angy morsebohi BMI 2021-08-29 13:12:00 48.89 kg/m2 Angy morsebohi Oxygen saturation in 2021-08-29 13:12:00 99 /min Angy García Arterial blood by Pulse oximetry Systolic blood 2020-12-15 22:23:00 133 mm[Hg] Univer sity of pressure [facility] Diastolic blood 2020-12-15 22:23:00 87 mm[Hg] Unive rsity of pressure [facility] Heart rate 2020-12-15 22:23:00 78 /min [facility]i ty of [facility] Body temperature 2020-12-15 22:23:00 36.28 Sharon [facility] ers[facility] Respiratory rate 2020-12-15 22:23:00 17 /min Univ ersity of [facility] Body weight 2020-12-15 22:23:00 120.203 kg [facility] BMI 2020-12-15 22:23:00 46.94 kg/m2 [facility] Oxygen saturation in 2020-12-15 22:23:00 96 /min [facility] of Arterial blood by [facility] Pulse oximetry Branch Systolic blood 2020-12-15 22:23:00 133 mm[Hg] Univer sity of pressure [facility] Diastolic blood 2020-12-15 22:23:00 87 mm[Hg] Unive rsity of pressure [facility] Heart rate 2020-12-15 22:23:00 78 /min Universi ty of [facility] Body temperature 2020-12-15 22:23:00 36.28 Sharon Univ ersity of [facility] Respiratory rate 2020-12-15 22:23:00 17 /min Univ ersity [facility] Body weight 2020-12-15 22:23:00 120.203 kg [facility] BMI 2020-12-15 22:23:00 46.94 kg/m2 Universi ty of [facility] Oxygen saturation in 2020-12-15 22:23:00 96 /min [facility] of Arterial blood by [facility] Pulse oximetry Branch Systolic blood 2020-11-21 16:05:00 120 mm[Hg] Univer sity of pressure [facility] Diastolic blood 2020-11-21 16:05:00 83 mm[Hg] Unive rsity of pressure [facility] Heart rate 2020-11-21 16:05:00 67 /min Universi ty of [facility] Body temperature 2020-11-21 16:05:00 36.5 Sharon Univ ersity of [facility] Respiratory rate 2020-11-21 16:05:00 16 /min Univ ersity of [facility] Body height 2020-11-21 16:05:00 160 cm [facility] Body weight 2020-11-21 16:05:00 127.489 kg [facility] BMI 2020-11-21 16:05:00 49.79 kg/m2 [facility]i ty of [facility] Systolic blood 2020-11-21 16:05:00 120 mm[Hg] Univer sity of pressure [facility] Diastolic blood 2020-11-21 16:05:00 83 mm[Hg] Unive rsity of pressure [facility] Heart rate 2020-11-21 16:05:00 67 /min [facility] Body temperature 2020-11-21 16:05:00 36.5 Sharon Univ [facility] Respiratory rate 2020-11-21 16:05:00 16 /min Univ ersity of [facility] Body height 2020-11-21 16:05:00 160 cm [facility] Body weight 2020-11-21 16:05:00 127.489 kg [facility] BMI 2020-11-21 16:05:00 49.79 kg/m2 Universi ty of [facility] Systolic blood 2020-03-15 16:05:00 126 mm[Hg] Univer sity of pressure [facility] Diastolic blood 2020-03-15 16:05:00 79 mm[Hg] Unive rsity of pressure [facility] Heart rate 2020-03-15 16:05:00 66 /min Universi ty of [facility] Body temperature 2020-03-15 16:05:00 36.56 Sharon Univ [facility] Respiratory rate 2020-03-15 16:05:00 16 /min Univ ersity of [facility] Body height 2020-03-15 16:05:00 160 cm [facility] Body weight 2020-03-15 16:05:00 117.708 kg [facility] BMI 2020-03-15 16:05:00 45.97 kg/m2 [facility]i ty of [facility] Systolic blood 2019-08-20 13:51:00 136 mm[Hg] Univer sity of pressure [facility] Diastolic blood 2019-08-20 13:51:00 88 mm[Hg] Unive rsity of pressure [facility] Heart rate 2019-08-20 13:21:00 80 /min Universi ty of [facility] Body temperature 2019-08-20 13:21:00 36.22 Sharon Univ ersity of [facility] Respiratory rate 2019-08-20 13:21:00 16 /min Univ ersity of [facility] Body height 2019-08-20 13:21:00 160 cm Universi ty of [facility] Body weight 2019-08-20 13:21:00 120.855 kg Universi ty of [facility] BMI 2019-08-20 13:21:00 47.20 kg/m2 [facility]i ty of [facility] Systolic blood 2019-01-15 13:05:00 152 mm[Hg] Univer sity of pressure [facility] Diastolic blood 2019-01-15 13:05:00 90 mm[Hg] Unive rsity of pressure [facility] Heart rate 2019-01-15 13:00:00 78 /min Universi ty of [facility] Body temperature 2019-01-15 13:00:00 37.28 Sharon Univ ersity of [facility] Respiratory rate 2019-01-15 13:00:00 16 /min Univ ersity of [facility] Body height 2019-01-15 13:00:00 160 cm [facility] Body weight 2019-01-15 13:00:00 116.121 kg Universi ty of [facility] BMI 2019-01-15 13:00:00 45.35 kg/m2 [facility]i [facility] Procedures Procedure Date / Time Performing Clinician Source Performed POCT TEST 2022-08-05 19:53:00 Ambrosio Cormier [facility] URINALYSIS 2022-08-05 19:34:00 Ambrosio Cormier [facility] URINE DRUG (IMMUNOASSAY) 2022-08-05 19:34:00 Ambrosio Cormier [facility] n[facility] SCREEN W/O REFLEX CREATINE KINASE 2022-08-05 18:43:00 Ambrosio Cormier [facility] LIPASE 2022-08-05 18:43:00 Ambrosio Cormier [facility] MAGNESIUM 2022-08-05 18:43:00 Ambrosio Cormier [facility] TROPONIN I 2022-08-05 18:43:00 [facility] Amb[facility] FREE T4 2022-08-05 18:43:00 Ambrosio Cormier [facility] THYROID STIMULATING 2022-08-05 18:43:00 Ambrosio Cormier [facility] HORMONE [facility] COMP. METABOLIC PANEL 2022-08-05 18:43:00 Ambrosio Cormier [facility] ([id number]) [facility] CBC WITH DIFF 2022-08-05 18:43:00 Ambrosio Cormier [facility] GLYCOSYLATED HEMOGLOBIN 2022-08-05 18:43:00 [facility] (A1C) [facility] N-TERMINAL PRO-BNP 2022-08-05 18:43:00 Ambrosio Cormier [facility] CONSENT/REFUSAL FOR 2022-08-05 17:28:30 Doctor Unassigned, No [facility] DIAGNOSIS AND TREATMENT Name [facility] ASSIGNMENT OF BENEFITS 2020-11-21 15:37:59 Doctor Unassigned, No [facility] Name [facility] HSV 1 AND 2 GLYCOPROTEIN 2020-03-15 16:24:00 Michele Goodman [facility] G IGG [facility] HIV 1/2 AG-AB WITH 2020-03-15 16:24:00 Michele Goodman [facility] REFLEX [facility] GALV ONLY - SYPHILIS 2020-03-15 16:24:00 Michele Goodman [facility] IGG/IGM [facility] ASSIGNMENT OF BENEFITS 2019-08-20 12:50:11 Doctor Unassigned, No [facility] Name [facility] POCT TEST 2019-01-15 13:19:00 Michele Goodman [facility] Encounters Start End Encounter Admission Attending Care Care Encounter Source Date/Time Date/Time Type Type Clinicians Facility Department ID 2023-05-16 2023-05-16 Outpatient ANGY CORNEJO [id number] Angy 11:00:00 11:00:00 Seybol d 2023-05-09 2023-05-09 Outpatient ANGY WATERS [id number] Angy 00:00:00 00:00:00 BRYAN Seybol d 2023-05-09 2023-05-09 Outpatient ANGY WATERS [id number] Angy 00:00:00 00:00:00 BRYAN Seybol d 2023-05-09 2023-05-09 Outpatient DIANE RODRIGUEZ [id number] Angy 00:00:00 00:00:00 Seybol d 2023-05-08 2023-05-08 Outpatient ANGY JUÁREZ [id number] Angy 14:00:00 14:00:00 FLORENCE Seybol d 2023-05-06 2023-05-06 Outpatient ANGY FELDMAN [id number] Angy 08:00:00 08:00:00 EVISIT Seybol d 2023-05-03 2023-05-03 Outpatient ANGY WATERS [id number] Angy 00:00:00 00:00:00 BRYAN Seybol d 2023-05-03 2023-05-03 Outpatient ANGY WATERS [id number] Angy 00:00:00 00:00:00 BRYAN Seybol d 2023-05-01 2023-05-01 Outpatient ANGY WATERS [id number] Angy 00:00:00 00:00:00 BRYAN Seybol d 2023-04-30 2023-04-30 Outpatient LAB90 ANGY CORNEJO [id number] Angy 08:05:00 08:05:00 Seybol d 2023-04-29 2023-04-29 Outpatient ANGY MANZANO [id number] Angy 16:30:00 16:30:00 KELLEY Seybol d 2023-04-25 2023-04-25 Outpatient PREZAS, ANGY CORNEJO [id number] Angy 00:00:00 00:00:00 BRYAN Seybol d 2023-04-25 2023-04-25 Outpatient PREZAS, ANGY CORNEJO [id number] Angy 00:00:00 00:00:00 BRYAN Seybol d 2023-03-22 2023-03-22 Outpatient PREZAS, ANGY CORNEJO [id number] Angy 14:30:00 14:30:00 BRYAN Seybol d 2023-03-04 2023-03-04 Outpatient PREZAS, ANGY CORNEJO [id number] Angy 00:00:00 00:00:00 BRYAN Seybol d 2023-02-28 2023-02-28 Outpatient NIKAHD, ANGY CORNEJO [id number] Angy 15:00:00 15:00:00 AMIRHOSSEIN Se ybold 2023-02-24 2023-02-24 Outpatient PREZAS, ANGY CORNEJO [id number] Angy 00:00:00 00:00:00 BRYAN Seybol d 2023-02-22 2023-02-22 Outpatient LAB90 ANGY CORNEJO [id number] Angy 09:05:00 09:05:00 Seybol d 2023-02-22 2023-02-22 Outpatient PREZAS, ANGY CORNEJO [id number] Nagy 08:30:00 08:30:00 BRYAN Seybol d 2023-02-21 2023-02-21 Outpatient PREZAS, ANGY CORNEJO [id number] Angy 00:00:00 00:00:00 BRYAN Seybol d 2023-02-20 2023-02-20 Outpatient LAB90 ANGY CORNEJO [id number] Angy 08:05:00 08:05:00 Seybol d 2023-02-15 2023-02-15 Outpatient PREZAS, NAGY CORNEJO [id number] Angy 10:15:00 10:15:00 BRYAN Seybol d 2022-12-17 2022-12-17 Outpatient PREZAS, ANGY CORNEJO [id number] Angy 00:00:00 00:00:00 BRYAN Seybol d 2022-12-10 2022-12-10 Outpatient PREZAS, ANGY CORNEJO [id number] Angy 00:00:00 00:00:00 BRYAN Seybol d 2022 2022 Outpatient PREZAS, ANGY CORNEJO [id number] Angy 00:00:00 00:00:00 BRYAN Seybol d 2022-11-20 2022-11-20 Outpatient PREZAS, ANGY CORNEJO [id number] Angy 00:00:00 00:00:00 BRYAN Seybol d 2022-11-16 2022-11-16 Outpatient LAB90 ANGY CORNEJO [id number] Angy 09:50:00 09:50:00 Seybol d 2022-11-16 2022-11-16 Outpatient PREZAS, ANGY CORNEJO [id number] Angy 09:15:00 09:15:00 BRYAN Seybol d 2022-10-30 2022-10-30 Outpatient PREZAS, ANGY CORNEJO [id number] Angy 00:00:00 00:00:00 BRYAN Seybol d 2022-10-26 2022-10-26 Outpatient PREZAS, ANGY CORNEJO [id number] Angy 00:00:00 00:00:00 BRYAN Seybol d 2022-10-25 2022-10-25 Outpatient PREZAS, ANGY CORNEJO [id number] Angy 00:00:00 00:00:00 BRYAN Seybol d 2022-09-17 2022-09-17 Outpatient PREZAS, ANGY CORNEJO [id number] Angy 11:15:00 11:15:00 BRYAN Seybol d 2022-08-20 2022-08-20 Outpatient PREZAS, ANGY CORNEJO [id number] Angy 08:45:00 08:45:00 BRYAN Seybol d 2022-08-14 2022-08-14 Outpatient PREZAS, ANGY CORNEJO [id number] Angy 00:00:00 00:00:00 BRYAN Seybol d 2022-08-14 2022-08-14 Outpatient ANGY WATERS [id number] Angy 00:00:00 00:00:00 BRYAN Seybol d 2022-08-14 2022-08-14 Outpatient ANGY WATERS [id number] Angy 00:00:00 00:00:00 BRYAN Seybol d 2022-08-06 2022-08-06 Outpatient LAB90 ANGY CORNEJO [id number] Angy 12:05:00 12:05:00 Seybol d 2022-08-06 2022-08-06 Outpatient PREANGY GUERRA [id number] Angy 11:30:00 11:30:00 BRYAN Seybol d 2022-08-06 2022-08-06 Outpatient ANGY WATERS [id number] Angy 00:00:00 00:00:00 BRYAN Seybol d 2022-08-05 2022-08-05 Emergency X [facility] ERT [id number] Univers 11:42:00 15:37:00 AMBRSOIO kovacs [facility] 2022-08-05 2022-08-05 Emergency [facility] 1.2.602.309 [id number] Univers 11:42:00 15:37:00 Ambrosio MCCLURE 350.1.13.10 [facility] 4.2.7.2.686 [facility] [phone] [address] 2022-08-03 2022-08-03 Outpatient ANGY WATERS [id number] Angy 00:00:00 00:00:00 BRYAN Seybol d 2022-03-27 2022-03-27 Outpatient PREANGY GUERRA [id number] Angy 10:45:00 10:45:00 BRYAN Seybol d 2022-03-26 2022-03-26 Outpatient ANGY WATERS [id number] Angy 00:00:00 00:00:00 BRYAN Seybol d 2022-01-31 2022-01-31 Outpatient PREANGY GUERRA [id number] Angy 00:00:00 00:00:00 BRYAN Seybol d 2022-01-31 2022-01-31 Outpatient PREZAS, ANGY CORNEJO [id number] Angy 00:00:00 00:00:00 BRYAN Seybol d 2022-01-11 2022-01-11 Outpatient PREZAS, ANGY CORNEJO [id number] Angy 08:00:00 08:00:00 BRYAN Seybol d 2022-01-06 2022-01-06 Outpatient PREZAS, ANGY CORNEJO [id number] Angy 00:00:00 00:00:00 BRYAN Seybol d 2021-12-22 2021-12-22 Outpatient PREZAS, ANGY CORNEJO [id number] Angy 00:00:00 00:00:00 BRYAN Seybol d 2021-12-15 2021-12-15 Outpatient PREZAS, ANGY CORNEJO [id number] Angy 00:00:00 00:00:00 BRYAN Seybol d 2021-12-14 2021-12-14 Outpatient LAB90 ANGY CORNEJO [id number] Angy 09:35:00 09:35:00 Seybol d 2021-12-14 2021-12-14 Office PrezasHernandez 1.2.840.114 [id number] Angy 08:30:00 08:45:00 Visit Bryan Vo 350.1.13.13 Se ybold 1.2.7.2.686 [id number] 2021-12-07 2021-12-07 Office PrezaHernandez mark 1.2.840.114 [id number] Angy 08:15:00 08:30:00 Visit Bryan Vo 350.1.13.13 Se ybold 1.2.7.2.686 [id number] 2021-12-06 2021-12-06 Outpatient PREZAS, ANGY CORNEJO [id number] Angy 00:00:00 00:00:00 BRYAN Seybol d 2021-09-26 2021-09-26 Outpatient PREZAS, ANGY CORNEJO [id number] Angy 08:00:00 08:00:00 BRYAN Seybol d 2021-09-26 2021-09-26 Telemedici PREKACYCarmelita Ng 1.2.840.114 [id number] Angy 08:00:00 08:00:00 ne BRYAN Vo 350.1.13.13 Se ybold 1.2.7.2.686 [id number] 2021-09-01 2021-09-01 Outpatient ANGY WATERS [id number] Angy 00:00:00 00:00:00 BRYAN Seybol d 2021-08-29 2021-08-29 Outpatient LAB90 ANGY CORNEJO [id number] Angy 08:50:00 08:50:00 Seybol d 2021-08-29 2021-08-29 Office Hernandez Waters 1.2.840.114 [id number] Angy 08:00:00 08:30:00 Visit Bryan Vo 350.1.13.13 Se ybold 1.2.7.2.686 [id number] 2021-07-25 2021-07-25 [id number] Univers 14:30:00 14:30:00 LOVELY bradley [facility] 2021-07-24 2021-07-24 Telephone [facility] [id number] Univers 00:00:00 00:00:00 Michele R MANUFACTURER AGENT 350.1.13.10 ity of REGIONAL 4.2.7.2.686 Bhavin as MATERNAL [phone] Med ical & CHILD [address] [place] [address] 2021-07-06 2021-07-06 Telephone [facility] 1.2.840.114 [id number] Univers 00:00:00 00:00:00 Lovely Crawford MANUFACTURER AGENT 350.1.13.10 ity of REGIONAL 4.2.7.2.686 Bhavin as MATERNAL [id number] Med ical & CHILD [address] [place] [address] 2021-03-23 2021-03-23 Telephone [facility] 1.2.299.850 [id number] Univers 00:00:00 00:00:00 Juliannanda R MANUFACTURER AGENT 350.1.13.10 ity of REGIONAL 4.2.7.2.686 Bhavin as MATERNAL [id number] Med ical & CHILD [address] [place] [address] 2020-12-15 2020-12-15 Nurse Nurse, Eleazar [facility] 1.2.840.114 [id number] 17:03:06 17:18:06 Visit [facility] 350.1.13.10 [place] 4.2.7.2.[address] Professio [id number] [address] 2020-12-15 2020-12-15 Nurse Nurse, [facility] 1.2 .840.114 [id number] [facility] 17:03:06 17:18:06 Visit NikiaJazz case [facility] 350.1.13.10 ity [facility] 4.2.7.2.686 Bhavin as Professio [phone] Ga dical [address] 2020-12-15 2020-12-15 Outpatient R NIKIA [facility] [id number] [facility] 17:15:00 17:15:00 JAZZ bell [facility] 2020-11-21 2020-11-21 Office [facility] 1.2.570.661 [id number] 10:46:50 12:19:41 Visit [facility] MANUFACTURER AGENT 350.1.13.10 [facility] 4.2.7.2.686 MATERNAL [id number] & CHILD [address] [place] [address] 2020-11-21 2020-11-21 Office [facility] 1.2.215.012 [id number] [facility] 10:46:50 12:19:41 Visit Lovely C MANUFACTURER AGENT [facility].1.13.10 [facility] 4.2.7.2.686 Bhavin as MATERNAL [id number] [facility] & CHILD [address] [place] [address] 2020-11-21 2020-11-21 Outpatient R LOGAN, [facility] [id number] Univers 10:30:00 10:30:00 LOVELY bell [facility] 2020-11-21 2020-11-21 Orders Doctor WILSON 1.2.840.114 [id number] Univers 00:00:00 00:00:00 Only Unassigned, MINESH 350.1.13.10 ity of [place] [facility] 4.2.7.2.686 Bhavin as [id number] [facility] [address] [place] 2020-08-29 2020-08-29 Patient Alex [facility] 1.2.840.114 [id number] Univers 00:00:00 00:00:00 Outreach [facility] 350.1.13.[address] [facility] 4.2.7.2.686 [place] [id number] Ga dical [address] 2020-03-17 2020-03-17 [facility] 1.2.521.574 [id number] Univers 00:00:00 00:00:00 Roshunda R MANUFACTURER AGENT 350.1.13.[address] [facility] 4.2.7.2.686 Bhavin as MATERNAL [id number] Med ical & CHILD [address] [place] [address] 2020-03-16 2020-03-16 [facility]phone [facility] 1.2.685.366 [id number] Univers 00:00:00 00:00:00 Roshunda R MANUFACTURER AGENT 350.1.13.[address] [facility] 4.2.7.2.686 Bhavin as MATERNAL [id number] Med ical & CHILD [address] [place] [address] 2020-03-16 2020-03-16 [facility]phone [facility] 1.2.090.184 [id number] Univers 00:00:00 00:00:00 Roshunda R MANUFACTURER AGENT 350.1.13.[address] [facility] 4.2.7.2.686 Bhavin as MATERNAL [id number] [facility] ical & CHILD [address] [place] [address] 2020-03-16 2020-03-16 Telephone [facility] 1.2.049.377 [id number] Univers 00:00:00 00:00:00 Roshunda R MANUFACTURER AGENT 350.1.13.[address] [facility] 4.2.7.2.686 Bhavin as MATERNAL [id number] [facility] ical & CHILD [address] [place] [address] 2020-03-15 2020-03-15 Office [facility] 1.2.840.114 [id number] Univers 10:52:49 11:17:46 Visit Roshunda R MANUFACTURER AGENT 350.1.13.[address] [facility] 4.2.7.2.686 Bhavin as MATERNAL [id number] Med ical & CHILD [address] [place] [address] 2020-03-15 2020-03-15 Outpatient R MAXINE [facility] [id number] Univers 10:45:00 10:45:00 JULIANNANDA ity o f [facility] 2020-01-11 2020-01-11 Telephone STEVE Goodman 1.2.217.991 [id number] Univers 00:00:00 00:00:00 Bautistaa R MINESH 350.1.13.10 ity of [facility] 4.2.7.2.686 Bhavin as [id number] [address] 2020-01-10 2020-01-10 Outpatient R CINTHYA [facility] [id number] Univers 15:40:00 15:40:00 FLORENCE richylorrie [facility] 2020-01-10 2020-01-10 Laboratory Lab, [facility] Fam Pob I [facility] 1.2. 840.114 [id number] Univers 14:21:38 14:41:38 [facility] 350.1.13.10 ity [facility] 4.2.7.2.686 Bhavin as Professio [phone] Ga dical [facility] [address] [place] [address] [employer] 2019-09-10 2019-09-10 [facility] 1.2.527.899 [id number] Univers 00:00:00 00:00:00 Michele Cruz MANUFACTURER AGENT 350.1.13.[address] [facility] 4.2.7.2.686 Bhavin as MATERNAL [id number] Med ical & CHILD [address] [place] [address] 2019-09-02 2019-09-02 [facility]ly [facility] 1.2.609.569 [id number] Univers 00:00:00 00:00:00 Kayleymicki R MANUFACTURER AGENT 350.1.13.[address] [facility] 4.2.7.2.686 Bhavin as MATERNAL [id number] [facility] ical & CHILD [address] [place] [address] 2019-08-26 2019-08-26 Telephone [facility] 1.2.375.961 [id number] Univers 00:00:00 00:00:00 Rosdeepaknda R MANUFACTURER AGENT 350.1.13.[address] [facility] 4.2.7.2.686 Bhavin as MATERNAL [id number] [facility] ical & CHILD [address] [place] [address] 2019-08-25 2019-08-25 Telephone [facility] 1.2.046.985 [id number] Univers 00:00:00 00:00:00 Rosdeepaknda R MANUFACTURER AGENT 350.1.13.[address] [facility] 4.2.7.2.686 Bhavin as MATERNAL [phone] [facility] ical & CHILD [address] [place] [address] 2019-08-24 2019-08-24 Telephone [facility] 1.2.855.191 [id number] Univers 00:00:00 00:00:00 Bautistaa R MANUFACTURER AGENT 350.1.13.[address] [facility] 4.2.7.2.686 Bhavin as MATERNAL [id number] [facility] & CHILD [address] [place] [address] 2019-08-20 2019-08-20 Office [facility] 1.2.840.114 [id number] Univers 07:56:32 09:08:45 Visit Michele R MANUFACTURER AGENT 350.1.13.[address] [facility] 4.2.7.2.686 Bhavin as MATERNAL [id number] [facility] & CHILD [address] [place] [address] 2019-08-20 2019-08-20 Outpatient R MAXINE [facility] [id number] Univers 07:45:00 07:45:00 ROSHUNDA ity o f [facility] 2019-08-20 2019-08-20 Orders Doctor STEVE 1.2.840.114 [id number] Univers 00:00:00 00:00:00 Only Unassigned, MINESH 350.1.13.10 ity of [place] [facility] 4.2.7.2.686 Bhavin as [id number] [address] 2019-03-10 2019-03-10 Emergency E MHSE MHSE [id number] MH 15:59:00 15:59:00 [facility] 2019-01-15 2019-01-15 Office Maxine [facility] 1.2.840.114 [id number] Univers 07:46:53 08:36:19 Visit Michele Cruz MANUFACTURER AGENT 350.1.13.10 ity [facility] 4.2.7.2.686 Bhavin as MATERNAL [id number] Med ical & CHILD [address] [place] [address] 2019-01-12 2019-01-12 Telephone EMMA Goodman 1.2.426.592 [id number] Univers 00:00:00 00:00:00 Michele Cruz MANUFACTURER AGENT 350.1.13.10 ity [facility] 4.2.7.2.686 Bhavin as MATERNAL [phone] [facility] & CHILD [address] [place] [address] Results Test Description Test Time Test Comments Results Result Comments Source POCT TEST 2022-08-05 19:53:00 Test Item Value Reference Range Interpretation Comme nts POCT PREG (test code = 1605) NEGATIVE On board controls acceptable with C Line (test code = 3574) present POCT PREG LOT # (test code = 3575) [id number] POCT PREG TEST DATE (test code = 3576) 11/08/2023 Lab Interpretation (test code = 47980-0) Normal [facility] SYPHILIS [id number] 16:49:00 Test Item Value Reference Range Interpretation Comments Syphilis IgG/IgM (test Non-reactive Non-reactive code = 14925-7) KELY (test code = KELY) Non-reactive - No serologic evidence of T. pallidum infection. Cannot exclude incubating or early syphilis. Submit a second specimen in 2-4 weeks if syphilis is clinically suspected. Equivocal - Further testing to follow. Reactive - Further testing to follow. 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 [facility] AG-AB WITH [id number] 05:11:00 Test Item Value Reference Range Interpretation Comments HIV Negative Negative Semi-quantitative (test code = 97369-3) KELY (test code = Non-reactive for HIV-1 KELY) antigen and HIV-1/HIV-2 antibodies. ?No laboratory evidence of HIV infection. ?Repeat in 2-4 weeks if acute HIV infection is suspected. [facility] [id number] 13:19:00 Test Item Value Reference Range Interpretation Comments POCT PREG (test code = 1605) Negative On board controls acceptable with C Yes Line (test code = 3574) POCT PREG LOT # (test code = 3575) POCT PREG TEST DATE (test code = 3576) [facility] [id number] 13:19:00 Test Item Value Reference Range Interpretation Comments POCT PREG (test code = 1605) Negative On board controls acceptable with C Yes Line (test code = 3574) POCT PREG LOT # (test code = 3575) POCT PREG TEST DATE (test code = 3576) [facility] Notes Date/Time Note Provider Source 2023-02-22 08:14:29 [id number]:14:29Formatting of [facility] this note might be different from the original.Rose Acosta is a 37 year old female in office to follow on labs. 54135-1Szypb [id number]:15:10Nurse NoteTXT1.2.840.840279.1.13.131.2.7 .2.656099|[id number] for patient pcpt65686-1Aqyhr NoteLNGrant Regional Health Center2727 [facility] Medical [id number] [id number]:15:101.2.840.1143 50.1.72.3.15|1.2.840.311958.1.13.1 31.2.7.2.727879_[id number]"
[2023-05-09 11:58] LABS: Absolute Lymphocytes (CBC) 2.5 K/uL (0.7-4.9); Hematocrit 44.5 % (36.0-45.0); Lymphocytes % 21.2 % (15.3-44.8); MCV 83.9 fL (80-100); MPV 9.1 fL (7.6-11.3); Platelets 246 thou/uL (152-406); RBC Red Blood Cell Count 5.31 M/uL (3.86-4.86)
[2023-05-09 12:02] LABS: Specific Gravity 1.019 (1.005-1.030)
[2023-05-09 12:12] LABS: Specific Gravity 1.019 (1.005-1.030); Urine Bacteria <20 /HPF (<20); Urine Bilirubin NEGATIVE (Negative); Urine Blood Negative (Negative); Urine Clarity Turbid (Clear); Urine Color Light-Yellow (Yellow); Urine Glucose NEGATIVE (Negative); Urine Mucus Slight /HPF (None Seen); Urine Protein TRACE (Negative); Urine RBC <5 /HPF (None Seen); Urine Urobilinogen Normal (Normal); Urine pH 5.5 (5.0-7.0)
[2023-05-09 12:17] LABS: Albumin 3.9 g/dL (3.4-5.0); Bilirubin Total 0.5 mg/dL (0.2-1.0); Potassium 3.5 mEq/L (3.5-5.1); Protein, Total 8.2 g/dL (6.4-8.2)
--- NOTE | 2023-05-09 12:46 | RAD REPORT ---
EXAM DESCRIPTION: CT - Abdomen Pelvis Wo Contrast - 05/09/2023 12:31 pm CLINICAL HISTORY: Abdominal pain COMPARISON: 2020 TECHNIQUE: Computed axial tomography of the abdomen and pelvis was obtained. IV and oral contrast we re not requested. All CT scans are performed using dose optimization technique as appropriate and may include automated exposure control or mA/KV adjustment according to patient size. FINDINGS: The evaluation of solid organs, vessels and bowel is limited secondary to the lack of con trast administration. The liver, pancreas, adrenals and kidneys appear grossly normal. Splenic granulomas. . Spleen mildly enlarged The appendix is normal. There is no evidence of diverticulitis. No adnexal mass Small umbilical hernia IMPRESSION: Mild splenomegaly
--- NOTE | 2023-05-09 12:53 | RAD REPORT ---
EXAM DESCRIPTION: US - Abdomen Exam Limited - 05/09/2023 11:30 am CLINICAL HISTORY: ABD PAIN COMPARISON: Abdomen Exam Complete dated 12/21/2021 TECHNIQUE: Sonographic grayscale and color flow images of the right upper abdominal quadrant were o btained. FINDINGS: The gallbladder is suboptimally distended, demonstrates no gallstones. No pericholecystic fluid or gallbladder wall thickening. The common bile duct is normal measuring 5 mm. The liver demonstrates no findings of intrahepatic biliary dilatation. IMPRESSION: Unremarkable examination.
--- NOTE | 2023-05-09 13:21 | EDPHYS ---
Physician Documentation [facility] Name: Rose Guardado Age: 37 yrs Sex: Female : 1985 Arrival Date: 05/09/2023 Time: 10:45 Bed 9 Private MD: ED Physician Michael Chris HPI: 05/09 11:40 This 37 yrs old Female presents to ER via Ambulatory with complaints of Pain, Vomiting. rn 11:40 The patient presents to the emergency department with nausea, vomiting, abdominal pain, rn of the right upper quadrant, described as crampy, and radiates to the back. Onset: The symptoms/episode began/occurred 1 week(s) ago. Possible causes: unknown. The symptoms are aggravated by pressure, food , The symptoms are alleviated by nothing. Associated signs and symptoms: Pertinent positives: abdominal pain, nausea, vomiting. Severity of symptoms: At their worst the symptoms were moderate in the emergency department the symptoms are unchanged. The patient has experienced similar episodes in the past. The patient has been recently seen by a physician:. Patient reports 2 visits recently to emergency room's, told has distended gallbladder but no other acute findings. Patient reports 1 week of abdominal pain, right upper quadrant associated with nausea and vomiting. No fever or chills. No shortness of breath/cough/chest pain. 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 - Social history:: Smoking status: Patient denies any tobacco usage or history of. - Family history:: not pertinent. - Hospitalizations: : No recent hospitalization is reported. ROS: 11:40 Constitutional: Negative for fever, chills, and weight loss, Eyes: Negative for injury, rn pain, redness, and discharge, Neck: Negative for injury, pain, and swelling, Cardiovascular: Negative for chest pain, palpitations, and edema, Respiratory: Negative for shortness of breath, cough, wheezing, and pleuritic chest pain, Abdomen/GI: Positive for abdominal pain and vomiting Back: Positive for right flank pain MS/Extremity: Negative for injury and deformity, Skin: Negative for injury, rash, and discoloration, Neuro: Negative for headache, weakness, numbness, tingling, and seizure, Exam: 11:40 Constitutional: This is a well developed, well nourished patient who is awake, alert, rn and in no acute distress. Cardiovascular: Regular rate and rhythm. No pulse deficits. Respiratory: No increased work of breathing, no retractions or nasal flaring. Abdomen/GI: Soft, right upper quadrant tenderness. Negative [place] Skin: Warm, dry MS/ Extremity: Pulses equal, no cyanosis. Neurovascular intact. Full, normal range of motion. Equal circumference. Neuro: Awake and alert, GCS 15 Vital Signs: 11:00 BP 125 / 88; Pulse 73; Resp 18; Temp 97.2; Pulse Ox 100% ; Weight 107.95 kg; Height 5 ko1 ft. 3 in. ; 13:39 BP 127 / 85; Pulse 77; Resp 18; Pulse Ox 100% ; cp4 11:00 Body Mass Index 42.16 (107.95 kg, 160.02 cm) ko1 MDM: 10:57 Patient medically screened. rn 13:18 Differential diagnosis: Nonspecific abd pain, gastritis, cholecystitis, pancreatitis, rn viral gastroenteritis, gastroenteritis. Data reviewed: vital signs, nurses notes, lab test result(s), radiologic studies, CT scan, ultrasound, and as a result, I will discharge patient. Counseling: I had a detailed discussion with the patient and/or guardian regarding the historical points, exam findings, and any diagnostic results supporting the discharge/admit diagnosis, lab results, radiology results, the need for outpatient follow up, to return to the emergency department if symptoms worsen or persist or if there are any questions or concerns that arise at home. Special discussion: Based on the patient's Hx, exam, and Dx evaluation, there is no indication for emergent surgery or inpatient Tx. It is understood by the patient/guardian that if the Sx's persist or worsen they need to return immediately for re-evaluation. I discussed with the patient/guardian in detail that at this point there is no indication for admission to the hospital. It is understood, however, that if the symptoms persist or worsen the patient needs to return immediately for re-evaluation. Based on the history and exam findings, there is no indication for further emergent testing or inpatient evaluation. I discussed with the patient/guardian the need to see the manager managing for further evaluation of the symptoms. I discussed with the patient/guardian the need to see the general surgeon for further evaluation of the symptoms. ED course: No acute findings and workup here. No evidence of cholelithiasis or cholecystitis. No gallbladder distention as patient mentioned previous finding. CT abdomen pelvis incidentally shows mild splenomegaly, nonspecific, has normal platelets. Spoke with patient and need for HIDA scan, follow-up with general surgery and GI. Patient states has appointment with general surgery next Saturday. I have personally reviewed all of the results, including but not limited to blood tests and imaging deemed necessary to safely discharge this patient at this time. All results given to and printed out for patient. I personally went over all the results with the patient and answered all questions. Patient will follow-up with PCP and or specialist as discussed. Return precautions given and understood. Patient states has pain and nausea medicine from previous visits and she does not require more.. 05/09 11:05 Order name: CBC with Diff; Complete Time: 12:54 rn 05/09 11:05 Order name: CMP; Complete Time: 12:54 rn 05/09 11:05 Order name: Lipase; Complete Time: 12:54 05/09 11:05 Order name: Test, Urine; Complete Time: 12:54 rn 05/09 11:05 Order name: Urinalysis w/ reflexes; Complete Time: 12:54 rn 05/09 12:22 Order name: Urine Culture EDSD 05/09 11:05 Order name: US Abdomen Limited; Complete Time: 12:54 rn 05/09 12:27 Order name: Abdomen ; Complete Time: 12:54 [facility] 05/09 11:05 Order name: IV Saline Lock; Complete Time: 11:56 rn 05/09 11:05 Order name: Labs collected and sent; Complete Time: 11:56 rn Administered Medications: No medications were administered Disposition Summary: 05/09/23 13:20 Discharge Ordered Notes: Location: Home rn Problem: an ongoing problem rn Symptoms: have improved rn Condition: Stable rn Diagnosis - Upper abdominal pain, unspecified rn - Splenomegaly, not elsewhere classified rn Followup: rn - With: Earl Brown MD - When: 2 - 3 days - Reason: Recheck today's complaints, Re-evaluation by your physician Discharge Instructions: - Discharge Summary Sheet rn - Abdominal Pain, Adult rn - Pain Without a Known Cause rn Forms: - Medication Reconciliation Form rn - Thank You Letter rn - Antibiotic cadmium burner - Prescription Opioid Use rn - Patient Portal Instructions rn - Leadership Thank You Letter rn Signatures: Dispatcher [employer] Michael Mckeon MD MD rn Oliver, Kathy, RN RN ko1 Corrections: (The following items were deleted from the chart) 12:27 11:06 Abdomen Pelvis W [email or web address] ordered. [facility]OLASD
--- NOTE | 2023-05-09 13:21 | ER ---
Nurse's Notes [facility] Name: Rose Guardado Age: 37 yrs Sex: Female : 1985 Arrival Date: 05/09/2023 Time: 10:45 Bed 9 Private MD: Diagnosis: Upper abdominal pain, unspecified;Splenomegaly, not elsewhere classified Presentation: 05/09 11:00 Chief complaint: Patient states: right flank pain x 1 week, its like a "constant period ko1 pain" and it extends into the abdomen. Was at [facility] on Saturday and they said gallbladder was distended. Coronavirus screen: At this time, the client does not indicate any symptoms associated with coronavirus-19. Ebola Screen: No symptoms or risks identified at this time. Initial Sepsis Screen: Does the patient meet any 2 criteria? No. Patient's initial sepsis screen is negative. Does the patient have a suspected source of infection? No. Patient's initial sepsis screen is negative. Risk Assessment: Do you want to hurt yourself or someone else? Patient reports no desire to harm self or others. Onset of symptoms is unknown. 11:00 Method Of Arrival: Ambulatory ko1 11:00 Acuity: TATIANA 3 ko1 Triage Assessment: 11:04 General: Appears in no apparent distress. Behavior is calm, cooperative, appropriate ko1 for age. Pain: Complains of pain in right flank and right side of abdomen. GI: Reports upper abdominal pain. 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 - Social history:: Smoking status: Patient denies any tobacco usage or history of. - Family history:: not pertinent. - Hospitalizations: : No recent hospitalization is reported. Screenin:53 [facility] ED Fall Risk Assessment (Adult) History of falling in the last 3 months, cp4 including since admission No falls in past 3 months (0 pts) Confusion or Disorientation No (0 pts) Intoxicated or Sedated No (0 pts) Impaired Gait No (0 pts) Mobility Assist Device Used No (0 pt) Altered Elimination No (0 pt) Score/Fall Risk Level 0 - 2 = Low Risk Oriented to surroundings, Maintained a safe environment, Educated pt \\T\\ family on fall prevention, incl call for assistance when getting out of bed, Hourly rounding (assess needs \\T\\ fall precautionary measures) done. Abuse screen: Denies threats or abuse. Nutritional screening: No deficits noted. Tuberculosis screening: No symptoms or risk factors identified. Assessment: 11:53 GI: Abdomen is round non-distended, Reports nausea, vomiting. cp4 Vital Signs: 11:00 BP 125 / 88; Pulse 73; Resp 18; Temp 97.2; Pulse Ox 100% ; Weight 107.95 kg; Height 5 ko1 ft. 3 in. ; 13:39 BP 127 / 85; Pulse 77; Resp 18; Pulse Ox 100% ; cp4 11:00 Body Mass Index 42.16 (107.95 kg, 160.02 cm) ko1 ED Course: 10:53 Patient arrived in ED. mg5 10:57 Michael Chris MD is Attending Physician. rn 11:04 Triage completed. ko1 11:04 Arm band placed on right wrist. Patient placed in waiting room, Patient notified of ko1 wait time. 11:32 US Abdomen Limited In Process Unspecified. EDMS 11:53 Celestina Abarca is Primary Nurse. cp4 11:53 Bed in low position. Call light in reach. Side rails up X 1. cp4 11:53 No provider procedures requiring assistance completed. Inserted saline lock: 20 gauge cp4 in right antecubital area, using aseptic technique. Blood collected. 11:56 Urinalysis w/ reflexes Sent. cp4 11:56 Test, Urine Sent. cp4 11:56 Lipase Sent. cp4 11:56 CMP Sent. cp4 11:56 CBC with Diff Sent. cp4 12:32 Abdomen In Process Unspecified. EDMS 13:19 Earl Brown MD is Referral Physician. rn 13:40 Provided Education on: abdominal pain. cp4 13:40 intact, bleeding controlled, No redness/swelling at site. Pressure dressing applied. cp4 Administered Medications: No medications were administered Medication: 11:53 VIS not applicable for this client. cp4 Outcome: 13:20 Discharge ordered by MD. rn 13:40 Discharged to home ambulatory, cp4 13:40 Condition: stable 13:40 Discharge instructions given to patient, Instructed on discharge instructions, follow up and referral plans. Demonstrated understanding of instructions, follow-up care, 13:41 Patient left the ED. cp4 Signatures: Dispatcher [employer] Michael Mckeon MD MD rn Oliver, Kathy, RN RN Brianna Lopez mg5 Celestina Abarca cp4
[2023-05-09 14:17] VITALS: TEMP 97.2; O2SAT 100
[2023-05-09 14:21] VITALS: BP 127/85
== END 2023-05-09 13:41 | disposition home or self-care (01) ==
LOC: ER 10:45
DX: R16.1 Splenomegaly, not elsewhere classified (principal); R11.2 Nausea with vomiting, unspecified; Z88.8 Allergy status to other drugs, medicaments and biological substances
CPT/HCPCS: 36415; 74176; 76705; 80053; 81001; 81025; 83690; 85025; 87077; 87086; 87088; 87186; 99283

== ENCOUNTER 2023-05-22 06:01 | Day surgery (SDC) | payer OTHER ==
[2023-05-22] MEDS ORDERED: Ringers Lactate 1,000 ML IV ONE (06:51)
[2023-05-22 06:59] LABS: Potassium 3.1 mEq/L (3.5-5.1)
[2023-05-22 08:22] VITALS: BP 142/86; TEMP 97.4
[2023-05-22 08:25] VITALS: O2SAT 100
--- NOTE | 2023-05-22 13:03 | EKG ---
Test Date: 2023-05-22 Test Time: 08:04:53 Double Ending Machine Operator: JOESPH MEASUREMENT RESULTS: Intervals: Rate: 65 NE: 184 QRSD: 88 QT: 438 QTc: 455 [place]: P: 49 NE: 184 QRS: 22 T: 23 INTERPRETIVE STATEMENTS: Normal sinus rhythm Normal ECG Compared to ECG 08/01/2021 09:21:21 Left ventricular hypertrophy no longer present Electronically Signed On 05-22-23 13:02:49 GUITAR MAKER by Sam Aguirre
== END 2023-05-22 08:35 | disposition home or self-care (01) ==
LOC: OR 06:01
PROVIDERS: ATTEND Surgery
PROC: 0DJ08ZZ Inspection of Upper Intestinal Tract, Via Natural or Artificial Opening Endoscopic (ICD-10-PCS; principal; 2023-05-22 07:30)
DX: K31.84 Gastroparesis (principal); R10.13 Epigastric pain; R11.0 Nausea; I10 Essential (primary) hypertension; E11.9 Type 2 diabetes mellitus without complications; F41.9 Anxiety disorder, unspecified; F32.A Depression, unspecified
CPT/HCPCS: 93005; 80048; 36415; 84703; 43235; J7120

== ENCOUNTER → 2023-06-19 | Emergency (ER) | payer OTHER ==
--- OUTSIDE RECORDS SUMMARY | 2023-06-19 08:32 | XMS REPORT | Continuity of Care Document ---
Author Name Unknown Address [address] [facility] [place] [address] [facility] thconnect Address [address] [facility] [place] [address] Care Team Providers Care Health Inspector Food Name Role Phone Miguel Waters Primary Care Physician [phone] AMBROSIO CORMIER Attending Clinician Unavailable Ambrosio Cormier MD Attending Clinician [phone] LOVELY FORD Attending Clinician Unavail able Michele Zapata Attending Clinician Lovely Bethea Attending Clinician + Nurse, [facility] Attending Clinician Unava ilJazz Rosenberg Attending Clinician + [phone] JAZZ MONTEJO Attending Clinician Unavailab marta Doctor Unassigned, Wasta Attending Clinician U Zan Orlando DO Attending Clinician [phone] MICHELE GOODMAN Attending Clinician Unavailab FLORENCE Ramirez Attending Clinician Unavailable Lab, [facility] Pob I Attending Clinician Unavailab Florence Gallego Attending Clinician [phone] Payers Payer Name Policy Type Policy Number Effective Date Expirati on Date Source [employer] OUT OF NETWORK [id number] 2022 00:00:[address] 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 Disease Active 2019-06 0 00:00: 00 [facility] 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 Disease Active 2019-06 00:00: 00 [facility] Abnormal glandular Papanicola ou smear of cervix Abnormal glandular Papanicola ou smear of cervix Disease Active 08-19 00:00: 00 [facility] BMI 45.0-49.9, adult BMI 45.0-49.9, adult Disease Active 12 00:00: 00 [facility] Encounter for contracept carmen management , unspecifie d type Encounter for contracept carmen management , unspecifie d type Disease Active 2017-06 0 00:00: 00 [facility] History of bilateral tubal ligation History of bilateral tubal ligation Disease Active 2017-06 0 00:00: 00 [facility] Screening examinatio n for STD (sexually transmitte d disease) Screening examinatio n for STD (sexually transmitte d disease) Disease Active 2017-06 0 00:00: 00 [facility] GDM, class A2 GDM, class A2 Disease Active 02-12 00:00: 00 [facility] Genitourin [place] infection in , antepartum , third trimester Genitourin [place] infection in , antepartum , third trimester Disease Active 02-07 00:00: 00 [facility] ASCUS of cervix with negative high risk HPV ASCUS of cervix with negative high risk HPV Disease Active 07-26 00:00: 00 [facility] ASCUS of cervix with negative high risk HPV ASCUS of cervix with negative high risk HPV Disease Active 07-26 00:00: 00 [facility] Essential hypertensi on, benign Essential hypertensi on, benign Disease Active 02-28 00:00: 00 [facility] Morbid obesity Morbid obesity Disease Active 02-28 00:00: 00 [facility] Well woman exam Well woman exam Disease Active 02-28 00:00: 00 [facility] History of TIA (transient ischemic attack) History of TIA (transient ischemic attack) Disease Active 02-28 00:00: 00 [facility] Allergies, Adverse Reactions, Alerts Allergy Name Allergy Type Status Severity Reaction(s) Onset Date Inactive Date Treating Clinician Comments Source Predniso ne Propensi ty to adverse reaction s Active Swelling 08-10 00:00: 00 [facility] PREDNISO NE DRUG INGREDI Active Swelling 08-10 00:00: 00 [facility] Social History Social Habit Start Date Stop Date Quantity Comments Source Exposure to SARS-CoV-2 (event) 2022-07-26 00:00:00 2022-08-05 11:40:00 Not sure [facility] Alcohol intake 2020-12-15 00:00:00 2020-12-15 00:00:00 0 /d [facility] Tobacco use and exposure 2012-09-04 00:00:00 2012-09-04 00:00:00 Smokeless tobacco non-user [facility] Sex Assigned At 1985 00:00:00 1985 00:00:00 [facility] Smoking Status Start Date Stop Date Source Never smoked tobacco [facility] Medications Ordered Medication Name Filled Medication Name Start Date Stop Date Current Medication? Ordering Clinician Indication Dosage Frequency Signature (SIG) Comments Components Source metFORMIN 500 mg tablet 08-05 00:00: 00 Yes [id number] 500mg Take 1 tablet by mouth in the morning and 1 tablet in the evening. [facility] escitalopra m oxalate (LEXAPRO ORAL) 11-21 16:37: 25 Yes 10mg Take 10 mg by mouth. [facility] metoprolol succinate 50 mg CSpX 11-21 16:37: 25 Yes Take by mouth. [facility] HYDROCHLORO THIAZIDE ORAL 11-21 16:37: 25 Yes 12.5mg Take 12.5 mg by mouth. [facility] escitalopra m oxalate (LEXAPRO ORAL) 11-21 16:37: 25 Yes 10mg Take 10 mg by mouth. [facility] metoprolol succinate 50 mg CSpX 11-21 16:37: 25 Yes Take by mouth. [facility] HYDROCHLORO THIAZIDE ORAL 11-21 16:37: 25 Yes 12.5mg Take 12.5 mg by mouth. [facility] escitalopra m oxalate (LEXAPRO ORAL) 11-21 16:37: 25 Yes 10mg Take 10 mg by mouth. [facility] metoprolol succinate 50 mg CSpX 11-21 16:37: 25 Yes Take by mouth. [facility] HYDROCHLORO THIAZIDE ORAL 11-21 16:37: 25 Yes 12.5mg Take 12.5 mg by mouth. [facility] escitalopra m oxalate (LEXAPRO ORAL) 11-21 16:37: 25 Yes 10mg Take 10 mg by mouth. [facility] metoprolol succinate 50 mg CSpX 11-21 16:37: 25 Yes Take by mouth. [facility] HYDROCHLORO THIAZIDE ORAL 11-21 16:37: 25 Yes 12.5mg Take 12.5 mg by mouth. [facility] escitalopra m oxalate (LEXAPRO ORAL) 11-21 16:37: 25 Yes 10mg Take 10 mg by mouth. [facility] metoprolol succinate 50 mg CSpX 11-21 16:37: 25 Yes Take by mouth. [facility] HYDROCHLORO THIAZIDE ORAL 11-21 16:37: 25 Yes 12.5mg Take 12.5 mg by mouth. [facility] escitalopra m oxalate (LEXAPRO ORAL) 11-21 16:37: 25 Yes 10mg Take 10 mg by mouth. [facility] metoprolol succinate 50 mg CSpX 11-21 16:37: 25 Yes Take by mouth. [facility] HYDROCHLORO THIAZIDE ORAL 11-21 16:37: 25 Yes 12.5mg Take 12.5 mg by mouth. [facility] escitalopra m oxalate (LEXAPRO ORAL) 11-21 11:37: 25 Yes 10mg Take 10 mg by mouth. [facility] metoprolol succinate 50 mg CSpX 11-21 11:37: 25 Yes Take by mouth. [facility] HYDROCHLORO THIAZIDE ORAL 11-21 11:37: 25 Yes 12.5mg Take 12.5 mg by mouth. [facility] escitalopra m oxalate (LEXAPRO ORAL) 11-21 11:37: 25 Yes 10mg Take 10 mg by mouth. [facility] metoprolol succinate 50 mg CSpX 11-21 11:37: 25 Yes Take by mouth. [facility] HYDROCHLORO THIAZIDE ORAL 11-21 11:37: 25 Yes 12.5mg Take 12.5 mg by mouth. [facility] escitalopra m oxalate (LEXAPRO ORAL) 11-21 11:37: 25 Yes 10mg Take 10 mg by mouth. [facility] metoprolol succinate 50 mg CSpX 11-21 11:37: 25 Yes Take by mouth. [facility] HYDROCHLORO THIAZIDE ORAL 11-21 11:37: 25 Yes 12.5mg Take 12.5 mg by mouth. [facility] escitalopra m oxalate (LEXAPRO ORAL) 11-21 11:37: 25 Yes 10mg Take 10 mg by mouth. [facility] metoprolol succinate 50 mg CSpX 11-21 11:37: 25 Yes Take by mouth. [facility] HYDROCHLORO THIAZIDE ORAL 11-21 11:37: 25 Yes 12.5mg Take 12.5 mg by mouth. [facility] metroNIDAZO LE 500 mg tablet 16 00:00: 08-25 04:59 :00 No [id number] 1000mg Take 2 tablets by mouth 2 (two) times daily for 1 day. [facility] metroNIDAZO LE 500 mg tablet 16 00:00: 00 08-25 04:59 :00 No [id number] 1000mg Take 2 tablets by mouth 2 (two) times daily for 1 day. [facility] metroNIDAZO LE 500 mg tablet 08-23 00:00: 08-25 04:59 :00 No [id number] 1000mg Take 2 tablets by mouth 2 (two) times daily for 1 day. [facility] metroNIDAZO LE 500 mg tablet 16 00:00: 08-25 04:59 :00 No [id number] 1000mg Take 2 tablets by mouth 2 (two) times daily for 1 day. [facility] losartan 100 mg tablet 08-19 14:01: 10 Yes [id number] 100mg Take 100 mg by mouth daily. [facility] losartan 100 mg tablet 08-19 14:01: 10 Yes [id number] 100mg Take 100 mg by mouth daily. [facility] losartan 100 mg tablet 12 14:01: 10 Yes [id number] 100mg Take 100 mg by mouth daily. [facility] losartan 100 mg tablet 08-19 14:01: 10 Yes [id number] 100mg Take 100 mg by mouth daily. [facility] losartan 100 mg tablet 08-19 14:01: 10 Yes [id number] 100mg Take 100 mg by mouth daily. [facility] losartan 100 mg tablet 08-19 14:01: 10 Yes [id number] 100mg Take 100 mg by mouth daily. [facility] losartan 100 mg tablet 08-19 14:01: 10 Yes [id number] 100mg Take 100 mg by mouth daily. [facility] losartan 100 mg tablet 08-19 14:01: 10 Yes [id number] 100mg Take 100 mg by mouth daily. [facility] losartan 100 mg tablet 08-19 14:01: 10 Yes [id number] 100mg Take 100 mg by mouth daily. [facility] losartan 100 mg tablet 08-19 14:01: 10 Yes [id number] 100mg Take 100 mg by mouth daily. [facility] losartan 100 mg tablet 08-19 14:01: 10 Yes [id number] 100mg Take 100 mg by mouth daily. [facility] losartan 100 mg tablet 08-19 14:01: 10 Yes [id number] 100mg Take 100 mg by mouth daily. [facility] losartan 100 mg tablet 08-19 14:01: 10 Yes [id number] 100mg Take 100 mg by mouth daily. [facility] losartan 100 mg tablet 08-19 14:01: 10 Yes [id number] 100mg Take 100 mg by mouth daily. [facility] losartan 100 mg tablet 08-19 14:01: 10 Yes [id number] 100mg Take 100 mg by mouth daily. [facility] losartan 100 mg tablet 08-19 14:01: 10 Yes [id number] 100mg Take 100 mg by mouth daily. [facility] losartan 100 mg tablet 08-19 14:01: 10 Yes [id number] 100mg Take 100 mg by mouth daily. [facility] losartan 100 mg tablet 08-19 14:01: 10 Yes [id number] 100mg Take 100 mg by mouth daily. [facility] losartan 100 mg tablet 08-19 14:01: 10 Yes [id number] 100mg Take 100 mg by mouth daily. [facility] losartan 100 mg tablet 08-19 14:01: 10 Yes [id number] 100mg Take 100 mg by mouth daily. [facility] losartan 100 mg tablet 08-19 14:01: 10 Yes [id number] 100mg Take 100 mg by mouth daily. [facility] losartan 100 mg tablet 08-19 14:01: 10 Yes [id number] 100mg Take 100 mg by mouth daily. [facility] losartan 100 mg tablet 08-19 14:01: 10 Yes [id number] 100mg Take 100 mg by mouth daily. [facility] losartan 100 mg tablet 08-19 14:01: 10 Yes [id number] 100mg Take 100 mg by mouth daily. [facility] losartan 100 mg tablet 08-19 14:01: 10 Yes [id number] 100mg Take 100 mg by mouth daily. [facility] losartan 100 mg tablet 08-19 14:01: 10 Yes [id number] 100mg Take 100 mg by mouth daily. [facility] losartan 100 mg tablet 08-19 14:01: 10 Yes [id number] 100mg Take 100 mg by mouth daily. [facility] losartan 100 mg tablet 08-19 14:01: 10 Yes [id number] 100mg Take 100 mg by mouth daily. [facility] losartan 100 mg tablet 08-19 14:01: 10 Yes [id number] 100mg Take 100 mg by mouth daily. [facility] losartan 100 mg tablet 08-19 14:01: 10 Yes [id number] 100mg Take 100 mg by mouth daily. [facility] losartan 100 mg tablet 08-19 14:01: 10 Yes [id number] 100mg Take 100 mg by mouth daily. [facility] losartan 100 mg tablet 08-19 14:01: 10 Yes [id number] 100mg Take 100 mg by mouth daily. [facility] losartan 100 mg tablet 08-19 09:01: 10 Yes [id number] 100mg Take 100 mg by mouth daily. [facility] losartan 100 mg tablet 08-19 09:01: 10 Yes [id number] 100mg Take 100 mg by mouth daily. [facility] losartan 100 mg tablet 08-19 09:01: 10 Yes [id number] 100mg Take 100 mg by mouth daily. [facility] losartan 100 mg tablet 08-19 09:01: 10 Yes [id number] 100mg Take 100 mg by mouth daily. [facility] carvedilol (COREG) 6.25 mg tablet 07-25 00:00: 00 Yes 6.25mg Take 1 tablet by mouth daily. [facility] carvedilol (COREG) 6.25 mg tablet 07-25 00:00: 00 01-15 00:00 :00 No 6.25mg Take 1 tablet by mouth daily. [facility] carvedilol (COREG) 6.25 mg tablet 07-25 00:00: 00 01-15 00:00 :00 No 6.25mg Take 1 tablet by mouth daily. [facility] SERTraline 50 mg tablet 2016-06 00:00: 00 Yes [id number] 50mg Take 1 tablet by mouth daily. [facility] SERTraline 50 mg tablet 2016-06 00:00: 00 Yes [id number] 50mg Take 1 tablet by mouth daily. [facility] SERTraline 50 mg tablet 2016-06 00:00: 00 Yes [id number] 50mg Take 1 tablet by mouth daily. [facility] SERTraline 50 mg tablet 2016-06 00:00: 00 Yes [id number] 50mg Take 1 tablet by mouth daily. [facility] SERTraline 50 mg tablet 2016-06 00:00: 00 08-19 00:00 :00 No [id number] 50mg Take 1 tablet by mouth daily. [facility] SERTraline 50 mg tablet 2016-06 00:00: 00 08-19 00:00 :00 No [id number] 50mg Take 1 tablet by mouth daily. [facility] ibuprofen 800 mg tablet 2016-06 00:00: 00 Yes 800mg Take 1 tablet by mouth every 6 (six) hours as needed for Pain (scale 4-6). [facility] acetaminoph en (TYLENOL) 325 mg tablet 2016-06 00:00: 00 Yes 650mg Take 2 tablets by mouth every 6 (six) hours as needed for Alternate with ibuprofen for pain scale 4-6. [facility] ibuprofen 800 mg tablet 2016-06 00:00: 00 Yes 800mg Take 1 tablet by mouth every 6 (six) hours as needed for Pain (scale 4-6). [facility] acetaminoph en (TYLENOL) 325 mg tablet 2016-06 00:00: 00 Yes 650mg Take 2 tablets by mouth every 6 (six) hours as needed for Alternate with ibuprofen for pain scale 4-6. [facility] ibuprofen 800 mg tablet 2016-06 00:00: 00 Yes 800mg Take 1 tablet by mouth every 6 (six) hours as needed for Pain (scale 4-6). [facility] acetaminoph en (TYLENOL) 325 mg tablet 2016-06 00:00: 00 Yes 650mg Take 2 tablets by mouth every 6 (six) hours as needed for Alternate with ibuprofen for pain scale 4-6. [facility] ibuprofen 800 mg tablet 2016-06 00:00: 00 Yes 800mg Take 1 tablet by mouth every 6 (six) hours as needed for Pain (scale 4-6). [facility] acetaminoph en (TYLENOL) 325 mg tablet 2016-06 00:00: 00 Yes 650mg Take 2 tablets by mouth every 6 (six) hours as needed for Alternate with ibuprofen for pain scale 4-6. [facility] ibuprofen 800 mg tablet 2016-06 00:00: 00 08-19 00:00 :00 No 800mg Take 1 tablet by mouth every 6 (six) hours as needed for Pain (scale 4-6). [facility] acetaminoph en (TYLENOL) 325 mg tablet 2016-06 00:00: 00 08-19 00:00 :00 No 650mg Take 2 tablets by mouth every 6 (six) hours as needed for Alternate with ibuprofen for pain scale 4-6. [facility] ibuprofen 800 mg tablet 2016-06 00:00: 00 08-19 00:00 :00 No 800mg Take 1 tablet by mouth every 6 (six) hours as needed for Pain (scale 4-6). [facility] acetaminoph en (TYLENOL) 325 mg tablet 2016-06 00:00: 00 08-19 00:00 :00 No 650mg Take 2 tablets by mouth every 6 (six) hours as needed for Alternate with ibuprofen for pain scale 4-6. [facility] docusate calcium 240 mg capsule 03-06 00:00: 00 Yes 240mg Take 1 capsule by mouth once daily as needed for Constipati on. [facility] ferrous sulfate 325 mg (65 mg iron) tablet 03-06 00:00: 00 Yes 325mg Take 1 tablet by mouth 2 (two) times daily. [facility] docusate calcium 240 mg capsule 03-06 00:00: 00 01-15 00:00 :00 No 240mg Take 1 capsule by mouth once daily as needed for Constipati on. [facility] ferrous sulfate 325 mg (65 mg iron) tablet 03-06 00:00: 00 01-15 00:00 :00 No 325mg Take 1 tablet by mouth 2 (two) times daily. [facility] docusate calcium 240 mg capsule 03-06 00:00: 00 01-15 00:00 :00 No 240mg Take 1 capsule by mouth once daily as needed for Constipati on. [facility] ferrous sulfate 325 mg (65 mg iron) tablet 03-06 00:00: 00 01-15 00:00 :00 No 325mg Take 1 tablet by mouth 2 (two) times daily. [facility] vitamin w/FA tablet 07-26 00:00: 00 Yes [id number] 1{tbl} Take 1 tablet by mouth daily. [facility] Diethyltolu amide (OFF DEEP PÉREZ) 25 % SprA 07-26 00:00: 00 Yes [id number] Use with all outdoor exposure. Reapply as directed on the container [facility] vitamin w/FA tablet 16 00:00: 00 Yes [id number] 1{tbl} Take 1 tablet by mouth daily. [facility] Diethyltolu amide (OFF DEEP PÉREZ) 25 % SprA 16 00:00: 00 Yes [id number] Use with all outdoor exposure. Reapply as directed on the container [facility] vitamin w/FA tablet 16 00:00: 00 Yes [id number] 1{tbl} Take 1 tablet by mouth daily. [facility] Diethyltolu amide (OFF DEEP PÉREZ) 25 % SprA 16 00:00: 00 Yes [id number] Use with all outdoor exposure. Reapply as directed on the container [facility] vitamin w/FA tablet 16 00:00: 00 Yes [id number] 1{tbl} Take 1 tablet by mouth daily. [facility] Diethyltolu amide (OFF DEEP PÉREZ) 25 % SprA 16 00:00: 00 Yes [id number] Use with all outdoor exposure. Reapply as directed on the container [facility] vitamin w/FA tablet 16 00:00: 00 08-19 00:00 :00 No [id number] 1{tbl} Take 1 tablet by mouth daily. [facility] Diethyltolu amide (OFF DEEP PÉREZ) 25 % SprA 16 00:00: 00 08-19 00:00 :00 No [id number] Use with all outdoor exposure. Reapply as directed on the container [facility] vitamin w/FA tablet 16 00:00: 00 08-19 00:00 :00 No [id number] 1{tbl} Take 1 tablet by mouth daily. [facility] Diethyltolu amide (OFF DEEP PÉREZ) 25 % SprA 16 00:00: 00 08-19 00:00 :00 No [id number] Use with all outdoor exposure. Reapply as directed on the container [facility] Vital Signs Vital Name Observation Time Observation Value Comments S travis Systolic blood pressure 2022-08-05 21:34:00 90 mm[Hg] [facility] Diastolic blood pressure 2022-08-05 21:34:00 73 mm[Hg] [facility] Heart rate 2022-08-05 21:34:00 66 /min [facility] Respiratory rate 2022-08-05 21:34:00 20 /min [facility] Oxygen saturation in Arterial blood by Pulse oximetry 2022-08-05 21:34:00 97 /min [facility] Body temperature 2022-08-05 17:41:00 37.11 Sharon [facility] Body height 2022-08-05 17:41:00 160 cm [facility] Body weight 2022-08-05 17:41:00 122.471 kg [facility] BMI 2022-08-05 17:41:00 47.83 kg/m2 [facility] Systolic blood pressure 2020-12-15 22:23:00 133 mm[Hg] [facility] Diastolic blood pressure 2020-12-15 22:23:00 87 mm[Hg] [facility] Heart rate 2020-12-15 22:23:00 78 /min [facility] Body temperature 2020-12-15 22:23:00 36.28 Sharon [facility] Respiratory rate 2020-12-15 22:23:00 17 /min [facility] Body weight 2020-12-15 22:23:00 120.203 kg [facility] BMI 2020-12-15 22:23:00 46.94 kg/m2 [facility] Oxygen saturation in Arterial blood by Pulse oximetry 2020-12-15 22:23:00 96 /min [facility] Systolic blood pressure 2020-12-15 22:23:00 133 mm[Hg] [facility] Diastolic blood pressure 2020-12-15 22:23:00 87 mm[Hg] [facility] Heart rate 2020-12-15 22:23:00 78 /min [facility] Body temperature 2020-12-15 22:23:00 36.28 Sharon [facility] Respiratory rate 2020-12-15 22:23:00 17 /min [facility] Body weight 2020-12-15 22:23:00 120.203 kg [facility] BMI 2020-12-15 22:23:00 46.94 kg/m2 [facility] Oxygen saturation in Arterial blood by Pulse oximetry 2020-12-15 22:23:00 96 /min [facility] Systolic blood pressure 2020-11-21 16:05:00 120 mm[Hg] [facility] Diastolic blood pressure 2020-11-21 16:05:00 83 mm[Hg] [facility] Heart rate 2020-11-21 16:05:00 67 [facility] Body temperature 2020-11-21 16:05:00 36.5 Sharon [facility] Respiratory rate 2020-11-21 16:05:00 16 /min [facility] Body height 2020-11-21 16:05:00 160 cm [facility] Body weight 2020-11-21 16:05:00 127.489 kg [facility] BMI 2020-11-21 16:05:00 49.79 kg/m2 [facility] Systolic blood pressure 2020-11-21 16:05:00 120 mm[Hg] [facility] Diastolic blood pressure 2020-11-21 16:05:00 83 mm[Hg] [facility] Heart rate 2020-11-21 16:05:00 67 /min [facility] Body temperature 2020-11-21 16:05:00 36.5 Sharon [facility] Respiratory rate 2020-11-21 16:05:00 16 /min [facility] Body height 2020-11-21 16:05:00 160 cm [facility] Body weight 2020-11-21 16:05:00 127.489 kg [facility] BMI 2020-11-21 16:05:00 49.79 kg/m2 [facility] Systolic blood pressure 2020-03-15 16:05:00 126 mm[Hg] [facility] Diastolic blood pressure 2020-03-15 16:05:00 79 mm[Hg] [facility] Heart rate 2020-03-15 16:05:00 66 /min [facility] Body temperature 2020-03-15 16:05:00 36.56 Sharon [facility] Respiratory rate 2020-03-15 16:05:00 16 /min [facility] Body height 2020-03-15 16:05:00 160 cm [facility] Body weight 2020-03-15 16:05:00 117.708 kg [facility] BMI 2020-03-15 16:05:00 45.97 kg/m2 [facility] Systolic blood pressure 2019-08-20 13:51:00 136 mm[Hg] [facility] Diastolic blood pressure 2019-08-20 13:51:00 88 mm[Hg] [facility] Heart rate 2019-08-20 13:21:00 80 /min [facility] Body temperature 2019-08-20 13:21:00 36.22 Sharon [facility] Respiratory rate 2019-08-20 13:21:00 16 /min [facility] Body height 2019-08-20 13:21:00 160 cm [facility] Body weight 2019-08-20 13:21:00 120.855 kg [facility] BMI 2019-08-20 13:21:00 47.20 kg/m2 [facility] Systolic blood pressure 2019-01-15 13:05:00 152 mm[Hg] [facility] Diastolic blood pressure 2019-01-15 13:05:00 90 mm[Hg] [facility] Heart rate 2019-01-15 13:00:00 78 /min Unive [facility] Body temperature 2019-01-15 13:00:00 37.28 Sharon [facility] Respiratory rate 2019-01-15 13:00:00 16 /min [facility] Body height 2019-01-15 13:00:00 160 cm [facility] Body weight 2019-01-15 13:00:00 116.121 kg [facility] BMI 2019-01-15 13:00:00 45.35 kg/m2 [facility] Procedures Procedure Date / Time Performed Performing Clinician Source POCT TEST 2022-08-05 19:53:00 Ruthann Cormier [facility] URINALYSIS 2022-08-05 19:34:00 Ambrosio Cormier [facility] URINE DRUG (IMMUNOASSAY) - COMPREHENSIVE DRUG SCREEN W/O REFLEX 2022-08-05 19:34:00 Ambrosio Cormier [facility] CREATINE KINASE 2022-08-05 18:43:00 [facility] 2022-08-05 18:43:00 Ambrosio Cormier [facility] MAGNESIUM 2022-08-05 18:43:00 [facility] TROPONIN I 2022-08-05 18:43:00 Ambrosio Cormier [facility] FREE T4 2022-08-05 18:43:00 Ambrosio Cormier [facility] THYROID STIMULATING HORMONE 2022-08-05 18:43:00 Ambrosio Cormier [facility] COMP. METABOLIC PANEL (99871) 2022-08-05 18:43:00 Ambrosio Cormier [facility] CBC WITH DIFF 2022-08-05 18:43:00 Ambrosio Cormier [facility] GLYCOSYLATED HEMOGLOBIN (A1C) 2022-08-05 18:43:00 Ambrosio Cormier [facility] N-TERMINAL PRO-BNP 2022-08-05 18:43:00 Ambrosio Cormier [facility] CONSENT/REFUSAL FOR DIAGNOSIS AND TREATMENT 2022-08-05 17:28:30 Doctor Unassigned, Wasta [facility] ASSIGNMENT OF BENEFITS 2020-11-21 15:37:59 Docto r Unassigned, Wasta [facility] HSV 1 AND 2 GLYCOPROTEIN G IGG 2020-03-15 16:24:00 Michele Goodman [facility] HIV 1/2 AG-AB WITH REFLEX 2020-03-15 16:24:00 Michele Goodman [facility] GALV ONLY - SYPHILIS IGG/IGM 2020-03-15 16:24:00 Michele Goodman [facility] ASSIGNMENT OF BENEFITS 2019-08-20 12:50:11 Docto r Unassigned, Wasta [facility] POCT TEST 2019-01-15 13:19:00 Simone Goodman [facility] Encounters Start Date/Time End Date/Time Encounter Type Admission Type Attending [facility] Care Department Encounter ID Source 2022-08-05 11:42:00 2022-08-05 15:37:00 Emergency X AMBROSIO CORMIER [facility] ERT [id number] [facility] 2022-08-05 11:42:00 2022-08-05 15:37:00 Emergency Ambrosio Cormier [facility] 1.2840.114 350.1.13.10 4.2.7.2.686 [id number] [facility] 2021-07-25 14:30:00 2021-07-25 14:30:00 Outpatient R LOVELY FORD [facility] [id number] [facility] 2021-07-24 00:00:00 2021-07-24 00:00:00 Telephone Michele Goodman [facility] PRIVATE DETECTIVE [facility]ILD [facility] 1.2840.114 350.1.13.10 4.2.7.2.686 [id number] [facility] 2021-07-06 00:00:00 2021-07-06 00:00:00 Telephone Lovely Ford [facility] PRIVATE DETECTIVE [facility] MAT[facility] & CHILD [facility] 1.2.840.114 350.1.13.10 4.2.7.2.686 [id number] [facility] 2021-03-23 00:00:00 2021-03-23 00:00:00 Telephone Michele Goodman [facility] PRIVATE DETECTIVE [facility] CHILD [facility] 1.2.840.114 350.1.13.10 4.2.7.2.686 [id number] [facility] 2020-12-15 17:03:06 2020-12-15 17:18:06 Nurse Visit Nurse, Eleazar [facility] Office [address] 1.114 350.1.13.10 4.2.7.2.686 [id number] 2020-12-15 17:03:06 2020-12-15 17:18:06 Nurse Visit NurseEleazar [facility] Care Jazz Montejo [facility] Office Building One 1.114 350.1.13.10 4.2.7.2.686 [id number] [facility] 2020-12-15 17:15:00 2020-12-15 17:15:00 Outpatient R JAZZ MONTEJO [facility] [id number] [facility] 2020-11-21 10:46:50 2020-11-21 12:19:41 Office Visit Lovely Ford [facility] PRIVATE DETECTIVE [facility] & CHILD [facility] 1..114 350.1.13.10 4.2.7.2.686 [id number] 2020-11-21 10:46:50 2020-11-21 12:19:41 Office Visit Lovely Ford [facility] PRIVATE DETECTIVE [facility] CHILD [facility] 1..114 350.1.13.10 4.2.7.2.686 [id number] [facility] 2020-11-21 10:30:00 2020-11-21 10:30:00 Outpatient R LOVELY FORD [facility] [id number] [facility] 2020-11-21 00:00:00 2020-11-21 00:00:00 Orders Only Doctor Unassigned, Wasta [facility] 1..114 350.1.13.10 4.2.7.2.686 [id number] [facility] 2020-08-29 00:00:00 2020-08-29 00:00:00 Patient Outreach Alex Zanjas Orellana [facility] 1.2.840.114 350.1.13.10 4.2.7.2.686 [id number] [facility] 2020-03-17 00:00:00 2020-03-17 00:00:00 Telephone Michele Goodman [facility] PRIVATE DETECTIVE [facility] 1.2.840.114 350.1.13.10 4.2.7.2.686 [id number] [facility] 2020-03-16 00:00:00 2020-03-16 00:00:00 Telephone Michele Goodman [facility] PRIVATE DETECTIVE [facility] CHILD [facility] 1.2.840.114 350.1.13.10 4.2.7.2.686 [id number] [facility] 2020-03-16 00:00:00 2020-03-16 00:00:00 Telephone Micehle Goodman [facility] PRIVATE DETECTIVE [facility] CHILD [facility] 1.2.840.114 350.1.13.10 4.2.7.2.686 [id number] [facility] 2020-03-16 00:00:00 2020-03-16 00:00:00 Telephone Michele Goodman [facility] PRIVATE DETECTIVE [facility] CHILD [facility] 1.2.840.114 350.1.13.10 4.2.7.2.686 [id number] [facility] 2020-03-15 10:52:49 2020-03-15 11:17:46 Office Visit Michele Goodman [facility] PRIVATE DETECTIVE [facility] CHILD [facility] 1.2.840.114 350.1.13.10 4.2.7.2.686 [id number] [facility] 2020-03-15 10:45:00 2020-03-15 10:45:00 Outpatient Nancy MICHELE GOODMAN [facility] [id number] [facility] 2020-01-11 00:00:00 2020-01-11 00:00:00 Telephone Michele Goodman [facility] 1.0.114 350.1.13.10 4.2.7.2.686 [id number] [facility] 2020-01-10 15:40:00 2020-01-10 15:40:00 [facility] [id number] [facility] 2020-01-10 14:21:38 2020-01-10 14:41:38 Laboratory Only Lab, Adc Fam Pob I Cinthya [facility] One 1..114 350.1.13.10 4.2.7.2.686 [id number] [facility] 2019-09-10 00:00:00 2019-09-10 00:00:00 Telephone GoodmanMichele [facility] PRIVATE DETECTIVE [facility] 1.0.114 350.1.13.10 4.2.7.2.686 [id number] [facility] 2019-09-02 00:00:00 2019-09-02 00:00:00 Telephone GoodmanMichele [facility] PRIVATE DET[facility]IVE [facility] 1.840.114 350.1.13.10 4.2.7.2.686 [id number] [facility] 2019-08-26 00:00:00 2019-08-26 00:00:00 Telephone Michele Goodman [facility] PRIVATE DET[facility]IVE [facility]ILD [facility] 1.840.114 350.1.13.10 4.2.7.2.686 [id number] [facility] 2019-08-25 00:00:00 2019-08-25 00:00:00 Telephone Michele Goodman [facility] PRIVATE DETECTIVE [facility] CHILD [facility] 1.2840.114 350.1.13.10 4.2.7.2.686 [id number] [facility] 2019-08-24 00:00:00 2019-08-24 00:00:00 Telephone Michele Goodman [facility] PRIVATE DETECTIVE [facility] 1.2840.114 350.1.13.10 4.2.7.2.686 [id number] [facility] 2019-08-20 07:56:32 2019-08-20 09:08:45 Office Visit Michele Goodman [facility] 1.284.114 350.1.13.10 4.2.7.2.686 [id number] [facility] 2019-08-20 07:45:00 2019-08-20 07:45:00 Outpatient R MICHELE GOODMAN [facility] [id number] [facility] 2019-08-20 00:00:00 2019-08-20 00:00:00 Orders Only Doctor Unassigned, Wasta [facility] 1.2.114 350.1.13.10 4.2.7.2.686 [id number] [facility] 2019-03-10 15:59:00 2019-03-10 15:59:00 Emergency E [id number] 2019-01-15 07:46:53 2019-01-15 08:36:19 Office Visit Michele Goodman [facility] PRIVATE DETECTIVE [facility] CHILD [facility] 1.2840.114 350.1.13.10 4.2.7.2.686 [id number] [facility] 2019-01-12 00:00:00 2019-01-12 00:00:00 Telephone Michele Goodman [facility] PRIVATE DETECTIVE [facility] 1.2.840.114 350.1.13.10 4.2.7.2.686 [id number] [facility] Results Test Description Test Time Test Comments Results Result Co mments Source [facility] SY[facility]IL[facility] [id number] 16:49:00* Test Item Value Reference Range Interpretation Comme [facility] Syphilis IgG/IgM (test code = 91755-0) Non-reactive Non-reactive KELY (test code = KELY) Non-reactive - No serologic evidence of T. pallidum infection. Cannot exclude incubating or early syphilis. Submit a second specimen in 2-4 weeks if syphilis is clinically suspected. Equivocal - Further testing to follow. Reactive - Further testing to follow. Lab Interpretation (test code = 04893-8) Normal [facility] 2 GLYCOPROTEIN G [id number] 15:45:00* Test Item Value Reference Range Interpretation Comme [facility] HSV I IgG (test code = 3211553719) Positive Negative HSV II IgG (test code = 0768165464) Positive Negative KELY (test code = KELY) Positive - IgG ant ibody to HSV 1 and/or HSV 2 detected.Negative - No HSV 1 and/or HSV 2 antibody detected.Equivocal - A second sample should be sent. [facility] AG-AB WITH [id number] 05:11:00* Test Item Value Reference Range Interpretation Comme [facility] HIV Semi-quantitative (test code = 07984-6) Negative Negative KELY (test code = KELY) Non-reactive for HIV-1 antigen and HIV-1/HIV-2 antibodies. ?No laboratory evidence of HIV infection. ?Repeat in 2-4 weeks if acute HIV infection is suspected. [facility] [id number] 13:19:00* Test Item Value Reference Range Interpretation Comme nts POCT PREG (test code = 1605) Negative On board controls acceptable with C Line (test code = 3574) Yes POCT PREG LOT # (test code = 3575) POCT PREG TEST DATE ( test code = 3576) [facility] [id number] 13:19:00* Test Item Value Reference Range Interpretation Comme nts POCT PREG (test code = 1605) Negative On board controls acceptable with C Line (test code = 3574) Yes POCT PREG LOT # (test code = 3575) POCT PREG TEST DATE ( test code = 3576) [facility]
[2023-06-19 09:10] LABS: SARS-CoV-2 Antigen Rapid Res Negative (Negative)
--- NOTE | 2023-06-19 10:05 | EDPHYS ---
Physician Documentation [facility] Name: Rose Guardado Age: 37 yrs Sex: Female : 1985 Arrival Date: 06/19/2023 Time: 08:28 Bed 5 Private MD: ED Physician Michael Chris HPI: 06/19 09:22 This 37 yrs old Female presents to ER via Ambulatory with complaints of Flu Symptoms, rn Sore Throat - Swelling. 09:22 The patient presents with sore throat. The patient describes throat pain as burning, rn raw. Onset: The symptoms/episode began/occurred this morning. Severity of symptoms: At their worst the symptoms were mild, in the emergency department the symptoms have resolved. Modifying factors: The symptoms are alleviated by nothing, the symptoms are aggravated by swallowing. Associated signs and symptoms: Pertinent negatives fever, shortness of breath. The patient has not experienced similar symptoms in the past. Patient reports woke up this morning with sore throat. No fever or chills. No runny nose. No known sick contacts. No trauma. Patient reports throat feels like "razor blades ". No shortness of breath. No neck swelling.. Historical: - Allergies: 08:38 Lisinopril; ll1 08:38 Prednisone; ll1 - PMHx: 08:38 Anxiety; depressive disorder; Hypertension; TIA; Diabetes mellitus; ll1 - PSHx: 08:38 section; x 3; ll1 - Immunization history:: Adult Immunizations up to date. - Social history:: Smoking status: Patient denies any tobacco usage or history of. - Family history:: not pertinent. - Hospitalizations: : No recent hospitalization is reported. ROS: 09:22 Constitutional: Negative for fever, chills, and weight loss, ENT: Positive for sore rn throat Cardiovascular: Negative for chest pain, palpitations, and edema, Respiratory: Negative for shortness of breath, cough, wheezing, and pleuritic chest pain, Abdomen/GI: Negative for abdominal pain, nausea, vomiting, diarrhea, and constipation, Back: Negative for injury and pain, MS/Extremity: Negative for injury and deformity, Skin: Negative for injury, rash, and discoloration, Neuro: Negative for headache, weakness, numbness, tingling, and seizure, Exam: 09:22 Constitutional: This is a well developed, well nourished patient who is awake, alert, rn and in no acute distress. Head/Face: Normocephalic, atraumatic. ENT: Mild pharyngeal erythema. Uvula midline. No hypertrophy or exudate. No stridor Neck: Tender bilateral cervical lymphadenopathy without asymmetry. No meningismus. Full flexion and extension without pain. Cardiovascular: Regular rate and rhythm. No pulse deficits. Respiratory: No increased work of breathing, no retractions or nasal flaring. Vital Signs: 08:37 BP 137 / 92; Pulse 77; Resp 16; Temp 98.3; Pulse Ox 100% on R/A; Weight 108.86 kg; ll1 Height 5 ft. 3 in. ; Pain 9/10; 09:49 BP 122 / 76; Pulse 72; Resp 14; Pulse Ox 99% ; ko1 08:37 Body Mass Index 42.51 (108.86 kg, 160.02 cm) ll1 08:37 Pain Scale: Adult ll1 MDM: 08:32 Patient medically screened. rn 10:04 Differential diagnosis: group A strep tonsillitis, influenza, pharyngitis, tonsillitis, rn upper respiratory infection, viral syndrome. Data reviewed: vital signs, nurses notes, lab test result(s), and as a result, I will discharge patient. Counseling: I had a detailed discussion with the patient and/or guardian regarding the historical points, exam findings, and any diagnostic results supporting the discharge/admit diagnosis, lab results, the need for outpatient follow up, to return to the emergency department if symptoms worsen or persist or if there are any questions or concerns that arise at home. Special discussion: I discussed with the patient/guardian in detail that at this point there is no indication for admission to the hospital. It is understood, however, that if the symptoms persist or worsen the patient needs to return immediately for re-evaluation. 06/19 08:47 Order name: Strep rn 06/19 08:47 Order name: SARS RAPID; Complete Time: 09:27 rn 06/19 08:47 Order name: Flu; Complete Time: 10:04 rn 06/19 10:06 Order name: Throat Culture EDMS Administered Medications: No medications were administered Disposition Summary: 06/19/23 10:04 Discharge Ordered Notes: Location: Home rn Problem: new rn Symptoms: are unchanged rn Condition: Stable rn Diagnosis - Acute pharyngitis, unspecified rn Followup: rn - With: Private Physician - When: As needed - Reason: Recheck today's complaints, Re-evaluation by your physician Discharge Instructions: - Discharge Summary Sheet rn - Pharyngitis rn - Strep Throat, Adult rn Forms: - Medication Reconciliation Form rn - Thank You Letter rn - Antibiotic return agent airport - Prescription Opioid Use rn - Patient Portal Instructions rn - Leadership Thank You Letter rn Prescriptions: - Augmentin 875-125 mg Oral Tablet - take 1 tablet ORAL route every 12 hours for 10 days; 20 tablet; Refills: 0, rn Product Selection Permitted Signatures: Dispatcher [employer] EDMichael Meyer MD MD rn Lewis, Lynsay, RN RN ll1
--- NOTE | 2023-06-19 10:05 | ER ---
Nurse's Notes [facility] Name: Rose Guardado Age: 37 yrs Sex: Female : 1985 Arrival Date: 06/19/2023 Time: 08:28 Bed 5 Private MD: Diagnosis: Acute pharyngitis, unspecified Presentation: 06/19 08:37 Chief complaint: Patient states: Cough, sore throat, chills, congestion started today. ll1 No fever. Coronavirus screen: Client denies travel out of the [place] in the last 14 days. congestion, cough unrelated to allergies, fatigue, headache, sore throat, Client presents with at least one sign or symptom that may indicate coronavirus-19. Standard/surgical mask placed on the client. Ebola Screen: Patient denies travel to an Ebola-affected area in the 21 days before illness onset. Initial Sepsis Screen: Does the patient meet any 2 criteria? No. Patient's initial sepsis screen is negative. Does the patient have a suspected source of infection? Yes: Productive cough/pneumonia. Risk Assessment: Do you want to hurt yourself or someone else? Patient reports no desire to harm self or others. Onset of symptoms was June 19, 2023. 08:37 Method Of Arrival: Ambulatory ll1 08:37 Acuity: TATIANA 4 ll1 Triage Assessment: 08:38 General: Appears uncomfortable, Behavior is calm, cooperative, appropriate for age. ll1 General: Reports chills for feeling ill for fatigue for. Pain: Complains of pain in throat Pain currently is 9 out of 10 on a pain scale. Quality of pain is described as aching, Aggravated by eating, drinking. EENT: Reports nasal congestion pain when swallowing. Respiratory: Reports cough that is. Historical: - Allergies: 08:38 Lisinopril; ll1 08:38 Prednisone; ll1 - PMHx: 08:38 Anxiety; depressive disorder; Hypertension; TIA; Diabetes mellitus; ll1 - PSHx: 08:38 section; x 3; ll1 - Immunization history:: Adult Immunizations up to date. - Social history:: Smoking status: Patient denies any tobacco usage or history of. - Family history:: not pertinent. - Hospitalizations: : No recent hospitalization is reported. Screenin:51 [facility] ED Fall Risk Assessment (Adult) History of falling in the last 3 months, ko1 including since admission No falls in past 3 months (0 pts) Confusion or Disorientation No (0 pts) Intoxicated or Sedated No (0 pts) Impaired Gait No (0 pts) Mobility Assist Device Used No (0 pt) Altered Elimination No (0 pt) Score/Fall Risk Level 0 - 2 = Low Risk Oriented to surroundings, Maintained a safe environment, Educated pt \T\ family on fall prevention, incl call for assistance when getting out of bed, Assessed \T\ reinforced patient's understanding of fall precautions, Provided non-skid footwear, Hourly rounding (assess needs \T\ fall precautionary measures) done, Used ambulatory aids as needed (educated on \T\ assisted with), Used gait belt as appropriate. Abuse screen: Denies threats or abuse. Denies injuries from another. Nutritional screening: No deficits noted. Tuberculosis screening: No symptoms or risk factors identified. Assessment: 08:51 Neuro: Reports dizziness. Cardiovascular: No deficits noted. Respiratory: Airway is ko1 patent Respiratory effort is even, unlabored, Breath sounds are clear bilaterally. GI: No deficits noted. : No deficits noted. EENT: Throat sore. EENT: Reports difficulty swallowing nasal congestion. Derm: No deficits noted. Musculoskeletal: No deficits noted. Vital Signs: 08:37 BP 137 / 92; Pulse 77; Resp 16; Temp 98.3; Pulse Ox 100% on R/A; Weight 108.86 kg; ll1 Height 5 ft. 3 in. ; Pain 9/10; 09:49 BP 122 / 76; Pulse 72; Resp 14; Pulse Ox 99% ; ko1 08:37 Body Mass Index 42.51 (108.86 kg, 160.02 cm) ll1 08:37 Pain Scale: Adult ll1 ED Course: 08:32 Patient arrived in ED. mg5 08:32 Michael Chris MD is Attending Physician. rn 08:37 Arm band placed on Patient placed in an exam room, on a stretcher. ll1 08:43 Triage completed. ll1 08:50 Sagrario Zheng, TENZIN is Primary Nurse. ko1 08:51 Patient has correct armband on for positive identification. Bed in low position. Call ko1 light in reach. Side rails up X 1. Pulse ox on. NIBP on. Door closed. Noise minimized. Lights dimmed. Warm blanket given. 08:54 Strep Sent. ko1 08:54 Flu Sent. ko1 08:54 SARS RAPID Sent. ko1 :49 Provided Education on: labs. ko1 :49 No provider procedures requiring assistance completed. Patient did not have IV access ko1 during this emergency room visit. Administered Medications: No medications were administered Medication: : VIS not applicable for this client. ko1 Outcome: 10:04 Discharge ordered by . rn 10:14 Discharged to home ambulatory, ko1 10:14 Condition: stable 10:14 Discharge instructions given to patient, Instructed on discharge instructions, follow up and referral plans. medication usage, Demonstrated understanding of instructions, follow-up care, medications, Prescriptions given X 1, 10:14 Patient left the ED. ko1 Signatures: Michael Chris MD MD rn Lewis, Lynsay RN RN ll1 Sagrario Zheng RN RN ko1 Brianna Epps mg5
[2023-06-19 10:27] VITALS: BP 122/76; TEMP 98.3; O2SAT 99
== END ==
LOC: ER 08:28
DX: J02.9 Acute pharyngitis, unspecified (principal); Z11.52 Encounter for screening for COVID-19; Z88.8 Allergy status to other drugs, medicaments and biological substances
CPT/HCPCS: 36415; 87070; 87081; 87804; 87811; 99283

== ENCOUNTER 2023-09-16 17:05 | Emergency (ER) | payer OTHER ==
--- OUTSIDE RECORDS SUMMARY | 2023-09-16 17:13 | XMS REPORT | Continuity of Care Document ---
Author Name Unknown Address [address] [facility] [address] [place] [address] [facility] thconnect Address [address] [facility] [address] [place] [address] Care Team Providers Care Mix House Operator Name Role Phone Group, [facility] BRYAN WATERS Attending Clinician Unavailable STEPH VILLARREAL Attending Clinician Unavailable [id number] Attending Clinician Unavailable DIANE RODRIGUEZ Attending Clinician Unavailable FLORENCE JUÁREZ Attending Clinician Unavailab MIKHAIL Don Attending Clinician Unavailable KELLEY MANZANO Attending Clinician UnaANGI Clifton Attending Clinician UnavailAMBROSIO Cardona Attending Clinician Unavailable Ambrosio Cormier MD Attending Clinician [phone] Bryan Waters DO Attending Clinician [phone] LOVELY FORD Attending Clinician Unavail able Michele Zapata Attending Clinician + [phone] Lovely Bethea Attending Clinician + Nurse, [facility] Attending Clinician Jazz Lo Attending Clinician + [phone] JAZZ MONTEJO Attending Clinician Unavailab marta Doctor Unassigned, Dale Attending Clinician U Zan Orlando DO Attending Clinician MICHELE GOODMAN Attending Clinician Unavailab FLORENCE Ramirez Attending Clinician Unavailable Lab, [facility] Pob I Attending Clinician Unavailab Florence Gallego Attending Clinician [phone] Payers Payer Name Policy Type Policy Number Effective Date Expirati on Date Source [employer] 2 [id number] 2022 00:00:00 [employer] COMMERCIAL OUT OF NETWORK [id number] 2022 00:00:00 BCBS 2 [id number] 2021 00:00:00 [employer] [place] - OUT OF STATE [id number] 2020 00:00:00 Problems Condition Name Condition Details Condition Category Status Onset Date Resolution Date Last Treatment Date Treating Clinician Comments Source Renal insufficie ncy Renal insufficie ncy Disease Active 02-15 00:00: 00 Angy urena Class 3 severe obesity due to excess calories with serious comorbidit y and body mass index (BMI) of 50.0 to 59.9 in adult Class 3 severe obesity due to excess calories with serious comorbidit y and body mass index (BMI) of 50.0 to 59.9 in adult Disease Active 09-17 00:00: 00 Angy urena Obesity with serious comorbidit y Obesity with serious comorbidit y Disease Active 09-17 00:00: 00 Angy urena Acute cough Acute cough Disease Active 2021-06 0 00:00: 00 Angy urena Chest pain on breathing Chest pain on breathing Disease Active 707 00:00: 00 Angy urena Pain and swelling of left lower extremity Pain and swelling of left lower extremity Disease Active 12-07 00:00: 00 Angy Cohna ayanna Bone spur of left foot Bone spur of left foot Disease Active 12-07 00:00: 00 Angy Cohna ayanna Elevated liver function tests Elevated liver function tests Disease Active 19 00:00: 00 Angy Cohna ayanna Primary hypertensi on Primary hypertensi on Disease Active 08-29 00:00: 00 Angy Cohna ayanna Acquired hypothyroi dism Acquired hypothyroi dism Disease Active 08-29 00:00: 00 Angy García Type 2 diabetes mellitus without complicati on, without long-term current use of insulin Type 2 diabetes mellitus without complicati on, without long-term current use of insulin Disease Active 08-29 00:00: 00 Angy García Gastroesop hageal reflux disease without esophagiti s Gastroesop hageal reflux disease without esophagiti s Disease Active 08-29 00:00: 00 Angy Cohna ayanna Current moderate episode of major depressive disorder without prior episode Current moderate episode of major depressive disorder without prior episode Disease Active 08-29 00:00: 00 Angy Cohna ayanna Type 2 diabetes mellitus with hyperlipid emia (multi HCC) Type 2 diabetes mellitus with hyperlipid emia (multi HCC) Disease Active 08-29 00:00: 00 Angy urena Other general counseling and advice for contracept carmen management Other general counseling and advice for contracept carmen management Disease Active 11-21 00:00: 00 [facility] Vaginal irritation Vaginal irritation Disease Active 11-21 00:00: 00 [facility] 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 Disease Active 2019-06 0-07 00:00: 00 [facility] 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 Disease Active 2019-06 0-07 00:00: 00 [facility] Abnormal glandular Papanicola ou smear of cervix Abnormal glandular Papanicola ou smear of cervix Disease Active 312 00:00: 00 [facility] BMI 45.0-49.9, adult BMI 45.0-49.9, adult Disease Active 312 00:00: 00 [facility] Encounter for contracept carmen management , unspecifie d type Encounter for contracept carmen management , unspecifie d type Disease Active 2017-06 0 00:00: 00 [facility] History of bilateral tubal ligation History of bilateral tubal ligation Disease Active 2017-06 0 00:00: 00 [facility] Screening examinatio n for STD (sexually transmitte d disease) Screening examinatio n for STD (sexually transmitte d disease) Disease Active 2017-06 0 00:00: 00 [facility] GDM, class A2 GDM, class A2 Disease Active 02-12 00:00: 00 [facility] Genitourin [place] infection in , antepartum , third trimester Genitourin [place] infection in , antepartum , third trimester Disease Active 8 00:00: 00 [facility] ASCUS of cervix with negative high risk HPV ASCUS of cervix with negative high risk HPV Disease Active 2 00:00: 00 [facility] ASCUS of cervix with negative high risk HPV ASCUS of cervix with negative high risk HPV Disease Active 216 00:00: 00 [facility] Essential hypertensi on, benign Essential hypertensi on, benign Disease Active 02-28 00:00: 00 [facility] Morbid obesity Morbid obesity Disease Active 02-28 00:00: 00 [facility] Well woman exam Well woman exam Disease Active 02-28 00:00: 00 [facility] History of TIA (transient ischemic attack) History of TIA (transient ischemic attack) Disease Active 02-28 00:00: 00 [facility] Allergies, Adverse Reactions, Alerts Allergy Name Allergy Type Status Severity Reaction(s) Onset Date Inactive Date Treating Clinician Comments Source Lisinopr il Propensi ty to adverse reaction s Active Cough 08-29 00:00: 00 Angy García Lisinopr il Propensi ty to adverse reaction s Active Cough 08-29 00:00: 00 Angy urena PREDNISO NE DRUG INGREDI Active Swelling 08-10 00:00: 00 [facility] Predniso ne Propensi ty to adverse reaction s Active Swelling 08-10 00:00: 00 Angy García Predniso ne Propensi ty to adverse reaction s Active Swelling 08-10 00:00: 00 Angy Cohna l Social History Social Habit Start Date Stop Date Quantity Comments Source Gender identity Angelia García - External Sexual orientation Eleni García - External Alcohol intake 2023-09-03 00:00:00 2023-09-03 00:00:00 Ex-drinker (finding) Angy García - External History of Social function 2023-02-25 00:00:00 2023-02-25 00:00:00 Angy García - External Exposure to SARS-CoV-2 (event) 2022-07-26 00:00:00 2022-08-05 11:40:00 Not sure [facility] Tobacco use and exposure 2021-08-29 00:00:00 2021-08-29 00:00:00 Smokeless tobacco non-user Angy García - External Education - What is the highest level of school you have completed or the highest degree you have received? 2021-08-29 00:00:00 2021-08-29 00:00:00 12th grade Angy García - External Sex Assigned At 1985 00:00:00 1985 00:00:00 Angy García - External Smoking Status Start Date Stop Date Source Never smoked tobacco Angy García - External Medications Ordered Medication Name Filled Medication Name Start Date Stop Date Current Medication? Ordering Clinician Indication Dosage Frequency Signature (SIG) Comments Components Source Aspirin 81 MG oral Tablet Delayed Response 09-02 08:35: 15 09-02 00:00 :00 No 81mg Take 1 tablet (81 mg total) by mouth daily. Angy urena Tirzepatide (Mounjaro) 2.5 MG/0.5ML subcutaneou s Solution Pen-injecto r 09-02 00:00: 00 Yes [id number] 2.5mg Inject 0.5 mL (2.5 mg total) into the skin once a week. Angy urena glipiZIDE 5 MG oral Tablet 08-22 00:00: 00 Yes [id number] 5mg Take 1 tablet (5 mg total) by mouth daily (before a meal). Angy urena Sertraline HCl 100 MG oral Tablet 08-19 00:00: 00 Yes [id number] 100mg Take 1 tablet (100 mg total) by mouth daily. Angy urena Aripiprazol e 10 MG oral Tablet 08-19 00:00: 00 Yes [id number] 1{tbl} Take 1 tablet by mouth daily. Angy urena Aspirin 81 MG oral Tablet Delayed Response 2022-06 14:06: 46 Yes 81mg Take 1 tablet (81 mg total) by mouth daily. Angy urena Ondansetron HCl 4 MG oral Tablet 2022-06 00:00: 00 Yes [id number] 4mg Q.[id number] 3D Take 1 tablet (4 mg total) by mouth every 8 hours as needed for nausea. Angy urena Metoprolol Succinate 100 MG oral TABLET SR 24 HR 2022-06 00:00: 00 Yes [id number] 100mg Take 1 tablet (100 mg total) by mouth daily. Angy urena OZEMPIC (0.25 or 0.5 mg/dose) 2 mg/3 mL SQ Solution Pen-Injecto r 17 00:00: 00 Yes [id number] INJECT 0.25MG INTO THE SKIN ONE TIME PER WEEK Angy urena Aspirin 81 MG oral Tablet Delayed Response 02-22 08:41: 27 Yes 81mg Take 1 tablet (81 mg total) by mouth daily. Angy urena Aspirin 81 MG oral Tab 02-22 08:37: 00 02-22 00:00 :00 No [id number] 81mg Take 1 tablet (81 mg total) by mouth daily. Angy urena Aspirin 81 MG oral Tab 02-15 10:58: 10 Yes [id number] 81mg Take 1 tablet (81 mg total) by mouth daily. Angy urena Metformin HCl ER 500 MG oral TABLET SR 24 HR 12-18 00:00: 00 02-15 00:00 :00 No [id number] 1000mg Take 2 tablets (1,000 mg total) by mouth 2 times daily Angy urena Losartan Potassium (COZAAR) 100 MG oral Tablet 12-10 00:00: 00 02-15 00:00 :00 No [id number] TAKE 1 TABLET BY MOUTH EVERY DAY Angy urena Aspirin 81 MG oral Tab 11-16 09:06: 01 Yes [id number] 81mg Take 1 tablet (81 mg total) by mouth daily Angy urena Semaglutide (0.25 or 0.5 mg/dose) 2 mg/3 mL SQ Solution Pen-Injecto r 11-16 00:00: 00 Yes [id number] .5mg Inject 0.5 mg into the skin once a week Angy urena Semaglutide (0.25 or 0.5 mg/dose) 2 mg/3 mL SQ Solution Pen-Injecto r -19 00:00: 00 11-16 00:00 :00 No [id number] .25mg Inject 0.25 mg into the skin once a week Angy urena Aspirin 81 MG oral Tab 09-17 11:11: 49 Yes [id number] 81mg Take 1 tablet (81 mg total) by mouth daily Angy urena Metoprolol Succinate 100 MG oral TABLET SR 24 HR -06 00:00: 00 09-17 00:00 :00 No 100mg Take 1 tablet (100 mg total) by mouth 2 times daily FOR 90 DAYS Angy urena Atorvastati n Calcium 10 MG oral Tablet 08-20 08:52: 34 08-20 00:00 :00 No 10mg Take 10 mg by mouth daily Angy urena Aspirin 81 MG oral Tab 08-20 08:32: 49 Yes [id number] 81mg Take 81 mg by mouth daily Angy urena Insulin Pen Needle 32G X 6 MM does not apply Mis 08-14 00:00: 00 09-02 00:00 :00 No Use as directed. Angy urena Metformin HCl ER 500 MG oral TABLET SR 24 HR 08-06 11:46: 59 08-06 00:00 :00 No 500mg Take 500 mg by mouth daily (with breakfast) Angy urena Aspirin 81 MG oral Tab 08-06 11:33: 16 Yes [id number] 81mg Take 81 mg by mouth daily Angy urena Atorvastati n Calcium 10 MG oral Tablet 08-06 11:33: 16 Yes 10mg Take 10 mg by mouth daily Angy urena Semaglutide (0.25 or 0.5 mg/dose) 2 mg/1.5 mL SQ Solution Pen-Injecto r 08-06 00:00: 00 Yes [id number] .25mg Inject 0.25 mg into the skin once a week Angy urena Metformin HCl ER 500 MG oral TABLET SR 24 HR 08-06 00:00: 00 Yes [id number] 1000mg Take 2 tablets (1,000 mg total) by mouth 2 times daily nAgy urena glipiZIDE 10 MG oral Tablet 08-06 00:00: 00 02-22 00:00 :00 No [id number] 10mg Take 1 tablet (10 mg total) by mouth daily (before a meal) Angy urena metFORMIN 500 mg tablet 2- 00:00: 00 Yes [id number] 500mg Take 1 tablet by mouth in the morning and 1 tablet in the evening. [facility] Famotidine (PEPCID) 20 MG oral tablet 2021-06 1- 00:00: 00 08-06 00:00 :00 No [id number] TAKE 1 TABLET BY MOUTH TWICE A DAY Angy urena Aripiprazol e (Abilify) 10 MG oral Tablet 2021-06 0-18 00:00: 00 Yes [id number] 1{tbl} Take 1 tablet by mouth daily Angy urena Sertraline HCl 100 MG oral Tablet 8 00:00: 00 Yes [id number] 100mg Take 1 tablet (100 mg total) by mouth daily Angy urena hydroCHLORO thiazide 25 MG oral Tablet 12-14 00:00: 00 02-15 00:00 :00 No [id number] 25mg Take 1 tablet (25 mg total) by mouth every morning Angy urena glipiZIDE 10 MG oral Tablet 12-14 00:00: 00 08-06 00:00 :00 No [id number] 10mg Take 1 tablet (10 mg total) by mouth in the morning and 1 tablet (10 mg total) in the evening. Take before meals. Angy urena Losartan Potassium 100 MG oral Tablet 09-26 00:00: 00 Yes [id number] 100mg Take 1 tablet (100 mg total) by mouth daily Angy urena Metformin HCl 1000 MG oral Tablet 09-26 00:00: 00 Yes [id number] 1000mg Take 1 tablet (1,000 mg total) by mouth in the morning and 1 tablet (1,000 mg total) in the evening. Take with meals. Agny García Atorvastati n Calcium (Lipitor) 10 MG oral Tablet 09-01 00:00: 00 Yes [id number] 3 10mg Take 1 tablet (10 mg total) by mouth daily Angy García Aspirin 81 MG oral Tab 08-29 09:15: 04 Yes [id number] 81mg Take 81 mg by mouth daily Angy García hydroCHLORO thiazide 12.5 MG oral Tablet 08-29 09:15: 04 Yes 12.5mg Take 12.5 mg by mouth Angy García glipiZIDE 5 MG oral Tablet 08-29 00:00: 00 Yes [id number] 5mg Take 1 tablet (5 mg total) by mouth daily (before a meal) Angy García Metoprolol Succinate 50 MG oral TABLET SR 24 HR 08-14 00:00: 00 Yes 50mg Take 1 tablet (50 mg total) by mouth daily. Angy García - Externa l Pantoprazol e Sodium 40 MG oral Tablet Delayed Response 08-14 00:00: 00 Yes Angy García Escitalopra m Oxalate 20 MG oral Tablet 08-09 00:00: 00 Yes 20mg Take 20 mg by mouth daily Angy García Dicyclomine HCl 20 MG oral Tablet 06-29 00:00: 00 Yes 1{tbl} Q.[id number] 3D Take 1 tablet by mouth 3 times daily as needed Angy García Levothyroxi ne Sodium 25 MCG oral Tablet 06-29 00:00: 00 Yes TAKE ONE (1) TABLET(S) BY MOUTH EVERY MORNING ON AN EMPTY STOMACH. Angy García escitalopra m oxalate (LEXAPRO ORAL) 11-21 16:37: 25 Yes 10mg Take 10 mg by mouth. [facility] metoprolol succinate 50 mg CSpX 11-21 16:37: 25 Yes Take by mouth. [facility] HYDROCHLORO THIAZIDE ORAL 11-21 16:37: 25 Yes 12.5mg Take 12.5 mg by mouth. [facility] escitalopra m oxalate (LEXAPRO ORAL) 11-21 11:37: 25 Yes 10mg Take 10 mg by mouth. [facility] metoprolol succinate 50 mg CSpX 11-21 11:37: 25 Yes Take by mouth. [facility] HYDROCHLORO THIAZIDE ORAL 11-21 11:37: 25 Yes 12.5mg Take 12.5 mg by mouth. [facility] metroNIDAZO LE 500 mg tablet 08-23 00:00: 08-25 04:59 :00 No [id number] 1000mg Take 2 tablets by mouth 2 (two) times daily for 1 day. [facility] losartan 100 mg tablet 08-19 14:01: 10 Yes [id number] 100mg Take 100 mg by mouth daily. [facility] losartan 100 mg tablet 08-19 09:01: 10 Yes [id number] 100mg Take 100 mg by mouth daily. [facility] carvedilol (COREG) 6.25 mg tablet 07-25 00:00: 00 01-15 00:00 :00 No 6.25mg Take 1 tablet by mouth daily. [facility] SERTraline 50 mg tablet 2016-06 00:00: 08-19 00:00 :00 No [id number] 50mg Take 1 tablet by mouth daily. [facility] ibuprofen 800 mg tablet 2016-06 00:00: 00 08-19 00:00 :00 No 800mg Take 1 tablet by mouth every 6 (six) hours as needed for Pain (scale 4-6). [facility] acetaminoph en (TYLENOL) 325 mg tablet 2016-06 00:00: 00 08-19 00:00 :00 No 650mg Take 2 tablets by mouth every 6 (six) hours as needed for Alternate with ibuprofen for pain scale 4-6. [facility] docusate calcium 240 mg capsule 03-06 00:00: 00 01-15 00:00 :00 No 240mg Take 1 capsule by mouth once daily as needed for Constipati on. [facility] ferrous sulfate 325 mg (65 mg iron) tablet 03-06 00:00: 00 01-15 00:00 :00 No 325mg Take 1 tablet by mouth 2 (two) times daily. [facility] vitamin w/FA tablet 07-26:00: 00 08-19 00:00 :00 No [id number] 1{tbl} Take 1 tablet by mouth daily. [facility] Diethyltolu amide (OFF DEEP PÉREZ) 25 % SprA 07-26 00:00: 00 08-19 00:00 :00 No [id number] Use with all outdoor exposure. Reapply as directed on the container [facility] Metformin HCl 500 MG oral Tab 2013-06 00:00: 00 Yes [id number] 500mg Take 1 tablet by mouth daily (with breakfast) Angy García PredniSONE 10 MG oral Kit 2013-06 13:07: 04 Yes [id number] 50mg Take 50 mg by mouth Angy García Aspirin 81 MG oral Tab 2013-06 13:07: 04 Yes [id number] 81mg Take 81 mg by mouth daily Angy García Etonogestre l (IMPLANON) 68 MG subcutaneou s Implant 2013-06 11:09: 13 Yes Inject into the skin Angy García Amlodipine Besylate (NORVASC) 2.5 MG oral Tab 2013-06 00:00: 00 Yes [id number] One po every morning for 2 weeks, then 2 together every morning Angy García Immunizations Ordered Immunization Name Filled Immunization Name Date Status Comments Source Influenza Virus Vaccine, No Preserv, age 6 months and up 2022-02-21 00:00:00 Completed Angy García - External Influenza Virus Vaccine, No Preserv, age 6 months and up 2022-02-21 00:00:00 Completed Angy García - External Influenza Virus Vaccine, No Preserv, age 6 months and up 2022-02-21 00:00:00 Completed Angy García - External Influenza Virus Vaccine, No Preserv, age 6 months and up 2022-02-21 00:00:00 Completed Angy García - External Influenza Virus Vaccine, No Preserv, age 6 months and up 2022-02-21 00:00:00 Completed Angy García - External Influenza Virus Vaccine, No Preserv, age 6 months and up 2022-02-21 00:00:00 Completed Angy García - External Tdap- (Boostrix, Adacel) 2016-12-18 00:00:00 Completed Angy Seybold - External Tdap- (Boostrix, Adacel) 2016-12-18 00:00:00 Completed Angy Seybold - External Tdap- (Boostrix, Adacel) 2016-12-18 00:00:00 Completed Angy Seybold - External Tdap- (Boostrix, Adacel) 2016-12-18 00:00:00 Completed Angy Seybold - External Tdap- (Boostrix, Adacel) 2016-12-18 00:00:00 Completed Angy Seybold - External Tdap- (Boostrix, Adacel) 2016-12-18 00:00:00 Completed Angy Seybold - External Tdap- (Boostrix, Adacel) 2016-12-18 00:00:00 Completed Angy Seybold Tdap 2016-12-18 00:00:00 Completed [facility] Tdap 2016-12-18 00:00:00 Completed [facility] Tdap 2016-12-18 00:00:00 Completed [facility] Tdap 2016-12-18 00:00:00 Completed [facility] Tdap 2016-12-18 00:00:00 Completed [facility] Tdap 2016-12-18 00:00:00 Completed [facility] Tdap 2016-12-18 00:00:00 Completed [facility] Tdap 2016-12-18 00:00:00 Completed [facility] Tdap 2016-12-18 00:00:00 Completed [facility] TDAP 2016-12-18 00:00:00 Completed [facility] TDAP 2016-12-18 00:00:00 Completed [facility] TDAP 2016-12-18 00:00:00 Completed [facility] TDAP 2016-12-18 00:00:00 Completed [facility] TDAP 2016-12-18 00:00:00 Completed [facility] TDAP 2016-12-18 00:00:00 Completed [facility] TDAP 2016-12-18 00:00:00 Completed [facility] TDAP 2016-12-18 00:00:00 Completed [facility] TDAP 2016-12-18 00:00:00 Completed [facility] TDAP 2016-12-18 00:00:00 Completed [facility] TDAP 2016-12-18 00:00:00 Completed [facility] TDAP 2016-12-18 00:00:00 Completed [facility] TDAP 2016-12-18 00:00:00 Completed [facility] TDAP 2016-12-18 00:00:00 Completed [facility] TDAP 2016-12-18 00:00:00 Completed [facility] TDAP 2016-12-18 00:00:00 Completed [facility] TDAP 2016-12-18 00:00:00 Completed [facility] Tdap 2016-12-18 00:00:00 Completed [facility] TDAP 2016-12-18 00:00:00 Completed [facility] TDAP 2016-12-18 00:00:00 Completed [facility] TDAP 2016-12-18 00:00:00 Completed [facility] TDAP 2016-12-18 00:00:00 Completed [facility] TDAP 2016-12-18 00:00:00 Completed [facility] TDAP 2016-12-18 00:00:00 Completed [facility] TDAP 2016-12-18 00:00:00 Completed [facility] TDAP 2016-12-18 00:00:00 Completed [facility] TDAP 2016-12-18 00:00:00 Completed [facility] TDAP 2016-12-18 00:00:00 Completed [facility] Tdap 2016-12-18 00:00:00 Completed [facility] Tdap 2016-12-18 00:00:00 Completed [facility] Tdap 2016-12-18 00:00:00 Completed [facility] PPD-Protein Derivative (Purified)- Tuberculin 2013-05-12 00:00:00 Completed Angy García - External PPD-Protein Derivative (Purified)- Tuberculin 2013-05-12 00:00:00 Completed Angy García - External PPD-Protein Derivative (Purified)- Tuberculin 2013-05-12 00:00:00 Completed Angy Seybold - External PPD-Protein Derivative (Purified)- Tuberculin 2013-05-12 00:00:00 Completed Angy Seybold - External PPD-Protein Derivative (Purified)- Tuberculin 2013-05-12 00:00:00 Completed Angy Seybold - External PPD-Protein Derivative (Purified)- Tuberculin 2013-05-12 00:00:00 Completed Angy Seybold - External PPD-Protein Derivative (Purified)- Tuberculin 2013-05-12 00:00:00 Completed Angy Seybold - External PPD-Protein Derivative (Purified)- Tuberculin 2013-05-12 00:00:00 Completed Angy Seybold - External PPD-Protein Derivative (Purified)- Tuberculin 2013-05-12 00:00:00 Completed Angy Seybold - External PPD-Protein Derivative (Purified)- Tuberculin 2013-05-12 00:00:00 Completed Angy Seybold - External PPD-Protein Derivative (Purified)- Tuberculin 2013-05-12 00:00:00 Completed Angy Seybold - External PPD-Protein Derivative (Purified)- Tuberculin 2013-05-12 00:00:00 Completed Angy Seybold PPD-Protein Derivative (Purified)- Tuberculin 2013-05-12 00:00:00 Completed Angy Seybold - External PPD-Protein Derivative (Purified)- Tuberculin 2013-05-12 00:00:00 Completed Angy Seybold PPD-Protein Derivative (Purified)- Tuberculin 2013-05-12 00:00:00 Completed Angy García PPD (TB) 2013-05-12 00:00:00 Completed [facility] PPD (TB) 2013-05-12 00:00:00 Completed [facility] PPD (TB) 2013-05-12 00:00:00 Completed [facility] PPD (TB) 2013-05-12 00:00:00 Completed [facility] PPD (TB) 2013-05-12 00:00:00 Completed [facility] PPD (TB) 2013-05-12 00:00:00 Completed [facility] PPD (TB) 2013-05-12 00:00:00 Completed [facility] PPD (TB) 2013-05-12 00:00:00 Completed [facility] PPD (TB) 2013-05-12 00:00:00 Completed [facility] PPD (TB) 2013-05-12 00:00:00 Completed [facility] PPD (TB) 2013-05-12 00:00:00 Completed [facility] PPD (TB) 2013-05-12 00:00:00 Completed [facility] PPD (TB) 2013-05-12 00:00:00 Completed [facility] PPD (TB) 2013-05-12 00:00:00 Completed [facility] PPD (TB) 2013-05-12 00:00:00 Completed [facility] PPD (TB) 2013-05-12 00:00:00 Completed [facility] PPD (TB) 2013-05-12 00:00:00 Completed [facility] PPD (TB) 2013-05-12 00:00:00 Completed [facility] PPD (TB) 2013-05-12 00:00:00 Completed [facility] PPD (TB) 2013-05-12 00:00:00 Completed [facility] PPD (TB) 2013-05-12 00:00:00 Completed [facility] PPD (TB) 2013-05-12 00:00:00 Completed [facility] PPD (TB) 2013-05-12 00:00:00 Completed [facility] PPD (TB) 2013-05-12 00:00:00 Completed [facility] PPD (TB) 2013-05-12 00:00:00 Completed [facility] PPD (TB) 2013-05-12 00:00:00 Completed [facility] PPD (TB) 2013-05-12 00:00:00 Completed [facility] PPD (TB) 2013-05-12 00:00:00 Completed [facility] PPD (TB) 2013-05-12 00:00:00 Completed [facility] PPD (TB) 2013-05-12 00:00:00 Completed [facility] PPD (TB) 2013-05-12 00:00:00 Completed [facility] PPD (TB) 2013-05-12 00:00:00 Completed [facility] PPD (TB) 2013-05-12 00:00:00 Completed [facility] PPD (TB) 2013-05-12 00:00:00 Completed [facility] PPD (TB) 2013-05-12 00:00:00 Completed [facility] PPD (TB) 2013-05-12 00:00:00 Completed [facility] PPD (TB) 2013-05-12 00:00:00 Completed [facility] PPD (TB) 2013-05-12 00:00:00 Completed [facility] PPD (TB) 2013-05-12 00:00:00 Completed [facility] PPD (TB) 2013-05-12 00:00:00 Completed [facility] Rubella 2007-12-01 00:00:00 Completed Angy Seybold - External Varicella Vaccine 2007-12-01 00:00:00 Completed Angy Seybold - External Rubella 2007-12-01 00:00:00 Completed Angy Seybold - External Varicella Vaccine 2007-12-01 00:00:00 Completed Angy Seybold - External Rubella 2007-12-01 00:00:00 Completed Angy Seybold - External Varicella Vaccine 2007-12-01 00:00:00 Completed Angy Seybold - External Rubella 2007-12-01 00:00:00 Completed Angy Seybold - External Varicella Vaccine 2007-12-01 00:00:00 Completed Angy Seybold - External Rubella 2007-12-01 00:00:00 Completed Angy Seybold - External Varicella Vaccine 2007-12-01 00:00:00 Completed Angy Seybold - External Rubella 2007-12-01 00:00:00 Completed Angy Seybold - External Varicella Vaccine 2007-12-01 00:00:00 Completed Angy Seybold - External Rubella 2007-12-01 00:00:00 Completed Angy Seybold Varicella Vaccine 2007-12-01 00:00:00 Completed Angy Seybold Rubella 2007-12-01 00:00:00 Completed [facility] Varicella (varivax)(chicken pox) 2007-12-01 00:00:00 Completed [facility] Rubella 2007-12-01 00:00:00 Completed [facility] Varicella (varivax)(chicken pox) 2007-12-01 00:00:00 Completed [facility] Rubella 2007-12-01 00:00:00 Completed [facility] Varicella (varivax)(chicken pox) 2007-12-01 00:00:00 Completed [facility] Rubella 2007-12-01 00:00:00 Completed [facility] Varicella (varivax)(chicken pox) 2007-12-01 00:00:00 Completed [facility] Rubella 2007-12-01 00:00:00 Completed [facility] Varicella (varivax)(chicken pox) 2007-12-01 00:00:00 Completed [facility] Rubella 2007-12-01 00:00:00 Completed [facility] Varicella (varivax)(chicken pox) 2007-12-01 00:00:00 Completed [facility] Rubella 2007-12-01 00:00:00 Completed [facility] Varicella (varivax)(chicken pox) 2007-12-01 00:00:00 Completed [facility] Rubella 2007-12-01 00:00:00 Completed [facility] Varicella (varivax)(chicken pox) 2007-12-01 00:00:00 Completed [facility] Rubella 2007-12-01 00:00:00 Completed [facility] Varicella (varivax)(chicken pox) 2007-12-01 00:00:00 Completed [facility] Rubella 2007-12-01 00:00:00 Completed [facility] Varicella (varivax)(chicken pox) 2007-12-01 00:00:00 Completed [facility] Rubella 2007-12-01 00:00:00 Completed [facility] Varicella (varivax)(chicken pox) 2007-12-01 00:00:00 Completed [facility] Rubella 2007-12-01 00:00:00 Completed [facility] Varicella (varivax)(chicken pox) 2007-12-01 00:00:00 Completed [facility] Rubella 2007-12-01 00:00:00 Completed [facility] Varicella (varivax)(chicken pox) 2007-12-01 00:00:00 Completed [facility] Rubella 2007-12-01 00:00:00 Completed [facility] Varicella (varivax)(chicken pox) 2007-12-01 00:00:00 Completed [facility] Rubella 2007-12-01 00:00:00 Completed [facility] Varicella (varivax)(chicken pox) 2007-12-01 00:00:00 Completed [facility] Rubella 2007-12-01 00:00:00 Completed [facility] Varicella (varivax)(chicken pox) 2007-12-01 00:00:00 Completed [facility] Rubella 2007-12-01 00:00:00 Completed [facility] Varicella (varivax)(chicken pox) 2007-12-01 00:00:00 Completed [facility] Rubella 2007-12-01 00:00:00 Completed [facility] Varicella (varivax)(chicken pox) 2007-12-01 00:00:00 Completed [facility] Rubella 2007-12-01 00:00:00 Completed [facility] Varicella (varivax)(chicken pox) 2007-12-01 00:00:00 Completed [facility] Rubella 2007-12-01 00:00:00 Completed [facility] Varicella (varivax)(chicken pox) 2007-12-01 00:00:00 Completed [facility] Rubella 2007-12-01 00:00:00 Completed [facility] Varicella (varivax)(chicken pox) 2007-12-01 00:00:00 Completed [facility] Rubella 2007-12-01 00:00:00 Completed [facility] Varicella (varivax)(chicken pox) 2007-12-01 00:00:00 Completed [facility] Rubella 2007-12-01 00:00:00 Completed [facility] Varicella (varivax)(chicken pox) 2007-12-01 00:00:00 Completed [facility] Rubella 2007-12-01 00:00:00 Completed [facility] Rubella 2007-12-01 00:00:00 Completed [facility] Varicella (varivax)(chicken pox) 2007-12-01 00:00:00 Completed [facility] Rubella 2007-12-01 00:00:00 Completed [facility] Varicella (varivax)(chicken pox) 2007-12-01 00:00:00 Completed [facility] Varicella (varivax)(chicken pox) 2007-12-01 00:00:00 Completed [facility] Rubella 2007-12-01 00:00:00 Completed [facility] Varicella (varivax)(chicken pox) 2007-12-01 00:00:00 Completed [facility] Rubella 2007-12-01 00:00:00 Completed [facility] Varicella (varivax)(chicken pox) 2007-12-01 00:00:00 Completed [facility] Rubella 2007-12-01 00:00:00 Completed [facility] Varicella (varivax)(chicken pox) 2007-12-01 00:00:00 Completed [facility] Rubella 2007-12-01 00:00:00 Completed [facility] Varicella (varivax)(chicken pox) 2007-12-01 00:00:00 Completed [facility] Rubella 2007-12-01 00:00:00 Completed [facility] Varicella (varivax)(chicken pox) 2007-12-01 00:00:00 Completed [facility] Rubella 2007-12-01 00:00:00 Completed [facility] Varicella (varivax)(chicken pox) 2007-12-01 00:00:00 Completed [facility] Rubella 2007-12-01 00:00:00 Completed [facility] Varicella (varivax)(chicken pox) 2007-12-01 00:00:00 Completed [facility] Rubella 2007-12-01 00:00:00 Completed [facility] Varicella (varivax)(chicken pox) 2007-12-01 00:00:00 Completed [facility] Rubella 2007-12-01 00:00:00 Completed [facility] Varicella (varivax)(chicken pox) 2007-12-01 00:00:00 Completed [facility] Rubella 2007-12-01 00:00:00 Completed [facility] Rubella 2007-12-01 00:00:00 Completed [facility] Varicella (varivax)(chicken pox) 2007-12-01 00:00:00 Completed [facility] Varicella (varivax)(chicken pox) 2007-12-01 00:00:00 Completed [facility] Rubella 2007-12-01 00:00:00 Completed [facility] Varicella (varivax)(chicken pox) 2007-12-01 00:00:00 Completed [facility] Rubella 2007-12-01 00:00:00 Completed [facility] Varicella (varivax)(chicken pox) 2007-12-01 00:00:00 Completed [facility] Rubella 2007-12-01 00:00:00 Completed [facility] Varicella (varivax)(chicken pox) 2007-12-01 00:00:00 Completed [facility] Td,absorbed PF KSC,Admin,unspecifi ed 2006-06-10 00:00:00 Completed Angy Seybold - External Td (adult) 2006-06-10 00:00:00 Completed Angy Seybold - External Td,absorbed PF KSC,Admin,unspecifi ed 2006-06-10 00:00:00 Completed Angy Seybold - External Td (adult) 2006-06-10 00:00:00 Completed Angy Seybold - External Td,absorbed PF KSC,Admin,unspecifi ed 2006-06-10 00:00:00 Completed Angy Seybold - External Td (adult) 2006-06-10 00:00:00 Completed Angy Seybold - External Td,absorbed PF KSC,Admin,unspecifi ed 2006-06-10 00:00:00 Completed Angy Seybold - External Td (adult) 2006-06-10 00:00:00 Completed Angy Seybold - External Td,absorbed PF KSC,Admin,unspecifi ed 2006-06-10 00:00:00 Completed Angy Seybold - External Td (adult) 2006-06-10 00:00:00 Completed Angy Seybold - External Td,absorbed PF KSC,Admin,unspecifi ed 2006-06-10 00:00:00 Completed Angy Seybold - External Td (adult) 2006-06-10 00:00:00 Completed Angy Seybold - External Td,absorbed PF KSC,Admin,unspecifi ed 2006-06-10 00:00:00 Completed Angy elaine Td 2006-06-10 00:00:00 Completed [facility] Td 2006-06-10 00:00:00 Completed [facility] Td 2006-06-10 00:00:00 Completed [facility] Td 2006-06-10 00:00:00 Completed [facility] Td 2006-06-10 00:00:00 Completed [facility] Td 2006-06-10 00:00:00 Completed [facility] Td 2006-06-10 00:00:00 Completed [facility] Td 2006-06-10 00:00:00 Completed [facility] Td 2006-06-10 00:00:00 Completed [facility] Td 2006-06-10 00:00:00 Completed [facility] Td 2006-06-10 00:00:00 Completed [facility] Td 2006-06-10 00:00:00 Completed [facility] Td 2006-06-10 00:00:00 Completed [facility] Td 2006-06-10 00:00:00 Completed [facility] Td 2006-06-10 00:00:00 Completed [facility] Td 2006-06-10 00:00:00 Completed [facility] Td 2006-06-10 00:00:00 Completed [facility] Td 2006-06-10 00:00:00 Completed [facility] Td 2006-06-10 00:00:00 Completed [facility] Td 2006-06-10 00:00:00 Completed [facility] Td 2006-06-10 00:00:00 Completed [facility] Td 2006-06-10 00:00:00 Completed [facility] Td 2006-06-10 00:00:00 Completed [facility] Td 2006-06-10 00:00:00 Completed [facility] Td 2006-06-10 00:00:00 Completed [facility] Td 2006-06-10 00:00:00 Completed [facility] Td 2006-06-10 00:00:00 Completed [facility] Td 2006-06-10 00:00:00 Completed [facility] Td 2006-06-10 00:00:00 Completed [facility] Td 2006-06-10 00:00:00 Completed [facility] Td 2006-06-10 00:00:00 Completed [facility] Td 2006-06-10 00:00:00 Completed [facility] Td 2006-06-10 00:00:00 Completed [facility] Td 2006-06-10 00:00:00 Completed [facility] Td 2006-06-10 00:00:00 Completed [facility] Td 2006-06-10 00:00:00 Completed [facility] Td 2006-06-10 00:00:00 Completed [facility] TD, NOS 2006-06-10 00:00:00 Completed [facility] Td 2006-06-10 00:00:00 Completed [facility] Td 2006-06-10 00:00:00 Completed [facility] PPD-Protein Derivative (Purified)- Tuberculin Unknown Completed Angy Seybold - External Td,absorbed PF KSC,Admin,unspecifi ed Unknown Completed Angy Seybold - External Rubella Unknown Completed Angy Sey bold - External Tdap- (Boostrix, Adacel) Unknown Completed Angy Seybold - External Varicella Vaccine Unknown Completed Ke lsey Seybold - External PPD-Protein Derivative (Purified)- Tuberculin Unknown Completed Angy Seybold - External Influenza Virus Vaccine, No Preserv, age 6 months and up Unknown Completed Angy Seybold - External Td (adult) Unknown Completed Angy Se ybold - External PPD-Protein Derivative (Purified)- Tuberculin Unknown Completed Angy Seybold - External Td,absorbed PF KSC,Admin,unspecifi ed Unknown Completed Angy Seybold - External Rubella Unknown Completed Angy Sey bold - External Tdap- (Boostrix, Adacel) Unknown Completed Angy Seybold - External Varicella Vaccine Unknown Completed Ke lsey Seybold - External PPD-Protein Derivative (Purified)- Tuberculin Unknown Completed Angy Seybold - External Influenza Virus Vaccine, No Preserv, age 6 months and up Unknown Completed Angy Seybold - External Td (adult) Unknown Completed Angy Se ybold - External PPD-Protein Derivative (Purified)- Tuberculin Unknown Completed Angy Seybold - External Td,absorbed PF KSC,Admin,unspecifi ed Unknown Completed Angy García - External Rubella Unknown Completed Angy blank - External Tdap- (Boostrix, Adacel) Unknown Completed Angy García - External Varicella Vaccine Unknown Completed Willie García - External PPD-Protein Derivative (Purified)- Tuberculin Unknown Completed Angy García - External Influenza Virus Vaccine, No Preserv, age 6 months and up Unknown Completed Angy García - External Td (adult) Unknown Completed Angy Arthur ybpramod - External Vital Signs Vital Name Observation Time Observation Value Comments S ource Systolic blood pressure 2023-09-03 13:34:00 130 mm[Hg] Angy Escotoo ld - External Diastolic blood pressure 2023-09-03 13:34:00 67 mm[Hg] Angy Escotoo ld - External Heart rate 2023-09-03 13:34:00 89 /min Kelse y Seybold - External Body temperature 2023-09-03 13:34:00 37.28 Sharon Angy Arthurybold - External Respiratory rate 2023-09-03 13:34:00 15 /min Angy Seybold - External Body height 2023-09-03 13:34:00 160 cm Angelia ey Seybold - External Body weight 2023-09-03 13:34:00 128.368 kg Angelia ey Seybold - External BMI 2023-09-03 13:34:00 50.13 kg/m2 Angelia ey Seybold - External Oxygen saturation in Arterial blood by Pulse oximetry 2023-09-03 13:34:00 100 /min Angy Escotoo ld - External Systolic blood pressure 2023-05-08 19:59:00 98 mm[Hg] Angy Escotoo ld - External Diastolic blood pressure 2023-05-08 19:59:00 62 mm[Hg] Angy Escotoo ld - External Heart rate 2023-05-08 19:59:00 76 /min Kelse y Seybold - External Body temperature 2023-05-08 19:59:00 36.56 Sharon Angy Seybold - External Respiratory rate 2023-05-08 19:59:00 18 /min Angy Seybold - External Body height 2023-05-08 19:59:00 160 cm Angelia ey Seybold - External Body weight 2023-05-08 19:59:00 112.662 kg Angelia ey Seybold - External BMI 2023-05-08 19:59:00 44.00 kg/m2 Angelia ey Seybold - External Oxygen saturation in Arterial blood by Pulse oximetry 2023-05-08 19:59:00 98 /min Angy Seybo ld - External Systolic blood pressure 2023-04-29 23:08:00 124 mm[Hg] Angy Seybo ld - External Diastolic blood pressure 2023-04-29 23:08:00 86 mm[Hg] Angy Seybo ld - External Heart rate 2023-04-29 22:45:00 79 /min Kelse y Seybold - External Body temperature 2023-04-29 22:45:00 36.56 Sharon Angy Seybold - External Respiratory rate 2023-04-29 22:45:00 15 /min Angy Seybold - External Body height 2023-04-29 22:45:00 160 cm Angelia ey Seybold - External Body weight 2023-04-29 22:45:00 108.863 kg Angelia ey Seybold - External BMI 2023-04-29 22:45:00 42.51 kg/m2 Angelia ey Seybold - External Oxygen saturation in Arterial blood by Pulse oximetry 2023-04-29 22:45:00 99 /min Angy Seybo ld - External Systolic blood pressure 2023-02-22 13:11:00 122 mm[Hg] Angy Seybo ld - External Diastolic blood pressure 2023-02-22 13:11:00 74 mm[Hg] Angy Seybo ld - External Heart rate 2023-02-22 13:11:00 67 /min Kelse y Seybold - External Body temperature 2023-02-22 13:11:00 37.06 Sharon Angy Seybold - External Respiratory rate 2023-02-22 13:11:00 15 /min Angy Seybold - External Body height 2023-02-22 13:11:00 160 cm Angelia ey Seybold - External Body weight 2023-02-22 13:11:00 106.958 kg Angelia ey Seybold - External BMI 2023-02-22 13:11:00 41.77 kg/m2 Angelia ey Seybold - External Oxygen saturation in Arterial blood by Pulse oximetry 2023-02-22 13:11:00 99 /min Angy Escotoo ld - External Systolic blood pressure 2023-02-15 15:57:00 97 mm[Hg] Angy Seybo ld - External Diastolic blood pressure 2023-02-15 15:57:00 62 mm[Hg] Angy Arthurybo ld - External Heart rate 2023-02-15 15:57:00 82 /min Blaynese y Seybold - External Body temperature 2023-02-15 15:57:00 36.56 Sharon Angy Seybold - External Respiratory rate 2023-02-15 15:57:00 20 /min Angy Seybold - External Body height 2023-02-15 15:57:00 160 cm Angelia ey Seybold - External Body weight 2023-02-15 15:57:00 101.152 kg Angelia ey Seybold - External BMI 2023-02-15 15:57:00 39.50 kg/m2 Angelia ey Seybold - External Oxygen saturation in Arterial blood by Pulse oximetry 2023-02-15 15:57:00 99 /min Angy Arthurybo ld - External Systolic blood pressure 2022-11-16 14:05:00 100 mm[Hg] Angy Seybo ld - External Diastolic blood pressure 2022-11-16 14:05:00 64 mm[Hg] Angy Arthurybo ld - External Heart rate 2022-11-16 14:05:00 81 /min Blaynese y Seybold - External Body temperature 2022-11-16 14:05:00 36.56 Sharon Angy Seybold - External Respiratory rate 2022-11-16 14:05:00 15 /min Angy Seybold - External Body height 2022-11-16 14:05:00 160 cm Angelia ey Seybold - External Body weight 2022-11-16 14:05:00 101.152 kg Angelia ey Seybold - External BMI 2022-11-16 14:05:00 39.50 kg/m2 Angelia ey Seybold - External Oxygen saturation in Arterial blood by Pulse oximetry 2022-11-16 14:05:00 97 /min Angy Seybo ld - External Systolic blood pressure 2022-09-17 16:09:00 102 mm[Hg] Angy Seybo ld - External Diastolic blood pressure 2022-09-17 16:09:00 66 mm[Hg] Angy Seybo ld - External Heart rate 2022-09-17 16:09:00 89 /min Kelse y Seybold - External Body temperature 2022-09-17 16:09:00 35.67 Sharon Angy Seybold - External Respiratory rate 2022-09-17 16:09:00 14 /min Angy Seybold - External Body height 2022-09-17 16:09:00 160 cm Angelia ey Seybold - External Body weight 2022-09-17 16:09:00 111.585 kg Angelia ey Seybold - External BMI 2022-09-17 16:09:00 43.58 kg/m2 Angelia ey Seybold - External Systolic blood pressure 2022-08-20 13:31:00 112 mm[Hg] Angy Seybo ld - External Diastolic blood pressure 2022-08-20 13:31:00 74 mm[Hg] Angy Seybo ld - External Heart rate 2022-08-20 13:31:00 74 /min Kelse y Seybold - External Body temperature 2022-08-20 13:31:00 36.61 Sharon Angy Seybold - External Respiratory rate 2022-08-20 13:31:00 14 /min Angy Seybold - External Body height 2022-08-20 13:31:00 160 cm Angelia ey Seybold - External Body weight 2022-08-20 13:31:00 112.946 kg Angelia ey Seybold - External BMI 2022-08-20 13:31:00 44.11 kg/m2 Angelia ey Seybold - External Oxygen saturation in Arterial blood by Pulse oximetry 2022-08-20 13:31:00 98 /min Angy Seybo ld - External Systolic blood pressure 2022-08-06 18:00:00 142 mm[Hg] Angy Seybo ld - External Diastolic blood pressure 2022-08-06 18:00:00 76 mm[Hg] Angy Seybo ld - External Heart rate 2022-08-06 17:30:00 78 /min Blaynese y Seybold - External Body temperature 2022-08-06 17:30:00 36.89 Sharon Angy Arthurybold - External Respiratory rate 2022-08-06 17:30:00 14 /min Angy Arthurybold - External Body height 2022-08-06 17:30:00 160 cm Angelia ey Seybold - External Body weight 2022-08-06 17:30:00 119.75 kg Angelia ey Seybold - External BMI 2022-08-06 17:30:00 46.77 kg/m2 Angelia ey ybold - External Oxygen saturation in Arterial blood by Pulse oximetry 2022-08-06 17:30:00 98 /min Angy Escotoo ld - External Systolic blood pressure 2022-08-05 21:34:00 90 mm[Hg] [facility] Diastolic blood pressure 2022-08-05 21:34:00 73 mm[Hg] [facility] acute hospital Heart rate 2022-08-05 21:34:00 66 /min [facility] Respiratory rate 2022-08-05 21:34:00 20 /min [facility] Oxygen saturation in Arterial blood by Pulse oximetry 2022-08-05 21:34:00 97 /min [facility] Body temperature 2022-08-05 17:41:00 37.11 Sharon [facility] Body height 2022-08-05 17:41:00 160 cm [facility] Body weight 2022-08-05 17:41:00 122.471 kg [facility] BMI 2022-08-05 17:41:00 47.83 kg/m2 [facility] Systolic blood pressure 2021-08-29 13:12:00 120 mm[Hg] Angy Seybo ld Diastolic blood pressure 2021-08-29 13:12:00 83 mm[Hg] Angy Seybo ld Heart rate 2021-08-29 13:12:00 73 /min Kelse y Seybold Body temperature 2021-08-29 13:12:00 37 Sharon Angy Arthurybold Respiratory rate 2021-08-29 13:12:00 14 /min Angy Seybold Body height 2021-08-29 13:12:00 160 cm Angelia García Body weight 2021-08-29 13:12:00 125.193 kg Angelia García BMI 2021-08-29 13:12:00 48.89 kg/m2 Angelia García Oxygen saturation in Arterial blood by Pulse oximetry 2021-08-29 13:12:00 99 /min Angy stacy do Systolic blood pressure 2020-12-15 22:23:00 133 mm[Hg] [facility] Diastolic blood pressure 2020-12-15 22:23:00 87 mm[Hg] [facility] Heart rate 2020-12-15 22:23:00 78 /min [facility] Body temperature 2020-12-15 22:23:00 36.28 Sharon [facility] Respiratory rate 2020-12-15 22:23:00 17 /min [facility] Body weight 2020-12-15 22:23:00 120.203 kg [facility] BMI 2020-12-15 22:23:00 46.94 kg/m2 [facility] Oxygen saturation in Arterial blood by Pulse oximetry 2020-12-15 22:23:00 96 /min [facility] Systolic blood pressure 2020-12-15 22:23:00 133 mm[Hg] [facility] Diastolic blood pressure 2020-12-15 22:23:00 87 mm[Hg] [facility] Heart rate 2020-12-15 22:23:00 78 /min [facility] Body temperature 2020-12-15 22:23:00 36.28 Sharon [facility] Respiratory rate 2020-12-15 22:23:00 17 /min [facility] Body weight 2020-12-15 22:23:00 120.203 kg [facility] BMI 2020-12-15 22:23:00 46[facility]94 kg[facility]terial [facility] by Pulse oximetry 2020-12-15 22:23:00 96 /min [facility] Systolic blood pressure 2020-11-21 16:05:00 120 mm[Hg] [facility] Diastolic blood pressure 2020-11-21 16:05:00 83 mm[Hg] [place] [facility] Heart rate 2020-11-21 16:05:00 67 /min [facility] Body temperature 2020-11-21 16:05:00 36.5 Sharon [facility] Respiratory rate 2020-11-21 16:05:00 16 /min [facility] Body height 2020-11-21 16:05:00 160 cm [facility] Body weight 2020-11-21 16:05:00 127.489 kg [facility] BMI 2020-11-21 16:05:00 49.79 kg/m2 [facility] Systolic blood pressure 2020-11-21 16:05:00 120 mm[Hg] [place] [facility] Diastolic blood pressure 2020-11-21 16:05:00 83 mm[Hg] [facility] Heart rate 2020-11-21 16:05:00 67 /min [facility] Body temperature 2020-11-21 16:05:00 36.5 Sharon [facility] Respiratory rate 2020-11-21 16:05:00 16 /min [facility] Body height 2020-11-21 16:05:00 160 cm [facility] Body weight 2020-11-21 16:05:00 127.489 kg [facility] BMI 2020-11-21 16:05:00 49.79 kg/m2 [facility] Systolic blood pressure 2020-03-15 16:05:00 126 mm[Hg] [facility] Diastolic blood pressure 2020-03-15 16:05:00 79 mm[Hg] [facility] acute hospital Heart rate 2020-03-15 16:05:00 66 /min [facility] Body temperature 2020-03-15 16:05:00 36.56 Sharon [facility] Respiratory rate 2020-03-15 16:05:00 16 /min [facility] Body height 2020-03-15 16:05:00 160 cm [facility] Body weight 2020-03-15 16:05:00 117.708 kg [facility] BMI 2020-03-15 16:05:00 45.97 kg/m2 [facility] Systolic blood pressure 2019-08-20 13:51:00 136 mm[Hg] [facility] Diastolic blood pressure 2019-08-20 13:51:00 88 mm[Hg] [facility] Heart rate 2019-08-20 13:21:00 80 [facility] Body temperature 2019-08-20 13:21:00 36.22 Sharon [facility] Respiratory rate 2019-08-20 13:21:00 16 /min [facility] Body height 2019-08-20 13:21:00 160 cm [facility] Body weight 2019-08-20 13:21:00 120.855 kg [facility] BMI 2019-08-20 13:21:00 47.20 kg/m2 [facility] Systolic blood pressure 2019-01-15 13:05:00 152 mm[Hg] [facility] Diastolic blood pressure 2019-01-15 13:05:00 90 mm[Hg] [facility] acute hospital Heart rate 2019-01-15 13:00:00 78 /min [facility] Body temperature 2019-01-15 13:00:00 37.28 Sharon [facility] Respiratory rate 2019-01-15 13:00:00 16 /min [facility] Body height 2019-01-15 13:00:00 160 cm [facility] Body weight 2019-01-15 13:00:00 116.121 kg [facility] BMI 2019-01-15 13:00:00 45.35 kg/m2 [facility] Procedures Procedure Date / Time Performed Performing Clinician Source POCT TEST 2022-08-05 19:53:00 Ruthann Cormier [facility] URINALYSIS 2022-08-05 19:34:00 Ambrosio Cormier [facility] URINE DRUG ([id number]) - COMPREHENSIVE DRUG SCREEN W/O REFLEX 2022-08-05 19:34:00 Ambrosio Cormier [facility] CREATINE KINASE 2022-08-05 18:43:[address] [facility] [facility]22-[facility] 18:43:00 [facility]io [facility] MAGNESIUM 2022-08-05 18:43:00 [facility] TROPONIN I 2022-08-05 18:43:00 [facility] FREE T4 2022-08-05 18:43:00 [facility] THYROID STIMULATING HORMONE 2022-08-05 18:43:00 Ambrosio Cormier [facility] COMP. METABOLIC PANEL (31647) 2022-08-05 18:43:00 Ambrosio Cormier [facility] CBC WITH DIFF 2022-08-05 18:43:00 Ambrosio Cormier [facility] GLYCOSYLATED HEMOGLOBIN (A1C) 2022-08-05 18:43:00 Ambrosio Cormier [facility] N-TERMINAL PRO-BNP 2022-08-05 18:43:00 Ambrosio Cormier [facility] CONSENT/REFUSAL FOR DIAGNOSIS AND TREATMENT 2022-08-05 17:28:30 Doctor Unassigned, Dale [facility] ASSIGNMENT OF BENEFITS 2020-11-21 15:37:59 Docto r Unassigned, Dale [facility] HSV 1 AND 2 GLYCOPROTEIN G IGG 2020-03-15 16:24:00 Michele Goodman [facility] HIV 1/2 AG-AB WITH REFLEX 2020-03-15 16:24:00 Michele Goodman [facility] GALV ONLY - SYPHILIS IGG/IGM 2020-03-15 16:24:00 Michele Goodman [facility] ASSIGNMENT OF BENEFITS 2019-08-20 12:50:11 Docto r Unassigned, Dale [facility] POCT TEST 2019-01-15 13:19:00 Simone Goodman [facility] Encounters Start Date/Time End Date/Time Encounter Type Admission Type Attending [facility] Care Facility Care Department Encounter ID Source 2023-10-11 11:00:00 2023-10-11 11:00:00 Outpatient BRYAN WATERS ANGY [id number] Angy García 2023-09-03 08:45:00 2023-09-03 08:45:00 Outpatient PREZAS, BRYAN ANGY ANGY [id number] Angy García 2023-08-23 00:00:00 2023-08-23 00:00:00 Outpatient PREZAS, BRYAN ANGY CORNEJO [id number] Angy Arthurpramod 2023-08-23 00:00:00 2023-08-23 00:00:00 Outpatient PREZAS, BRYAN ANGY CORNEJO [id number] Angy García 2023-08-20 13:30:00 2023-08-20 13:30:00 Outpatient PHILSTEPH ANGY [facility] [id number] [facility] 2023-08-19 00:00:00 2023-08-19 00:00:00 Outpatient PREZAS, BRYAN ANGY CORNEJO [id number] [facility] 2023-08-17 00:00:00 2023-08-17 00:00:00 Outpatient PREZAS, BRYAN ANGY CORNEJO [id number] Angy Arthurpramod 2023-08-16 08:15:00 2023-08-16 08:15:00 Outpatient LABChristina ANGY CORNEJO [id number] [facility] 2023-08-01 00:00:00 2023-08-01 00:00:00 Outpatient PREZAS, BRYAN CORNEJO [id number] [facility] 2023-07-25 00:00:00 2023-07-25 00:00:00 Outpatient PREZAS, BRYAN CORNEJO [id number] [facility] 2023-07-24 00:00:00 2023-07-24 00:00:00 Outpatient PREZAS, BRYAN CORNEJO [id number] [facility] 2023-07-23 00:00:00 2023-07-23 00:00:00 Outpatient PREZAS, BRYAN CORNEJO [id number] [facility] 2023-07-09 00:00:00 2023-07-09 00:00:00 Outpatient PREZAS, BRYAN CORNEJO [id number] [facility] 2023-06-19 11:30:00 2023-06-19 11:30:00 Outpatient PREZAS, BRYAN CORNEJO ANGY [id number] [facility] 2023-06-17 00:00:00 2023-06-17 00:00:00 Outpatient PREZAS, BRYAN CORNEJO ANGY [id number] [facility] 2023-06-16 00:00:00 2023-06-16 00:00:00 Outpatient PREZAS, BRYAN CORNEJO ANGY [id number] [facility] 2023-05-16 11:00:00 2023-05-16 11:00:00 Outpatient ANGY CORNEJO [id number] Angy [facility] 2023-05-13 15:00:00 2023-05-13 15:00:00 Outpatient PRE[facility]AS[facility] [id number] [facility]:00:00 2023-05-10 00:00:00 Outpatient PREZAS, BRYAN CORNEJO [facility] [id number] [facility] 2023-05-10 00:00:00 2023-05-10 00:00:00 Outpatient PREZAS, BRYAN FRANCISKIP CORNEJO [id number] [facility] 2023-05-09 00:00:00 2023-05-09 00:00:00 Outpatient PREZAS, BRYAN ANGY CORNEJO [id number] [facility] 2023-05-09 00:00:00 2023-05-09 00:00:00 Outpatient DIANE RODRIGUEZ [id number] [facility] 2023-05-09 00:00:00 2023-05-09 00:00:00 Outpatient PREZAS, BRYAN ANGY CORNEJO [id number] [facility] 2023-05-08 14:00:00 2023-05-08 14:00:00 Outpatient FLORENCE JUÁREZ [id number] [facility] 2023-05-06 08:00:00 2023-05-06 08:00:00 Outpatient PROVIDER, MIKHAIL CORNEJO [id number] Angy Seybold 2023-05-03 00:00:00 2023-05-03 00:00:00 Outpatient PREZASBRYAN ANGY [id number] Angy Seybold 2023-05-03 00:00:00 2023-05-03 00:00:00 Outpatient PREZAS, BRYAN CORNEJO ANGY [id number] Angy Seybold 2023-05-01 00:00:00 2023-05-01 00:00:00 Outpatient PREZAS, BRYAN CORNEJO ANGY [id number] Angy Seybold 2023-04-30 08:05:00 2023-04-30 08:05:00 Outpatient LAB90 ANGY CORNEJO [id number] Angy Seybold 2023-04-29 16:30:00 2023-04-29 16:30:00 Outpatient CAMMY MANZANOAN ANGY ANGY [id number] Angy Seybold 2023-04-25 00:00:00 2023-04-25 00:00:00 Outpatient PREZAS, BRYAN CORNEJO ANGY [id number] Angy Seybold 2023-04-25 00:00:00 2023-04-25 00:00:00 Outpatient PREZAS, BRYAN CORNEJO ANGY [id number] Angy Seybold 2023-03-22 14:30:00 2023-03-22 14:30:00 Outpatient PREZAS, BRYAN CORNEJO ANGY [id number] Angy Seybold 2023-03-04 00:00:00 2023-03-04 00:00:00 Outpatient PREZAS, BRYAN CORNEJO ANGY [id number] Angy Seybold 2023-02-28 15:00:00 2023-02-28 15:00:00 Outpatient ANGI POON [id number] Angy Seybold 2023-02-24 00:00:00 2023-02-24 00:00:00 Outpatient PREZAS, BRYAN ANGY CORNEJO [id number] Angy Seybold 2023-02-22 09:05:00 2023-02-22 09:05:00 Outpatient LAB90 ANGY CORNEJO [id number] Angy [facility] 2023-02-22 08:30:00 2023-02-22 08:30:00 Outpatient PREZAS, BRYAN CORNEJO ANGY [id number] [facility] 2023-02-21 00:00:00 2023-02-21 00:00:00 Outpatient PREZAS, BRYAN CORNEJO ANGY [id number] [facility] 2023-02-20 08:05:00 2023-02-20 08:05:00 Outpatient LAB90 ANGY ANGY [id number] Angy [facility] 2023-02-15 10:15:00 2023-02-15 10:15:00 Outpatient PREZAS, BRYAN CORNEJO ANGY [id number] Angy [facility] 2022-12-17 00:00:00 2022-12-17 00:00:00 Outpatient PREZAS, BRYAN CORNEJO ANGY [id number] Angy [facility] 2022-12-10 00:00:00 2022-12-10 00:00:00 Outpatient PRE[facility]AS, [facility]JO [facility] [id number] [facility]00 2022 00:00:00 Outpatient PREZAS, BRYAN CORNEJO ANGY [id number] Angy [facility] 2022-11-20 00:00:00 2022-11-20 00:00:00 Outpatient PREZAS, BRYAN FRANCISKIP CORNEJO [id number] Angy [facility] 2022-11-16 09:50:00 2022-11-16 09:50:00 Outpatient LAB90 ANGY ANGY [id number] [facility] 2022-11-16 09:15:00 2022-11-16 09:15:00 Outpatient PREZAS, BRYAN ANGY CORNEJO [id number] Angy [facility] 2022-10-30 00:00:00 2022-10-30 00:00:00 Outpatient PREZAS, BRYAN ANGY CORNEJO [id number] [facility] 2022-10-26 00:00:00 2022-10-26 00:00:00 Outpatient PREZAS, BRYAN ANGY CORNEJO [id number] Angy García 2022-10-25 00:00:00 2022-10-25 00:00:00 Outpatient PREZAS, BRYAN CORNEJO ANGY [id number] Angy García 2022-09-17 11:15:00 2022-09-17 11:15:00 Outpatient PREZAS, BRYAN CORNEJO ANGY [id number] Angy García 2022-08-20 08:45:00 2022-08-20 08:45:00 Outpatient PREZAS, BRYAN CORNEJO ANGY [id number] Angy García 2022-08-14 00:00:00 2022-08-14 00:00:00 Outpatient PREZAS, BYRAN ANGY CORNEJO [id number] Angy García 2022-08-14 00:00:00 2022-08-14 00:00:00 Outpatient PREZAS, BRYAN FRANCISKIP CORNEJO [id number] Angy García 2022-08-14 00:00:00 2022-08-14 00:00:00 Outpatient PREZAS, BRYAN CORNEJO ANGY [id number] Angy García 2022-08-06 12:05:00 2022-08-06 12:05:00 Outpatient LABChristina CORNEJO ANGY [id number] Angy García 2022-08-06 11:30:00 2022-08-06 11:30:00 Outpatient PREZAS, BRYAN ANGY CORNEJO [id number] Angy García 2022-08-06 00:00:00 2022-08-06 00:00:00 Outpatient PREZAS, BRYAN ANGY CORNEJO [id number] [facility] 2022-08-05 11:42:00 2022-08-05 15:37:00 Emergency X AMBROSIO CORMIER [facility] ERT [id number] [facility] 2022-08-05 11:42:00 2022-08-05 15:37:00 Emergency Ambrosio Cormier [facility] 1.2.840.114 350.1.13.10 4.2.7.2.686 [id number] [facility] 2022-08-03 00:00:00 2022-08-03 00:00:00 Outpatient PREZAS, BRYAN CORNEJO [id number] [facility] 2022-03-27 10:45:00 2022-03-27 10:45:00 Outpatient PREZAS, BRYAN CORNEJO [id number] Angy García 2022-03-26 00:00:00 2022-03-26 00:00:00 Outpatient PREZAS, BRYAN CORNEJO [id number] [facility] 2022-01-31 00:00:00 2022-01-31 00:00:00 Outpatient PREZAS, BRYAN CORNEJO [id number] [facility] 2022-01-31 00:00:00 2022-01-31 00:00:00 Outpatient PREZAS, BRYAN CORNEJO [id number] [facility] 2022-01-11 08:00:00 2022-01-11 08:00:00 Outpatient PREZAS, BRYAN CORNEJO ANGY [id number] Angy [facility] 2022-01-06 00:00:00 2022-01-06 00:00:00 Outpatient PREZAS, [facility] [id number] [facility] 2021-12-22 00:00:00 2021-12-22 00:00:00 Outpatient PREZAS, BRYAN FRANCISSEY [id number] [facility] 2021-12-15 00:00:00 2021-12-15 00:00:00 Outpatient PREZAS, BRYAN CORNEJO ANGY [id number] Angy [facility] 2021-12-14 09:35:00 2021-12-14 09:35:00 Outpatient LAB90 ANGY FRANCISSEY [id number] [facility] 2021-12-14 08:30:00 2021-12-14 08:45:00 Office Visit Bryan Waters 1.2.840.114 350.1.13.13 1.2.7.2.686 [id number] [facility] 2021-12-07 08:15:00 2021-12-07 08:30:00 Office Visit Prezas, Bryan Fletcher 1.2.840.114 350.1.13.13 1.2.7.2.686 [id number] Angy García 2021-12-06 00:00:00 2021-12-06 00:00:00 Outpatient BRYAN WATERS [id number] Angy García 2021-09-26 08:00:00 2021-09-26 08:00:00 Outpatient BRYAN WATERS [id number] Angy García 2021-09-26 08:00:00 2021-09-26 08:00:00 Telemedici ne BRYAN WATERS 1.2.840.114 350.1.13.13 1.2.7.2.686 [id number] Angy García 2021-09-01 00:00:00 2021-09-01 00:00:00 Outpatient BRYAN WATERS [id number] Angy García 2021-08-29 08:50:00 2021-08-29 08:50:00 Outpatient LAB90 ANGY CORNEJO [id number] Angy García 2021-08-29 08:00:00 2021-08-29 08:30:00 Office Visit Bryan Waters 1.2.840.114 350.1.13.13 1.2.7.2.686 [id number] Angy Arthurpramod 2021-07-25 14:30:00 2021-07-25 14:30:00 Outpatient R LOVELY FORD [facility] [id number] [facility] 2021-07-24 00:00:00 2021-07-24 00:00:00 Telephone Michele Goodman [facility] GRIPPER MACHINE OPERATOR [facility] 1.2.840.114 350.1.13.10 4.2.7.2.686 [id number] [facility] 2021-07-06 00:00:00 2021-07-06 00:00:00 Telephone Lovely Ford [facility] GRIPPER MACHINE OPERATOR [facility] 1..840.114 350.1.13.10 4.2.7.2.686 [id number] [facility] 2021-03-23 00:00:00 2021-03-23 00:00:00 Telephone Michele Goodman [facility] GRIPPER MACHINE OPERATOR [facility] 1.2840.114 350.1.13.10 4.2.7.2.686 [id number] 107 [id number] [facility] 2020-12-15 17:03:06 2020-12-15 17:18:06 Nurse Visit Nurse, [facility] 1.840.114 350.1.13.10 4.2.7.2.686 [id number] 2020-12-15 17:03:06 2020-12-15 17:18:06 Nurse Visit Nurse [facility] Jazz Montejo [facility] 1.840.114 350.1.13.10 4.2.7.2.686 [id number] [facility] 2020-12-15 17:15:00 2020-12-15 17:15:00 Outpatient R JAZZ MONTEJO [facility] [id number] [facility] 2020-11-21 10:46:50 2020-11-21 12:19:41 Office Visit Lovely Ford [facility] GRIPPER MACHINE OPERATOR [facility] 1.2.840.114 350.1.13.10 4.2.7.2.686 [id number] 2020-11-21 10:46:50 2020-11-21 12:19:41 Office Visit Lovely Ford [facility] GRIPPER MACHINE OPERATOR [facility] 1.2.840.114 350.1.13.10 4.2.7.2.686 [id number] [facility] 2020-11-21 10:30:00 2020-11-21 10:30:00 Outpatient R TREVONLOVELY WAGNER [facility] [id number] [facility] 2020-11-21 00:00:00 2020-11-21 00:00:00 Orders Only Doctor Unassigned, Dale [facility] 1.2.840.114 350.1.13.10 4.2.7.2.686 [id number] [facility] 2020-08-29 00:00:00 2020-08-29 00:00:00 Patient Outreach Zan Johnson [facility] 1.2.840.114 350.1.13.10 4.2.7.2.686 [id number] [facility] 2020-03-17 00:00:00 2020-03-17 00:00:00 Telephone Michele Goodman [facility] GRIPPER MACHINE OPERATOR [facility] 1.2.840.114 350.1.13.10 4.2.7.2.686 [id number] [facility] 2020-03-16 00:00:00 2020-03-16 00:00:00 Telephone Michele Goodman [facility] GRIPPER MACHINE OPERATOR [facility] 1.2.840.114 350.1.13.10 4.2.7.2.686 [id number] [facility] 2020-03-16 00:00:00 2020-03-16 00:00:00 Telephone Michele Goodman [facility] GRIPPER MACHINE OPERATOR [facility] 1.2.840.114 350.1.13.10 4.2.7.2.686 [id number] [facility] 2020-03-16 00:00:00 2020-03-16 00:00:00 Telephone Bautista Goodmandontae Nancy [facility] GRIPPER MACHINE OPERATOR [facility] 1.0.114 350.1.13.10 4.2.7.2.686 [id number] [facility] 2020-03-15 10:52:49 2020-03-15 11:17:46 Office Visit Joe Goodmanlizet [facility] GRIPPER MACHINE OPERATOR [facility] 1.0.114 350.1.13.10 4.2.7.2.686 [id number] [facility] 2020-03-15 10:45:00 2020-03-15 10:45:00 [id number] 2020-01-11 00:00:00 2020-01-11 00:00:00 Telephone Kayley Goodmanalisha [facility] 1..114 350.1.13.10 4.2.7.2.686 [id number] [facility] 2020-01-10 15:40:00 2020-01-10 15:40:00 Outpatient R FLORENCE MENDES [facility] [id number] [facility] 2020-01-10 14:21:38 2020-01-10 14:41:38 Laboratory Only Lab, [facility] 1..114 350.1.13.10 4.2.7.2.686 [id number] [facility] 2019-09-10 00:00:00 2019-09-10 00:00:00 Telephone Joe Goodmanlizet [facility] GRIPPER MACHINE OPERATOR [facility] 1..114 350.1.13.10 4.2.7.2.686 [id number] [facility] 2019-09-02 00:00:00 2019-09-02 00:00:00 Telephone Michele Goodman [facility] GRIPPER MACHINE OPERATOR [facility] 1.2.840.114 350.1.13.10 4.2.7.2.686 [id number] [facility] 2019-08-26 00:00:00 2019-08-26 00:00:00 Telephone Michele Goodman [facility] GRIPPER MACHINE OPERATOR [facility] 1.2.840.114 350.1.13.10 4.2.7.2.686 [id number] [facility] 2019-08-25 00:00:00 2019-08-25 00:00:00 Telephone Michele Goodman [facility] GRIPPER MACHINE OPERATOR [facility] 1.2.840.114 350.1.13.10 4.2.7.2.686 [id number] [facility] 2019-08-24 00:00:00 2019-08-24 00:00:00 Telephone Michele Goodman [facility] GRIPPER MACHINE OPERATOR [facility] 1.2.840.114 350.1.13.10 4.2.7.2.686 [id number] [facility] 2019-08-20 07:56:32 2019-08-20 09:08:45 Office Visit Michele Goodman [facility] GRIPPER MACHINE OPERATOR [facility] 1.2.840.114 350.1.13.10 4.2.7.2.686 [id number] [facility] 2019-08-20 07:45:00 2019-08-20 07:45:00 Outpatient R KAYLEY GOODMANALISHA [facility] [id number] [facility] 2019-08-20 00:00:00 2019-08-20 00:00:00 Orders Only Doctor Unassigned, Dale [facility] 1.2.840.114 350.1.13.10 4.2.7.2.686 [id number] [facility] 2019-03-10 15:59:00 2019-03-10 15:59:00 Emergency E [facility] [facility] 2019-01-15 07:46:53 2019-01-15 08:36:19 Office Visit Michele Godoman [facility] GRIPPER MACHINE OPERATOR [facility] 1.2.840.114 350.1.13.10 4.2.7.2.686 [id number] [facility] 2019-01-12 00:00:00 2019-01-12 00:00:00 Telephone Michele Goodman [facility] GRIPPER MACHINE OPERATOR [facility] 1.2.840.114 350.1.13.10 4.2.7.2.686 [id number] 107 [id number] [facility] Results Test Description Test Time Test Comments Results Result Co mments [facility] [id number] 16:49:00* Test Item Value Reference Range Interpretation Comme nts Syphilis IgG/IgM (test code = 74170-2) Non-reactive Non-reactive KELY (test code = KELY) Non-reactive - No serologic evidence of T. pallidum infection. Cannot exclude incubating or early syphilis. Submit a second specimen in 2-4 weeks if syphilis is clinically suspected. Equivocal - Further testing to follow. Reactive - Further testing to follow. 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 [facility]-AB WITH [id number] 05:11:00* Test Item Value Reference Range Interpretation Comme nts HIV Semi-quantitative (test code = 11876-4) Negative Negative KELY (test code = KELY) Non-reactive for HIV-1 antigen and HIV-1/HIV-2 antibodies. ?No laboratory evidence of HIV infection. ?Repeat in 2-4 weeks if acute HIV infection is suspected. [facility] [id number] 13:19:00* Test Item Value Reference Range Interpretation Comme nts POCT PREG (test code = 1605) Negative On board controls acceptable with C Line (test code = 3574) Yes POCT PREG LOT # (test code = 3575) POCT PREG TEST DATE ( test code = 3576) [facility] [id number] 13:19:00* Test Item Value Reference Range Interpretation Comme nts POCT PREG (test code = 1605) Negative On board controls acceptable with C Line (test code = 3574) Yes POCT PREG LOT # (test code = 3575) POCT PREG TEST DATE ( test code = 3576) [facility] Notes Date/Time Note Provider Source 2023-02-22 08:14:29 s+UxsWxniRKW9YKzzQjo rJsqcvvXILeM7R b+h5b9momWTGcasKQ1pCDJj49uhQVa6100 -09-15T08:14:29 Rose Acosta is a 37 year old female in office to follow on labs. 82800-2Neqjg [id number]:15:10Nurse NoteTXT1.2.840.763095.1.13.131.2.7 .2.910824|[id number] for patient pjgr42714-4Mzfng NoteLNKELMercy Health [facility] [facility]aTXTX7702577025U [id number]:15:101.2.840.1143 50.1.72.3.15|1.2.840.729728.1.13.1 31.2.7.2.727879_[id number] [facility]"
--- NOTE | 2023-09-16 17:22 | EDPHYS ---
Physician Documentation [facility] Name: Rose Guardado Age: 37 yrs Sex: Female : 1985 Arrival Date: 09/16/2023 Time: 17:05 Bed DX4 Private MD: ED Physician Michael Chris HPI: 09/15 17:17 This 37 yrs old Female presents to ER via Unassigned with complaints of Shoulder Pain. cp 17:17 The patient or guardian complains of an injury, pain, that is acute. left shoulder. cp Onset: The symptoms/episode began/occurred 4 day(s) ago. Associated signs and symptoms: The patient has no apparent associated signs or symptoms. Patient reports she was seen at [place] and had xrays of left shoulder that were negative for fracture. Patient here with request for MRI of shoulder. 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 - Infectious Disease History:: Denies. - Social history:: Smoking status: Patient denies any tobacco usage or history of. ROS: 17:19 Neck: Negative for pain with movement, pain at rest, stiffness, cp 17:19 Cardiovascular: Negative for chest pain, 17:19 Respiratory: Negative for cough, shortness of breath, wheezing, 17:19 Back: Negative for pain at rest, pain with movement, 17:19 MS/extremity: Positive for pain, of the left shoulder, Exam: 17:20 Head/Face: Normocephalic, atraumatic. cp 17:20 Constitutional: The patient appears in no acute distress, alert, awake, well developed, well nourished, obese, 17:20 Neck: ROM/movement: is normal, is supple, without pain, no range of motions limitations, 17:20 Chest/axilla: Inspection: normal, 17:20 Respiratory: the patient does not display signs of respiratory distress, Respirations: normal, no use of accessory muscles, no retractions, labored breathing, is not present, 17:20 Musculoskeletal/extremity: Extremities: grossly normal except: noted in the left shoulder: pain, There is no evidence of deformity, ROM: limited passive range of motion due to pain, in the left shoulder, Vital Signs: 17:20 mb9 17:20 pt left ER before getting VS mb9 MDM: 17:17 Patient medically screened. cp 17:20 Differential diagnosis: tendonitis, fracture, dislocation. cp Administered Medications: No medications were administered Disposition Summary: 09/16/23 17:22 Discharge Ordered Notes: Location: Home cp Problem: new cp Symptoms: are unchanged cp Condition: Stable cp Diagnosis - Pain in left shoulder cp Followup: cp - With: Ghulam Cordoba MD - When: 2 - 3 days - Reason: Recheck today's complaints Discharge Instructions: - Discharge Summary Sheet cp - Shoulder Pain cp - How to Use Cold Therapy, [id number] cp - Shoulder Range of Motion Exercises cp Forms: - Medication Reconciliation Form cp - Thank You Letter cp - Antibiotic Education cp - Prescription Opioid Use cp - Patient Portal Instructions cp - Leadership Thank You Letter cp Signatures: René Mckeon PA PA cp Ambar Segundo RN RN mb9 Corrections: (The following items were deleted from the chart) 17:21 17:21 Data reviewed: vital signs, cp cp
--- NOTE | 2023-09-16 17:22 | ER ---
Nurse's Notes [facility] Name: Rose Guardado Age: 37 yrs Sex: Female : 1985 Arrival Date: 09/16/2023 Time: 17:05 Bed DX4 Private MD: Diagnosis: Pain in left shoulder Presentation: 09/15 17:17 Chief complaint: Patient states: "I want a MRI of my shoulder". Coronavirus screen: At 9 this time, the client does not indicate any symptoms associated with coronavirus-19. Ebola Screen: No symptoms or risks identified at this time. Initial Sepsis Screen: Does the patient meet any 2 criteria? No. Patient's initial sepsis screen is negative. Does the patient have a suspected source of infection? No. Patient's initial sepsis screen is negative. Risk Assessment: Do you want to hurt yourself or someone else? Patient reports no desire to harm self or others. Onset of symptoms was September 16, 2023. 17:17 Acuity: TATIANA 5 9 17:17 Method Of Arrival: Amb[facility] Triage Assessment: 17:18 General: Appears in no apparent distress. Behavior is calm, cooperative. Pain: mb9 Complains of pain in left shoulder. EENT: No signs and/or symptoms were reported regarding the EENT system. Neuro: Andrade Agitation-Sedation Scale (RASS): 0 - Alert and Calm Level of Consciousness is awake, alert, obeys commands, Oriented to person, place, time, situation, Appropriate for age. Cardiovascular: Patient's skin is warm and dry. Respiratory: Airway is patent Respiratory effort is even, unlabored, Respiratory pattern is regular, symmetrical. GI: No signs and/or symptoms were reported involving the gastrointestinal system. : No signs and/or symptoms were reported regarding the genitourinary system. Derm: Skin is pink, warm \\T\\ dry. Musculoskeletal: Range of motion: intact in all extremities. 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 - Infectious Disease History:: Denies. - Social history:: Smoking status: Patient denies any tobacco usage or history of. Screenin:20 [facility] ED Fall Risk Assessment (Adult) History of falling in the last 3 months, mb9 including since admission No falls in past 3 months (0 pts) Confusion or Disorientation No (0 pts) Intoxicated or Sedated No (0 pts) Impaired Gait No (0 pts) Mobility Assist Device Used No (0 pt) Altered Elimination No (0 pt) Score/Fall Risk Level 0 - 2 = Low Risk Oriented to surroundings, Maintained a safe environment, Educated pt \\T\\ family on fall prevention, incl call for assistance when getting out of bed. Abuse screen: Denies threats or abuse. Nutritional screening: No deficits noted. Tuberculosis screening: No symptoms or risk factors identified. Vital Signs: 17:20 mb9 17:20 pt left ER before getting VS mb9 ED Course: 17:07 Patient arrived in ED. im 17:10 René Mckeon PA is PHCP. cp 17:10 Michael Chris MD is Attending Physician. cp 17:17 Arm band placed on. mb9 17:18 Triage completed. mb9 17:19 Placed in gown. Bed in low position. Call light in reach. Side rails up X 1. Provided mb9 Education on: press call light if needing anything. 17:20 No provider procedures requiring assistance completed. Patient did not have IV access mb9 during this emergency room visit. 17:22 Ghulam Cordoba MD is Referral Physician. cp Administered Medications: No medications were administered Medication: 17:20 VIS not applicable for this client. mb9 Outcome: 17:20 Condition: pt left ER before signing for discharge paperwork mb9 17:22 Discharge ordered by . cp 17:23 Patient left the ED. mb9 Signatures: René Mckeon PA PA cp Breneman, Mary Beth, RN RN mb9 Jennifer Herrera im
== END 2023-09-16 17:23 | disposition home or self-care (01) ==
LOC: ER 17:05
DX: M25.512 Pain in left shoulder (principal); Z88.8 Allergy status to other drugs, medicaments and biological substances
CPT/HCPCS: 99281

== ENCOUNTER 2023-11-25 08:30 | Emergency (ER) | payer OTHER ==
--- OUTSIDE RECORDS SUMMARY | 2023-11-25 08:37 | XMS REPORT | Continuity of Care Document ---
Author Name Unknown Address [address] [facility] [address] [place] [address] [facility] thconnect Address [address] [facility] [address] [place] [address] Care Team Providers Care Director [facility] Name Role Phone Bryan Waters Primary Care Physician [phone] BRYAN WATERS Attending Clinician Unavailable BETTINA CONNER Attending Clinician Unavailable LAB77 Attending Clinician Unavailable IZA SOFIA Attending Clinician Unavailabl e LAB90 Attending Clinician Unavailable GIORGIO QUINTANILLA Attending Clinician Unavaila STEPH Knutson Attending Clinician Unavailable DIANE RODRIGUEZ Attending Clinician Unavailable FLORENCE JUÁREZ Attending Clinician Unavailab MIKHAIL Don Attending Clinician Unavailable KELLEY MANZANO Attending Clinician UnaANGI Clifton Attending Clinician Unavaila AMBROSIO Mandel Attending Clinician Unavailable Ambrosio Cormier MD Attending Clinician [phone] Evelin DO Bryan Attending Clinician [phone] LOVELY FORD Attending Clinician Unavail able Michele Zapata Attending Clinician + [phone] Logan WHLovely CHANEL Attending Clinician + Nurse, [facility] Attending Clinician Unava ilJazz Rosenberg Attending Clinician + [phone] JAZZ MONTEJO Attending Clinician Unavailab marta Doctor Unassigned, [place] Attending Clinician U altaf Zan Johnson DO Attending Clinician [phone] MICHELE GOODMAN Attending Clinician Unavailab FLORENCE Ramirez Attending Clinician Unavailable Lab, Adc Fam Pob I Attending Clinician Unavailab Florence Gallego Attending Clinician [phone] Payers Payer Name Policy Type Policy Number Effective Date Expirati on Date Source AETNA 2 [id number] 2022 00:00:00 [employer] COMMERCIAL OUT OF NETWORK [id number] 2022 00:00:00 BCBS 2 [id number] 2021 00:00:00 [employer] OF [place] - OUT OF STATE [id number] 2020 00:00:00 Problems Condition Name Condition Details Condition Category Status Onset Date Resolution Date Last Treatment Date Treating Clinician Comments Source Renal insufficie ncy Renal insufficie ncy Disease Active 02-15 00:00: 00 Angy urena Type 2 diabetes mellitus with stage 3 chronic kidney disease, without long-term current use of insulin (multi HCC) Type 2 diabetes mellitus with stage 3 chronic kidney disease, without long-term current use of insulin (multi HCC) Disease Active 02-15 00:00: 00 Angy urena Class 3 severe obesity due to excess calories with serious comorbidit y and body mass index (BMI) of 45.0 to 49.9 in adult Class 3 severe obesity due to excess calories with serious comorbidit y and body mass index (BMI) of 45.0 to 49.9 in adult Disease Active 4-10 00:00: 00 Angy García - Externa ayanna Obesity with serious comorbidit y Obesity with serious comorbidit y Disease Active 410 00:00: 00 Angy García - Externa l Acute cough Acute cough Disease Active 2021-06 0-18 00:00: 00 Angy García - Externa l Chest pain on breathing Chest pain on breathing Disease Active 7-07 00:00: 00 Angy García - Externa l Pain and swelling of left lower extremity Pain and swelling of left lower extremity Disease Active 12-07 00:00: 00 Angy García - Externa l Bone spur of left foot Bone spur of left foot Disease Active 12-07 00:00: 00 Angy García - Externa l Elevated liver function tests Elevated liver function tests Disease Active 09-26 00:00: 00 Angy Greer Externa ayanna Primary hypertensi on Primary hypertensi on Disease Active 08-29 00:00: 00 Angy García - Externa ayanna Acquired hypothyroi dism Acquired hypothyroi dism [...] s Disease Active 08-29 00:00: 00 Angy García - Externa ayanna Current moderate episode of major depressive disorder without prior episode Current moderate episode of major depressive disorder without prior episode Disease Active 08-29 00:00: 00 Angy Greer Externa ayanna Type 2 diabetes mellitus with hyperlipid emia (multi HCC) Type 2 diabetes mellitus with hyperlipid emia (multi HCC) Disease Active 08-29 00:00: 00 Angy Greer Externa ayanna Other general counseling and advice for contracept carmen management Other general counseling and advice for contracept carmen management Disease Active 6-14 00:00: 00 [facility] Vaginal irritation Vaginal irritation Disease Active 6-14 00:00: 00 [facility] 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 Disease Active 2019-06 0-07 00:00: 00 [facility] 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 Disease Active 2019-06 007 00:00: 00 [facility] Abnormal glandular Papanicola ou smear of cervix Abnormal glandular Papanicola ou smear of cervix Disease Active 12 00:00: 00 [facility] BMI 45.0-49.9, adult BMI 45.0-49.9, adult Disease Active 12 00:00: 00 [facility] Encounter for contracept carmen management , unspecifie d type Encounter for contracept carmen management , unspecifie d type Disease Active 2017-06 0-03 00:00: 00 [facility] History of bilateral tubal ligation History of bilateral tubal ligation Disease Active 2017-06 0-03 00:00: 00 [facility] Screening examinatio n for STD (sexually transmitte d disease) Screening examinatio n for STD (sexually transmitte d disease) Disease Active 2017-06 0-03 00:00: 00 [facility] GDM, class A2 GDM, class A2 Disease Active 9-05 00:00: 00 [facility] Genitourin [place] infection in , antepartum , third trimester Genitourin [place] infection in , antepartum , third trimester Disease Active 8-31 00:00: 00 [facility] ASCUS of cervix with negative high risk HPV ASCUS of cervix with negative high risk HPV Disease Active 2-16 00:00: 00 [facility] ASCUS of cervix with negative high risk HPV ASCUS of cervix with negative high risk HPV Disease Active 2-16 00:00: 00 [facility] Essential hypertensi on, benign Essential hypertensi on, benign Disease Active 02-28 00:00: 00 [facility] Morbid obesity Morbid obesity Disease Active 02-28 00:00: 00 [facility] Well woman exam Well woman exam Disease Active 02-28 00:00: 00 [facility] History of TIA (transient ischemic attack) History of TIA (transient ischemic attack) Disease Active 02-28 00:00: 00 [facility] Allergies, Adverse Reactions, Alerts Allergy Name Allergy Type Status Severity Reaction(s) Onset Date Inactive Date Treating Clinician Comments Source Lisinopr il Propensi ty to adverse reaction s Active Cough 08-29 00:00: 00 Angy García Lisinopr il Propensi ty to adverse reaction s Active Cough 08-29 00:00: 00 Angy Cohna l PREDNISO NE DRUG INGREDI Active Swelling 08-10 00:00: 00 [facility] Predniso ne Propensi ty to adverse reaction s Active Swelling 08-10 00:00: 00 Angy García Predniso ne Propensi ty to adverse reaction s Active Swelling 08-10 00:00: 00 Angy Cohna l Social History Social Habit Start Date Stop Date Quantity Comments Source Gender identity Angelia García - External Sexual orientation Eleni García - External Alcoholic beverage intake 2023-10-24 00:00:00 2023-10-24 00:00:00 Ex-drinker (finding) Angy García - External Alcohol intake 2023-09-03 00:00:00 2023-09-03 00:00:00 Ex-drinker (finding) Angy García - External History of Social function 2023-02-25 00:00:00 2023-02-25 00:00:00 Angy García - External Exposure to SARS-CoV-2 (event) 2022-07-26 00:00:00 2022-08-05 11:40:00 Not sure [facility] Tobacco use and exposure 2021-08-29 00:00:00 2021-08-29 00:00:00 Smokeless tobacco non-user Angy Seybold - External Education - What is the highest level of school you have completed or the highest degree you have received? 2021-08-29 00:00:00 2021-08-29 00:00:00 12th grade Angy Quintana Sex assigned at 1985 00:00:00 1985 00:00:00 Angy Quintana Smoking Status Start Date Stop Date Source Never smoked tobacco Angy Quintana Medications Ordered Medication Name Filled Medication Name Start Date Stop Date Current Medication? Ordering Clinician Indication Dosage Frequency Signature (SIG) Comments Components Source Aspirin 81 MG oral Tablet Delayed Response 09-02 08:35: 15 09-02 00:00 :00 No 81mg Take 1 tablet (81 mg total) by mouth daily. Angy urena Tirzepatide (Mounjaro) 2.5 MG/0.5ML subcutaneou s Solution Pen-injecto r 09-02 00:00: 00 Yes [id number] 2.5mg Inject 0.5 mL (2.5 mg total) into the skin once a week. Angy urena glipiZIDE 5 MG oral Tablet 08-22 00:00: 00 Yes [id number] 5mg Take 1 tablet (5 mg total) by mouth daily (before a meal). Angy urena Sertraline HCl 100 MG oral Tablet 08-19 00:00: 00 Yes [id number] 100mg Take 1 tablet (100 mg total) by mouth daily. Angy urena Aripiprazol e 10 MG oral Tablet 08-19 00:00: 00 Yes [id number] 1{tbl} Take 1 tablet by mouth daily. Angy urena Aspirin 81 MG oral Tablet Delayed Response 2022-06 14:06: 46 Yes 81mg Take 1 tablet (81 mg total) by mouth daily. Angy urena Ondansetron HCl 4 MG oral Tablet 2022-06 00:00: 00 Yes [id number] 4mg Q.[id number] 3D Take 1 tablet (4 mg total) by mouth every 8 hours as needed for nausea. Angy urena Metoprolol Succinate 100 MG oral TABLET SR 24 HR 2022-06 1-16 00:00: 00 Yes [id number] 100mg Take 1 tablet (100 mg total) by mouth daily. Angy urena OZEMPIC (0.25 or 0.5 mg/dose) 2 mg/3 mL SQ Solution Pen-Injecto r 17 00:00: 00 Yes [id number] INJECT 0.25MG INTO THE SKIN ONE TIME PER WEEK Angy urena Aspirin 81 MG oral Tablet Delayed Response 02-22 08:41: 27 Yes 81mg Take 1 tablet (81 mg total) by mouth daily. Angy urena Aspirin 81 MG oral Tab 02-22 08:37: 00 02-22 00:00 :00 No [id number] 81mg Take 1 tablet (81 mg total) by mouth daily. Angy urena Aspirin 81 MG oral Tab 02-15 10:58: 10 Yes [id number] 81mg Take 1 tablet (81 mg total) by mouth daily. Angy urena Metformin HCl ER 500 MG oral TABLET SR 24 HR -11 00:00: 00 02-15 00:00 :00 No [id number] 1000mg Take 2 tablets (1,000 mg total) by mouth 2 times daily Angy urena Losartan Potassium (COZAAR) 100 MG oral Tablet 12-10 00:00: 00 02-15 00:00 :00 No [id number] TAKE 1 TABLET BY MOUTH EVERY DAY Angy urena Aspirin 81 MG oral Tab 11-16 09:06: 01 Yes [id number] 81mg Take 1 tablet (81 mg total) by mouth daily Angy urena Semaglutide (0.25 or 0.5 mg/dose) 2 mg/3 mL SQ Solution Pen-Injecto r 11-16 00:00: 00 Yes [id number] .5mg Inject 0.5 mg into the skin once a week Angy urena Semaglutide (0.25 or 0.5 mg/dose) 2 mg/3 mL SQ Solution Pen-Injecto r 5-19 00:00: 00 11-16 00:00 :00 No [id number] .25mg Inject 0.25 mg into the skin once a week Angy urena Aspirin 81 MG oral Tab 4-10 11:11: 49 Yes [id number] 81mg Take 1 tablet (81 mg total) [...] MG oral Tab 08-20 08:32: 49 Yes [id number] 81mg Take 81 mg by mouth daily Angy urena Insulin Pen Needle 32G X [address] [facility] 08-14 00:00: 00 09-02 00:00 :00 No Use as directed. Angy urena Metformin HCl ER 500 MG oral TABLET SR 24 HR 08-06 11:46: 59 08-06 00:00 :00 No 500mg Take 500 mg by mouth daily (with breakfast) Angy urena Aspirin 81 MG oral Tab 08-06 11:33: 16 Yes [id number] 81mg Take 81 mg by mouth daily Angy urena Atorvastati n Calcium 10 MG oral Tablet 08-06 11:33: 16 Yes 10mg Take 10 mg by mouth daily Angy urena Semaglutide (0.25 or 0.5 mg/dose) 2 mg/1.5 mL SQ Solution Pen-Injecto r 08-06 00:00: 00 Yes [id number] .25mg Inject 0.25 mg into the skin once a week Angy urena Metformin HCl ER 500 MG oral TABLET SR 24 HR 08-06 00:00: 00 Yes [id number] 1000mg Take 2 tablets (1,000 mg total) by mouth 2 times daily Angy urena glipiZIDE 10 MG oral Tablet 2 00:00: 00 02-22 00:00 :00 No [id number] 10mg Take 1 tablet (10 mg total) by mouth daily (before a meal) Angy urena metFORMIN 500 mg tablet 2 00:00: 00 Yes [id number] 500mg Take 1 tablet by mouth in the morning and 1 tablet in the evening. [facility] Famotidine (PEPCID) 20 MG oral tablet 2021-06 1 00:00: 00 08-06 00:00 :00 No [id number] TAKE 1 TABLET BY MOUTH TWICE A DAY Angy urena Aripiprazol e (Abilify) 10 MG oral Tablet 2021-06 0-18 00:00: 00 Yes [id number] 1{tbl} Take 1 tablet by mouth daily Angy urena Sertraline HCl 100 MG oral Tablet 8-25 00:00: 00 Yes [id number] 100mg Take 1 tablet (100 mg total) by mouth daily Angy urena hydroCHLORO thiazide 25 MG oral Tablet 7 00:00: 00 02-15 00:00 :00 No [id number] 25mg Take 1 tablet (25 mg total) by mouth every morning Angy urena glipiZIDE 10 MG oral Tablet 7-07 00:00: 00 08-06 00:00 :00 No [id number] 10mg Take 1 tablet (10 mg total) by mouth in the morning and 1 tablet (10 mg total) in the evening. Take before meals. Angy urena Losartan Potassium 100 MG oral Tablet 4-19 00:00: 00 Yes [id number] 100mg Take 1 tablet (100 mg total) by mouth daily Angy urena Metformin HCl 1000 MG oral Tablet 4-19 00:00: 00 Yes [id number] 1000mg Take 1 tablet (1,000 mg total) by mouth in the morning and 1 tablet (1,000 mg total) in the evening. Take with meals. Angy García Atorvastati n Calcium (Lipitor) 10 MG oral Tablet 3-25 00:00: 00 Yes [id number] 3 10mg Take 1 tablet (10 mg total) by mouth daily Angy García Aspirin 81 MG oral Tab 08-29 09:15: 04 Yes [id number] 81mg Take 81 mg by mouth daily Angy García hydroCHLORO thiazide 12.5 MG oral Tablet 08-29 09:15: 04 Yes 12.5mg Take 12.5 mg by mouth Angy García glipiZIDE 5 MG oral Tablet 08-29 00:00: 00 Yes [id number] 5mg Take 1 tablet (5 mg total) by mouth daily (before a meal) Angy García Metoprolol Succinate 50 MG oral TABLET SR 24 HR 08-14 00:00: 00 Yes 50mg Take 1 tablet (50 mg total) by mouth daily. Angy urena Pantoprazol e Sodium 40 MG oral Tablet Delayed Response - 00:00: 00 Yes Angy García Escitalopra m Oxalate 20 MG oral Tablet 3-02 00:00: 00 Yes 20mg Take 20 mg by mouth daily Angy García Dicyclomine HCl 20 MG oral Tablet 1-20 00:00: 00 Yes 1{tbl} [id number] 3D Take 1 tablet by mouth 3 times daily as needed Angy García Levothyroxi ne Sodium 25 MCG oral Tablet 1-20 00:00: 00 Yes TAKE ONE (1) TABLET(S) BY MOUTH EVERY MORNING ON AN EMPTY STOMACH. Angy García escitalopra m oxalate (LEXAPRO ORAL) 6-14 16:37: 25 Yes 10mg Take 10 mg by mouth. [facility] metoprolol succinate 50 mg CSpX 11-21 16:37: 25 Yes Take by mouth. [facility] HYDROCHLORO THIAZIDE ORAL 11-21 16:37: 25 Yes 12.5mg Take 12.5 mg by mouth. [facility] escitalopra m oxalate (LEXAPRO ORAL) 11-21 11:37: 25 Yes 10mg Take 10 mg by mouth. [facility] metoprolol succinate 50 mg CSpX 11-21 11:37: 25 Yes Take by mouth. [facility] HYDROCHLORO THIAZIDE ORAL 11-21 11:37: 25 Yes 12.5mg Take 12.5 mg by mouth. [facility] metroNIDAZO LE 500 mg tablet 08-23 00:00: 08-25 04:59 :00 No [id number] 1000mg Take 2 tablets by mouth 2 (two) times daily for 1 day. [facility] losartan 100 mg tablet 08-19 14:01: 10 Yes [id number] 100mg Take 100 mg by mouth daily. [facility] losartan 100 mg tablet 08-19 09:01: 10 Yes [id number] 100mg Take 100 mg by mouth daily. [facility] carvedilol (COREG) 6.25 mg tablet 07-25 00:00: 00 01-15 00:00 :00 No 6.25mg Take 1 tablet by mouth daily. [facility] SERTraline 50 mg tablet 2016-06 00:00: 00 08-19 00:00 :00 No [id number] 50mg Take 1 tablet by mouth daily. [facility] ibuprofen 800 mg tablet 2016-06 00:00: 00 08-19 00:00 :00 No 800mg Take 1 tablet by mouth every 6 (six) hours as needed for Pain (scale 4-6). [facility] acetaminoph en (TYLENOL) 325 mg tablet 2016-06 00:00: 08-19 00:00 :00 No 650mg Take 2 tablets by mouth every 6 (six) hours as needed for Alternate with ibuprofen for pain scale 4-6. [facility] docusate calcium 240 mg capsule 03-06 00:00: 00 01-15 00:00 :00 No 240mg Take 1 capsule by mouth once daily as needed for Constipati on. [facility] ferrous sulfate 325 mg (65 mg iron) tablet 03-06 00:00: 00 01-15 00:00 :00 No 325mg Take 1 tablet by mouth 2 (two) times daily. [facility] vitamin w/FA tablet 07-26 00:00: 00 08-19 00:00 :00 No [id number] 1{tbl} Take 1 tablet by mouth daily. [facility] Diethyltolu amide (OFF DEEP PÉREZ) 25 % SprA 07-26 00:00: 00 08-19 00:00 :00 No [id number] Use with all outdoor exposure. Reapply as directed on the container [facility] Metformin HCl 500 MG oral Tab 2013-06 00:00: 00 Yes [id number] 500mg Take 1 tablet by mouth daily (with breakfast) Angy García PredniSONE 10 MG oral Kit 2013-06 13:07: 04 Yes [id number] 50mg Take 50 mg by mouth Angy García Aspirin 81 MG oral Tab 2013-06 13:07: 04 Yes [id number] 81mg Take 81 mg by mouth daily Angy García Etonogestre l (IMPLANON) 68 MG subcutaneou s Implant 2013-06 11:09: 13 Yes Inject into the skin Angy García Amlodipine Besylate (NORVASC) 2.5 MG oral Tab 2013-06 00:00: 00 Yes [id number] One po every morning for 2 weeks, then 2 together every morning Angy García Immunizations Ordered Immunization Name Filled Immunization Name Date Status Comments Source Influenza Virus Vaccine, No Preserv, age 6 months and up 2022-02-21 00:00:00 Completed nAgy García - External Influenza Virus Vaccine, No Preserv, age 6 months and up 2022-02-21 00:00:00 Completed Angy Seybold - External Influenza Virus Vaccine, No Preserv, age 6 months and up 2022-02-21 00:00:00 Completed Angy Seybold - External Influenza Virus Vaccine, No Preserv, age 6 months and up 2022-02-21 00:00:00 Completed Angy Seybold - External Influenza Virus Vaccine, No Preserv, age 6 months and up 2022-02-21 00:00:00 Completed Angy Arthurybold - External Influenza Virus Vaccine, No Preserv, age 6 months and up 2022-02-21 00:00:00 Completed Angy Arthurybold - External Tdap 2016-12-18 00:00:00 Completed [facility] Tdap 2016-12-18 00:00:00 Completed [facility] Tdap 2016-12-18 00:00:00 Completed [facility] Tdap 2016-12-18 00:00:00 Completed [facility] Tdap 2016-12-18 00:00:00 Completed [facility] Tdap 2016-12-18 00:00:00 Completed [facility] Tdap 2016-12-18 00:00:00 Completed [facility] Tdap 2016-12-18 00:00:00 Completed [facility] Tdap 2016-12-18 00:00:00 Completed [facility] TDAP 2016-12-18 00:00:00 Completed [facility] TDAP 2016-12-18 00:00:00 Completed [facility] TDAP 2016-12-18 00:00:00 Completed [facility] TDAP 2016-12-18 00:00:00 Completed [facility] TDAP 2016-12-18 00:00:00 Completed [facility] TDAP 2016-12-18 00:00:00 Completed [facility] TDAP 2016-12-18 00:00:00 Completed [facility] TDAP 2016-12-18 00:00:00 Completed [facility] TDAP 2016-12-18 00:00:00 Completed [facility] TDAP 2016-12-18 00:00:00 Completed [facility] TDAP 2016-12-18 00:00:00 Completed [facility] TDAP 2016-12-18 00:00:00 Completed [facility] TDAP 2016-12-18 00:00:00 Completed [facility] TDAP 2016-12-18 00:00:00 Completed [facility] TDAP 2016-12-18 00:00:00 Completed [facility] TDAP 2016-12-18 00:00:00 Completed [facility] TDAP 2016-12-18 00:00:00 Completed [facility] Tdap 2016-12-18 00:00:00 Completed [facility] TDAP 2016-12-18 00:00:00 Completed [facility] TDAP 2016-12-18 00:00:00 Completed [facility] TDAP 2016-12-18 00:00:00 Completed [facility] TDAP 2016-12-18 00:00:00 Completed [facility] TDAP 2016-12-18 00:00:00 Completed [facility] TDAP 2016-12-18 00:00:00 Completed [facility] TDAP 2016-12-18 00:00:00 Completed [facility] TDAP 2016-12-18 00:00:00 Completed [facility] TDAP 2016-12-18 00:00:00 Completed [facility] TDAP 2016-12-18 00:00:00 Completed [facility] Tdap 2016-12-18 00:00:00 Completed [facility] Tdap 2016-12-18 00:00:00 Completed [facility] Tdap 2016-12-18 00:00:00 Completed [facility] Tdap- (Boostrix, Adacel) 2016-12-18 00:00:00 Completed Angy Seybold - External Tdap- (Boostrix, Adacel) 2016-12-18 00:00:00 Completed Angy Seybold - External Tdap- (Boostrix, Adacel) 2016-12-18 00:00:00 Completed Angy Seybold - External Tdap- (Boostrix, Adacel) 2016-12-18 00:00:00 Completed Angy Seybold - External Tdap- (Boostrix, Adacel) 2016-12-18 00:00:00 Completed Angy Seybold - External Tdap- (Boostrix, Adacel) 2016-12-18 00:00:00 Completed Angy García - External Tdap- (Boostrix, Adacel) 2016-12-18 00:00:00 Completed Angy García PPD (TB) 2013-05-12 00:00:00 Completed [facility] PPD (TB) 2013-05-12 00:00:00 Completed [facility] PPD (TB) 2013-05-12 00:00:00 Completed [facility] PPD (TB) 2013-05-12 00:00:00 Completed [facility] PPD (TB) 2013-05-12 00:00:00 Completed [facility] PPD (TB) 2013-05-12 00:00:00 Completed [facility] PPD (TB) 2013-05-12 00:00:00 Completed [facility] PPD (TB) 2013-05-12 00:00:00 Completed [facility] PPD (TB) 2013-05-12 00:00:00 Completed [facility] PPD (TB) 2013-05-12 00:00:00 Completed [facility] PPD (TB) 2013-05-12 00:00:00 Completed [facility] PPD (TB) 2013-05-12 00:00:00 Completed [facility] PPD (TB) 2013-05-12 00:00:00 Completed [facility] PPD (TB) 2013-05-12 00:00:00 Completed [facility] PPD (TB) 2013-05-12 00:00:00 Completed [facility] PPD (TB) 2013-05-12 00:00:00 Completed [facility] PPD (TB) 2013-05-12 00:00:00 Completed [facility] PPD (TB) 2013-05-12 00:00:00 Completed [facility] PPD (TB) 2013-05-12 00:00:00 Completed [facility] PPD (TB) 2013-05-12 00:00:00 Completed [facility] PPD (TB) 2013-05-12 00:00:00 Completed [facility] PPD (TB) 2013-05-12 00:00:00 Completed [facility] PPD (TB) 2013-05-12 00:00:00 Completed [facility] PPD (TB) 2013-05-12 00:00:00 Completed [facility] PPD (TB) 2013-05-12 00:00:00 Completed [facility] PPD (TB) 2013-05-12 00:00:00 Completed [facility] PPD (TB) 2013-05-12 00:00:00 Completed [facility] PPD (TB) 2013-05-12 00:00:00 Completed [facility] PPD (TB) 2013-05-12 00:00:00 Completed [facility] PPD (TB) 2013-05-12 00:00:00 Completed [facility] PPD (TB) 2013-05-12 00:00:00 Completed [facility] PPD (TB) 2013-05-12 00:00:00 Completed [facility] PPD (TB) 2013-05-12 00:00:00 Completed [facility] PPD (TB) 2013-05-12 00:00:00 Completed [facility] PPD (TB) 2013-05-12 00:00:00 Completed [facility] PPD (TB) 2013-05-12 00:00:00 Completed [facility] PPD (TB) 2013-05-12 00:00:00 Completed [facility] PPD (TB) 2013-05-12 00:00:00 Completed [facility] PPD (TB) 2013-05-12 00:00:00 Completed [facility] PPD (TB) 2013-05-12 00:00:00 Completed [facility] PPD-Protein Derivative (Purified)- Tuberculin 2013-05-12 00:00:00 Completed Angy Arthurybold - External PPD-Protein Derivative (Purified)- Tuberculin 2013-05-12 [...] PPD-Protein Derivative (Purified)- Tuberculin 2013-05-12 00:00:00 Completed Angykip García Rubella 2007-12-01 00:00:00 Completed [facility] Varicella (varivax)(chicken pox) 2007-12-01 00:00:00 Completed [facility] Rubella 2007-12-01 00:00:00 Completed [facility] Varicella (varivax)(chicken pox) 2007-12-01 00:00:00 Completed [facility] Rubella 2007-12-01 00:00:00 Completed [facility] Varicella (varivax)(chicken pox) 2007-12-01 00:00:00 Completed [facility] Rubella 2007-12-01 00:00:00 Completed [facility] Varicella (varivax)(chicken pox) 2007-12-01 00:00:00 Completed [facility] Rubella 2007-12-01 00:00:00 Completed [facility] Varicella (varivax)(chicken pox) 2007-12-01 00:00:00 Completed [facility] Rubella 2007-12-01 00:00:00 Completed [facility] Varicella (varivax)(chicken pox) 2007-12-01 00:00:00 Completed [facility] Rubella 2007-12-01 00:00:00 Completed [facility] Varicella (varivax)(chicken pox) 2007-12-01 00:00:00 Completed [facility] Rubella 2007-12-01 00:00:00 Completed [facility] Varicella (varivax)(chicken pox) 2007-12-01 00:00:00 Completed [facility] Rubella 2007-12-01 00:00:00 Completed [facility] Varicella (varivax)(chicken pox) 2007-12-01 00:00:00 Completed [facility] Rubella 2007-12-01 00:00:00 Completed [facility] Varicella (varivax)(chicken pox) 2007-12-01 00:00:00 Completed [facility] Rubella 2007-12-01 00:00:00 Completed [facility] Varicella (varivax)(chicken pox) 2007-12-01 00:00:00 Completed [facility] Rubella 2007-12-01 00:00:00 Completed [facility] Varicella (varivax)(chicken pox) 2007-12-01 00:00:00 Completed [facility] Rubella 2007-12-01 00:00:00 Completed [facility] Varicella (varivax)(chicken pox) 2007-12-01 00:00:00 Completed [facility] Rubella 2007-12-01 00:00:00 Completed [facility] Varicella (varivax)(chicken pox) 2007-12-01 00:00:00 Completed [facility] Rubella 2007-12-01 00:00:00 Completed [facility] Varicella (varivax)(chicken pox) 2007-12-01 00:00:00 Completed [facility] Rubella 2007-12-01 00:00:00 Completed [facility] Varicella (varivax)(chicken pox) 2007-12-01 00:00:00 Completed [facility] Rubella 2007-12-01 00:00:00 Completed [facility] Varicella (varivax)(chicken pox) 2007-12-01 00:00:00 Completed [facility] Rubella 2007-12-01 00:00:00 Completed [facility] Varicella (varivax)(chicken pox) 2007-12-01 00:00:00 Completed [facility] Rubella 2007-12-01 00:00:00 Completed [facility] Varicella (varivax)(chicken pox) 2007-12-01 00:00:00 Completed [facility] Rubella 2007-12-01 00:00:00 Completed [facility] Varicella (varivax)(chicken pox) 2007-12-01 00:00:00 Completed [facility] Rubella 2007-12-01 00:00:00 Completed [facility] Varicella (varivax)(chicken pox) 2007-12-01 00:00:00 Completed [facility] Rubella 2007-12-01 00:00:00 Completed [facility] Varicella (varivax)(chicken pox) 2007-12-01 00:00:00 Completed [facility] Rubella 2007-12-01 00:00:00 Completed [facility] Varicella (varivax)(chicken pox) 2007-12-01 00:00:00 Completed [facility] Rubella 2007-12-01 00:00:00 Completed [facility] Rubella 2007-12-01 00:00:00 Completed [facility] Varicella (varivax)(chicken pox) 2007-12-01 00:00:00 Completed [facility] Rubella 2007-12-01 00:00:00 Completed [facility] Varicella (varivax)(chicken pox) 2007-12-01 00:00:00 Completed [facility] Varicella (varivax)(chicken pox) 2007-12-01 00:00:00 Completed [facility] Rubella 2007-12-01 00:00:00 Completed [facility] Varicella (varivax)(chicken pox) 2007-12-01 00:00:00 Completed [facility] Rubella 2007-12-01 00:00:00 Completed [facility] Varicella (varivax)(chicken pox) 2007-12-01 00:00:00 Completed [facility] Rubella 2007-12-01 00:00:00 Completed [facility] Varicella (varivax)(chicken pox) 2007-12-01 00:00:00 Completed [facility] Rubella 2007-12-01 00:00:00 Completed [facility] Varicella (varivax)(chicken pox) 2007-12-01 00:00:00 Completed [facility] Rubella 2007-12-01 00:00:00 Completed [facility] Varicella (varivax)(chicken pox) 2007-12-01 00:00:00 Completed [facility] Rubella 2007-12-01 00:00:00 Completed [facility] Varicella (varivax)(chicken pox) 2007-12-01 00:00:00 Completed [facility] Rubella 2007-12-01 00:00:00 Completed [facility] Varicella (varivax)(chicken pox) 2007-12-01 00:00:00 Completed [facility] Rubella 2007-12-01 00:00:00 Completed [facility] Varicella (varivax)(chicken pox) 2007-12-01 00:00:00 Completed [facility] Rubella 2007-12-01 00:00:00 Completed [facility] Varicella (varivax)(chicken pox) 2007-12-01 00:00:00 Completed [facility] Rubella 2007-12-01 00:00:00 Completed [facility] Rubella 2007-12-01 00:00:00 Completed [facility] Varicella (varivax)(chicken pox) 2007-12-01 00:00:00 Completed [facility] Varicella (varivax)(chicken pox) 2007-12-01 00:00:00 Completed [facility] Rubella 2007-12-01 00:00:00 Completed [facility] Varicella (varivax)(chicken pox) 2007-12-01 00:00:00 Completed [facility] Rubella 2007-12-01 00:00:00 Completed [facility] Varicella (varivax)(chicken pox) 2007-12-01 00:00:00 Completed [facility] Rubella 2007-12-01 00:00:00 Completed [facility] Varicella (varivax)(chicken pox) 2007-12-01 00:00:00 Completed [facility] Rubella 2007-12-01 00:00:00 Completed Angy Escotoold - External Varicella Vaccine 2007-12-01 00:00:00 Completed Angy Seybold - External Rubella 2007-12-01 00:00:00 Completed Angy ybold - External Varicella Vaccine 2007-12-01 00:00:00 Completed Angy Sejeanineold - External Rubella 2007-12-01 00:00:00 Completed Angy Seybold - External Varicella Vaccine 2007-12-01 00:00:00 Completed Angy ybold - External Rubella 2007-12-01 00:00:00 Completed Angy Seybold - External Varicella Vaccine 2007-12-01 00:00:00 Completed Angy Seybold - External Rubella 2007-12-01 00:00:00 Completed Angy Seybold - External Varicella Vaccine 2007-12-01 00:00:00 Completed Angy Arthurybold - External Rubella 2007-12-01 00:00:00 Completed Angy Seybold - External Varicella Vaccine 2007-12-01 00:00:00 Completed Angy Seybold - External Rubella 2007-12-01 00:00:00 Completed Angy Seybold Varicella Vaccine 2007-12-01 00:00:00 Completed Angy elaine Td 2006-06-10 00:00:00 Completed [facility] Td 2006-06-10 00:00:00 Completed [facility] Td 2006-06-10 00:00:00 Completed [facility] Td 2006-06-10 00:00:00 Completed [facility] Td 2006-06-10 00:00:00 Completed [facility] Td 2006-06-10 00:00:00 Completed [facility] Td 2006-06-10 00:00:00 Completed [facility] Td 2006-06-10 00:00:00 Completed [facility] Td 2006-06-10 00:00:00 Completed [facility] Td 2006-06-10 00:00:00 Completed [facility] Td 2006-06-10 00:00:00 Completed [facility] Td 2006-06-10 00:00:00 Completed [facility] Td 2006-06-10 00:00:00 Completed [facility] Td 2006-06-10 00:00:00 Completed [facility] Td 2006-06-10 00:00:00 Completed [facility] Td 2006-06-10 00:00:00 Completed [facility] Td 2006-06-10 00:00:00 Completed [facility] Td 2006-06-10 00:00:00 Completed [facility] Td,absorbed PF KSC,Admin,unspecifi ed 2006-06-10 00:00:00 Completed Angy Seybold - External Td 2006-06-10 00:00:00 Completed [facility] Td (adult) 2006-06-10 00:00:00 Completed Angy Seybold - External Td 2006-06-10 00:00:00 Completed [facility] Td,absorbed PF KSC,Admin,unspecifi ed 2006-06-10 00:00:00 Completed Angy Seybold - External Td 2006-06-10 00:00:00 Completed [facility] Td (adult) 2006-06-10 00:00:00 Completed Angy Seybold - External Td 2006-06-10 00:00:00 Completed [facility] Td,absorbed PF KSC,Admin,unspecifi ed 2006-06-10 00:00:00 Completed Angy Seybold - External Td 2006-06-10 00:00:00 Completed [facility] Td (adult) 2006-06-10 00:00:00 Completed Angy Seybold - External Td 2006-06-10 00:00:00 Completed [facility] Td,absorbed PF KSC,Admin,unspecifi ed 2006-06-10 00:00:00 Completed Angy Seybold - External Td 2006-06-10 00:00:00 Completed [facility] Td (adult) 2006-06-10 00:00:00 Completed Angy Seybold - External Td 2006-06-10 00:00:00 Completed [facility] Td,absorbed PF KSC,Admin,unspecifi ed 2006-06-10 00:00:00 Completed Angy Seybold - External Td 2006-06-10 00:00:00 Completed [facility] Td (adult) 2006-06-10 00:00:00 Completed Angy Escotoold - External Td 2006-06-10 00:00:00 Completed [facility] Td,absorbed PF KSC,Admin,unspecifi ed 2006-06-10 00:00:00 Completed Angy Arthurybold - External Td 2006-06-10 00:00:00 Completed [facility] Td (adult) 2006-06-10 00:00:00 Completed Angy Escotoold - External Td 2006-06-10 00:00:00 Completed [facility] Td,absorbed PF KSC,Admin,unspecifi ed 2006-06-10 00:00:00 Completed Angy García Td 2006-06-10 00:00:00 Completed [facility] Td 2006-06-10 00:00:00 Completed [facility] Td 2006-06-10 00:00:00 Completed [facility] Td 2006-06-10 00:00:00 Completed [facility] Td 2006-06-10 00:00:00 Completed [facility] Td 2006-06-10 00:00:00 Completed [facility] Td 2006-06-10 00:00:00 Completed [facility] TD, NOS 2006-06-10 00:00:00 Completed [facility] Td 2006-06-10 00:00:00 Completed [facility] Td 2006-06-10 00:00:00 Completed [facility] PPD-Protein Derivative (Purified)- Tuberculin Unknown Completed Angy García - External Td,absorbed PF KSC,Admin,unspecifi ed Unknown Completed Angy García - External Rubella Unknown Completed Angy blank - External Tdap- (Boostrix, Adacel) Unknown Completed Angy García - External Varicella Vaccine Unknown Completed Willie García - External PPD-Protein Derivative (Purified)- Tuberculin Unknown Completed Angy García - External Influenza Virus Vaccine, No Preserv, age 6 months and up Unknown Completed Angy Arthurybpramod - External Td (adult) Unknown Completed Angy henry - External PPD-Protein Derivative (Purified)- Tuberculin Unknown Completed Angy García - External Td,absorbed PF KSC,Admin,unspecifi ed Unknown Completed Angy Seybold - External Rubella Unknown Completed Angy Arthury bold - External Tdap- (Boostrix, Adacel) Unknown Completed Angy Seybold - External Varicella Vaccine Unknown Completed Willie pathak Seybold - External PPD-Protein Derivative (Purified)- Tuberculin Unknown Completed Angy Seybold - External Influenza Virus Vaccine, No Preserv, age 6 months and up Unknown Completed Angy Seybold - External Td (adult) Unknown Completed Angy Se ybold - External PPD-Protein Derivative (Purified)- Tuberculin Unknown Completed Angy ybold - External Td,absorbed PF KSC,Admin,unspecifi ed Unknown Completed Angy Seybold - External Rubella Unknown Completed Angykip Farris bold - External Tdap- (Boostrix, Adacel) Unknown Completed Angy ybold - External Varicella Vaccine Unknown Completed Willie mini Seybold - External PPD-Protein Derivative (Purified)- Tuberculin Unknown Completed Angy Seybold - External Influenza Virus Vaccine, No Preserv, age 6 months and up Unknown Completed Angy Seybold - External Td (adult) Unknown Completed Angy Se ybold - External PPD-Protein Derivative (Purified)- Tuberculin Unknown Completed Angy Seybold - External Td,absorbed PF KSC,Admin,unspecifi ed Unknown Completed Angy Seybold - External Rubella Unknown Completed Angy Farris bold - External Tdap- (Boostrix, Adacel) Unknown Completed Angy Seybold - External Varicella Vaccine Unknown Completed Willie pathak Seybold - External PPD-Protein Derivative (Purified)- Tuberculin Unknown Completed Angy Seybold - External Influenza Virus Vaccine, No Preserv, age 6 months and up Unknown Completed Angy Seybold - External Td (adult) Unknown Completed Angy Arthur ybold - External PPD-Protein Derivative (Purified)- Tuberculin Unknown Completed Angy Seybold - External Td,absorbed PF KSC,Admin,unspecifi ed Unknown Completed Angy Seybold - External Rubella Unknown Completed Angy Sey bold - External Tdap- (Boostrix, Adacel) Unknown Completed Angy Seybold - External Varicella Vaccine Unknown Completed Willie espinosaey Seybold - External PPD-Protein Derivative (Purified)- Tuberculin Unknown Completed Angy Seybold - External Influenza Virus Vaccine, No Preserv, age 6 months and up Unknown Completed Angy Escotoold - External Td (adult) Unknown Completed Angy solorzanoold - External PPD-Protein Derivative (Purified)- Tuberculin Unknown Completed Angy García - External Td,absorbed PF KSC,Admin,unspecifi ed Unknown Completed Angy García - External Rubella Unknown Completed Angy blank - External Tdap- (Boostrix, Adacel) Unknown Completed Angy García - External Varicella Vaccine Unknown Completed Willie pathak Seybold - External PPD-Protein Derivative (Purified)- Tuberculin Unknown Completed Angy García - External Influenza Virus Vaccine, No Preserv, age 6 months and up Unknown Completed Angy Escotoold - External Td (adult) Unknown Completed Angy solorzanoold - External Vital Signs Vital Name Observation Time Observation Value Comments S ource Systolic blood pressure 2023-10-24 14:07:00 151 mm[Hg] Angy Escotoo ld - External Diastolic blood pressure 2023-10-24 14:07:00 93 mm[Hg] Angy Escotoo ld - External Heart rate 2023-10-24 14:07:00 90 /min Jose andrew Seybold - External Body height 2023-10-24 14:07:00 162.6 cm Angelia ey Seybold - External Body weight 2023-10-24 14:07:00 127.733 kg Angelia ey Seybold - External BMI 2023-10-24 14:07:00 48.34 kg/m2 Angelia ey Seybold - External Systolic blood pressure 2023-10-11 16:35:00 110 mm[Hg] Angy Escotoo ld - External Diastolic blood pressure 2023-10-11 16:35:00 76 mm[Hg] Angy Escotoo ld - External Heart rate 2023-10-11 16:02:00 70 /min Kelse y Seybold - External Body temperature 2023-10-11 16:02:00 36.56 Sharon Angy Arthurybold - External Respiratory rate 2023-10-11 16:02:00 15 /min Angy Arthurybold - External Body height 2023-10-11 16:02:00 162.6 cm Angelia ey Seybold - External Body weight 2023-10-11 16:02:00 121.564 kg Angelia ey Seybold - External BMI 2023-10-11 16:02:00 46.00 kg/m2 Angelia ey Seybold - External Oxygen saturation in Arterial blood by Pulse oximetry 2023-10-11 16:02:00 100 /min Angy Seybo ld - External Body height 2023-09-18 13:58:00 162.6 cm Angelia ey Seybold - External Body weight 2023-09-18 13:58:00 122.471 kg Angelia ey Seybold - External BMI 2023-09-18 13:58:00 46.35 kg/m2 Angelia ey Seybold - External Systolic blood pressure 2023-09-03 13:34:00 130 mm[Hg] Angy Seybo ld - External Diastolic blood pressure 2023-09-03 13:34:00 67 mm[Hg] Angy Seybo ld - External Heart rate 2023-09-03 13:34:00 89 /min Kelse y Seybold - External Body temperature 2023-09-03 13:34:00 37.28 Sharon Angy Seybold - External Respiratory rate 2023-09-03 13:34:00 15 /min Angy Seybold - External Body height 2023-09-03 13:34:00 160 cm Angelia ey Seybold - External Body weight 2023-09-03 13:34:00 128.368 kg Angelia ey Seybold - External BMI 2023-09-03 13:34:00 50.13 kg/m2 Angelia ey Seybold - External Oxygen saturation in Arterial blood by Pulse oximetry 2023-09-03 13:34:00 100 /min Angy Seybo ld - External Systolic blood pressure 2023-05-08 19:59:00 98 mm[Hg] Angy Seybo ld - External Diastolic blood pressure 2023-05-08 19:59:00 62 mm[Hg] Angy Seybo ld - External Heart rate 2023-05-08 19:59:00 [...] blood pressure 2023-02-15 15:57:00 62 mm[Hg] Angy Seybo ld - External Heart rate 2023-02-15 15:57:00 [...] Pulse oximetry 2023-02-15 15:57:00 99 /min Angy Escotoo ld - External Systolic blood pressure 2022-11-16 [...] Body height 2022-08-06 17:30:00 160 cm Angelia morse Seybold - External Body weight 2022-08-06 17:30:00 119.75 kg Angelia ey Seybold - External BMI 2022-08-06 17:30:00 46.77 kg/m2 Angelia morse Seybold - External Oxygen saturation in Arterial blood by Pulse oximetry 2022-08-06 17:30:00 98 /min Angy Escotoo ld - External Systolic blood pressure 2022-08-05 21:34:00 90 mm[Hg] [facility] Diastolic blood pressure 2022-08-05 21:34:00 73 mm[Hg] [facility] Heart rate 2022-08-05 21:34:00 66 /min [facility] Respiratory rate 2022-08-05 21:34:00 20 /min [facility] Oxygen saturation in Arterial blood by Pulse oximetry 2022-08-05 21:34:00 97 /min [facility] Body temperature 2022-08-05 17:41:00 37.11 Sharon [facility] Body height 2022-08-05 17:41:00 160 cm [facility] Body weight 2022-08-05 17:41:00 122.471 kg [facility] BMI 2022-08-05 17:41:00 47.83 kg/m2 [facility] Systolic blood pressure 2021-08-29 13:12:00 120 mm[Hg] Angy Seybo ld Diastolic blood pressure 2021-08-29 13:12:00 83 mm[Hg] Angy Seybo ld Heart rate 2021-08-29 13:12:00 73 /min Blaynese y Seybold Body temperature 2021-08-29 13:12:00 37 Sharon Angy Arthurybold Respiratory rate 2021-08-29 13:12:00 14 /min Angy García Body height 2021-08-29 13:12:00 160 cm Angelia García Body weight 2021-08-29 13:12:00 125.193 kg Angelia García BMI 2021-08-29 13:12:00 48.89 kg/m2 Angelia García Oxygen saturation in Arterial blood by Pulse oximetry 2021-08-29 13:12:00 99 /min Angy Shah Systolic blood pressure 2020-12-15 22:23:00 133 mm[Hg] [facility] Diastolic blood pressure 2020-12-15 22:23:00 87 mm[Hg] [facility] Heart rate 2020-12-15 22:23:00 78 /min [facility] Body temperature 2020-12-15 22:23:00 36.28 Sharon [facility] Respiratory rate 2020-12-15 22:23:00 17 /min [facility] Body weight 2020-12-15 22:23:00 120.203 kg [facility] BMI 2020-12-15 22:23:00 46.94 kg/m2 [facility] Oxygen saturation in Arterial blood by Pulse oximetry 2020-12-15 22:23:00 96 /min [facility] Systolic blood pressure 2020-12-15 22:23:00 133 mm[Hg] [facility] Diastolic blood pressure 2020-12-15 22:23:00 87 mm[Hg] [facility] Heart rate 2020-12-15 22:23:00 78 /min [facility] Body temperature 2020-12-15 22:23:00 36.28 Sharon [facility] Respiratory rate 2020-12-15 22:23:00 17 /min [facility] Body weight 2020-12-15 22:23:00 120.203 kg [facility] BMI 2020-12-15 22:23:00 46.94 kg/m2 [facility] Oxygen saturation in Arterial blood by Pulse oximetry 2020-12-15 22:23:00 96 /min [facility] Systolic blood pressure 2020-11-21 16:05:00 120 mm[Hg] [facility] Diastolic blood pressure 2020-11-21 16:05:00 83 mm[Hg] [facility] Heart rate 2020-11-21 16:05:00 67 /min [facility] Body temperature 2020-11-21 16:05:00 36.5 Sharon [facility] Respiratory rate 2020-11-21 16:05:00 16 /min [facility] Body height 2020-11-21 16:05:00 160 cm Univ [facility] Body weight 2020-11-21 16:05:00 127.489 kg Univ [facility] BMI 2020-11-21 16:05:00 49.79 kg/m2 Univ [facility] Systolic blood pressure 2020-11-21 16:05:00 120 mm[Hg] [facility] Diastolic blood pressure 2020-11-21 16:05:00 83 mm[Hg] [facility] Heart rate 2020-11-21 16:05:00 67 /min [facility] Body temperature 2020-11-21 16:05:00 36.5 Sharon [facility] Respiratory rate 2020-11-21 16:05:00 16 /min [facility] Body height 2020-11-21 16:05:00 160 cm Univ [facility] Body weight 2020-11-21 16:05:00 127.489 kg Univ [facility] BMI 2020-11-21 16:05:00 49.79 kg/m2 Univ [facility] Systolic blood pressure 2020-03-15 16:05:00 126 mm[Hg] [facility] Diastolic blood pressure 2020-03-15 16:05:00 79 mm[Hg] [facility] Heart rate 2020-03-15 16:05:00 66 /min Unive [facility] Body temperature 2020-03-15 16:05:00 36.56 Sharon [facility] Respiratory rate 2020-03-15 16:05:00 16 /min [facility] Body height 2020-03-15 16:05:00 160 cm [facility] Body weight 2020-03-15 16:05:00 117.708 kg [facility] BMI 2020-03-15 16:05:00 45.97 kg/m2 [facility] Systolic blood pressure 2019-08-20 13:51:00 136 mm[Hg] [facility] Diastolic blood pressure 2019-08-20 13:51:00 88 mm[Hg] [facility] Heart rate 2019-08-20 13:21:00 80 /min Unive [facility] Body temperature 2019-08-20 13:21:00 36.22 Sharon [facility] Respiratory rate 2019-08-20 13:21:00 16 /min [facility] Body height 2019-08-20 13:21:00 160 cm [facility] Body weight 2019-08-20 13:21:00 120.855 kg [facility] BMI 2019-08-20 13:21:00 47.20 kg/m2 [facility] Systolic blood pressure 2019-01-15 13:05:00 152 mm[Hg] [facility] Diastolic blood pressure 2019-01-15 13:05:00 90 mm[Hg] [facility] Heart rate 2019-01-15 13:00:00 78 /min [facility] Body temperature 2019-01-15 13:00:00 37.28 Sharon [facility] Respiratory rate 2019-01-15 13:00:00 16 /min [facility] Body height 2019-01-15 13:00:00 160 cm [facility] Body weight 2019-01-15 13:00:00 116.121 kg [facility] BMI 2019-01-15 13:00:00 45.35 kg/m2 [facility] Procedures Procedure Date / Time Performed Performing Clinician Source POCT TEST 2022-08-05 19:53:00 Ruthann Cormier [facility] URINALYSIS 2022-08-05 19:34:00 Ambrosio Cormier [facility] URINE DRUG (IMMUNOASSAY) - COMPREHENSIVE DRUG SCREEN W/O REFLEX 2022-08-05 19:34:00 Ambrosio Cormier [facility] CREATINE KINASE 2022-08-05 18:43:00 Ambrosio Cormier [facility] LIPASE 2022-08-05 18:43:00 Ambrosio Cormier [facility] MAGNESIUM 2022-08-05 18:43:00 Ambrosio Cormier [facility] TROPONIN I 2022-08-05 18:43:00 [facility] FREE T4 2022-08-05 18:43:00 [facility] THYROID STIMULATING HORMONE 2022-08-05 18:43:00 Ambrosio Cormier [facility] COMP. METABOLIC PANEL (39460) 2022-08-05 18:43:00 Ambrosio Cormier [facility] CBC WITH DIFF 2022-08-05 18:43:00 Ambrosio Cormier [facility] GLYCOSYLATED HEMOGLOBIN (A1C) 2022-08-05 18:43:00 Ambrosio Cormier [facility] N-TERMINAL PRO-BNP 2022-08-05 18:43:00 Ambrosio Cormier [facility] CONSENT/REFUSAL FOR DIAGNOSIS AND TREATMENT 2022-08-05 17:28:30 Doctor Unassigned, [place] [facility] ASSIGNMENT OF BENEFITS 2020-11-21 15:37:59 Docto r Unassigned, [place] [facility] HSV 1 AND 2 GLYCOPROTEIN G IGG 2020-03-15 16:24:00 Michele Goodman [facility] HIV 1/2 AG-AB WITH REFLEX 2020-03-15 16:24:00 Michele Goodman [facility] GALV ONLY - SYPHILIS IGG/IGM 2020-03-15 16:24:00 Michele Goodman [facility] ASSIGNMENT OF BENEFITS 2019-08-20 12:50:11 Docto r Unassigned, [place] [facility] POCT TEST 2019-01-15 13:19:00 Simone Goodman [facility] Encounters Start Date/Time End Date/Time Encounter Type Admission Type Attending [facility] Care Facility Care Department Encounter ID Source 2023 09:00:00 2023 09:00:00 Outpatient ANGY ANGY [id number] Angy ybpramod 2023-11-08 16:15:00 2023-11-08 16:15:00 Outpatient PREZABRYAN Mae ANGY CORNEJO [id number] Angy Arthurybpramod 2023-10-25 09:15:00 2023-10-25 09:15:00 Outpatient BETTINA CONNER [facility] [id number] [facility] 2023-10-24 10:15:00 2023-10-24 10:15:00 Outpatient LAB77 ANGY [facility]NE[facility] [id number] [facility] 2023-10-24 09:30:00 2023-10-24 09:30:00 Outpatient IZA SOFIA ANGY CORNEJO [id number] Angy [facility] 2023-10-11 11:00:00 2023-10-11 11:00:00 Outpatient PREBRYAN GUERRA [facility] [id number] [facility] 2023-10-10 08:50:00 2023-10-10 08:50:00 Outpatient LAB90 ANGY [facility]NE[facility] [id number] [facility] 2023-09-18 09:00:00 2023-09-18 09:00:00 Outpatient SOCORRO, GIORGIO CORNEJO [id number] [facility] 2023-09-18 08:25:00 2023-09-18 08:25:00 Outpatient ANGY CORNEJO [id number] Angy [facility] 2023-09-17 00:00:00 2023-09-17 00:00:00 Outpatient PREZAS BRYAN ANGY CORNEJO [id number] [facility] 2023-09-17 00:00:00 2023-09-17 00:00:00 Outpatient SOCORRO, GIORGIO CORNEJO [id number] [facility] 2023-09-03 08:45:00 2023-09-03 08:45:00 Outpatient PREZAS, BRYAN CORNEJO [id number] [facility] 2023-08-23 00:00:00 2023-08-23 00:00:00 Outpatient PREZASBRYAN [id number] [facility] 2023-08-23 00:00:00 2023-08-23 00:00:00 Outpatient PREZAS, BRYAN CORNEJO ANGY [id number] [facility] 2023-08-20 13:30:00 2023-08-20 13:30:00 Outpatient PHILSTEPH ANGY ANGY [id number] Angy Seybold 2023-08-19 00:00:00 2023-08-19 00:00:00 Outpatient PREZAS, BRYAN CORNEJO ANGY [id number] [facility] 2023-08-17 00:00:00 2023-08-17 00:00:00 Outpatient PREZAS, BRYAN ANGY CORNEJO [id number] [facility] 2023-08-16 08:15:00 2023-08-16 08:15:00 Outpatient LABChristina ANGY CORNEJO [id number] [facility] 2023-08-01 00:00:00 2023-08-01 00:00:00 Outpatient PREZAS, BRYAN CORNEJO ANGY [id number] [facility] 2023-07-25 00:00:00 2023-07-25 00:00:00 Outpatient PREZAS, BRYAN ANGY CORNEJO [id number] [facility] 2023-07-24 00:00:00 2023-07-24 00:00:00 Outpatient PREZAS, BRYAN ANGY CORNEJO [id number] [facility] 2023-07-23 00:00:00 2023-07-23 00:00:00 Outpatient PREZAS, BRYAN ANGY CORNEJO [id number] Angy Seybold 2023-07-09 00:00:00 2023-07-09 00:00:00 Outpatient PREZAS, BRYAN ANGY CORNEJO [id number] Angy Seybold 2023-06-19 11:30:00 2023-06-19 11:30:00 Outpatient PREZAS, BRYAN CORNEJO [id number] Angy Sey[facility] 2023-06-17 00:00:00 2023-06-17 00:00:00 Outpatient PREZAS, BRYAN ANGY CORNEJO [id number] [facility] 2023-06-16 00:00:00 2023-06-16 00:00:00 Outpatient PREZAS, BRYAN FRANCISKIP CORNEJO [id number] Angy [facility] 2023-05-16 11:00:00 2023-05-16 11:00:00 Outpatient ANGY CORNEJO [id number] [facility] 2023-05-13 15:00:00 2023-05-13 15:00:00 Outpatient PREZAS, BRYAN ANGY CORNEJO [id number] [facility] 2023-05-10 00:00:00 2023-05-10 00:00:00 Outpatient PREZAS, BRYAN ANGY CORNEJO [id number] [facility] 2023-05-10 00:00:00 2023-05-10 00:00:00 Outpatient PREZAS, BRYAN ANGY CORNEJO [id number] [facility] 2023-05-09 00:00:00 2023-05-09 00:00:00 Outpatient PREZAS, BRYAN ANGY CORNEJO [id number] [facility] 2023-05-09 00:00:00 2023-05-09 00:00:00 Outpatient DIANE RODRIGUEZ [id number] [facility] 2023-05-09 00:00:00 2023-05-09 00:00:00 Outpatient PREZAS, BRYAN ANGY CORNEJO [id number] [facility] 2023-05-08 14:00:00 2023-05-08 14:00:00 Outpatient FLORENCE JUÁREZ [id number] Angy [facility] 2023-05-06 08:00:00 2023-05-06 08:00:00 Outpatient FRANCIA, MIKHAIL CORNEJO [id number] Angy [facility] 2023-05-03 00:00:00 2023-05-03 00:00:00 Outpatient PREZAS, BRYAN CORNEJO [id number] Angy [facility] 2023-05-03 00:00:00 2023-05-03 00:00:00 Outpatient PREZAS, BRYAN CORNEJO [id number] Angy Sey[facility] 2023-05-01 00:00:00 2023-05-01 00:00:00 Outpatient PREZAS, BRYAN CORNEJO ANGY [id number] Angy Arthurpramod 2023-04-30 08:05:00 2023-04-30 08:05:00 Outpatient LAB90 ANGY CORNEJO [id number] Angy Arthurpramod 2023-04-29 16:30:00 2023-04-29 16:30:00 Outpatient KELLEY MANZANO ANGY CORNEJO [id number] Angy [facility] 2023-04-25 00:00:00 2023-04-25 00:00:00 Outpatient PREZAS, BRYAN ANGY CORNEJO [id number] [facility] 2023-04-25 00:00:00 2023-04-25 00:00:00 Outpatient PREZAS, BRYAN ANGY CORNEJO [id number] Angy [facility] 2023-03-22 14:30:00 2023-03-22 14:30:00 Outpatient PREZAS, BRYAN ANGY [facility] [id number] [facility] 2023-03-04 00:00:00 2023-03-04 00:00:00 Outpatient PREZAS, BRYAN ANGY [facility] [id number] [facility] 2023-02-28 15:00:00 2023-02-28 15:00:00 Outpatient ANNELIESE POONYOSEPH [facility] [id number] [facility] 2023-02-24 00:00:00 2023-02-24 00:00:00 Outpatient PREZAS, BRYAN ANGY [facility] [id number] [facility] 2023-02-22 09:05:00 2023-02-22 09:05:00 Outpatient LAB90 ANGY CORNEJO [id number] [facility] 2023-02-22 08:30:00 2023-02-22 08:30:00 Outpatient PREZAS, BRYAN ANGY CORNEJO [id number] [facility] 2023-02-21 00:00:00 2023-02-21 00:00:00 Outpatient PREZAS, BRYAN ANGY CORNEJO [id number] Angy García 2023-02-20 08:05:00 2023-02-20 08:05:00 Outpatient LAB90 ANGY FRANCISSEY [id number] Angy García 2023-02-15 10:15:00 2023-02-15 10:15:00 Outpatient PREZAS, BRYAN CORNEJO ANGY [id number] Angy García 2022-12-17 00:00:00 2022-12-17 00:00:00 Outpatient PREZAS, BRYAN CORNEJO ANGY [id number] [facility] 2022-12-10 00:00:00 2022-12-10 00:00:00 Outpatient PREZAS, BRYAN CORNEJO ANGY [id number] [facility] 2022 00:00:00 2022 00:00:00 Outpatient PREZAS, BRYAN CORNEJO ANGY [id number] [facility] 2022-11-20 00:00:00 2022-11-20 00:00:00 Outpatient PREZAS, BRYAN CORNEJO ANGY [id number] [facility] 2022-11-16 09:50:00 2022-11-16 09:50:00 Outpatient LAB90 ANGY FRANCISSEY [id number] [facility] 2022-11-16 09:15:00 2022-11-16 09:15:00 Outpatient PREZAS, BRYAN CORNEJO ANGY [id number] [facility] 2022-10-30 00:00:00 2022-10-30 00:00:00 Outpatient PREZAS, BRYAN CORNEJO ANGY [id number] Angy [facility] 2022-10-26 00:00:00 2022-10-26 00:00:00 Outpatient PREZAS, BRYAN ANGY ANGY [id number] [facility] 2022-10-25 00:00:00 2022-10-25 00:00:00 Outpatient PREZAS, BRYAN CORNEJO ANGY [id number] [facility] 2022-09-17 11:15:00 2022-09-17 11:15:00 Outpatient PREZAS, BRYAN ANYG CORNEJO [id number] [facility] 2022-08-20 08:45:00 2022-08-20 08:45:00 Outpatient PREZAS, BRYAN CORNEJO ANGY [id number] Angy García 2022-08-14 00:00:00 2022-08-14 00:00:00 Outpatient PREZAS, BYRAN CORNEJO [id number] Angy García 2022-08-14 00:00:00 2022-08-14 00:00:00 Outpatient PREZAS, BRYAN CORNEJO ANGY [id number] Angy García 2022-08-14 00:00:00 2022-08-14 00:00:00 Outpatient PREZAS, BRYAN CORNEJO ANGY [id number] Angy García 2022-08-06 12:05:00 2022-08-06 12:05:00 Outpatient GRAHAM CORNEJO ANGY [id number] Angy García 2022-08-06 11:30:00 2022-08-06 11:30:00 Outpatient PREZAS, BRYAN CORNEJO ANGY [id number] [facility] 2022-08-06 00:00:00 2022-08-06 00:00:00 Outpatient PREZAS, BRYAN CORNEJO ANGY [id number] [facility] 2022-08-05 11:42:00 2022-08-05 15:37:00 Emergency X AMBROSIO CORMIER [facility] ERT [id number] [facility] 2022-08-05 11:42:00 2022-08-05 15:37:00 Emergency Ambrosio Cormier [facility] [id number] 350.1.13.10 4.2.7.2.686 [id number] [facility] 2022-08-03 00:00:00 2022-08-03 00:00:00 Outpatient PREZASBRYAN ANGY ANGY [id number] [facility] 2022-03-27 10:45:00 2022-03-27 10:45:00 Outpatient PREZAS, BRYAN ANGY CORNEJO [id number] Angy [facility] 2022-03-26 00:00:2022-03-26 00:00:00 Outpatient PREZAS, BRYAN CORNEJO [id number] [facility] 2022-01-31 00:00:00 2022-01-31 00:00:00 Outpatient PREZAS, BRYAN CORNEJO [id number] [facility] 2022-01-31 00:00:00 2022-01-31 00:00:00 Outpatient PREZAS, BRYAN CORNEJO [id number] [facility] 2022-01-11 08:00:00 2022-01-11 08:00:00 Outpatient PREZAS, BRYAN CORNEJO [id number] [facility] 2022-01-06 00:00:00 2022-01-06 00:00:00 Outpatient PREZAS, BRYAN CORNEJO [id number] [facility] 2021-12-22 00:00:00 2021-12-22 00:00:00 Outpatient PREZAS, BRYAN CORNEJO [id number] Angy [facility] 2021-12-15 00:00:00 2021-12-15 00:00:00 Outpatient PREZAS, BRYAN CORNEJO [id number] [facility] 2021-12-14 09:35:00 2021-12-14 09:35:00 Outpatient LABChristina CORNEJO [id number] [facility] 2021-12-14 08:30:00 2021-12-14 08:45:00 Office Visit Bryan Waters 1.2.840.114 350.1.13.13 1.2.7.2.686 [id number] Angy Arthurpramod 2021-12-07 08:15:00 2021-12-07 08:30:00 Office Visit Bryan Waters 1.2.840.114 350.1.13.13 1.2.7.2.686 [id number] [facility] 2021-12-06 00:00:00 2021-12-06 00:00:00 Outpatient PREZAS, BRYAN FRANCISSEY [id number] Angy García 2021-09-26 08:00:00 2021-09-26 08:00:00 Outpatient BRYAN WATERS [id number] Angy García 2021-09-26 08:00:00 2021-09-26 08:00:00 Telemedici ne BRYAN WATERS 1.2.840.114 350.1.13.13 1.2.7.2.686 [id number] Angy García 2021-09-01 00:00:00 2021-09-01 00:00:00 Outpatient BRYAN WATERS [id number] Angy García 2021-08-29 08:50:00 2021-08-29 08:50:00 Outpatient LAB90 ANGY CORNEJO [id number] [facility] 2021-08-29 08:00:00 2021-08-29 08:30:00 Office Visit Bryan Waters 1.2.840.114 350.1.13.13 1.2.7.2.686 [id number] Angy [facility] 2021-07-25 14:30:00 2021-07-25 14:30:00 Outpatient LOVELY FLEMING [facility] [id number] [facility] 2021-07-24 00:00:00 2021-07-24 00:00:00 Telephone Michele Goodman [facility] NURSE [facility] 1.2.840.114 350.1.13.10 4.2.7.2.686 [id number] [facility] 2021-07-06 00:00:00 2021-07-06 00:00:00 Telephone Lovely Ford [facility] NURSE [facility] & [facility]ILD [facility] 1.2.840.114 350.1.13.10 4.2.7.2.686 [id number] [facility] 2021-03-23 00:00:00 2021-03-23 00:00:00 Telephone Michele Goodman Nancy [facility] NURSE [facility] & [facility]ILD [facility] 1.2840.114 350.1.13.10 4.2.7.2.686 [id number] [facility] 2020-12-15 17:03:06 2020-12-15 17:18:06 Nurse Visit Nurse, [facility] Office [address] 1.2840.114 350.1.13.10 4.2.7.2.686 [id number] 2020-12-15 17:03:06 2020-12-15 17:18:06 Nurse Visit Nurse [facility] Jazz Montejo [facility] 1.20.114 350.1.13.10 4.2.7.2.686 [id number] [facility] 2020-12-15 17:15:00 2020-12-15 17:15:00 Outpatient R JAZZ MONTEJO [facility] [id number] [facility] 2020-11-21 10:46:50 2020-11-21 12:19:41 Office Visit Lovely Ford [facility] NURSE [facility] 1.2840.114 350.1.13.10 4.2.7.2.686 [id number] 2020-11-21 10:46:50 2020-11-21 12:19:41 Office Visit Lovely Ford [facility] NURSE [facility] & [facility] 1.2840.114 350.1.13.10 4.2.7.2.686 [id number] [facility] 2020-11-21 10:30:00 2020-11-21 10:30:00 Outpatient R LOVELY FORD [facility] [id number] [facility] 2020-11-21 00:00:00 2020-11-21 00:00:00 Orders Only Doctor Unassigned, [place] [facility] 1.2.840.114 350.1.13.10 4.2.7.2.686 [id number] [facility] 2020-08-29 00:00:00 2020-08-29 00:00:00 Patient Outreach Zan Johnson [facility] 1.2.840.114 350.1.13.10 4.2.7.2.686 [id number] [facility] 2020-03-17 00:00:00 2020-03-17 00:00:00 Telephone Michele Goodman [facility] NURSE [facility] & [facility]ILD [facility] 1.2.840.114 350.1.13.10 4.2.7.2.686 [id number] [facility] 2020-03-16 00:00:00 2020-03-16 00:00:00 Telephone Michele Goodman [facility] NURSE [facility] & [facility] 1.2.840.114 350.1.13.10 4.2.7.2.686 [id number] [facility] 2020-03-16 00:00:00 2020-03-16 00:00:00 Telephone Michele Goodman [facility] NURSE [facility] 1.2.840.114 350.1.13.10 4.2.7.2.686 [id number] [facility] 2020-03-16 00:00:00 2020-03-16 00:00:00 Telephone Michele Godoman [facility] NURSE [facility] 1.2.840.114 350.1.13.10 4.2.7.2.686 [id number] [facility] 2020-03-15 10:52:49 2020-03-15 11:17:46 Office Visit Shmuel Michele Cruz [facility] NURSE [facility] & [facility]ILD [facility] 1.2840.114 350.1.13.10 4.2.7.2.686 [id number] [facility] 2020-03-15 10:45:00 2020-03-15 10:45:00 Outpatient R GOODMANMICHELE [facility] [id number] [facility] 2020-01-11 00:00:00 2020-01-11 00:00:00 Telephone Kayley Goodmanmicki Cruz [facility] 1.0.114 350.1.13.10 4.2.7.2.686 [id number] [facility] 2020-01-10 15:40:00 2020-01-10 15:40:00 Outpatient R FLORENCE MARIANO [facility] [id number] [facility] 2020-01-10 14:21:38 2020-01-10 14:41:38 Laboratory Only Lab, [facility] Office [facility] One 1..114 350.1.13.10 4.2.7.2.686 [id number] [facility] 2019-09-10 00:00:00 2019-09-10 00:00:00 Telephone GoodmanMichele [facility] NURSE [facility] & CHILD [facility] 1.20.114 350.1.13.10 4.2.7.2.686 [id number] [facility] 2019-09-02 00:00:00 2019-09-02 00:00:00 Telephone Shmuel Michele [facility] NURSE [facility] CH[facility] 1.2.840.114 350.1.13.10 4.2.7.2.686 [id number] [facility] 2019-08-26 00:00:00 2019-08-26 00:00:00 Telephone Michele Goodman [facility] NURSE [facility] 1.2.840.114 350.1.13.10 4.2.7.2.686 [id number] [facility] 2019-08-25 00:00:00 2019-08-25 00:00:00 Telephone Michele Goodman [facility] NURSE [facility] & [facility] 1.2.840.114 350.1.13.10 4.2.7.2.686 [id number] [facility] 2019-08-24 00:00:00 2019-08-24 00:00:00 Telephone Michele Goodman [facility] NURSE [facility] 1.2.840.114 350.1.13.10 4.2.7.2.686 [id number] 107 [id number] [facility] 2019-08-20 07:56:32 2019-08-20 09:08:45 Office Visit Michele Goodman [facility] NURSE [facility] 1.2.840.114 350.1.13.10 4.2.7.2.686 [id number] 107 [id number] [facility] 2019-08-20 07:45:00 2019-08-20 07:45:00 Outpatient R MICHELE GOODMAN [facility] [id number] [facility] 2019-08-20 00:00:00 2019-08-20 00:00:00 Orders Only Doctor Unassigned, [place] [facility] 1.2.840.114 350.1.13.10 4.2.7.2.686 [id number] [facility] 2019-01-15 07:46:53 2019-01-15 08:36:19 Office Visit Michele Goodman [facility] NURSE [facility] 1.2.840.114 350.1.13.10 4.2.7.2.686 [id number] 107 [id number] [facility] 2019-01-12 00:00:00 2019-01-12 00:00:00 Telephone Michele Goodman [facility] 1.2.840.114 350.1.13.10 4.2.7.2.686 [id number] 107 [id number] [facility] Results Test Description Test Time Test Comments Results Result Co mments Source [facility] - SYPHILIS [id number] 16:49:00* Test Item Value Reference Range Interpretation Comme [facility] Syphilis IgG/IgM (test code = 97984-3) Non-reactive Non-reactive KELY (test code = KELY) Non-reactive - No serologic evidence of T. pallidum infection. Cannot exclude incubating or early syphilis. Submit a second specimen in 2-4 weeks if syphilis is clinically suspected. Equivocal - Further testing to follow. Reactive - Further testing to follow. Lab Interpretation (test code = 22212-5) Normal [facility] 1 AND 2 GLYCOPROTEIN G [id number] 15:45:00* Test Item Value Reference Range Interpretation Comme nts HSV I IgG (test code = 9994108038) Positive Negative HSV II IgG (test code = 4031532567) Positive Negative KELY (test code = KELY) Positive - IgG ant ibody to HSV 1 and/or HSV 2 detected.Negative - No HSV 1 and/or HSV 2 antibody detected.Equivocal - A second sample should be sent. [facility] WITH [id number] 05:11:00* Test Item Value Reference Range Interpretation Comme [facility] HIV Semi-quantitative (test code = 86821-6) Negative Negative KELY (test code = KELY) Non-reactive for HIV-1 antigen and HIV-1/HIV-2 antibodies. ?No laboratory evidence of HIV infection. ?Repeat in 2-4 weeks if acute HIV infection is suspected. [facility] [id number] 13:19:00* Test Item Value Reference Range Interpretation Comme nts POCT PREG (test code = 1605) Negative On board controls acceptable with C Line (test code = 3574) Yes POCT PREG LOT # (test code = 3575) POCT PREG TEST DATE ( test code = 3576) [facility] [id number] 13:19:00* Test Item Value Reference Range Interpretation Comme nts POCT PREG (test code = 1605) Negative On board controls acceptable with C Line (test code = 3574) Yes POCT PREG LOT # (test code = 3575) POCT PREG TEST DATE ( test code = 3576) [facility] Notes Date/Time Note Provider Source 2023-10-24 09:08:49 [id number]:08:49F ormatting of this note might be different from the original.Rose Acosta is here today for her Well Woman Exam.Patient's last menstrual period was 10/09/2023 (within days).The patient's last pap smear with HPV Testing was 2019 @ [facility] Smear Results: normalLast mammogram was neverExamination [place] [id number] WfkrAL0548-77-60Z30:12:15Nurse [id number]. [id number] for patient [id number] NoteLNNARRATIVEFormatted C-CDA narrative textBLAYNECOMANCHE COUNTY MEMORIAL [facility]OSPITAL – LAWTONFRANCPeoples Hospital[facility].[id number] 9225-05-00L80:12:151.2.840.334888.1.7 2.3.15|1.2.840.716187.1.13.131.2.7.2. [id number] [facility] 2023-09-18 09:00:03 0502-60-46C97:00:03F ormatting of this note is different from the original.Chief ComplaintPatient presents withShoulder PainOnset of left shoulder pain about 1 week. Pt. Denies injury.Mateus Lopezectronically signed by Almita Stoner LVN at 09/18/2023 12:45 PM [id number] TtzeIF0020-16-56S15:45:46Nurse NoteTXT1.2.840.180680.1.13.131.2.7.2. 982145|[id number] for patient [id number] NoteLNNARRATIVEFormatted C-CDA narrative textThedacare Medical Center [facility]ano[facility].[id number]:45:461.2.840.875710.1.7 2.3.15|1.2.840.799613.1.13.131.2.7.2. [id number] [facility] 2023-02-22 08:14:29 9783-29-59O07:14:29F ormatting of this note might be different from the original.Rose Acosta is a 37 year old female in office to follow on labs. [id number] NbhdIJ0105-39-57G80:15:10Nurse NoteTXT1.2.840.274101.1.13.131.2.7.2. 784103|[id number] for patient [id number] NoteLNThedacare Medical Center Shawano27[facility].[id number]:15:101.2.840.136279.1.7 2.3.15|1.2.840.596101.1.13.131.2.7.2. [id number] [facility]"
[2023-11-25] MEDS ORDERED: ASPIRIN 81 MG CHEWABLE TABLET ONE (08:57)
[2023-11-25] MEDS ORDERED: NITROGLYCERIN 0.4 MG/TAB SL ONE (08:58)
--- NOTE | 2023-11-25 09:19 | RAD REPORT ---
EXAM DESCRIPTION: RAD - Chest Single View - 11/25/2023 9:14 am CLINICAL HISTORY: CHEST PAIN Chest pain. COMPARISON: Chest Single View dated 10/01/2020; Chest Single View dated 01/17/2020; Chest Single View d ated 06/20/2017; CHEST SINGLE VIEW dated 07/02/2013 FINDINGS: Portable technique limits examination quality. The lungs are grossly clear. The heart is normal in size. No displaced fractures. IMPRESSION: No acute intrathoracic process suspected.
[2023-11-25 09:24] LABS: Absolute Eosinophils 0.3 K/uL (0-0.5); Absolute Lymphocytes (CBC) 1.1 K/uL (0.7-4.9); Absolute Monocytes 0.5 K/uL (0.1-1.3); Absolute Neutrophil 5.3 K/uL (1.8-8.0); Basophils % 0.3 % (0-1.3); Eosinophils % 3.6 % (0-4.4); Hematocrit 38.7 % (36.0-45.0); Lymphocytes % 15.5 % (15.3-44.8); MCHC 33.6 g/dL (32.0-36.0); MCV 86.2 fL (80-100); MPV 9.4 fL (7.6-11.3); Monocytes % 6.4 % (3.3-12.3); Neutrophils % 74.2 % (41.7-73.7); Nucleated Red Blood Cells % 0.1 % (0-0); Platelets 158 thou/uL (152-406); RBC Red Blood Cell Count 4.48 M/uL (3.86-4.86); Red Cell Distribution Width 13.2 % (12.1-15.2)
[2023-11-25 10:04] LABS: ALT/SGPT 21 U/L (13-56); AST/SGOT 12 U/L (15-37); Albumin/Globulin Ratio 0.8 (1.1-1.8); Alkaline Phosphatase 61 U/L (45-117); Anion Gap 8.5 mEq/L (5.0-15.0); BUN Blood Urea Nitrogen 12 mg/dL (7-18); Bicarbonate 25 mEq/L (21-32); Bilirubin Total 0.6 mg/dL (0.2-1.0); Globulin 3.7 g/dL (2.3-3.5); Glomerular Filtration Rate 50 ml/min (=/>90); Glucose Level 157 mg/dL (74-106); Magnesium 1.5 mg/dL (1.6-2.4); NT PRO-BNP 266 pg/mL (<125); Potassium 3.5 mEq/L (3.5-5.1); Protein, Total 6.7 g/dL (6.4-8.2); Sodium Level 137 mEq/L (136-145); Troponin High Sensitivity 3.2 pg/mL (<58.9)
[2023-11-25 10:07] LABS: Bilirubin Direct < 0.2 mg/dL (0-0.2); Bilirubin Indirect, Calculated 0.4 mg/dL (0.2-0.8)
[2023-11-25 11:29] LABS: Specific Gravity 1.017 (1.005-1.030)
[2023-11-25 11:32] LABS: Barbiturates NEGATIVE (NEGATIVE); Benzodiazepines NEGATIVE (NEGATIVE); Cocaine NEGATIVE (NEGATIVE); METHAMPHETAM NEGATIVE (NEGATIVE); Methadone NEGATIVE (NEGATIVE); Opiates NEGATIVE (NEGATIVE); Phencyclidine NEGATIVE (NEGATIVE); THC Cannibis NEGATIVE (NEGATIVE)
[2023-11-25 11:41] LABS: Specific Gravity 1.017 (1.005-1.030); Sqamous Epithelial <5 /HPF (None Seen); Urine Bacteria <20 /HPF (<20); Urine Bilirubin NEGATIVE (Negative); Urine Blood Negative (Negative); Urine Clarity Turbid (Clear); Urine Color Light-Yellow (Yellow); Urine Culture Reflex Order REFLEXED; Urine Glucose NEGATIVE (Negative); Urine Ketones NEGATIVE (Negative); Urine Micro Reflex YN NO BILL MICROSCOPIC; Urine Mucus Slight /HPF (None Seen); Urine Nitrite NEGATIVE (Negative); Urine Protein TRACE (Negative); Urine RBC <5 /HPF (None Seen); Urine Urobilinogen Normal (Normal); Urine WBC 20-50 /HPF (<5); Urine pH 5.5 (5.0-7.0)
--- NOTE | 2023-11-25 12:12 | RAD REPORT ---
EXAM DESCRIPTION: CT - Chest For Pe Angio - 11/25/2023 12:02 pm CLINICAL HISTORY: Chest pain. Chest pain;SOB COMPARISON: Chest For Pe Angio dated 06/20/2017 TECHNIQUE: CT angiogram of the pulmonary arteries was performed with MIP. All CT scans are performed using dose optimization technique as appropriate and may include automated exposure control or mA/KV adjustment according to patient size. FINDINGS: No evidence of pulmonary thromboembolism. No acute aortic finding demonstrated. 5 cm patchy opacity is seen in the right lung base which may represent infiltrate. The lungs are othe rwise clear. No significant pericardial or pleural fluid. No concerning bony finding. IMPRESSION: No evidence of pulmonary thromboembolism. Patchy opacity is seen in the posterior right lung base likely representing infiltrate/pneumonia.
[2023-11-25] MEDS ORDERED: CEFTRIAXONE 1000 MG/VIAL ONE (13:02)
[2023-11-25] MEDS ORDERED: AZITHROMYCIN 250 MG TAB ONE (13:03)
[2023-11-25] MEDS ORDERED: MAGNESIUM OXIDE 400 MG TAB ONE (13:03)
--- NOTE | 2023-11-25 13:04 | ER ---
Nurse's Notes [facility] Name: Rose Guardado Age: 37 yrs Sex: Female : 1985 Arrival Date: 11/25/2023 Time: 08:30 Bed 5 Private MD: Diagnosis: Chest pain, unspecified;Other pneumonia, unspecified organism Presentation: 11/24 08:32 Chief complaint: Patient states: mid-sternal chest pain and high blood pressure 170/102 aa5 reading at home since last night. Pt reports chest pain is radiating to her left arm today and slight SOB. 08:32 Coronavirus screen: At this time, the client does not indicate any symptoms associated aa5 with coronavirus-19. Ebola Screen: Patient denies travel to an Ebola-affected area in the 21 days before illness onset. Initial Sepsis Screen: Does the patient meet any 2 criteria? No. Patient's initial sepsis screen is negative. Does the patient have a suspected source of infection? No. Patient's initial sepsis screen is negative. Risk Assessment: Do you want to hurt yourself or someone else? Patient reports no desire to harm self or others. Onset of symptoms was November 2023. 08:32 Acuity: TATIANA 3 aa5 08:32 Method Of Arrival: Ambulatory aa5 Historical: - Allergies: 08:32 Lisinopril; aa5 08:32 Prednisone; aa5 - PMHx: 08:32 Anxiety; depressive disorder; diabetes mellitus; Hypertension; TIA; aa5 - PSHx: 08:32 section; x 3; aa5 - Immunization history:: Adult Immunizations unknown. - Infectious Disease History:: Denies. - Social history:: Smoking status: Patient denies any tobacco usage or history of. Screenin:15 [facility] ED Fall Risk Assessment (Adult) History of falling in the last 3 months, ld1 including since admission No falls in past 3 months (0 pts). Abuse screen: Denies threats or abuse. Denies injuries from another. Nutritional screening: No deficits noted. Tuberculosis screening: No symptoms or risk factors identified. Assessment: 09:15 General: Appears in no apparent distress. comfortable, Behavior is calm, cooperative, ld1 appropriate for age. Pain: Complains of pain in chest Pain does not radiate. Pain currently is 8 out of 10 on a pain scale. Quality of pain is described as throbbing, Pain began suddenly, Is continuous. Neuro: Level of Consciousness is awake, alert, obeys commands, Oriented to person, place, time, situation. Cardiovascular: Capillary refill < 3 seconds Patient's skin is warm and dry. Rhythm is sinus rhythm. Respiratory: Airway is patent Respiratory effort is even, unlabored. GI: Abdomen is round non-distended. : No signs and/or symptoms were reported regarding the genitourinary system. EENT: No signs and/or symptoms were reported regarding the EENT system. Derm: No signs and/or symptoms reported regarding the dermatologic system. Musculoskeletal: No signs and/or symptoms reported regarding the musculoskeletal system. Vital Signs: 08:32 BP 148 / 89; Pulse 82; Resp 16 S; Temp 97.8(TE); Pulse Ox 99% on R/A; Weight 117.93 kg aa5 (R); Height 5 ft. 3 in. (R); 09:15 BP 148 / 89; Pulse 74; Resp 18; Pulse Ox 99% on R/A; ld1 09:50 BP 127 / 78 LA; ld1 09:53 BP 125 / 78 RA; Pulse 65; Resp 18; Pulse Ox 99% on R/A; ld1 08:32 Body Mass Index 46.06 (117.93 kg, 160.02 cm) aa5 ED Course: 08:32 Patient arrived in ED. mr 08:32 Arm band placed on Patient placed in an exam room, on a stretcher. ll1 08:33 René Mckeon PA is PHCP. cp 08:33 Michael Chris MD is Attending Physician. cp 08:34 Emerald Loomis, TENZIN is Primary Nurse. iw 08:40 EKG done, by ED staff, reviewed by René RUEDA. aa5 08:46 Triage completed. aa5 09:15 XRAY Chest (1 view) In Process Unspecified. EDMS 09:15 Patient has correct armband on for positive identification. Placed in gown. Bed in low ld1 position. Call light in reach. Side rails up X2. radiation monitor on. Pulse ox on. NIBP on. Door closed. Noise minimized. Warm blanket given. 09:15 No provider procedures requiring assistance completed. Inserted saline lock: 20 gauge ld1 in right antecubital area, using aseptic technique. Blood collected. 09:15 Oxygen administration via nasal cannula. ld1 12:03 CT Chest For PE Angio In Process Unspecified. EDWA 13:27 Provided Education on: . iw 13:27 IV discontinued, intact, bleeding controlled, No redness/swelling at site. Pressure iw dressing applied. Administered Medications: 09:01 Drug: Aspirin PO Chewable Tablet 324 mg PO once; 81 mg tablets x 4 Route: PO; ld1 09:30 Follow up: Response: No adverse reaction iw 09:01 Drug: Nitroglycerin Sublingual 0.4 mg Sublingual once Route: Sublingual; ld1 13:00 Follow up: Response: No adverse reaction iw 13:06 Drug: AZITHromycin PO 500 mg PO once Route: PO; ld1 13:28 Follow up: Response: No adverse reaction iw 13:06 Drug: Rocephin IV 1 grams IV at calculated rate once; Given slow IV push per pharmacy ld1 instructions Route: IV; Rate: calculated rate; Site: right antecubital; 13:20 Follow up: IV Status: Completed infusion iw 13: Drug: Magnesium PO 400 mg PO once Route: PO; ld1 13:28 Follow up: Response: No adverse reaction iw Medication: 13:27 VIS not applicable for this client. iw Outcome: 13:04 Discharge ordered by . 13:27 Discharged to home ambulatory, iw 13:27 Condition: good 13:27 Discharge instructions given to patient, Instructed on discharge instructions, follow up and referral plans. Demonstrated understanding of instructions, follow-up care, medications, Prescriptions given X 2, 13:27 Patient left the ED. iw Signatures: Dispatcher [employer] EDWA Ambar Bhatia, Reg Reg mr Emerald Loomis RN RN iw Tere Saldana, RN RN aa5 René Mckeon PA PA cp Lewis, Lynsay, RN RN ll1 Ashanti Moore RN RN ld1 Corrections: (The following items were deleted from the chart) 08:47 08:43 EKG done, aa5 aa5 09:54 09:53 BP 125 / 78; Pulse 65bpm; Resp 18bpm; Pulse Ox 99% RA; ld1 ld1
--- NOTE | 2023-11-25 13:04 | EDPHYS ---
Physician Documentation [facility] Name: Rose Guardado Age: 37 yrs Sex: Female : 1985 Arrival Date: 11/25/2023 Time: 08:30 Bed 5 Private MD: ED Physician Michael Chris HPI: 11/24 08:50 This 37 yrs old Female presents to ER via Ambulatory with complaints of Chest Pain, cp High Blood Pressure. 08:50 The patient or guardian reports chest pain that is located primarily in the substernal cp area. 08:50 The pain radiates to the left arm. Associated signs and symptoms: Pertinent positives: cp shortness of breath, Pertinent negatives: cough, lower extremity pain, lower extremity swelling, lightheadedness, near syncope, palpitations, syncope. The chest pain is described as a pressure. Duration: The patient or guardian reports a single episode, that is still ongoing, and worsening. Historical: - Allergies: 08:32 Lisinopril; aa5 08:32 Prednisone; aa5 - PMHx: 08:32 Anxiety; depressive disorder; diabetes mellitus; Hypertension; TIA; aa5 - PSHx: 08:32 section; x 3; aa5 - Immunization history:: Adult Immunizations unknown. - Infectious Disease History:: Denies. - Social history:: Smoking status: Patient denies any tobacco usage or history of. ROS: 08:50 Cardiovascular: Positive for chest pain, cp 08:50 Respiratory: Positive for shortness of breath, cp 08:50 All other systems are negative, Exam: 08:50 ECG was reviewed by the Attending Physician. cp 08:55 Constitutional: The patient appears in no acute distress, alert, awake, cp non-diaphoretic, non-toxic, well developed, well nourished, obese, uncomfortable, 08:55 Head/Face: Normocephalic, atraumatic. cp 08:55 Eyes: Periorbital structures: appear normal, Conjunctiva: normal, no exudate, no injection, Sclera: no appreciated abnormality, Lids and lashes: appear normal, bilaterally, 08:55 ENT: External ear(s): are unremarkable, Nose: is normal, Mouth: Lips: moist, Oral mucosa: pink and intact, moist, Posterior pharynx: is normal, airway is patent, no erythema, no exudate, 08:55 Neck: ROM/movement: is normal, is supple, without pain, no range of motions limitations, 08:55 Chest/axilla: Inspection: normal, 08:55 Cardiovascular: Rate: normal, Rhythm: regular, Edema: is not appreciated, JVD: is not appreciated, 08:55 Respiratory: the patient does not display signs of respiratory distress, Respirations: normal, no use of accessory muscles, no retractions, labored breathing, is not present, Breath sounds: are clear throughout, no decreased breath sounds, no stridor, no wheezing, 08:55 Abdomen/GI: Inspection: abdomen appears normal, Bowel sounds: active, all quadrants, Palpation: abdomen is soft and non-tender, in all quadrants, 08:55 Back: pain, is absent, ROM is normal, 08:55 Neuro: Orientation: to person, place \T\ time. Mentation: is normal, Motor: moves all fours, no focal deficits, Sensation: no obvious gross deficits, Vital Signs: 08:32 BP 148 / 89; Pulse 82; Resp 16 S; Temp 97.8(TE); Pulse Ox 99% on R/A; Weight 117.93 kg aa5 (R); Height 5 ft. 3 in. (R); 09:15 BP 148 / 89; Pulse 74; Resp 18; Pulse Ox 99% on R/A; ld1 09:50 BP 127 / 78 LA; ld1 09:53 BP 125 / 78 RA; Pulse 65; Resp 18; Pulse Ox 99% on R/A; ld1 08:32 Body Mass Index 46.06 (117.93 kg, 160.02 cm) aa5 MDM: 08:33 Patient medically screened. 10:00 Differential diagnosis: abnormal EKG, acute myocardial infarction, cholecystitis, cp Cholelithiasis herpes zoster, pancreatitis, pleurisy, pneumonia, pneumothorax, pulmonary embolus, stable angina, unstable angina. 13:04 Data reviewed: vital signs, nurses notes, lab test result(s), EKG, radiologic studies, cp plain films. 13:04 I considered the following discharge prescriptions or medication management in the emergency department Medications were administered in the Emergency Department. See MAR. Independent interpretation of the following test(s) in the Emergency Department EKG: See my EKG interpretation above. Care significantly affected by the following chronic conditions: Diabetes, Hypertension. 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 Special discussion: Based on the patient's history, exam, and Dx evaluation, there is no indication for emergent intervention or inpatient Tx. It is understood by the patient/guardian that if the Sx's persist or worsen they need to return immediately for re-evaluation. 11/24 08:36 Order name: Urinalysis W/Microscopic; Complete Time: 12:47 11/24 12:47 Interpretation: Normal except: UCLA Turbid; UPROT TRACE; UESTR 250; UWBC 20-50. 11/24 08:36 Order name: Test, Urine; Complete Time: 11:32 11/24 11:32 Interpretation: Reviewed. 11/24 08:49 Order name: Basic Metabolic Panel; Complete Time: 10:08 11/24 10:08 Interpretation: Normal except: GLUC 157; CRE 1.39; GFR 50; CA 8.1. 11/24 08:49 Order name: CBC with Diff; Complete Time: 09:32 11/24 09:32 Interpretation: Normal except: PAMELA% 74.2. 11/24 08:49 Order name: LFT's; Complete Time: 10:08 11/24 10:09 Interpretation: Normal except: AST 12; ALB 3.0; GLOB 3.7; A/G 0.8. 11/24 08:49 Order name: Magnesium; Complete Time: 10:08 11/24 10:09 Interpretation: Normal except: MG 1.5. 11/24 08:49 Order name: NT PRO-BNP; Complete Time: 10:08 11/24 10:09 Interpretation: Abnormal: NT PRO-BNP 266. 11/24 08:49 Order name: Troponin HS; Complete Time: 10:08 11/24 10:09 Interpretation: Within normal limits: Troponin HS 3.2. cp 11/24 08:49 Order name: UDS; Complete Time: 12:47 cp 11/24 12:47 Interpretation: Reviewed. 11/24 11:46 Order name: Troponin HS: repeat \T\1200; Complete Time: 12:47 cp 11/24 12:49 Interpretation: Reviewed. 11/24 11:49 Order name: Urine Culture EDMS 11/24 08:49 Order name: XRAY Chest (1 view); Complete Time: 09:32 11/24 10:00 Interpretation: Report review. 11/24 11:46 Order name: CT Chest For PE Angio; Complete Time: 12:47 11/24 08:36 Order name: EKG; Complete Time: 08:36 11/24 08:36 Order name: EKG - Nurse/Tech; Complete Time: 08:44 11/24 08:49 Order name: Cardiac monitoring; Complete Time: 08:49 11/24 08:49 Order name: IV Saline Lock; Complete Time: 09:15 11/24 08:49 Order name: Labs collected and sent; Complete Time: 09:15 11/24 08:49 Order name: O2 Per Protocol; Complete Time: 08:49 11/24 08:49 Order name: O2 Sat Monitoring; Complete Time: 08:49 11/24 09:32 Order name: Blood Pressure Recheck: bilateral upper extremity; Complete Time: 09:54 cp EC:50 Rate is 75 beats/min. Rhythm is regular. ID interval is normal. QRS interval is normal. cp QT interval is normal. T waves are Inverted in lead aVR. Interpreted by me. Reviewed by me. Administered Medications: 09:01 Drug: Aspirin PO Chewable Tablet 324 mg PO once; 81 mg tablets x 4 Route: PO; ld1 09:30 Follow up: Response: No adverse reaction iw 09: Drug: Nitroglycerin Sublingual 0.4 mg Sublingual once Route: Sublingual; ld1 13:00 Follow up: Response: No adverse reaction iw 13:06 Drug: AZITHromycin PO 500 mg PO once Route: PO; ld1 13:28 Follow up: Response: No adverse reaction iw 13:06 Drug: Rocephin IV 1 grams IV at calculated rate once; Given slow IV push per pharmacy ld1 instructions Route: IV; Rate: calculated rate; Site: right antecubital; 13:20 Follow up: IV Status: Completed infusion iw 13:06 Drug: Magnesium PO 400 mg PO once Route: PO; ld1 13:28 Follow up: Response: No adverse reaction iw Disposition: 16:13 Co-signature as Attending Physician, Michael Chris MD I reviewed the patient's care rn provided by the Advanced Practice Provider and agree with the diagnosis and treatment plan. Disposition Summary: 11/25/23 13:04 Discharge Ordered Notes: Location: Home cp Problem: new cp Symptoms: have improved cp Condition: Stable cp Diagnosis - Chest pain, unspecified cp - Other pneumonia, unspecified organism cp Followup: cp - With: Private Physician - When: 2 - 3 days - Reason: Recheck today's complaints Discharge Instructions: - Discharge Summary Sheet cp - Nonspecific Chest Pain, Adult cp - Community-Acquired Pneumonia, Adult cp - Aspirin and Your Heart cp - Form - Blood Pressure Record Sheet cp - How to Take Your Blood Pressure cp Forms: - Medication Reconciliation Form cp - Antibiotic Education cp - Prescription Opioid Use cp - Patient Portal Instructions cp - Leadership Thank You Letter cp - Work release form ll1 Prescriptions: - Ibuprofen 800 mg Oral Tablet - take 1 tablet ORAL route every 8 hours As needed take with food; 30 tablet; cp Refills: 0, Product Selection Permitted - Zithromax Z-[place] 250 mg Oral Tablet - take 1 tablet ORAL route as directed for 5 days Day 1 - take two (2) tablets cp one time. Day 2, 3, 4 , 5 take one (1) tablet once daily.; 6 tablet; Refills: 0, Product Selection Permitted Signatures: Dispatcher [employer] EDMS Michael Chris MD MD rn Calderon, Audri RN RN aa5 René Mckeon PA PA cp Ashanti Moore RN RN ld1 Emerald Loomis RN iw Corrections: (The following items were deleted from the chart) 08:36 08:36 Urinalysis W/Microscopic+U.LAB.BRZ ordered. EDMS EDMS 08:37 08:36 Test, Urine+UC.LAB.BRZ ordered. EDMS EDMS 11:46 11:46 Troponin High Sensitivity+C.LAB.BRZ ordered. EDMS EDMS
[2023-11-25 13:39] VITALS: BP 125/78; TEMP 97.8; O2SAT 99
--- NOTE | 2023-11-25 14:51 | EKG ---
Test Date: 2023-11-25 Test Time: 08:40:53 Brim Presser: TRACY MEASUREMENT RESULTS: Intervals: Rate: 75 MT: 170 QRSD: 80 QT: 400 QTc: 446 [place]: P: 34 MT: 170 QRS: 11 T: 18 INTERPRETIVE STATEMENTS: Normal sinus rhythm Normal ECG Compared to ECG 05/22/2023 08:04:53 No significant changes Electronically Signed On 11-25-23 14:50:27 CDT by Sam Aguirre
== END 2023-11-25 13:27 | disposition home or self-care (01) ==
LOC: ER 08:30
DX: J18.8 Other pneumonia, unspecified organism (principal)
CPT/HCPCS: 93005; 87088; 85025; 81001; 87086; 80048; 36415; 83735; 81025; 80076; 84484 ×2; 83880; 80307; 71275; 71045; Q9967; J0696; 87077; 87186; 96374; 99285